=== PATIENT | male | born 1970 | race Caucasian/White ===

== ENCOUNTER 2017-11-11 06:24 | Inpatient (IN) | payer MEDICARE, SELFPAY ==
[2017-11-11] VITALS (12 sets, daily range): BP systolic 114–136; BP diastolic 85–108; PULSE 84–98; RESP 16–26; TEMP 36.3–36.5; O2SAT 94–100; BMI 22.4; BMI 21.9; BMI 22.5
--- NOTE | 2017-11-11 06:30 | EKG12_ITS ---
Test Reason : GEN ILLNESS Blood Pressure : / mmHG Vent. Rate : 094 BPM Atrial Rate : 094 BPM P-R Int : 146 ms QRS Dur : 164 ms QT Int : 428 ms P-R-T Axes : 055 260 050 degrees QTc Int : 535 ms Atrial-sensed ventricular-paced rhythm Abnormal ECG Confirmed by MIREILLE PABLO, TONYA ([id number]), editorial clerk SONIYA ALEGRIA ([id number]) on 11/14/2017 2:56:33 PM Referred By: ANDRESSA Confirmed By:TONYA KENDRICK MD
--- NOTE | 2017-11-11 06:30 | RAD_ITS ---
STUDY: X-RAY CHEST REASON FOR EXAM: Male, 47 years old. Cough TECHNIQUE: Single frontal view of the chest. COMPARISON: 07/13/2015 FINDINGS: Pacemaker defibrillator on the right. Right basilar alveolar disease. There is no demonstrated pleural abnormality. There is mild cardiac enlargement. Normal mediastinum and caleb. Normal visualized pulmonary arteries. Normal visualized aortic arch and descending thoracic aorta. Normal visualized thoracic spine. Normal visualized ribs, clavicles, and shoulders. There is no demonstrated abnormality of the visualized soft tissue structures of the upper abdomen. RAD/Chest 1 View (Portable) IMPRESSION: Right basilar alveolar disease. Electronically Signed: Chadd Marks MD at 7:02 EDT Tel , Service support ,
--- NOTE | 2017-11-11 06:32 | ED.VISSUMM ---
- ER Visit Summary Date of Service: 11/11/17 Chief Complaint: weakness History of Present Illness: The patient is a 47 M with history of pacemaker, atrial fibrillation, myocardial infarction, heart failure, hypertension and cholecystectomy who presents for weakness for 2 weeks. Patient states he has been having extreme weakness gradually worsening over the last 2 weeks, with 1 week of hematemesis, hemoptysis, blood in his stool, and now leg swelling. He has associated abdominal pain, vomiting, severe right lower chest pain, shortness of breath, cough and panic attacks. Patient was evaluated at [facility] 3 days ago and states that he was sent home. He denies any drug or alcohol use. Denies history of liver disease but does state his organs shut down but then came back during a prior hospitalization. He does not know why he is having bleeding. Physical Examination: Vital signs: afebrile, hemodynamically stable, no hypoxia on room air General: Cachectic and unkempt appearing, appears unwell and anxious Skin: Pale, moist, no lesions or rashes HEENT: normocephalic and atraumatic; PERRL, EOMI, dry mucous membranes, mild scleral icterus, no blood noted in oropharynx Cardiovascular: Tachycardic rate and rhythm without murmurs, 2+ pitting symmetric peripheral edema, 2+ pulses all distal extremities Respiratory: Mild increased work of breathing, no rales, rhonchi or wheezing appreciated Abdominal: Abdomen is soft, diffusely tender, with normoactive bowel sounds, no guarding or rebound, no masses, no organomegaly noted, rectal exam showed brown stool, no blood noted MSK: Moves all extremities, no deformities, generalized weakness Neuro: Awake and alert, oriented ?4. No facial droop, sensation and motor function intact and symmetric Test Results: [] Emergency Department Course and Treatment: Patient presents with multiple complaints, including generalized weakness, right sided chest pain, abdominal pain, GI bleed, and states that this is been progressing over the last 2 weeks. After further questioning, patient states that he has had worsening symptoms since his mother in May of last year and he has no one to help him, with gradual worsening feeling of being overwhelmed. He is having difficulty giving a timeline of what symptoms are chronic and what is acute, but he states his chest pain is much worse than normal and the bleeding is also new. Given the multiple complaints with differential including cardiac, infectious, metabolic, tox or gastrointestinal origin, broad workup was performed. Patient was given morphine, Zofran for symptomatic relief and Protonix for the reported hematemesis. He was given IV hydration. CBC showed leukocytosis of 15.7. Hemoglobin was elevated at 16.7. EKG showed a paced rhythm with no ischemic changes per sgarbossa criteria. It is unchanged compared to a prior EKG obtained from [facility]. Chest x-ray, BMP, hepatic panel, troponin pending. Records were obtained from [facility] from 11/05/17 where patient presented with similar symptoms to today. They note he had stopped taking his medications over 1 month ago. Patient was treated with Vasotec, Lopressor and Protonix at that time. He had workup concerning for heart failure. At that time patient's troponin was normal, he had ALT of 137, and a chest x-ray showing no pulmonary findings. Troponin back elevated at 0.25, lactate elevated at 2. Patient has transaminitis, worse than his prior labs at [facility] 1 week ago. Leukocytosis of 15.7. Chest x-ray showed right lower alveolar disease, concerning for possible alveolar hemorrhage vs pneumonia. Patient did not have any hemoptysis in the emergency department, despite frequent coughing, that would be concerning for alveolar hemorrhage. Because of the leukocytosis, cough, complaint of right-sided chest pain, patient was started on treatment for pneumonia. Patient will require admission for further management of concern for pneumonia with sepsis, the elevated troponin and congestive heart failure, and the transaminitis, likely worsening of a chronic liver condition. Patient has no evidence of GI bleed. Patient discussed with Dr. Guardado and admitted. Treatment Plan: [] Disposition: Admission Impression: 1. Pneumonia 2. Sepsis 3. CHF 4. Elevated troponin 5. Transaminitis 6. Dyspnea This note was generated with [employer] dictation software. It may contain incorrect words, spelling, and punctuation that were not noted in review of the chart prior to signing ED Disposition - Plan for ED Patient: Chief Complaint: General Illness Referrals: [facility] Doctor,Out of [Primary Care Provider] -
[2017-11-11] MEDS: 0.9% Normal Saline 1,000 ML 1000 ML IV (06:51)
[2017-11-11] MEDS: Ondansetron 4 MG/2 ML Vial IV (06:52)
[2017-11-11 06:59] LABS: Absolute Lymphocyte Count 1.34 X10^3/ul (0.83-4.51); Absolute Neutrophil Count 12.8 X10^3/uL (2.0-7.7); Basophil# 0.01 X10^3/uL; Basophil% 0.1 % (0-1); Eosinophil# 0.01 X10^3/uL; Eosinophils% 0.1 % (0-5); Hematocrit 47.6 % (40-54); Hemoglobin 16.7 g/dl (13.0-16.5); Lymphocyte # 1.34 X10^3/ul (4.0); Lymphocyte % 8.6 % (19-41); Mean Corp Hgb Conc 35.1 g/gl (32-36); Mean Corpuscular Hgb 33.1 pg (27.0-32.0); Mean Corpuscular Volume 94.4 fL (80-94); Mean Platelet Vol. 9.9 fl (6.2-12.0); Monocyte# 1.43 X10^3/uL; Monocyte% 9.1 % (0-10); Neutrophil # 12.81 X10^3/uL (2.7-7.7); Neutrophil % 81.8 % (47-70); POSITIVE COUNT NO; POSITIVE DIFFERENTIAL NO; POSITIVE MORPHOLOGY NO; Platelet Count 172 K/mm3 (150-450); RBC Distribution Width SD 43.6 fl (35.1-43.9); Red Blood Count 5.04 M/mm3 (4.6-6.2); White Blood Count 15.7 K/mm3 (4.4-11.0)
[2017-11-11] MEDS: Morphine 4 MG/ML Syringe IV (07:03)
[2017-11-11 07:08] LABS: International Normalized Ratio 1.4; Prothrombin Time (Protime)PT. 16.8 SECONDS (11.7-14.9)
[2017-11-11 07:09] LABS: Partial Thromboplast Time 30.3 Seconds (24.1-36.2)
[2017-11-11 07:11] LABS: Bedside Glucose 124 mg/dL (70-110)
[2017-11-11 07:14] LABS: AST(SGOT) 198 U/L (15-37); Alanine Aminotransfer ALT/SGPT 426 U/L (16-61); Albumin, Serum 2.6 g/dL (3.2-5.0); Alkaline Phosphatase 448 U/L (45-117); Anion Gap 10 (5-15); BUN 36 mg/dL (7-18); BUN/Creat Ratio 30.8 RATIO (10-20); Bilirubin, Direct 0.43 mg/dL (0.00-0.30); Calcium,Total 9.2 mg/dL (8.5-10.1); Chloride 97 mmol/L (98-107); Creatinine, Serum 1.17 mg/dL (0.70-1.30); EST Glomerular Filtration Rate 70 mL/min (>60); Est Glom Filt Rate - Afr Amer 85 mL/min (>60); Estimated Creatinine Clearance 81.13 ml/min; Globulin 3.1 g/dL (2.2-4.2); Glucose 111 mg/dL (74-106); Lipase 101 U/L (73-393); Potassium 3.7 mmol/L (3.5-5.1); Protein, Total 5.7 g/dL (6.4-8.2); Sodium Level 133 mmol/L (136-145)
--- NOTE | 2017-11-11 07:15 | ED.RN ---
BEDSIDE REPORT. PT IS HYPERVENTILATING WHEN NURSING ENTERED ROOM. ENCOURAGED SLOW DEEP BREATHING. PT DIFFICULT TO REDIRECT IN WITH BREATHING. ONCE RELAXES AND STARTS TO FALL ASLEEP BREATHING SETTLES.
--- NOTE | 2017-11-11 07:18 | ED.RN ---
LACTIC 2.0. DR WILSON
--- NOTE | 2017-11-11 07:39 | ED.RN ---
PT STATES HE CAN NOT URINATE RIGHT NOW HE NEEDS A LITTLE MORE TIME. HAD ABOUT 500CC OF 1 LITER BOLUS, WILL TRY AFTER LITER IS COMPLETE.
--- NOTE | 2017-11-11 07:42 | NURSING ---
PCU CP, INDETERMINATE TROP, HEMOPTYSIS ASHELFAH
[2017-11-11] MEDS: HYDROmorphone 0.5 MG/0.5 ML SYRINGE IV (08:17)
--- NOTE | 2017-11-11 08:45 | ECHOD_ITS ---
Version 3 Reason For Study: CHF Procedure This was a 2D Doppler, Color Flow transthoracic echocardiogram. The exam was of adequate technical quality. Exam performed portable in patient room. Left Ventricle Severely dilated left ventricle. Severe segmental systolic dysfunction (see wall motion). The estimated ejection fraction is < 10 %. Unable to assess diastolic dysfunction. Anterio-Basal: Severely hypokinetic. Lateral-Basal: Severely Hypokinetic. Posterior-Basal: Severely hypokinetic. Infero-Basal: Akinetic. Basal inferoseptal: Akinetic. Basal anteroseptal: Akinetic. Mid-Anterior : Akinetic. Mid-Lateral : Severely Hypokinetic. Mid-Posterior: Severely Hypokinetic. Mid-Inferior: Akinetic. Mid-inferoseptal : Akinetic. Mid-anteroseptal : Akinetic. Anterior [place] : Akinetic. Inferior [place] : Akinetic. Lateral [place] : Severely Hypokinetic. Septal [place] : Akinetic. Right Ventricle Mildly dilated right ventricle. ICD or pacer leads identified within the right ventricle. Mild global right ventricular systolic dysfunction. Atria The left atrium is moderately enlarged. The right atrium is moderately enlarged. ICD or pacer leads identified within the right atrium. No doppler evidence for ASD. Mitral Valve There is no mitral annular calcification. Moderate papillary muscle dysfunction of the mitral valve. Moderate (2+) mitral valve insufficiency. Tricuspid Valve Normal tricuspid valve. Moderate (2+) tricuspid valve insufficiency. Right ventricular systolic pressure estimated to be 44 mmHg. Aortic Valve Trisinus/trileaflet aortic valve. Normal aortic valve. Pulmonic Valve The pulmonic valve is not well visualized. Trivial pulmonic valve insufficiency. Great Vessels Normal sized aortic root. Pericardium/Pleural No pericardial effusion. MMode/2D Measurements & Calculations LVIDd: 7.3 cm IVSd: 1.1 cm Ao root diam: 2.7 cm LVIDs: 6.9 cm LVPWd: 1.2 cm LA dimension: 4.1 cm RVDd: 5.0 cm FS: 4.4 % LAV(MOD-bp): 121.0 ml LA A4 area: 30.1 cm2 RA A4 area: 23.7 cm2 LAV(MOD-bp) Indexed: 61.6 ml/m2 LAV(MOD-sp2): 131.6 ml LAV(MOD-sp4): 111.4 ml Doppler Measurements & Calculations MV E max ember: 112.9 cm/sec Ao V2 max: 55.2 cm/sec LV V1 max: 46.0 cm/sec Ao max P.2 mmHg LV V1 max P.84 mmHg MR max ember: 453.7 cm/sec PA V2 max: 69.5 cm/sec PI end-d ember: 146.4 cm/sec MR max P.6 mmHg MR mean ember: 339.0 cm/sec MR mean P.4 mmHg MR VTI: 131.8 cm TR max ember: 267.4 cm/sec TR max P.6 mmHg Interpretation Summary Severely dilated left ventricle. Severe segmental systolic dysfunction (see wall motion). The estimated ejection fraction is < 10 %. Mildly dilated right ventricle. Mild global right ventricular systolic dysfunction. The left atrium is moderately enlarged. The right atrium is moderately enlarged. Moderate papillary muscle dysfunction of the mitral valve. Moderate (2+) mitral valve insufficiency. Moderate (2+) tricuspid valve insufficiency. Trivial pulmonic valve insufficiency. Right ventricular systolic pressure estimated to be 44 mmHg. Unable to assess diastolic dysfunction. ICD or pacer leads identified within the right atrium ICD or pacer leads identified within the right ventricle. Ordering Physician: Morris Guardado Referring Physician: OTD Performed By: Autumn James RDCS, RVT
--- NOTE | 2017-11-11 09:58 | PCM.HP.STD ---
Problem List (1) Anxiety Status: Chronic (2) Coronary artery disease Status: Chronic (3) Ischemic cardiomyopathy Status: Chronic (4) Status post placement of cardiac pacemaker Status: Chronic (5) S/P implantation of automatic cardioverter/defibrillator (AICD) Status: Chronic History of Present Illness Date of Admission: 11/11/17 Chief Complaint: Shortness of breath, weakness. The patient is a 47 year old M with past medical history as mentioned above presented to the emergency room because of shortness of breath and weakness. At this time, the patient is sleepy and lethargic but arousable. He is oriented ?3. He mentioned that his main presenting complaint was shortness of breath that has been going on for 2 weeks. He gets short of breath even at rest, aggravated by activity and somewhat relieved by rest. He complains of right chest pain underneath his defibrillator and he mentioned that has been going on for 2 weeks as well. He denies left-sided chest pain. He complains of coughing up and throwing up blood that started today. He reported dark stools but no bright red blood in the urine. Was not able to like consistent detailed history but rather giving multiple complaints. He mentioned that he has been not able to sleep for the last 3-4 days, having panic attacks and anxiety as well. He thinks that he will if he sleeps. Reportedly, he was evaluated at [facility] 3 days ago and he was discharged home. He had a history of CAD and according to him, he had no cardiac interventions including PCI or CABG. He had a history of congestive heart failure status post ICD and reportedly, he is noncompliant and does not take his medication at home. When I asked him about his medication, he was able to tell me the list of medication that he takes very quickly. He had a history of atrial fibrillation status post pacemaker and it is not clear if he is on any anticoagulation. In the emergency department, his vital signs were stable, he was slightly tachypneic and his pulse ox was initially 98% on room air and then 96% on 3 L. His routine blood work is remarkable for leukocytosis, sodium of 133, otherwise normal. His LFT were elevated including liver transaminases, bilirubin and alkaline phosphatase. His troponin is 0.257. His BNP was 3773. Lipase was normal. Lactic acid was normal. His EKG revealed paced rhythm. Chest x-ray showed minimal right basilar alveolar disease likely due to pulmonary vascular congestion. He is being admitted for acute on chronic probably systolic CHF, questionable hemoptysis/hematemesis, elevated LFT and borderline elevated troponin. Past Medical History Past Medical History (Chronic Problems): Chronic Problems Anxiety (Chronic) Coronary artery disease (Chronic) Ischemic cardiomyopathy (Chronic) Status post placement of cardiac pacemaker (Chronic) S/P implantation of automatic cardioverter/defibrillator (AICD) (Chronic) Allergies No Known Allergies Allergy (Verified 11/11/17 06:29) Home Medications: Ambulatory Orders Medication Instructions Recorded Unobtainable [Unobtainable] 11/11/17 Surgical History: cholecystectomy Psychiatric History: Anxiety Smoking Status: Current every day smoker Alcohol: None Drugs: None - *Family History Maternal History Items: No pertinent history Review of Systems Constitutional: Reports: Weakness, Fatigue. Denies: Anorexia, Chills, Fever Eyes: Denies: Blurred vision, Double vision, Drainage, Redness HEENT: Denies: Difficulty Hearing, Ear Pain, Eye Pain, Nasal Congestion, Sore Throat Cardiovascular: Reports: Chest Pain, Edema. Denies: Chest Pressure, Heaviness, Light Headedness, Orthopnea, Palpitations, Paroxysmal Noc. Dyspnea, Syncope Respiratory: Reports: Hemoptysis, Pleuritic Pain, Shortness of Breath, Shortness of breath at rest, Shortness of breath upon exertion. Denies: Cough, Sputum production, Wheezing Gastrointestinal: Reports: Hematemesis. Denies: Abdominal Pain, Constipation, Diarrhea, Nausea, Vomiting Genitourinary: Denies: Dysuria, Frequency, Hematuria Musculoskeletal: Denies: Arm Pain, Back Pain, Foot Pain, Joint swelling, Joint Tenderness Skin: Denies: Dryness, Rash Neurological: Denies: Balance problems, Double vision, Change in Speech, Slurred speech, Confusion, Focal weakness, Headaches, Incoordination Psychiatric: Reports: Anxiety. Denies: Depression Endocrine: Denies: Change in Body Habitus, Polydipsia VTE Information - Inpt Only VTE Present on Admission: No VTE Mechan Device Prophylaxis: None VTE Pharm Prophylaxis ordered?: No - Physical Exam General: Alert, Oriented x3, Cooperative, Lethargic, - - Mildly short of breath. HEENT: Atraumatic, PERRLA, EOMI Oral: Moist Mucosa, No Gingival or Mucosal Lesions/ Ulcerations Neck: Supple, No JVD, Negative Carotid Bruits, Trachea Midline, Thyroid Normal Size and Texture Lungs: No rhonchi, No wheeze, Diminished, Rales, Short of Breath, - - Decreased breath sounds bilateral, bilateral basal crackles. Cardiovascular: Regular rate, Regular Rhythm, Normal S1, Normal S2, PMI Normal Abdomen: Bowel Sounds Present, Soft, Non Tender, Non-Distended, No Hepato-splenomegaly Extremities: No clubbing, No cyanosis, Edema - + Edema. Skin: No rashes, No breakdown Lymphatic: No Cervical, Supraclavicular, or Inguinal Adenopathy Neurological: Cranial nerves II-XII grossly intact, Motor Exam 5/5 strength throughout Psych/Mental Status: Flat Affect, Alert and oriented to time, place, person, mood and affect Vital Signs Temp Pulse Resp BP Pulse Ox 97.5 F L 95 18 126/95 H 96 11/11/17 08:46 11/11/17 09:08 11/11/17 08:46 11/11/17 08:46 11/11/17 08:46 Oxygen Flow Rate (L/min) 3 Oxygen Delivery Method Nasal Cannula Weight: 166 lb 7.184 oz Body Mass Index (BMI) 21.9 Laboratory Tests Past 24 Hrs 11/11/17 09:45 Magnesium Pending Troponin I Pending TSH Pending Clinical Impression(s) from Imaging Studies Chest X-Ray 11/11/17 06:30 IMPRESSION: Right basilar alveolar disease. Electronically Signed: Chadd Marks MD at 7:02 EDT Tel , Service support , Microbiology 11/11/17 07:10 Stool Occult Blood (ISABEL) - Final Stool Laboratory Tests 11/11/17 11/11/17 11/11/17 Range/Units 07:07 06:40 06:40 WBC (4.4-11.0) K/mm3 RBC (4.6-6.2) M/mm3 Hgb (13.0-16.5) g/dl Hct (40-54) % MCV (80-94) fL MCH (27.0-32.0) pg MCHC (32-36) g/gl RDW (11.6-14.6) % RDW Differential (35.1-43.9) fl Plt Count (150-450) K/mm3 MPV (6.2-12.0) fl Immature Gran % (Auto) (0.0-0.9) % Neut % (Auto) (47-70) % Lymph % (Auto) (19-41) % [place] % (Auto) (0-10) % Eos % (Auto) (0-5) % Baso % (Auto) (0-1) % Absolute Neuts (auto) (2.0-7.7) X10^3/uL Absolute Lymphs (auto) (0.83-4.51) X10^3/ul Total Counted PT (11.7-14.9) SECONDS INR APTT (24.1-36.2) Seconds Sodium (136-145) mmol/L Potassium (3.5-5.1) mmol/L Chloride (98-107) mmol/L Carbon Dioxide (21.0-32.0) mmol/L Anion Gap (5-15) BUN (7-18) mg/dL Creatinine (0.70-1.30) mg/dL Estim Creat Clear Calc ml/min Est GFR (MDRD) Af Amer (>60) mL/min Est GFR (MDRD) Non-Af (>60) mL/min BUN/Creatinine Ratio (10-20) RATIO Glucose (74-106) mg/dL Lactic Acid 2.0 (0.4-2.0) mmol/L Calcium (8.5-10.1) mg/dL Total Bilirubin (0.20-1.00) mg/dL Direct Bilirubin (0.00-0.30) mg/dL AST (15-37) U/L ALT (16-61) U/L Alkaline Phosphatase (45-117) U/L Troponin I (<0.045) ng/mL B-Natriuretic Peptide 3773.0 H (0-100) pg/mL Total Protein (6.4-8.2) g/dL Albumin (3.2-5.0) g/dL Globulin (2.2-4.2) g/dL Lipase (73-393) U/L Ethyl Alcohol mg/dL POC Glucose 124 H (70-110) mg/dL Blood Type A1 Antigen Typing Rho(D) Type Antibody Screen 11/11/17 11/11/17 11/11/17 Range/Units 06:35 06:35 06:35 WBC (4.4-11.0) K/mm3 RBC (4.6-6.2) M/mm3 Hgb (13.0-16.5) g/dl Hct (40-54) % MCV (80-94) fL MCH (27.0-32.0) pg MCHC (32-36) g/gl RDW (11.6-14.6) % RDW Differential (35.1-43.9) fl Plt Count (150-450) K/mm3 MPV (6.2-12.0) fl Immature Gran % (Auto) (0.0-0.9) % Neut % (Auto) (47-70) % Lymph % (Auto) (19-41) % [place] % (Auto) (0-10) % Eos % (Auto) (0-5) % Baso % (Auto) (0-1) % Absolute Neuts (auto) (2.0-7.7) X10^3/uL Absolute Lymphs (auto) (0.83-4.51) X10^3/ul Total Counted PT (11.7-14.9) SECONDS INR APTT (24.1-36.2) Seconds Sodium 133 L (136-145) mmol/L Potassium 3.7 (3.5-5.1) mmol/L Chloride 97 L (98-107) mmol/L Carbon Dioxide 26.0 (21.0-32.0) mmol/L Anion Gap 10 (5-15) BUN 36 H (7-18) mg/dL Creatinine 1.17 (0.70-1.30) mg/dL Estim Creat Clear Calc 81.13 ml/min Est GFR (MDRD) Af Amer 85 (>60) mL/min Est GFR (MDRD) Non-Af 70 (>60) mL/min BUN/Creatinine Ratio 30.8 H (10-20) RATIO Glucose 111 H (74-106) mg/dL Lactic Acid (0.4-2.0) mmol/L Calcium 9.2 (8.5-10.1) mg/dL Total Bilirubin 1.30 H (0.20-1.00) mg/dL Direct Bilirubin 0.43 H (0.00-0.30) mg/dL AST 198 H (15-37) U/L ALT 426 H (16-61) U/L Alkaline Phosphatase 448 H (45-117) U/L Troponin I 0.257 H (<0.045) ng/mL B-Natriuretic Peptide (0-100) pg/mL Total Protein 5.7 L (6.4-8.2) g/dL Albumin 2.6 L (3.2-5.0) g/dL Globulin 3.1 (2.2-4.2) g/dL Lipase 101 (73-393) U/L Ethyl Alcohol 4.0 mg/dL POC Glucose (70-110) mg/dL Blood Type Cancelled A1 Antigen Typing Cancelled Rho(D) Type Cancelled Antibody Screen Cancelled 11/11/17 11/11/17 Range/Units 06:35 06:35 WBC 15.7 H (4.4-11.0) K/mm3 RBC 5.04 (4.6-6.2) M/mm3 Hgb 16.7 H (13.0-16.5) g/dl Hct 47.6 (40-54) % MCV 94.4 H (80-94) fL MCH 33.1 H (27.0-32.0) pg MCHC 35.1 (32-36) g/gl RDW 13.0 (11.6-14.6) % RDW Differential 43.6 (35.1-43.9) fl Plt Count 172 (150-450) K/mm3 MPV 9.9 (6.2-12.0) fl Immature Gran % (Auto) 0.300 (0.0-0.9) % Neut % (Auto) 81.8 H (47-70) % Lymph % (Auto) 8.6 L (19-41) % [place] % (Auto) 9.1 (0-10) % Eos % (Auto) 0.1 (0-5) % Baso % (Auto) 0.1 (0-1) % Absolute Neuts (auto) 12.8 H (2.0-7.7) X10^3/uL Absolute Lymphs (auto) 1.34 (0.83-4.51) X10^3/ul Total Counted Not Reportable PT 16.8 H (11.7-14.9) SECONDS INR 1.4 APTT 30.3 (24.1-36.2) Seconds Sodium (136-145) mmol/L Potassium (3.5-5.1) mmol/L Chloride (98-107) mmol/L Carbon Dioxide (21.0-32.0) mmol/L Anion Gap (5-15) BUN (7-18) mg/dL Creatinine (0.70-1.30) mg/dL Estim Creat Clear Calc ml/min Est GFR (MDRD) Af Amer (>60) mL/min Est GFR (MDRD) Non-Af (>60) mL/min BUN/Creatinine Ratio (10-20) RATIO Glucose (74-106) mg/dL Lactic Acid (0.4-2.0) mmol/L Calcium (8.5-10.1) mg/dL Total Bilirubin (0.20-1.00) mg/dL Direct Bilirubin (0.00-0.30) mg/dL AST (15-37) U/L ALT (16-61) U/L Alkaline Phosphatase (45-117) U/L Troponin I (<0.045) ng/mL B-Natriuretic Peptide (0-100) pg/mL Total Protein (6.4-8.2) g/dL Albumin (3.2-5.0) g/dL Globulin (2.2-4.2) g/dL Lipase (73-393) U/L Ethyl Alcohol mg/dL POC Glucose (70-110) mg/dL Blood Type A1 Antigen Typing Rho(D) Type Antibody Screen Assessment/Plan This is a 47 years old male patient presented to the emergency room because of multiple complaints but mainly with shortness of breath and weakness and he was found to have findings consistent with acute on chronic systolic CHF including elevated BNP and chest x-ray findings. Also, he complained of hemoptysis and hematemesis although there was no evidence of active GI bleed. #1 acute on chronic systolic CHF: This is based on symptoms, chest x-ray findings, past history and highly elevated BNP. EKG reviewed, revealed paced rhythm. Troponin is 0.257. Patient complained of right lateral chest pain. Plan: Admit to PCU, cardiac monitoring, serial cardiac enzymes, fluid restriction to less than 1500 cc daily, start IV Lasix, 2D echocardiogram, start Coreg, lisinopril, cardiology consult, repeat CBC and BMP tomorrow morning, PT OT evaluation and treatment. #2 leukocytosis/elevated lactic acid: At this time, I doubt acute infection. Lactic acid is elevated likely because of hypoxia and CHF. He is afebrile. Chest x-ray showed no acute infiltrate, revealed a right lower lobe atelectasis versus pulmonary vascular congestion. Received 1 dose of IV Rocephin in the emergency room. Blood culture sent. Plan: Urinalysis, repeat lactic acid and another 6 hours, follow blood cultures, repeat CBC tomorrow morning. At this time, no indication to continue IV antibiotics. #3 questionable hematemesis/hemoptysis: Patient reported that he has been coughing up blood and throwing up blood. His stool was negative for occult blood. Hemoglobin 16.7 g with serum. He is not tachycardic. Plan: Start IV Protonix, repeat CBC in the morning. #4 chest pain/elevated troponin: He complains of right lateral chest pain underneath his ICD. EKG revealed paced rhythm, no acute changes. 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 #5 elevated LFT: This could be due to liver congestion secondary to CHF. Other etiology such as infectious hepatitis, be ruled out. Plan to treat underlying CHF, repeat LFTs tomorrow morning. #6 CAD: According to the patient, no prior interventions. Plan as above, we will start him on statins, beta blockers and RADHA inhibitors as above. #7 chronic CHF/ischemic cardiomyopathy/status post ICD: With acute exacerbation of CHF. Plan as above, IV Lasix for diuresis, beta blockers, RADHA inhibitors, cardiology consult, the echocardiogram. #8 chronic atrial fibrillation: Status post pacemaker. Heart rate stable, blood pressure stable. At this time, I am not sure if patient is on anticoagulation. I am waiting for his home medication list to be faxed from his pharmacy or his PCPs office. #9 anxiety: Patient mentioned that he has been anxiety and panic attacks. He thinks that he would if he sleeps. He did not sleep for last 3 days. Plan: Ativan as needed, Ambien nightly as needed. #10 DVT prophylaxis: SCDs. This note was generated with [employer] software. It may contain incorrect words, spelling, and punctuation that were not noted in checking the note before signing. Code Visit Inpatient E&M: 41573 Init Hosp L3
--- NOTE | 2017-11-11 10:07 | HP.PCM_ITS ---
Problem List (1) Anxiety Status: Chronic (2) Coronary artery disease Status: Chronic (3) Ischemic cardiomyopathy Status: Chronic (4) Status post placement of cardiac pacemaker Status: Chronic (5) S/P implantation of automatic cardioverter/defibrillator (AICD) Status: Chronic History of Present Illness Date of Admission: 11/11/17 Chief Complaint: Shortness of breath, weakness. The patient is a 47 year old M with past medical history as mentioned above presented to the emergency room because of shortness of breath and weakness. At this time, the patient is sleepy and lethargic but arousable. He is oriented ?3. He mentioned that his main presenting complaint was shortness of breath that has been going on for 2 weeks. He gets short of breath even at rest , aggravated by activity and somewhat relieved by rest. He complains of right chest pain underneath his defibrillator and he mentioned that has been going on for 2 weeks as well. He denies left-sided chest pain. He complains of coughing up and throwing up blood that started today. He reported dark stools but no bright red blood in the urine. Was not able to like consistent detailed history but rather giving multiple complaints. He mentioned that he has been not able to sleep for the last 3-4 days, having panic attacks and anxiety as well. He thinks that he will if he sleeps. Reportedly, he was evaluated at [facility] 3 days ago and he was discharged home. He had a history of CAD and according to him, he had no cardiac interventions including PCI or CABG. He had a history of congestive heart failure status post ICD and reportedly, he is noncompliant and does not take his medication at home. When I asked him about his medication, he was able to tell me the list of medication that he takes very quickly. He had a history of atrial fibrillation status post pacemaker and it is not clear if he is on any anticoagulation. In the emergency department, his vital signs were stable, he was slightly tachypneic and his pulse ox was initially 98% on room air and then 96% on 3 L. His routine blood work is remarkable for leukocytosis, sodium of 133, otherwise normal. His LFT were elevated including liver transaminases, bilirubin and alkaline phosphatase. His troponin is 0.257. His BNP was 3773. Lipase was normal. Lactic acid was normal. His EKG revealed paced rhythm. Chest x-ray showed minimal right basilar alveolar disease likely due to pulmonary vascular congestion. He is being admitted for acute on chronic probably systolic CHF, questionable hemoptysis/hematemesis, elevated LFT and borderline elevated troponin. Past Medical History Past Medical History (Chronic Problems): Chronic Problems Anxiety (Chronic) Coronary artery disease (Chronic) Ischemic cardiomyopathy (Chronic) Status post placement of cardiac pacemaker (Chronic) S/P implantation of automatic cardioverter/defibrillator (AICD) (Chronic) Allergies No Known Allergies Allergy (Verified 11/11/17 06:29) Home Medications: Ambulatory Orders Medication Instructions Recorded Unobtainable [Unobtainable] 11/11/17 Surgical History: cholecystectomy Psychiatric History: Anxiety Smoking Status: Current every day smoker Alcohol: None Drugs: None - *Family History Maternal History Items: No pertinent history Review of Systems Constitutional: Reports: Weakness, Fatigue. Denies: Anorexia, Chills, Fever Eyes: Denies: Blurred vision, Double vision, Drainage, Redness HEENT: Denies: Difficulty Hearing, Ear Pain, Eye Pain, Nasal Congestion, Sore Throat Cardiovascular: Reports: Chest Pain, Edema. Denies: Chest Pressure, Heaviness, Light Headedness, Orthopnea, Palpitations, Paroxysmal Noc. Dyspnea, Syncope Respiratory: Reports: Hemoptysis, Pleuritic Pain, Shortness of Breath, Shortness of breath at rest, Shortness of breath upon exertion. Denies: Cough, Sputum production, Wheezing Gastrointestinal: Reports: Hematemesis. Denies: Abdominal Pain, Constipation, Diarrhea, Nausea, Vomiting Genitourinary: Denies: Dysuria, Frequency, Hematuria Musculoskeletal: Denies: Arm Pain, Back Pain, Foot Pain, Joint swelling, Joint Tenderness Skin: Denies: Dryness, Rash Neurological: Denies: Balance problems, Double vision, Change in Speech, Slurred speech, Confusion, Focal weakness, Headaches, Incoordination Psychiatric: Reports: Anxiety. Denies: Depression Endocrine: Denies: Change in Body Habitus, Polydipsia VTE Information - Inpt Only VTE Present on Admission: No VTE Mechan Device Prophylaxis: None VTE Pharm Prophylaxis ordered?: No - Physical Exam General: Alert, Oriented x3, Cooperative, Lethargic, - - Mildly short of breath. HEENT: Atraumatic, PERRLA, EOMI Oral: Moist Mucosa, No Gingival or Mucosal Lesions/ Ulcerations Neck: Supple, No JVD, Negative Carotid Bruits, Trachea Midline, Thyroid Normal Size and Texture Lungs: No rhonchi, No wheeze, Diminished, Rales, Short of Breath, - - Decreased breath sounds bilateral, bilateral basal crackles. Cardiovascular: Regular rate, Regular Rhythm, Normal S1, Normal S2, PMI Normal Abdomen: Bowel Sounds Present, Soft, Non Tender, Non-Distended, No Hepato- splenomegaly Extremities: No clubbing, No cyanosis, Edema - + Edema. Skin: No rashes, No breakdown Lymphatic: No Cervical, Supraclavicular, or Inguinal Adenopathy Neurological: Cranial nerves II-XII grossly intact, Motor Exam 5/5 strength throughout Psych/Mental Status: Flat Affect, Alert and oriented to time, place, person, mood and affect Vital Signs Temp Pulse Resp BP Pulse Ox 97.5 F L 95 18 126/95 H 96 11/11/17 08:46 11/11/17 09:08 11/11/17 08:46 11/11/17 08:46 11/11/17 08:46 Oxygen Flow Rate (L/min) 3 Oxygen Delivery Method Nasal Cannula Weight: 166 lb 7.184 oz Body Mass Index (BMI) 21.9 Laboratory Tests Past 24 Hrs 11/11/17 09:45 Magnesium Pending Troponin I Pending TSH Pending Clinical Impression(s) from Imaging Studies Chest X-Ray 11/11/17 06:30 IMPRESSION: Right basilar alveolar disease. Electronically Signed: Chadd Marks MD at 7:02 EDT Tel , Service support , Microbiology 11/11/17 07:10 Stool Occult Blood (ISABEL) - Final Stool Laboratory Tests 3 11/11/17 11/11/17 11/11/17 Range/Units 07:07 06:40 06:40 WBC (4.4-11.0) K/mm3 RBC (4.6-6.2) M/mm3 Hgb (13.0-16.5) g/dl Hct (40-54) % MCV (80-94) fL MCH (27.0-32.0) pg MCHC (32-36) g/gl RDW (11.6-14.6) % RDW Differential (35.1-43.9) fl Plt Count (150-450) K/mm3 MPV (6.2-12.0) fl Immature Gran % (Auto) (0.0-0.9) % Neut % (Auto) (47-70) % Lymph % (Auto) (19-41) % [place] % (Auto) (0-10) % Eos % (Auto) (0-5) % Baso % (Auto) (0-1) % Absolute Neuts (auto) (2.0-7.7) X10^3/uL Absolute Lymphs (auto) (0.83-4.51) X10^3/ul Total Counted PT (11.7-14.9) SECONDS INR APTT (24.1-36.2) Seconds Sodium (136-145) mmol/L Potassium (3.5-5.1) mmol/L Chloride (98-107) mmol/L Carbon Dioxide (21.0-32.0) mmol/L Anion Gap (5-15) BUN (7-18) mg/dL Creatinine (0.70-1.30) mg/dL Estim Creat Clear Calc ml/min Est GFR (MDRD) Af Amer (>60) mL/min Est GFR (MDRD) Non-Af (>60) mL/min BUN/Creatinine Ratio (10-20) RATIO Glucose (74-106) mg/dL Lactic Acid 2.0 (0.4-2.0) mmol/L Calcium (8.5-10.1) mg/dL Total Bilirubin (0.20-1.00) mg/dL Direct Bilirubin (0.00-0.30) mg/dL AST (15-37) U/L ALT (16-61) U/L Alkaline Phosphatase (45-117) U/L Troponin I (<0.045) ng/mL B-Natriuretic Peptide 3773.0 H (0-100) pg/mL Total Protein (6.4-8.2) g/dL Albumin (3.2-5.0) g/dL Globulin (2.2-4.2) g/dL Lipase (73-393) U/L Ethyl Alcohol mg/dL POC Glucose 124 H (70-110) mg/dL Blood Type A1 Antigen Typing Rho(D) Type Antibody Screen 3 11/11/17 11/11/17 11/11/17 Range/Units 06:35 06:35 06:35 WBC (4.4-11.0) K/mm3 RBC (4.6-6.2) M/mm3 Hgb (13.0-16.5) g/dl Hct (40-54) % MCV (80-94) fL MCH (27.0-32.0) pg MCHC (32-36) g/gl RDW (11.6-14.6) % RDW Differential (35.1-43.9) fl Plt Count (150-450) K/mm3 MPV (6.2-12.0) fl Immature Gran % (Auto) (0.0-0.9) % Neut % (Auto) (47-70) % Lymph % (Auto) (19-41) % [place] % (Auto) (0-10) % Eos % (Auto) (0-5) % Baso % (Auto) (0-1) % Absolute Neuts (auto) (2.0-7.7) X10^3/uL Absolute Lymphs (auto) (0.83-4.51) X10^3/ul Total Counted PT (11.7-14.9) SECONDS INR APTT (24.1-36.2) Seconds Sodium 133 L (136-145) mmol/L Potassium 3.7 (3.5-5.1) mmol/L Chloride 97 L (98-107) mmol/L Carbon Dioxide 26.0 (21.0-32.0) mmol/L Anion Gap 10 (5-15) BUN 36 H (7-18) mg/dL Creatinine 1.17 (0.70-1.30) mg/dL Estim Creat Clear Calc 81.13 ml/min Est GFR (MDRD) Af Amer 85 (>60) mL/min Est GFR (MDRD) Non-Af 70 (>60) mL/min BUN/Creatinine Ratio 30.8 H (10-20) RATIO Glucose 111 H (74-106) mg/dL Lactic Acid (0.4-2.0) mmol/L Calcium 9.2 (8.5-10.1) mg/dL Total Bilirubin 1.30 H (0.20-1.00) mg/dL Direct Bilirubin 0.43 H (0.00-0.30) mg/dL AST 198 H (15-37) U/L ALT 426 H (16-61) U/L Alkaline Phosphatase 448 H (45-117) U/L Troponin I 0.257 H (<0.045) ng/mL B-Natriuretic Peptide (0-100) pg/mL Total Protein 5.7 L (6.4-8.2) g/dL Albumin 2.6 L (3.2-5.0) g/dL Globulin 3.1 (2.2-4.2) g/dL Lipase 101 (73-393) U/L Ethyl Alcohol 4.0 mg/dL POC Glucose (70-110) mg/dL Blood Type Cancelled A1 Antigen Typing Cancelled Rho(D) Type Cancelled Antibody Screen Cancelled 3 11/11/17 11/11/17 Range/Units 06:35 06:35 WBC 15.7 H (4.4-11.0) K/mm3 RBC 5.04 (4.6-6.2) M/mm3 Hgb 16.7 H (13.0-16.5) g/dl Hct 47.6 (40-54) % MCV 94.4 H (80-94) fL MCH 33.1 H (27.0-32.0) pg MCHC 35.1 (32-36) g/gl RDW 13.0 (11.6-14.6) % RDW Differential 43.6 (35.1-43.9) fl Plt Count 172 (150-450) K/mm3 MPV 9.9 (6.2-12.0) fl Immature Gran % (Auto) 0.300 (0.0-0.9) % Neut % (Auto) 81.8 H (47-70) % Lymph % (Auto) 8.6 L (19-41) % [place] % (Auto) 9.1 (0-10) % Eos % (Auto) 0.1 (0-5) % Baso % (Auto) 0.1 (0-1) % Absolute Neuts (auto) 12.8 H (2.0-7.7) X10^3/uL Absolute Lymphs (auto) 1.34 (0.83-4.51) X10^3/ul Total Counted Not Reportable PT 16.8 H (11.7-14.9) SECONDS INR 1.4 APTT 30.3 (24.1-36.2) Seconds Sodium (136-145) mmol/L Potassium (3.5-5.1) mmol/L Chloride (98-107) mmol/L Carbon Dioxide (21.0-32.0) mmol/L Anion Gap (5-15) BUN (7-18) mg/dL Creatinine (0.70-1.30) mg/dL Estim Creat Clear Calc ml/min Est GFR (MDRD) Af Amer (>60) mL/min Est GFR (MDRD) Non-Af (>60) mL/min BUN/Creatinine Ratio (10-20) RATIO Glucose (74-106) mg/dL Lactic Acid (0.4-2.0) mmol/L Calcium (8.5-10.1) mg/dL Total Bilirubin (0.20-1.00) mg/dL Direct Bilirubin (0.00-0.30) mg/dL AST (15-37) U/L ALT (16-61) U/L Alkaline Phosphatase (45-117) U/L Troponin I (<0.045) ng/mL B-Natriuretic Peptide (0-100) pg/mL Total Protein (6.4-8.2) g/dL Albumin (3.2-5.0) g/dL Globulin (2.2-4.2) g/dL Lipase (73-393) U/L Ethyl Alcohol mg/dL POC Glucose (70-110) mg/dL Blood Type A1 Antigen Typing Rho(D) Type Antibody Screen Assessment/Plan This is a 47 years old male patient presented to the emergency room because of multiple complaints but mainly with shortness of breath and weakness and he was found to have findings consistent with acute on chronic systolic CHF including elevated BNP and chest x-ray findings. Also, he complained of hemoptysis and hematemesis although there was no evidence of active GI bleed. #1 acute on chronic systolic CHF: This is based on symptoms, chest x-ray findings, past history and highly elevated BNP. EKG reviewed, revealed paced rhythm. Troponin is 0.257. Patient complained of right lateral chest pain. Plan: Admit to PCU, cardiac monitoring, serial cardiac enzymes, fluid restriction to less than 1500 cc daily, start IV Lasix, 2D echocardiogram, start Coreg, lisinopril, cardiology consult, repeat CBC and BMP tomorrow morning , PT OT evaluation and treatment. #2 leukocytosis/elevated lactic acid: At this time, I doubt acute infection. Lactic acid is elevated likely because of hypoxia and CHF. He is afebrile. Chest x-ray showed no acute infiltrate, revealed a right lower lobe atelectasis versus pulmonary vascular congestion. Received 1 dose of IV Rocephin in the emergency room. Blood culture sent. Plan: Urinalysis, repeat lactic acid and another 6 hours, follow blood cultures, repeat CBC tomorrow morning. At this time, no indication to continue IV antibiotics. #3 questionable hematemesis/hemoptysis: Patient reported that he has been coughing up blood and throwing up blood. His stool was negative for occult blood. Hemoglobin 16.7 g with serum. He is not tachycardic. Plan: Start IV Protonix, repeat CBC in the morning. #4 chest pain/elevated troponin: He complains of right lateral chest pain underneath his ICD. EKG revealed paced rhythm, no acute changes. Plan: shelter monitor, serial cardiac enzymes, 2D program, cardiology consult. #5 elevated LFT: This could be due to liver congestion secondary to CHF. Other etiology such as infectious hepatitis, be ruled out. Plan to treat underlying CHF, repeat LFTs tomorrow morning. #6 CAD: According to the patient, no prior interventions. Plan as above, we will start him on statins, beta blockers and RADHA inhibitors as above. #7 chronic CHF/ischemic cardiomyopathy/status post ICD: With acute exacerbation of CHF. Plan as above, IV Lasix for diuresis, beta blockers, RADHA inhibitors, cardiology consult, the echocardiogram. #8 chronic atrial fibrillation: Status post pacemaker. Heart rate stable, blood pressure stable. At this time, I am not sure if patient is on anticoagulation. I am waiting for his home medication list to be faxed from his pharmacy or his PCPs office. #9 anxiety: Patient mentioned that he has been anxiety and panic attacks. He thinks that he would if he sleeps. He did not sleep for last 3 days. Plan : Ativan as needed, Ambien nightly as needed. #10 DVT prophylaxis: SCDs. This note was generated with [employer] software. It may contain incorrect words, spelling, and punctuation that were not noted in checking the note before signing. Code Visit Inpatient E&M: 74135 Init Hosp L3
[2017-11-11] MEDS: Furosemide 40 MG/4 ML Vial IV ×3 (10:25→21:57)
[2017-11-11 10:46] LABS: Reflex Lactate? Y
[2017-11-11 10:47] LABS: Magnesium 1.7 mg/dL (1.6-2.6); Thyroid Stim Hormone (TSH) 3.91 uIU/mL (0.358-3.74)
[2017-11-11 11:46] LABS: Lactic Acid 2.8 mmol/L (0.4-2.0)
[2017-11-11 13:49] LABS: Free T3 1.1 pg/mL (2.18-3.98); T4 Free Direct 1.17 ng/dL (0.76-1.46)
[2017-11-11] MEDS: Acetaminophen 325 MG Tablet 650 MG PO ×2 (14:35→23:01)
[2017-11-11 14:36] LABS: Bedside Glucose 145 mg/dL (70-110)
[2017-11-11 14:50] LABS: Mucous, Urine 0 SEEN /hpf (<or=2+); Squamous Epithelial Cells - UA 0 SEEN /hpf (0-5)
[2017-11-11 14:53] LABS: Color, Urine Yellow (Yellow); Glucose, Dipstick Normal (Normal); Ketone-Dipstick Negative (Negative); Leukocyte Esterase-Dipstick 25 /ul (Negative); Nitrite-Dipstick Negative (Negative); Occult Blood-Urine 10 /ul (Negative); Protein-Dipstick 100 mg/dl (Negative); Specific Gravity, Urine 1.015 (1.002-1.030); Urine Bilirubin Dipstick Negative (Negative); Urine Clarity Sl. Cloudy (Clear); Urine Urobilinogen 1 mg/dl (Normal)
[2017-11-11 14:59] LABS: Bacteria 1+ /hpf (None Seen); Hyaline Cast 0-5 SEEN /lpf (0-5); Red Blood Cells-Urine 0-5 SEEN /hpf (0-5); White Blood Cells 0-5 SEEN /hpf (0-5)
[2017-11-11 15:02] LABS: Amphetamine Urine VISTA NEGATIVE (<1000 ng/mL); Barbiturate Urine VISTA NEGATIVE (< 200 ng/mL); Benzodiazepine Urine VISTA POSITIVE (< 200 ng/mL); Cocaine Urine VISTA POSITIVE (< 300 ng/mL); Ecstacy Urine VISTA NEGATIVE (< 500 ng/mL); Methadone Urine VISTA NEGATIVE (< 300 ng/mL); PCP Urine VISTA NEGATIVE (< 25 ng/mL); THC Urine VISTA POSITIVE (< 50 ng/mL); Vista UDS pH Range 6
--- NOTE | 2017-11-11 16:02 | PCM.CONS.C ---
Problem List (1) Abnormal cardiac enzyme level Status: Acute (2) CHF (congestive heart failure) Status: Acute Qualifiers: Heart failure chronicity: acute on chronic (3) Cardiomyopathy Status: Chronic Qualifiers: Cardiomyopathy type: unspecified Qualified Code(s): I42.9 - Cardiomyopathy, unspecified (4) Valvular disease Status: Chronic (5) S/P implantation of automatic cardioverter/defibrillator (AICD) Status: Chronic (6) Abnormal LFTs (liver function tests) Status: Acute (7) Hemoptysis Status: Acute Reason for Consult Date of Consultation: 11/11/17 History of Present Illness: The patient is a 47 year old white male with a past medical history of a non-CAD related cardiomyopathy, CHF, cardiac murmur/valvular heart disease, status post biventricular ICD/HOUSE BUILDER therapy, who presents for evaluation of multiple concerns including shortness of breath/dyspnea, orthopnea, peripheral pitting edema of the lower extremities, fatigue, and hemoptysis. The patient states he has not had outpatient cardiovascular follow-up with his primary plodder operator in [place], [place], for quite some time. He states he has been off of his medications for quite some time. Recently he has noted the aforementioned concerns. He states he presented to the emergency department in [place], [place]. He underwent evaluation care and was recommended to have outpatient cardiovascular follow-up and gastrointestinal follow-up. In the interim he presented to [facility] for ongoing symptoms. He has denied ongoing chest discomfort. He relates the aforementioned symptoms of shortness of breath/dyspnea, orthopnea, peripheral pitting edema involving the ankle and pedal areas, as well as fatigue. He states he has been coughing up blood and demonstrates in his bedside sputum basin samples of what appears to be blood-tinged sputum. He has denied any near-syncope or syncope. He has denied any ICD discharges. He was evaluated. He has had indeterminate troponin I levels. He has had an elevated BNP level. His hepatic transaminases have been elevated. He had an ECG performed which demonstrated an underlying electronic ventricular paced rhythm. He had a transthoracic echocardiogram performed. His ventricle was thought to be severely dilated with severe segmental left ventricular systolic dysfunction with an estimated LVEF being less than 10%, mildly dilated right ventricle with mild global right ventricular systolic dysfunction, moderate biatrial enlargement, moderate papillary muscle dysfunction of the mitral valve, moderate MR/TR, trivial [place], and estimated RV systolic pressure 44 mmHg, able to assess diastolic dysfunction, and ICD wires in the right atrium and right ventricle. [] Past Medical History Allergies/Adverse Reactions: Allergies No Known Allergies Allergy (Verified 11/11/17 06:29) Home Medications: Ambulatory Orders Medication Instructions Recorded Unobtainable [Unobtainable] 11/11/17 Past Medical History (Chronic Problems): Chronic Problems Cardiomyopathy (Chronic) Valvular disease (Chronic) Anxiety (Chronic) Coronary artery disease (Chronic) Ischemic cardiomyopathy (Chronic) Status post placement of cardiac pacemaker (Chronic) S/P implantation of automatic cardioverter/defibrillator (AICD) (Chronic) Surgical History: cholecystectomy Psychiatric History: Anxiety - *Family History Maternal History Items: No pertinent history Smoking Status: Current every day smoker Alcohol: None Drugs: None Review of Systems - Review of Systems General: Reports: Fatigue. Denies: Fever, Night Sweats Cardiovascular: Reports: Shortness of Breath, Shortness of Breath at Rest, Shortness of Breath with Exertion, Orthopnea, Peripheral Edema. Denies: Chest Discomfort, PND, Palpitations, Lightheadedness, Dizziness, Near Syncope, Syncope Respiratory: Reports: Hemoptysis, Shortness of Breath Gastrointestinal: Reports: Abdominal Discomfort, Melena Genitourinary: Denies: Dysuria Skin: Denies: Rash Subjectve: This is a thin 47-year-old white male who appears to be resting reasonably comfortably at the moment in no acute distress. Objective: Vital Signs Temp Pulse Resp BP Pulse Ox 97.6 F L 94 18 125/88 H 96 11/11/17 15:15 11/11/17 15:15 11/11/17 15:15 11/11/17 15:15 11/11/17 15:15 Oxygen Flow Rate (L/min) 3 Oxygen Delivery Method Nasal Cannula Weight: 166 lb 7.184 oz Body Mass Index (BMI) 21.9 Intake and Output for Last 24 Hours 11/09/17 11/10/17 11/11/17 23:59 23:59 23:59 Intake Total 360 / 360 Balance 360 / 360 General: Awake, Alert, Oriented x 3, Cooperative, No Acute Distress HEENT: Atraumatic, Normocephalic, PERRL, EOMI, Sclera Non Icteric Neck: Supple, Good ROM, Positive JVD Lungs: Diminished Right Base Cardiovascular: Regular Rhythm, Normal S1, Normal S2 Murmur Murmur: Grade 3/6, Harsh, Mid Systolic, LLSB, LVOT, Sternal Notch Vascular: No Carotid Bruits Abdomen: Bowel Sounds Present, Soft, Non Tender Extremities: Mild RLE Edema, Mild LLE Edema Neurological: No Focal Motor or Sensory Deficit 11/11/17 09:45: Magnesium 1.7, Troponin I 0.188 H 11/11/17 10:55: Lactic Acid 2.8 H 11/11/17 13:05: Troponin I 0.265 H 11/11/17 14:35: Urine Color Yellow, Urine Clarity Sl. Cloudy, Urine pH 6.0, Ur Specific [place] 1.015, Urine Protein 100 H, Urine Glucose (UA) Normal, Urine Ketones Negative, Urine Occult Blood 10 H, Urine Nitrite Negative, Urine Bilirubin Negative, Urine Urobilinogen 1 H, Ur Leukocyte Esterase 25 H, Urine RBC 0-5 SEEN, Urine WBC 0-5 SEEN Rhythm: As noted above EKG: As noted above ECHO: As noted above CXR: Preliminary evaluation: Questionable and full trade in the right lower lobe area; right sided biventricular ICD device Assessment/Plan 1. Abnormal cardiac enzymes The patient has a combination of abnormal cardiac enzymes. These may be secondary to his underlying chronic cardiomyopathy and chronic systolic CHF. He does not appear to have evidence by history of an underlying acute coronary syndrome. His noninvasive findings with respect to his transthoracic echocardiographic findings have been noted in the past and are not necessarily new other than his estimated LVEF, being approximately 10% in the past, now appears to be less so. At the present time he will continue to be followed. This will include following his laboratory studies and his shelter monitor as deemed appropriate. An attempt will be made to retrieve his cardiovascular records from [place], [place] for continuity of care purposes. 2. Acute on chronic systolic CHF The patient does appear to have some evidence of acute on chronic systolic CHF. He will resume medical management. This will include a combination of beta-blockers, diuretics, and afterload reducing agents. He may need additional assistance with nitrates. 3. Cardiomyopathy The patient claims to have a non-CAD related cardiomyopathy. As noted above in attempt will be made to retrieve his outpatient cardiovascular records from [place], [place], for continuity of care purposes. In the interim the patient is being monitored with respect to his diminished LV systolic function. He is being placed back on medical management as tolerated. It appears he already has a biventricular ICD in place. He states that in the past there have been discussions as to whether or not he would be a candidate for cardiac transplantation. However, he states he was never formally referred to a transplant center for further evaluation care of his cardiovascular status. The present time, he does not appear to be an ideal patient for such based upon his lack of cardiovascular compliance based upon his lack of continued outpatient follow-up and continued medical management superimposed upon his other noncardiac issues in progress involving other organ systems. 4. Valvular heart disease The patient does have an element of both MR and TR. These findings may be secondary to his dilated chambers secondary to his cardiomyopathy. 5. Status post biventricular ICD/HOUSE BUILDER therapy The patient does have the aforementioned device. He is pacing his ventricles. However, despite this device being in place, his overall ventricular systolic function remains markedly diminished. 6. Abnormal hepatic function The patient does have elevation of his hepatic labs. This may be secondary, at least in part, to his underlying cardiovascular status with his cardiomyopathy both left-sided and right-sided with concerns of hepatic congestion. 7. Hemoptysis The patient has been coughing up blood-tinged sputum. He will need to continue evaluation care per internal medicine and potentially pulmonology. Overall, the present time, from a cardiac standpoint, the patient will be placed back on cardiovascular medications as deemed appropriate and tolerated. An attempt will be made to retrieve outside cardiovascular records for continuity of care purposes. He does not appear to be an ideal candidate this time for further invasive cardiovascular evaluation or care especially in light of his ongoing hemorrhagic issues with respect to hemoptysis, etc. Comment: The above was discussed and reviewed with the patient. This note was generated with [employer] dictation software. It may contain incorrect words, spelling, and punctuation that were not noted in checking the note before signing.
--- NOTE | 2017-11-11 16:12 | CON.PCM_ITS ---
Problem List (1) Abnormal cardiac enzyme level Status: Acute (2) CHF (congestive heart failure) Status: Acute Qualifiers: Heart failure chronicity: acute on chronic (3) Cardiomyopathy Status: Chronic Qualifiers: Cardiomyopathy type: unspecified Qualified Code(s): I42.9 - Cardiomyopathy , unspecified (4) Valvular disease Status: Chronic (5) S/P implantation of automatic cardioverter/defibrillator (AICD) Status: Chronic (6) Abnormal LFTs (liver function tests) Status: Acute (7) Hemoptysis Status: Acute Reason for Consult Date of Consultation: 11/11/17 History of Present Illness: The patient is a 47 year old white male with a past medical history of a non- CAD related cardiomyopathy, CHF, cardiac murmur/valvular heart disease, status post biventricular ICD/FOOD SERVICE MANAGER therapy, who presents for evaluation of multiple concerns including shortness of breath/dyspnea, orthopnea, peripheral pitting edema of the lower extremities, fatigue, and hemoptysis. The patient states he has not had outpatient cardiovascular follow-up with his primary it auditor in [place], [place], for quite some time. He states he has been off of his medications for quite some time. Recently he has noted the aforementioned concerns. He states he presented to the emergency department in [place], [place]. He underwent evaluation care and was recommended to have outpatient cardiovascular follow-up and gastrointestinal follow-up. In the interim he presented to [facility] for ongoing symptoms. He has denied ongoing chest discomfort. He relates the aforementioned symptoms of shortness of breath/dyspnea, orthopnea, peripheral pitting edema involving the ankle and pedal areas, as well as fatigue. He states he has been coughing up blood and demonstrates in his bedside sputum basin samples of what appears to be blood-tinged sputum. He has denied any near-syncope or syncope. He has denied any ICD discharges. He was evaluated. He has had indeterminate troponin I levels. He has had an elevated BNP level. His hepatic transaminases have been elevated. He had an ECG performed which demonstrated an underlying electronic ventricular paced rhythm. He had a transthoracic echocardiogram performed. His ventricle was thought to be severely dilated with severe segmental left ventricular systolic dysfunction with an estimated LVEF being less than 10%, mildly dilated right ventricle with mild global right ventricular systolic dysfunction, moderate biatrial enlargement, moderate papillary muscle dysfunction of the mitral valve, moderate MR/TR, trivial MN, and estimated RV systolic pressure 44 mmHg, able to assess diastolic dysfunction, and ICD wires in the right atrium and right ventricle. [] Past Medical History Allergies/Adverse Reactions: Allergies No Known Allergies Allergy (Verified 11/11/17 06:29) Home Medications: Ambulatory Orders Medication Instructions Recorded Unobtainable [Unobtainable] 11/11/17 Past Medical History (Chronic Problems): Chronic Problems Cardiomyopathy (Chronic) Valvular disease (Chronic) Anxiety (Chronic) Coronary artery disease (Chronic) Ischemic cardiomyopathy (Chronic) Status post placement of cardiac pacemaker (Chronic) S/P implantation of automatic cardioverter/defibrillator (AICD) (Chronic) Surgical History: cholecystectomy Psychiatric History: Anxiety - *Family History Maternal History Items: No pertinent history Smoking Status: Current every day smoker Alcohol: None Drugs: None Review of Systems - Review of Systems General: Reports: Fatigue. Denies: Fever, Night Sweats Cardiovascular: Reports: Shortness of Breath, Shortness of Breath at Rest, Shortness of Breath with Exertion, Orthopnea, Peripheral Edema. Denies: Chest Discomfort, PND, Palpitations, Lightheadedness, Dizziness, Near Syncope, Syncope Respiratory: Reports: Hemoptysis, Shortness of Breath Gastrointestinal: Reports: Abdominal Discomfort, Melena Genitourinary: Denies: Dysuria Skin: Denies: Rash Subjectve: This is a thin 47-year-old white male who appears to be resting reasonably comfortably at the moment in no acute distress. Objective: Vital Signs Temp Pulse Resp BP Pulse Ox 97.6 F L 94 18 125/88 H 96 11/11/17 15:15 11/11/17 15:15 11/11/17 15:15 11/11/17 15:15 11/11/17 15:15 Oxygen Flow Rate (L/min) 3 Oxygen Delivery Method Nasal Cannula Weight: 166 lb 7.184 oz Body Mass Index (BMI) 21.9 Intake and Output for Last 24 Hours 11/09/17 11/10/17 11/11/17 23:59 23:59 23:59 Intake Total 360 / 360 Balance 360 / 360 General: Awake, Alert, Oriented x 3, Cooperative, No Acute Distress HEENT: Atraumatic, Normocephalic, PERRL, EOMI, Sclera Non Icteric Neck: Supple, Good ROM, Positive JVD Lungs: Diminished Right Base Cardiovascular: Regular Rhythm, Normal S1, Normal S2 Murmur Murmur: Grade 3/6, Harsh, Mid Systolic, LLSB, LVOT, Sternal Notch Vascular: No Carotid Bruits Abdomen: Bowel Sounds Present, Soft, Non Tender Extremities: Mild RLE Edema, Mild LLE Edema Neurological: No Focal Motor or Sensory Deficit 11/11/17 09:45: Magnesium 1.7, Troponin I 0.188 H 11/11/17 10:55: Lactic Acid 2.8 H 11/11/17 13:05: Troponin I 0.265 H 11/11/17 14:35: Urine Color Yellow, Urine Clarity Sl. Cloudy, Urine pH 6.0, Ur Specific [place] 1.015, Urine Protein 100 H, Urine Glucose (UA) Normal, Urine Ketones Negative, Urine Occult Blood 10 H, Urine Nitrite Negative, Urine Bilirubin Negative, Urine Urobilinogen 1 H, Ur Leukocyte Esterase 25 H, Urine RBC 0-5 SEEN, Urine WBC 0-5 SEEN Rhythm: As noted above EKG: As noted above ECHO: As noted above CXR: Preliminary evaluation: Questionable and full trade in the right lower lobe area; right sided biventricular ICD device Assessment/Plan 1. Abnormal cardiac enzymes The patient has a combination of abnormal cardiac enzymes. These may be secondary to his underlying chronic cardiomyopathy and chronic systolic CHF. He does not appear to have evidence by history of an underlying acute coronary syndrome. His noninvasive findings with respect to his transthoracic echocardiographic findings have been noted in the past and are not necessarily new other than his estimated LVEF, being approximately 10% in the past, now appears to be less so. At the present time he will continue to be followed. This will include following his laboratory studies and his cardiac monitor technician as deemed appropriate. An attempt will be made to retrieve his cardiovascular records from [place], [place] for continuity of care purposes. 2. Acute on chronic systolic CHF The patient does appear to have some evidence of acute on chronic systolic CHF. He will resume medical management. This will include a combination of beta- blockers, diuretics, and afterload reducing agents. He may need additional assistance with nitrates. 3. Cardiomyopathy The patient claims to have a non-CAD related cardiomyopathy. As noted above in attempt will be made to retrieve his outpatient cardiovascular records from [place], [place], for continuity of care purposes. In the interim the patient is being monitored with respect to his diminished LV systolic function. He is being placed back on medical management as tolerated. It appears he already has a biventricular ICD in place. He states that in the past there have been discussions as to whether or not he would be a candidate for cardiac transplantation. However, he states he was never formally referred to a transplant center for further evaluation care of his cardiovascular status. The present time, he does not appear to be an ideal patient for such based upon his lack of cardiovascular compliance based upon his lack of continued outpatient follow-up and continued medical management superimposed upon his other noncardiac issues in progress involving other organ systems. 4. Valvular heart disease The patient does have an element of both MR and TR. These findings may be secondary to his dilated chambers secondary to his cardiomyopathy. 5. Status post biventricular ICD/FOOD SERVICE MANAGER therapy The patient does have the aforementioned device. He is pacing his ventricles. However, despite this device being in place, his overall ventricular systolic function remains markedly diminished. 6. Abnormal hepatic function The patient does have elevation of his hepatic labs. This may be secondary, at least in part, to his underlying cardiovascular status with his cardiomyopathy both left-sided and right-sided with concerns of hepatic congestion. 7. Hemoptysis The patient has been coughing up blood-tinged sputum. He will need to continue evaluation care per internal medicine and potentially pulmonology. Overall, the present time, from a cardiac standpoint, the patient will be placed back on cardiovascular medications as deemed appropriate and tolerated. An attempt will be made to retrieve outside cardiovascular records for continuity of care purposes. He does not appear to be an ideal candidate this time for further invasive cardiovascular evaluation or care especially in light of his ongoing hemorrhagic issues with respect to hemoptysis, etc. Comment: The above was discussed and reviewed with the patient. This note was generated with [employer] dictation software. It may contain incorrect words, spelling, and punctuation that were not noted in checking the note before signing.
[2017-11-11 16:51] LABS: Lactic Acid 2.7 mmol/L (0.4-2.0)
--- NOTE | 2017-11-11 17:08 | CT_ITS ---
STUDY: CT CHEST WITHOUT CONTRAST REASON FOR EXAM: Male, 47 years old. Cough and hemoptysis RADIATION DOSAGE (If Supplied By Facility): CTDIvol = ( 12.59 ) mGy, DLP = ( 525.54 ) mGycm TECHNIQUE: Transaxial imaging was performed without the administration of intravenous contrast material. Individualized dose optimization techniques were used for this CT. COMPARISON: None. FINDINGS: Pacemaker on the right. Right middle lobe and right lower lobe pneumonia. Small right pleural effusion. Cardiomegaly. Mild emphysema. Normal mediastinum. Normal hilar regions. Normal unenhanced pulmonary arteries. Normal aorta arch and descending thoracic aorta. Normal osseous structures. Cholecystectomy. Anasarca. CT/Chest without Contrast IMPRESSION: Right middle lobe and right lower lobe pneumonia. Small right pleural effusion. Electronically Signed: Chadd Marks MD at 22:06 EDT Tel , Service support ,
[2017-11-11 20:10] LABS: Reflex Lactate? Y
--- NOTE | 2017-11-11 20:30 | NURSING ---
pt off the floor to get CT scan, lab here to drawn lactic acid. they will come back to draw it once he is back from CT.
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
[2017-11-11] MEDS: hydrOXYzine PAM 25 MG Capsule PO (21:58)
[2017-11-11] MEDS: Carvedilol 6.25 MG Tablet PO (21:59)
[2017-11-11] MEDS: Atorvastatin Calcium 40 MG Tablet PO (21:59)
[2017-11-11] MEDS: 0.9% NaCl Peripheral Flush Adult/Peds IV (22:01)
[2017-11-11 22:42] LABS: Lactic Acid 3.1 mmol/L (0.4-2.0)
[2017-11-11] MEDS: Piperacil/Tazobactam 3.375 GM/50 ML ML IV (23:00)
[2017-11-12] VITALS (13 sets, daily range): BP systolic 95–113; BP diastolic 61–85; PULSE 70–94; RESP 16–20; TEMP 36.3–36.4; O2SAT 90–100
[2017-11-12 04:40] LABS: Absolute Lymphocyte Count 2.37 X10^3/ul (0.83-4.51); Absolute Neutrophil Count 9.1 X10^3/uL (2.0-7.7); Basophil# 0.01 X10^3/uL; Basophil% 0.1 % (0-1); Eosinophil# 0.08 X10^3/uL; Eosinophils% 0.6 % (0-5); Hematocrit 46.9 % (40-54); Hemoglobin 16.2 g/dl (13.0-16.5); Lymphocyte # 2.37 X10^3/ul (4.0); Lymphocyte % 18.1 % (19-41); Mean Corp Hgb Conc 34.5 g/gl (32-36); Mean Corpuscular Hgb 32.7 pg (27.0-32.0); Mean Corpuscular Volume 94.6 fL (80-94); Monocyte# 1.53 X10^3/uL; Monocyte% 11.7 % (0-10); Neutrophil # 9.08 X10^3/uL (2.7-7.7); Neutrophil % 69.3 % (47-70); Platelet Count 138 K/mm3 (150-450); RBC Distribution Width CV 13.3 % (11.6-14.6); RBC Distribution Width SD 45.4 fl (35.1-43.9); Red Blood Count 4.96 M/mm3 (4.6-6.2); White Blood Count 13.1 K/mm3 (4.4-11.0)
[2017-11-12 04:41] LABS: Differential Indicated SCAN CRITERIA MET; POSITIVE COUNT NO; POSITIVE DIFFERENTIAL YES; POSITIVE MORPHOLOGY NO
[2017-11-12 04:47] LABS: International Normalized Ratio 1.5; Prothrombin Time (Protime)PT. 18.3 SECONDS (11.7-14.9)
[2017-11-12 04:51] LABS: ALB/GLOB Ratio 0.9 RATIO (0.9-2.4); AST(SGOT) 178 U/L (15-37); Alanine Aminotransfer ALT/SGPT 360 U/L (16-61); Albumin, Serum 2.4 g/dL (3.2-5.0); Alkaline Phosphatase 366 U/L (45-117); Anion Gap 7 (5-15); BUN 37 mg/dL (7-18); BUN/Creat Ratio 31.1 RATIO (10-20); Calcium,Total 7.9 mg/dL (8.5-10.1); Chloride 100 mmol/L (98-107); Creatinine, Serum 1.19 mg/dL (0.70-1.30); EST Glomerular Filtration Rate 69 mL/min (>60); Est Glom Filt Rate - Afr Amer 84 mL/min (>60); Estimated Creatinine Clearance 80.19 ml/min; Globulin 2.7 g/dL (2.2-4.2); Glucose 90 mg/dL (74-106); Magnesium 1.7 mg/dL (1.6-2.6); Potassium 4.2 mmol/L (3.5-5.1); Protein, Total 5.1 g/dL (6.4-8.2); Sodium Level 135 mmol/L (136-145)
[2017-11-12 05:16] LABS: Lactic Acid 1.3 mmol/L (0.4-2.0)
--- NOTE | 2017-11-12 05:55 | EKG12_ITS ---
Test Reason : MORNING EKG Blood Pressure : / mmHG Vent. Rate : 084 BPM Atrial Rate : 084 BPM P-R Int : 144 ms QRS Dur : 166 ms QT Int : 470 ms P-R-T Axes : 051 -88 064 degrees QTc Int : 555 ms Atrial-sensed ventricular-paced rhythm Abnormal ECG When compared with ECG of 11-NOV-2017 06:50, MANUAL COMPARISON REQUIRED, DATA IS UNCONFIRMED Confirmed by MIREILLE PABLO, TONYA ([id number]), food expeditor SONIYA ALEGRIA ([id number]) on 11/14/2017 3:08:05 PM Referred By: MANJIT Confirmed By:TONYA KENDRICK MD
--- NOTE | 2017-11-12 05:55 | RAD_ITS ---
STUDY: X-RAY CHEST REASON FOR EXAM: Male, 47 years old. History of CHF. TECHNIQUE: Single AP portable view of the chest. COMPARISON: Comparison is made with prior study dated November 11, 2017. FINDINGS: EKG electrodes are seen. Persistent increased markings at the right lung base. This is unchanged. There is no demonstrated pleural abnormality. There is moderate cardiac enlargement. A right-sided dual-chamber pacemaker is seen. Normal mediastinum and caleb. Normal visualized pulmonary arteries. Normal visualized aortic arch and descending thoracic aorta. Normal visualized thoracic spine. Normal visualized ribs, clavicles, and shoulders. There is no demonstrated abnormality of the visualized soft tissue structures of the upper abdomen. RAD/Chest 1 View (Portable) IMPRESSION: Stable increased markings at the right lung base. Electronically Signed: Artie Gleason MD at 12:38 EDT Tel [phone], Service support ,
[2017-11-12] MEDS: Piperacil/Tazobactam 3.375 GM/50 ML ML IV ×3 (06:31→23:14)
[2017-11-12 06:41] LABS: Differential Comment SCANNED
[2017-11-12] MEDS: Acetaminophen 325 MG Tablet 650 MG PO (07:16)
--- NOTE | 2017-11-12 07:53 | PN_ITS ---
Patient Problems: Active and Suspected Problems Abnormal cardiac enzyme level (Acute) CHF (congestive heart failure) (Acute) Abnormal LFTs (liver function tests) (Acute) Hemoptysis (Acute) Subjective: Chief complaint: Follow-up after admission for acute on chronic systolic CHF, borderline elevated troponin, elevated LFT. Right multilobar community acquired pneumonia with sepsis. Patient seen and examined. No acute events overnight. This morning, he is more awake and alert, oriented ?3. He is still complaining of right lateral chest pain which seemed to be pleuritic chest pain likely because of the pneumonia, pleurisy. Shortness of breath improved. He is still complaining of hemoptysis. He denied hematemesis today. His vital signs are stable, afebrile. Pulse ox is 100% on 3 L. - Physical Exam General: Alert, Oriented x3, Cooperative, No apparent distress HEENT: Atraumatic, PERRLA, EOMI Oral: Moist Mucosa, No Gingival or Mucosal Lesions/ Ulcerations Neck: Supple, No JVD, Negative Carotid Bruits, Trachea Midline, Thyroid Normal Size and Texture Lungs: Clear to auscultation, No rhonchi, No wheeze, No rales, Diminished, - - Decreased breath sounds on the right side, otherwise clear. Cardiovascular: Regular rate, Regular Rhythm, Normal S1, Normal S2, PMI Normal Abdomen: Bowel Sounds Present, Soft, Non Tender, Non-Distended, No Hepato- splenomegaly Extremities: No clubbing, No cyanosis, Edema - + Edema. Skin: No rashes, No breakdown Lymphatic: No Cervical, Supraclavicular, or Inguinal Adenopathy Neurological: Cranial nerves II-XII grossly intact, Motor Exam 5/5 strength throughout Psych/Mental Status: Normal Affect, Appropriate, Alert and oriented to time, place, person, mood and affect Vital Signs Temp Pulse Resp BP Pulse Ox 97.6 F L 86 20 H 102/75 100 11/12/17 03:15 11/12/17 06:54 11/12/17 03:15 11/12/17 03:15 11/12/17 03:15 Oxygen Flow Rate (L/min) 3 Oxygen Delivery Method Nasal Cannula Weight: 165 lb 2.02 oz Body Mass Index (BMI) 21.9 Intake and Output for Last 24 Hours 11/10/17 11/11/17 11/12/17 23:59 23:59 23:59 Intake Total 720 / 720 467.4 / 467.4 Output Total 1025 / 1025 1375 / 1375 Balance -305 / -305 -907.6 / -907.6 Laboratory Tests Past 24 Hrs 11/11/17 11/11/17 11/11/17 09:45 10:55 13:05 WBC RBC Hgb Hct MCV MCH MCHC RDW RDW Differential Plt Count MPV Immature Gran % (Auto) Neut % (Auto) Lymph % (Auto) [place] % (Auto) Eos % (Auto) Baso % (Auto) Absolute Neuts (auto) Absolute Lymphs (auto) Total Counted Differential Comment Diff Path Review PT INR Sodium Potassium Chloride Carbon Dioxide Anion Gap BUN Creatinine Estim Creat Clear Calc Est GFR (MDRD) Af Amer Est GFR (MDRD) Non-Af BUN/Creatinine Ratio Glucose Lactic Acid 2.8 H Calcium Magnesium 1.7 Total Bilirubin AST ALT Alkaline Phosphatase Troponin I 0.188 H 0.265 H Total Protein Albumin Globulin Albumin/Globulin Ratio TSH 3.91 H Free T4 Free T3 pg/dL Urine Color Urine Clarity Urine pH Ur Specific [place] Urine Protein Urine Glucose (UA) Urine Ketones Urine Occult Blood Urine Nitrite Urine Bilirubin Urine Urobilinogen Ur Leukocyte Esterase Urine RBC Urine WBC Ur Squamous Epith Cells Urine Bacteria Hyaline Casts Urine Mucus Urine Opiates Screen Urine Methadone Screen Ur Barbiturates Screen Ur Phencyclidine Scrn Ur Amphetamines Screen U Methamphetamin-MDMA U Benzodiazepines Scrn Urine Cocaine Screen U Cannabinoids Screen Ur Drug Screen Comment 11/11/17 11/11/17 11/11/17 13:05 14:35 14:35 WBC RBC Hgb Hct MCV MCH MCHC RDW RDW Differential Plt Count MPV Immature Gran % (Auto) Neut % (Auto) Lymph % (Auto) [place] % (Auto) Eos % (Auto) Baso % (Auto) Absolute Neuts (auto) Absolute Lymphs (auto) Total Counted Differential Comment Diff Path Review PT INR Sodium Potassium Chloride Carbon Dioxide Anion Gap BUN Creatinine Estim Creat Clear Calc Est GFR (MDRD) Af Amer Est GFR (MDRD) Non-Af BUN/Creatinine Ratio Glucose Lactic Acid Calcium Magnesium Total Bilirubin AST ALT Alkaline Phosphatase Troponin I Total Protein Albumin Globulin Albumin/Globulin Ratio TSH Free T4 1.17 Free T3 pg/dL 1.1 L Urine Color Yellow Urine Clarity Sl. Cloudy Urine pH 6.0 Ur Specific [place] 1.015 Urine Protein 100 H Urine Glucose (UA) Normal Urine Ketones Negative Urine Occult Blood 10 H Urine Nitrite Negative Urine Bilirubin Negative Urine Urobilinogen 1 H Ur Leukocyte Esterase 25 H Urine RBC 0-5 SEEN Urine WBC 0-5 SEEN Ur Squamous Epith Cells 0 SEEN Urine Bacteria 1+ Hyaline Casts 0-5 SEEN Urine Mucus 0 SEEN Urine Opiates Screen POSITIVE H Urine Methadone Screen NEGATIVE Ur Barbiturates Screen NEGATIVE Ur Phencyclidine Scrn NEGATIVE Ur Amphetamines Screen NEGATIVE U Methamphetamin-MDMA NEGATIVE U Benzodiazepines Scrn POSITIVE H Urine Cocaine Screen POSITIVE H U Cannabinoids Screen POSITIVE H Ur Drug Screen Comment 11/11/17 11/11/17 11/12/17 16:04 22:03 04:16 WBC 13.1 H RBC 4.96 Hgb 16.2 Hct 46.9 MCV 94.6 H MCH 32.7 H MCHC 34.5 RDW 13.3 RDW Differential 45.4 H Plt Count 138 L MPV 10.0 Immature Gran % (Auto) 0.200 Neut % (Auto) 69.3 Lymph % (Auto) 18.1 L [place] % (Auto) 11.7 H Eos % (Auto) 0.6 Baso % (Auto) 0.1 Absolute Neuts (auto) 9.1 H Absolute Lymphs (auto) 2.37 Total Counted Not Reportable Differential Comment SCANNED Diff Path Review May foll PT INR Sodium Potassium Chloride Carbon Dioxide Anion Gap BUN Creatinine Estim Creat Clear Calc Est GFR (MDRD) Af Amer Est GFR (MDRD) Non-Af BUN/Creatinine Ratio Glucose Lactic Acid 2.7 H 3.1 H Calcium Magnesium Total Bilirubin AST ALT Alkaline Phosphatase Troponin I Total Protein Albumin Globulin Albumin/Globulin Ratio TSH Free T4 Free T3 pg/dL Urine Color Urine Clarity Urine pH Ur Specific [place] Urine Protein Urine Glucose (UA) Urine Ketones Urine Occult Blood Urine Nitrite Urine Bilirubin Urine Urobilinogen Ur Leukocyte Esterase Urine RBC Urine WBC Ur Squamous Epith Cells Urine Bacteria Hyaline Casts Urine Mucus Urine Opiates Screen Urine Methadone Screen Ur Barbiturates Screen Ur Phencyclidine Scrn Ur Amphetamines Screen U Methamphetamin-MDMA U Benzodiazepines Scrn Urine Cocaine Screen U Cannabinoids Screen Ur Drug Screen Comment 11/12/17 11/12/17 11/12/17 04:16 04:16 04:16 WBC RBC Hgb Hct MCV MCH MCHC RDW RDW Differential Plt Count MPV Immature Gran % (Auto) Neut % (Auto) Lymph % (Auto) [place] % (Auto) Eos % (Auto) Baso % (Auto) Absolute Neuts (auto) Absolute Lymphs (auto) Total Counted Differential Comment Diff Path Review PT 18.3 H INR 1.5 Sodium 135 L Potassium 4.2 Chloride 100 Carbon Dioxide 28.0 Anion Gap 7 BUN 37 H Creatinine 1.19 Estim Creat Clear Calc 80.19 Est GFR (MDRD) Af Amer 84 Est GFR (MDRD) Non-Af 69 BUN/Creatinine Ratio 31.1 H Glucose 90 Lactic Acid 1.3 Calcium 7.9 L Magnesium 1.7 Total Bilirubin 1.10 H AST 178 H ALT 360 H Alkaline Phosphatase 366 H Troponin I Total Protein 5.1 L Albumin 2.4 L Globulin 2.7 Albumin/Globulin Ratio 0.9 TSH Free T4 Free T3 pg/dL Urine Color Urine Clarity Urine pH Ur Specific [place] Urine Protein Urine Glucose (UA) Urine Ketones Urine Occult Blood Urine Nitrite Urine Bilirubin Urine Urobilinogen Ur Leukocyte Esterase Urine RBC Urine WBC Ur Squamous Epith Cells Urine Bacteria Hyaline Casts Urine Mucus Urine Opiates Screen Urine Methadone Screen Ur Barbiturates Screen Ur Phencyclidine Scrn Ur Amphetamines Screen U Methamphetamin-MDMA U Benzodiazepines Scrn Urine Cocaine Screen U Cannabinoids Screen Ur Drug Screen Comment POC Glucose 11/11/17 09:37 POC Glucose 145 H Clinical Impression(s) from Imaging Studies Chest X-Ray 11/11/17 06:30 IMPRESSION: Right basilar alveolar disease. Electronically Signed: Chadd Marks MD at 7:02 EDT Tel , Service support , Chest CT 11/11/17 17:08 IMPRESSION: Right middle lobe and right lower lobe pneumonia. Small right pleural effusion. Electronically Signed: Chadd Marks MD at 22:06 EDT Tel , Service support , Medical Necessity - Tobacco Use Smoking Status: Current every day smoker Tobacco Use: Cigarettes Assessment/Plan Active and Suspected Problems Abnormal cardiac enzyme level (Acute) CHF (congestive heart failure) (Acute) Abnormal LFTs (liver function tests) (Acute) Hemoptysis (Acute) This is a 47 years old male patient presented to the emergency room because of multiple complaints but mainly with shortness of breath and weakness and he was found to have findings consistent with acute on chronic systolic CHF including elevated BNP and chest x-ray findings. CT scan chest without contrast done because of hemoptysis and he was found to have right middle and lower lobe infiltrate consistent with community acquired pneumonia. #1 acute on chronic systolic CHF: He is on IV Lasix, started on Coreg and lisinopril. 2D echocardiogram revealed ejection fraction of 10%. Vital signs are stable, pulse ox is maintained on 3 L of oxygen. Patient reported symptomatic improvement. EKG revealed paced rhythm. This is based on symptoms , chest x-ray findings, past history and highly elevated BNP. EKG reviewed, revealed paced rhythm. Troponin is trending up and down. Cardiology on the case. Plan: Continue same treatment. #2 Multilobar right lung community-acquired pneumonia: This is diagnosed on CT scan chest that was performed for hemoptysis. Other differential diagnosis such as alveolar hemorrhage cannot be ruled out since patient has been still having hemoptysis. He is on IV Zosyn, remained afebrile overnight. White blood cell count is trending down. Blood and urine cultures are pending. His hemoglobin and hematocrit remained stable. Pulmonology consulted for hemoptysis. Plan: Add IV Levaquin, continue other treatments. #3 questionable hematemesis/hemoptysis: The hemoptysis was witnessed by the nursing staff. He is still having hemoptysis. Hemoglobin and hematocrit are stable. Today, he denies any vomiting or hematemesis. Stool for occult blood was negative. Today's INR is 1.5. This is could be due to chronic liver disease. Plan as below. #4 chest pain/elevated troponin: The pain on the right lateral chest is likely due to pleuritic chest pain secondary to pneumonia. Troponin has been fluctuating up and down. 2D echocardiogram reviewed as above. Cardiology consulted. Patient is on the blockers, statins and RADHA inhibitors as above. #5 elevated LFT: This could be due to liver congestion secondary to CHF. Other etiology such as infectious hepatitis, cannot be ruled out. His pro time and INR are slightly elevated which is in favor of chronic liver disease. Liver transaminases are trending down as well as alkaline phosphatase and bilirubin. Plan: Infectious hepatitis serology.. #6 CAD: According to the patient, no prior interventions. Plan as above, we will start him on statins, beta blockers and RADHA inhibitors as above. #7 chronic CHF/ischemic cardiomyopathy/status post ICD: With acute exacerbation of CHF. Plan as above, IV Lasix for diuresis, beta blockers, RADHA inhibitors, continue same treatment #8 chronic atrial fibrillation: Status post pacemaker. Heart rate stable, blood pressure stable. At this time, I am not sure if patient is on anticoagulation. He was started on Coreg. He is not on anticoagulation because of hemoptysis. #9 anxiety/insomnia: On Ativan as needed as well as Ambien as needed. #10 DVT prophylaxis: SCDs. This note was generated with [employer] dictation software. It may contain incorrect words, spelling, and punctuation that were not noted in checking the note before signing. Code Visit Inpatient E&M: 13803 Subs Hosp L3
--- NOTE | 2017-11-12 08:41 | PCM.CONS.GEN ---
Problem List (1) Hemoptysis Status: Acute (2) Abnormal cardiac enzyme level Status: Acute (3) Cardiomyopathy Status: Chronic Qualifiers: Cardiomyopathy type: unspecified Qualified Code(s): I42.9 - Cardiomyopathy, unspecified (4) Valvular disease Status: Chronic (5) CHF (congestive heart failure) Status: Acute Qualifiers: Heart failure chronicity: acute on chronic (6) Abnormal LFTs (liver function tests) Status: Acute (7) Anxiety Status: Chronic (8) Coronary artery disease Status: Chronic (9) S/P implantation of automatic cardioverter/defibrillator (AICD) Status: Chronic Reason for Consult Date of Consultation: 11/12/17 Reason for Consultation: hemoptysis History of Present Illness: The patient is a 47 year old M with past medical history as below, presented to the ED on 11/11 with complaints of a two-week history of progressive weakness and one-week history of hemoptysis, melena, and hematemesis. Patient also complained of epigastric pain, vomiting, severe right lower chest pain, shortness of breath, cough with sputum production, and episodes of panic attacks. According to ED/Alexander documentation, patient stopped taking his meds about a month ago and has been overwhelmed since his mother in May, he found her and is traumatized by this. He presented to [facility] ED a few days ago and was sent home. He does have a history of chest pain but no history of GI bleed. Patient currently complains of melena, continued hemoptysis, and weakness. He reports his cough, abdominal pain, and chest pain have improved. He denies any dizziness or syncope. Denies any personal history of cancer or clotting disorders. His father of stomach cancer. She is a smoker, has a [id number] history with half pack a day for the last 20 years. He denies any drug or alcohol use, however his tox screen in the ER was positive for opiates, benzodiazepines, cocaine, and cannabinoids. EKG showed paced rhythm, no acute changes. Initial chest x-ray on 11/11 showed AICD on the right and right basilar alveolar disease. Initial white count was 15.7 and now 13.1. Hemoglobin was 16.7. Neutrophils were 81.8%. INR 1.4, patient denies any anticoagulation use. Sodium 133, chloride 97, BUN 36 and creatinine 1.17. Lactate initially 3.1 and normalized after IV fluid hydration. Total bili was 1.3 and direct only 0.43. AST and ALT elevated. Troponin elevated at 0.257 and has remained about the same. Total protein was 5.7 and albumin 2.6. TSH 3.91, free T4 was normal at 1.17. BNP [place] 3773. Initial blood pressure 136/108, pulse 98, RR 17, 97.7?F, 98% on room air. The patient was given morphine, Zofran, Protonix, IV fluids, and transferred to the progressive care unit for further evaluation. Echocardiogram was obtained and showed an estimated EF of less than 10%, severely dilated left ventricle with severe segmental systolic dysfunction, mildly dilated right ventricle, mild global RV systolic dysfunction, a moderately enlarged left and right atrium, moderate papillary muscle dysfunction of the mitral valve, moderate MVI and TVI, trivial PVI, and RVSP estimated at 44 mmHg. Diastolic dysfunction was unable to be assessed. Chest CT showed right middle lobe and right lower lobe pneumonia and a small right pleural effusion. Patient reports exposure to asbestos while in alin high at [employer]. 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 He has no known history of exposure to TB. He has never followed with a geomorphologist or had any pulmonary function test. He denies any nocturia, snoring, or apnea. He does feel tired frequently throughout the day, this is worsened since his mother . Denies any personal history of cancer Past Medical History Past Medical History (Chronic Problems): Chronic Problems Cardiomyopathy (Chronic) Valvular disease (Chronic) Anxiety (Chronic) Coronary artery disease (Chronic) Ischemic cardiomyopathy (Chronic) Status post placement of cardiac pacemaker (Chronic) S/P implantation of automatic cardioverter/defibrillator (AICD) (Chronic) Allergies No Known Allergies Allergy (Verified 11/11/17 06:29) Home Medications: Ambulatory Orders Medication Instructions Recorded Unobtainable [Unobtainable] 11/11/17 Surgical History: cholecystectomy Psychiatric History: Anxiety Lives: Alone Smoking Status: Current every day smoker - [id number] history Tobacco Use: Cigarettes Alcohol: None - Denies Drugs: None - Denies denies - *Family History Maternal History Items: No pertinent history Paternal History Items: - - stomach cancer Review of Systems Constitutional: Reports: Malaise, Weakness, Fatigue. Denies: Anorexia, Chills, Fever, Night Sweats Eyes: Denies: Vision Change HEENT: Denies: Difficulty Swallowing, Nasal Congestion, Post Nasal Drip, Sinus Congestion, Sore Throat Cardiovascular: Reports: Chest Pain, Edema. Denies: Light Headedness, Orthopnea, Palpitations, Paroxysmal Noc. Dyspnea, Syncope Respiratory: Reports: Cough, Hemoptysis, Shortness of breath upon exertion, Sputum production. Denies: Wheezing Gastrointestinal: Reports: Abdominal Pain - Resolved, Nausea, Melena, Vomiting. Denies: Constipation, Diarrhea, Dyspepsia, Hematemesis, Hematochezia Genitourinary: Denies: Dysuria, Frequency, Hematuria, Retention Musculoskeletal: Reports: Back Pain - chronic Skin: Denies: Rash, Wounds Neurological: Denies: Balance problems, Change in Speech, Confusion, Difficulty swallowing, Focal weakness, Numbness, Tingling, Tremor, Seizures Psychiatric: Reports: Anxiety. Denies: Depression, Homicidal Ideations, Suicidal Ideations Endocrine: Denies: Change in Body Habitus, Polydipsia, Polyuria Hematologic/ Lymphatic: Reports: Easy Bruising, Petechiae. Denies: Adenopathy, Anemia, Hx of blood clot Patient Problems: Active and Suspected Problems Abnormal cardiac enzyme level (Acute) CHF (congestive heart failure) (Acute) Abnormal LFTs (liver function tests) (Acute) Hemoptysis (Acute) Subjective: The patient was seen and examined. He denies any current chest or abdominal pain. He is not short of breath or in any acute distress. He appears in different and not making eye contact but occasionally. He is cooperative. Objective: Clinical Impression(s) from Imaging Studies Chest X-Ray 11/11/17 06:30 IMPRESSION: Right basilar alveolar disease. Electronically Signed: Chadd Marks MD at 7:02 EDT Tel , Service support , Chest CT 11/11/17 17:08 IMPRESSION: Right middle lobe and right lower lobe pneumonia. Small right pleural effusion. Electronically Signed: Chadd Marks MD at 22:06 EDT Tel , Service support , - Physical Exam General: Alert, Oriented x3, Cooperative, No apparent distress, - - no conversational dyspnea. Unkempt HEENT: Atraumatic, Normocephalic Oral: Moist Mucosa Neck: Supple, No Nodes, Trachea Midline, JVD, Bilateral Lungs: No rhonchi, No wheeze, No rales, Diminished - R>L, - - Symmetric expansion, no accessory muscle use or tachypnea. No dullness to percussion Cardiovascular: Regular rate, Regular Rhythm, Normal S1, Normal S2, Murmur, No rub noted, No Gallop Abdomen: Bowel Sounds Present, Soft, Non Tender, No Hepato-splenomegaly, Distended - mildly Extremities: No clubbing, No cyanosis, Capillary Refill Less than 3 Seconds, No Calf Tenderness, Edema - 1-2+ pitting bilat LEs, Peripheral Pulses Normal Skin: No rashes, No breakdown Musculoskeletal: No Tenderness to Palpation of Joints or Extremities Lymphatic: No Cervical, Supraclavicular, or Inguinal Adenopathy Neurological: Neuro grossly intact, Motor Exam 5/5 strength throughout Psych/Mental Status: Flat Affect, - - alert and oriented, cooperative Vital Signs Temp Pulse Resp BP Pulse Ox 97.6 F L 86 20 H 102/75 90 11/12/17 03:15 11/12/17 06:54 11/12/17 03:15 11/12/17 03:15 11/12/17 07:15 Oxygen Flow Rate (L/min) 3 Oxygen Delivery Method Nasal Cannula Weight: 165 lb 2.02 oz Body Mass Index (BMI) 21.9 Intake and Output for Last 24 Hours 11/10/17 11/11/17 11/12/17 23:59 23:59 23:59 Intake Total 720 / 720 467.4 / 467.4 Output Total 1025 / 1025 1375 / 1375 Balance -305 / -305 -907.6 / -907.6 Laboratory Tests Past 24 Hrs 11/11/17 11/11/17 11/11/17 09:45 10:55 13:05 WBC RBC Hgb Hct MCV MCH MCHC RDW RDW Differential Plt Count MPV Immature Gran % (Auto) Neut % (Auto) Lymph % (Auto) Esmeralda % (Auto) Eos % (Auto) Baso % (Auto) Absolute Neuts (auto) Absolute Lymphs (auto) Total Counted Differential Comment Diff Path Review PT INR Sodium Potassium Chloride Carbon Dioxide Anion Gap BUN Creatinine Estim Creat Clear Calc Est GFR (MDRD) Af Amer Est GFR (MDRD) Non-Af BUN/Creatinine Ratio Glucose Lactic Acid 2.8 H Calcium Magnesium 1.7 Total Bilirubin AST ALT Alkaline Phosphatase Troponin I 0.188 H 0.265 H Total Protein Albumin Globulin Albumin/Globulin Ratio TSH 3.91 H Free T4 Free T3 pg/dL Urine Color Urine Clarity Urine pH Ur Specific [place] Urine Protein Urine Glucose (UA) Urine Ketones Urine Occult Blood Urine Nitrite Urine Bilirubin Urine Urobilinogen Ur Leukocyte Esterase Urine RBC Urine WBC Ur Squamous Epith Cells Urine Bacteria Hyaline Casts Urine Mucus Urine Opiates Screen Urine Methadone Screen Ur Barbiturates Screen Ur Phencyclidine Scrn Ur Amphetamines Screen U Methamphetamin-MDMA U Benzodiazepines Scrn Urine Cocaine Screen U Cannabinoids Screen Ur Drug Screen Comment Hep Bs Antigen Hep B Core Total Ab Hep B Core IgM Ab Hepatitis C Ab (EIA) Hepatitis C Comment 11/11/17 11/11/17 11/11/17 13:05 14:35 14:35 WBC RBC Hgb Hct MCV MCH MCHC RDW RDW Differential Plt Count MPV Immature Gran % (Auto) Neut % (Auto) Lymph % (Auto) Esmeralda % (Auto) Eos % (Auto) Baso % (Auto) Absolute Neuts (auto) Absolute Lymphs (auto) Total Counted Differential Comment Diff Path Review PT INR Sodium Potassium Chloride Carbon Dioxide Anion Gap BUN Creatinine Estim Creat Clear Calc Est GFR (MDRD) Af Amer Est GFR (MDRD) Non-Af BUN/Creatinine Ratio Glucose Lactic Acid Calcium Magnesium Total Bilirubin AST ALT Alkaline Phosphatase Troponin I Total Protein Albumin Globulin Albumin/Globulin Ratio TSH Free T4 1.17 Free T3 pg/dL 1.1 L Urine Color Yellow Urine Clarity Sl. Cloudy Urine pH 6.0 Ur Specific [place] 1.015 Urine Protein 100 H Urine Glucose (UA) Normal Urine Ketones Negative Urine Occult Blood 10 H Urine Nitrite Negative Urine Bilirubin Negative Urine Urobilinogen 1 H Ur Leukocyte Esterase 25 H Urine RBC 0-5 SEEN Urine WBC 0-5 SEEN Ur Squamous Epith Cells 0 SEEN Urine Bacteria 1+ Hyaline Casts 0-5 SEEN Urine Mucus 0 SEEN Urine Opiates Screen POSITIVE H Urine Methadone Screen NEGATIVE Ur Barbiturates Screen NEGATIVE Ur Phencyclidine Scrn NEGATIVE Ur Amphetamines Screen NEGATIVE U Methamphetamin-MDMA NEGATIVE U Benzodiazepines Scrn POSITIVE H Urine Cocaine Screen POSITIVE H U Cannabinoids Screen POSITIVE H Ur Drug Screen Comment Hep Bs Antigen Hep B Core Total Ab Hep B Core IgM Ab Hepatitis C Ab (EIA) Hepatitis C Comment 11/11/17 11/11/17 11/12/17 16:04 22:03 04:16 WBC 13.1 H RBC 4.96 Hgb 16.2 Hct 46.9 MCV 94.6 H MCH 32.7 H MCHC 34.5 RDW 13.3 RDW Differential 45.4 H Plt Count 138 L MPV 10.0 Immature Gran % (Auto) 0.200 Neut % (Auto) 69.3 Lymph % (Auto) 18.1 L Esmeralda % (Auto) 11.7 H Eos % (Auto) 0.6 Baso % (Auto) 0.1 Absolute Neuts (auto) 9.1 H Absolute Lymphs (auto) 2.37 Total Counted Not Reportable Differential Comment SCANNED Diff Path Review May foll PT INR Sodium Potassium Chloride Carbon Dioxide Anion Gap BUN Creatinine Estim Creat Clear Calc Est GFR (MDRD) Af Amer Est GFR (MDRD) Non-Af BUN/Creatinine Ratio Glucose Lactic Acid 2.7 H 3.1 H Calcium Magnesium Total Bilirubin AST ALT Alkaline Phosphatase Troponin I Total Protein Albumin Globulin Albumin/Globulin Ratio TSH Free T4 Free T3 pg/dL Urine Color Urine Clarity Urine pH Ur Specific [place] Urine Protein Urine Glucose (UA) Urine Ketones Urine Occult Blood Urine Nitrite Urine Bilirubin Urine Urobilinogen Ur Leukocyte Esterase Urine RBC Urine WBC Ur Squamous Epith Cells Urine Bacteria Hyaline Casts Urine Mucus Urine Opiates Screen Urine Methadone Screen Ur Barbiturates Screen Ur Phencyclidine Scrn Ur Amphetamines Screen U Methamphetamin-MDMA U Benzodiazepines Scrn Urine Cocaine Screen U Cannabinoids Screen Ur Drug Screen Comment Hep Bs Antigen Hep B Core Total Ab Hep B Core IgM Ab Hepatitis C Ab (EIA) Hepatitis C Comment 11/12/17 11/12/17 11/12/17 04:16 04:16 04:16 WBC RBC Hgb Hct MCV MCH MCHC RDW RDW Differential Plt Count MPV Immature Gran % (Auto) Neut % (Auto) Lymph % (Auto) Esmeralda % (Auto) Eos % (Auto) Baso % (Auto) Absolute Neuts (auto) Absolute Lymphs (auto) Total Counted Differential Comment Diff Path Review PT 18.3 H INR 1.5 Sodium 135 L Potassium 4.2 Chloride 100 Carbon Dioxide 28.0 Anion Gap 7 BUN 37 H Creatinine 1.19 Estim Creat Clear Calc 80.19 Est GFR (MDRD) Af Amer 84 Est GFR (MDRD) Non-Af 69 BUN/Creatinine Ratio 31.1 H Glucose 90 Lactic Acid 1.3 Calcium 7.9 L Magnesium 1.7 Total Bilirubin 1.10 H AST 178 H ALT 360 H Alkaline Phosphatase 366 H Troponin I Total Protein 5.1 L Albumin 2.4 L Globulin 2.7 Albumin/Globulin Ratio 0.9 TSH Free T4 Free T3 pg/dL Urine Color Urine Clarity Urine pH Ur Specific [place] Urine Protein Urine Glucose (UA) Urine Ketones Urine Occult Blood Urine Nitrite Urine Bilirubin Urine Urobilinogen Ur Leukocyte Esterase Urine RBC Urine WBC Ur Squamous Epith Cells Urine Bacteria Hyaline Casts Urine Mucus Urine Opiates Screen Urine Methadone Screen Ur Barbiturates Screen Ur Phencyclidine Scrn Ur Amphetamines Screen U Methamphetamin-MDMA U Benzodiazepines Scrn Urine Cocaine Screen U Cannabinoids Screen Ur Drug Screen Comment Hep Bs Antigen Hep B Core Total Ab Hep B Core IgM Ab Hepatitis C Ab (EIA) Hepatitis C Comment 11/12/17 04:16 WBC RBC Hgb Hct MCV MCH MCHC RDW RDW Differential Plt Count MPV Immature Gran % (Auto) Neut % (Auto) Lymph % (Auto) Esmeralda % (Auto) Eos % (Auto) Baso % (Auto) Absolute Neuts (auto) Absolute Lymphs (auto) Total Counted Differential Comment Diff Path Review PT INR Sodium Potassium Chloride Carbon Dioxide Anion Gap BUN Creatinine Estim Creat Clear Calc Est GFR (MDRD) Af Amer Est GFR (MDRD) Non-Af BUN/Creatinine Ratio Glucose Lactic Acid Calcium Magnesium Total Bilirubin AST ALT Alkaline Phosphatase Troponin I Total Protein Albumin Globulin Albumin/Globulin Ratio TSH Free T4 Free T3 pg/dL Urine Color Urine Clarity Urine pH Ur Specific [place] Urine Protein Urine Glucose (UA) Urine Ketones Urine Occult Blood Urine Nitrite Urine Bilirubin Urine Urobilinogen Ur Leukocyte Esterase Urine RBC Urine WBC Ur Squamous Epith Cells Urine Bacteria Hyaline Casts Urine Mucus Urine Opiates Screen Urine Methadone Screen Ur Barbiturates Screen Ur Phencyclidine Scrn Ur Amphetamines Screen U Methamphetamin-MDMA U Benzodiazepines Scrn Urine Cocaine Screen U Cannabinoids Screen Ur Drug Screen Comment Hep Bs Antigen Pending Hep B Core Total Ab Pending Hep B Core IgM Ab Pending Hepatitis C Ab (EIA) Pending Hepatitis C Comment Pending POC Glucose 11/11/17 09:37 POC Glucose 145 H Assessment/Plan Active and Suspected Problems Abnormal cardiac enzyme level (Acute) CHF (congestive heart failure) (Acute) Abnormal LFTs (liver function tests) (Acute) Hemoptysis (Acute) RECOMMENDATIONS 1. Wean oxygen supplementation to keep saturations 90% or above 2. Continue diuresis, cardiology following and managing/restarting cardiac medications 3. Await repeat chest x-ray 4. Start incentive spirometer and chest physiotherapy, aerosols 5. Mobilize as tolerated 6. Ambulatory pulse ox prior to discharge 7. Consider behavioral health consultation IMPRESSIONS 1. Hemoptysis/melena Unclear etiology, no previous history of GI workup. May be related to infectious process given leukocytosis and CT findings. No fevers or chills. Patient does have elevated liver function tests as another possible etiology. Initially had abdominal pain, which has resolved. No history of ulcers. Denies any history of drug or alcohol abuse, or hepatitis but his tox screen was positive for multiple substances. Hemoccult stool negative. Frequency of blood-tinged sputum has improved per nursing staff. Continue to monitor. 2. Acute on chronic CHF/hypertension EF is now less than 10%, RVSP 44 mmHg. Cardiology is following. Patient was off his medications for several weeks and these have been restarted. Hopefully his overall heart function/pulmonary hypertension will improve if compliant with medications. He states he quit taking them secondary to depression over his mother dying in May. He denies any suicide attempts or ideations. He denies any shortness of breath chronically, except within the last week or 2 with his associated lower extremity edema. Continue diuresis and adjustment of cardiac medications per cardiology. 3. Pneumonia CT with evidence RML pneumonia and bronchiectasis. Still has white count but no fevers. Currently on Zosyn and Levaquin, will continue pending infectious workup. Oxygen supplementation to keep saturations 90% or above. Start Acapella and incentive spirometer. Increase activity as tolerated. Continue aerosols. Steroids are likely not needed at this time. 4. Tobacco abuse Patient is current smoker, not interested in quitting at this time. Encouraged smoking cessation and offered nicotine replacement therapy. Smoking history does place patient at higher risk for lung cancer, however CT of the chest does not show any nodules. Thank you for the opportunity to participate in this patient's care, please do not hesitate to contact us with any further questions or concerns. This note was generated with [employer] dictation software. It may contain incorrect words, spelling, and punctuation that were not noted in checking the note before signing.
--- NOTE | 2017-11-12 08:55 | CON.PCM_ITS ---
Problem List (1) Hemoptysis Status: Acute (2) Abnormal cardiac enzyme level Status: Acute (3) Cardiomyopathy Status: Chronic Qualifiers: Cardiomyopathy type: unspecified Qualified Code(s): I42.9 - Cardiomyopathy , unspecified (4) Valvular disease Status: Chronic (5) CHF (congestive heart failure) Status: Acute Qualifiers: Heart failure chronicity: acute on chronic (6) Abnormal LFTs (liver function tests) Status: Acute (7) Anxiety Status: Chronic (8) Coronary artery disease Status: Chronic (9) S/P implantation of automatic cardioverter/defibrillator (AICD) Status: Chronic Reason for Consult Date of Consultation: 11/12/17 Reason for Consultation: hemoptysis History of Present Illness: The patient is a 47 year old M with past medical history as below, presented to the ED on 11/11 with complaints of a two-week history of progressive weakness and one-week history of hemoptysis, melena, and hematemesis. Patient also complained of epigastric pain, vomiting, severe right lower chest pain, shortness of breath, cough with sputum production, and episodes of panic attacks. According to ED/Alexander documentation, patient stopped taking his meds about a month ago and has been overwhelmed since his mother in May, he found her and is traumatized by this. He presented to [facility] ED a few days ago and was sent home. He does have a history of chest pain but no history of GI bleed. Patient currently complains of melena, continued hemoptysis, and weakness. He reports his cough, abdominal pain, and chest pain have improved. He denies any dizziness or syncope. Denies any personal history of cancer or clotting disorders. His father of stomach cancer. She is a smoker, has a [id number] history with half pack a day for the last 20 years. He denies any drug or alcohol use, however his tox screen in the ER was positive for opiates, benzodiazepines, cocaine, and cannabinoids. EKG showed paced rhythm, no acute changes. Initial chest x-ray on 11/11 showed AICD on the right and right basilar alveolar disease. Initial white count was 15.7 and now 13.1. Hemoglobin was 16.7. Neutrophils were 81.8%. INR 1.4, patient denies any anticoagulation use. Sodium 133, chloride 97, BUN 36 and creatinine 1.17. Lactate initially 3.1 and normalized after IV fluid hydration. Total bili was 1.3 and direct only 0.43. AST and ALT elevated. Troponin elevated at 0.257 and has remained about the same. Total protein was 5.7 and albumin 2.6. TSH 3.91, free T4 was normal at 1.17. BNP [place] 3773. Initial blood pressure 136/108, pulse 98, RR 17, 97.7?F, 98% on room air. The patient was given morphine, Zofran, Protonix, IV fluids, and transferred to the progressive care unit for further evaluation. Echocardiogram was obtained and showed an estimated EF of less than 10%, severely dilated left ventricle with severe segmental systolic dysfunction, mildly dilated right ventricle, mild global RV systolic dysfunction, a moderately enlarged left and right atrium, moderate papillary muscle dysfunction of the mitral valve, moderate MVI and TVI, trivial PVI, and RVSP estimated at 44 mmHg. Diastolic dysfunction was unable to be assessed. Chest CT showed right middle lobe and right lower lobe pneumonia and a small right pleural effusion. Patient reports exposure to asbestos while in alin high at [employer]. 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 He has no known history of exposure to TB. He has never followed with a deputy grand jury or had any pulmonary function test. He denies any nocturia, snoring, or apnea. He does feel tired frequently throughout the day, this is worsened since his mother . Denies any personal history of cancer Past Medical History Past Medical History (Chronic Problems): Chronic Problems Cardiomyopathy (Chronic) Valvular disease (Chronic) Anxiety (Chronic) Coronary artery disease (Chronic) Ischemic cardiomyopathy (Chronic) Status post placement of cardiac pacemaker (Chronic) S/P implantation of automatic cardioverter/defibrillator (AICD) (Chronic) Allergies No Known Allergies Allergy (Verified 11/11/17 06:29) Home Medications: Ambulatory Orders Medication Instructions Recorded Unobtainable [Unobtainable] 11/11/17 Surgical History: cholecystectomy Psychiatric History: Anxiety Lives: Alone Smoking Status: Current every day smoker - [id number] history Tobacco Use: Cigarettes Alcohol: None - Denies Drugs: None - Denies denies - *Family History Maternal History Items: No pertinent history Paternal History Items: - - stomach cancer Review of Systems Constitutional: Reports: Malaise, Weakness, Fatigue. Denies: Anorexia, Chills, Fever, Night Sweats Eyes: Denies: Vision Change HEENT: Denies: Difficulty Swallowing, Nasal Congestion, Post Nasal Drip, Sinus Congestion, Sore Throat Cardiovascular: Reports: Chest Pain, Edema. Denies: Light Headedness, Orthopnea , Palpitations, Paroxysmal Noc. Dyspnea, Syncope Respiratory: Reports: Cough, Hemoptysis, Shortness of breath upon exertion, Sputum production. Denies: Wheezing Gastrointestinal: Reports: Abdominal Pain - Resolved, Nausea, Melena, Vomiting. Denies: Constipation, Diarrhea, Dyspepsia, Hematemesis, Hematochezia Genitourinary: Denies: Dysuria, Frequency, Hematuria, Retention Musculoskeletal: Reports: Back Pain - chronic Skin: Denies: Rash, Wounds Neurological: Denies: Balance problems, Change in Speech, Confusion, Difficulty swallowing, Focal weakness, Numbness, Tingling, Tremor, Seizures Psychiatric: Reports: Anxiety. Denies: Depression, Homicidal Ideations, Suicidal Ideations Endocrine: Denies: Change in Body Habitus, Polydipsia, Polyuria Hematologic/ Lymphatic: Reports: Easy Bruising, Petechiae. Denies: Adenopathy, Anemia, Hx of blood clot Patient Problems: Active and Suspected Problems Abnormal cardiac enzyme level (Acute) CHF (congestive heart failure) (Acute) Abnormal LFTs (liver function tests) (Acute) Hemoptysis (Acute) Subjective: The patient was seen and examined. He denies any current chest or abdominal pain. He is not short of breath or in any acute distress. He appears in different and not making eye contact but occasionally. He is cooperative. Objective: Clinical Impression(s) from Imaging Studies Chest X-Ray 11/11/17 06:30 IMPRESSION: Right basilar alveolar disease. Electronically Signed: Chadd Marks MD at 7:02 EDT Tel , Service support , Chest CT 11/11/17 17:08 IMPRESSION: Right middle lobe and right lower lobe pneumonia. Small right pleural effusion. Electronically Signed: Chadd Marks MD at 22:06 EDT Tel , Service support , - Physical Exam General: Alert, Oriented x3, Cooperative, No apparent distress, - - no conversational dyspnea. Unkempt HEENT: Atraumatic, Normocephalic Oral: Moist Mucosa Neck: Supple, No Nodes, Trachea Midline, JVD, Bilateral Lungs: No rhonchi, No wheeze, No rales, Diminished - R>L, - - Symmetric expansion, no accessory muscle use or tachypnea. No dullness to percussion Cardiovascular: Regular rate, Regular Rhythm, Normal S1, Normal S2, Murmur, No rub noted, No Gallop Abdomen: Bowel Sounds Present, Soft, Non Tender, No Hepato-splenomegaly, Distended - mildly Extremities: No clubbing, No cyanosis, Capillary Refill Less than 3 Seconds, No Calf Tenderness, Edema - 1-2+ pitting bilat LEs, Peripheral Pulses Normal Skin: No rashes, No breakdown Musculoskeletal: No Tenderness to Palpation of Joints or Extremities Lymphatic: No Cervical, Supraclavicular, or Inguinal Adenopathy Neurological: Neuro grossly intact, Motor Exam 5/5 strength throughout Psych/Mental Status: Flat Affect, - - alert and oriented, cooperative Vital Signs Temp Pulse Resp BP Pulse Ox 97.6 F L 86 20 H 102/75 90 11/12/17 03:15 11/12/17 06:54 11/12/17 03:15 11/12/17 03:15 11/12/17 07:15 Oxygen Flow Rate (L/min) 3 Oxygen Delivery Method Nasal Cannula Weight: 165 lb 2.02 oz Body Mass Index (BMI) 21.9 Intake and Output for Last 24 Hours 11/10/17 11/11/17 11/12/17 23:59 23:59 23:59 Intake Total 720 / 720 467.4 / 467.4 Output Total 1025 / 1025 1375 / 1375 Balance -305 / -305 -907.6 / -907.6 Laboratory Tests Past 24 Hrs 11/11/17 11/11/17 11/11/17 09:45 10:55 13:05 WBC RBC Hgb Hct MCV MCH MCHC RDW RDW Differential Plt Count MPV Immature Gran % (Auto) Neut % (Auto) Lymph % (Auto) [place] % (Auto) Eos % (Auto) Baso % (Auto) Absolute Neuts (auto) Absolute Lymphs (auto) Total Counted Differential Comment Diff Path Review PT INR Sodium Potassium Chloride Carbon Dioxide Anion Gap BUN Creatinine Estim Creat Clear Calc Est GFR (MDRD) Af Amer Est GFR (MDRD) Non-Af BUN/Creatinine Ratio Glucose Lactic Acid 2.8 H Calcium Magnesium 1.7 Total Bilirubin AST ALT Alkaline Phosphatase Troponin I 0.188 H 0.265 H Total Protein Albumin Globulin Albumin/Globulin Ratio TSH 3.91 H Free T4 Free T3 pg/dL Urine Color Urine Clarity Urine pH Ur Specific [place] Urine Protein Urine Glucose (UA) Urine Ketones Urine Occult Blood Urine Nitrite Urine Bilirubin Urine Urobilinogen Ur Leukocyte Esterase Urine RBC Urine WBC Ur Squamous Epith Cells Urine Bacteria Hyaline Casts Urine Mucus Urine Opiates Screen Urine Methadone Screen Ur Barbiturates Screen Ur Phencyclidine Scrn Ur Amphetamines Screen U Methamphetamin-MDMA U Benzodiazepines Scrn Urine Cocaine Screen U Cannabinoids Screen Ur Drug Screen Comment Hep Bs Antigen Hep B Core Total Ab Hep B Core IgM Ab Hepatitis C Ab (EIA) Hepatitis C Comment 11/11/17 11/11/17 11/11/17 13:05 14:35 14:35 WBC RBC Hgb Hct MCV MCH MCHC RDW RDW Differential Plt Count MPV Immature Gran % (Auto) Neut % (Auto) Lymph % (Auto) [place] % (Auto) Eos % (Auto) Baso % (Auto) Absolute Neuts (auto) Absolute Lymphs (auto) Total Counted Differential Comment Diff Path Review PT INR Sodium Potassium Chloride Carbon Dioxide Anion Gap BUN Creatinine Estim Creat Clear Calc Est GFR (MDRD) Af Amer Est GFR (MDRD) Non-Af BUN/Creatinine Ratio Glucose Lactic Acid Calcium Magnesium Total Bilirubin AST ALT Alkaline Phosphatase Troponin I Total Protein Albumin Globulin Albumin/Globulin Ratio TSH Free T4 1.17 Free T3 pg/dL 1.1 L Urine Color Yellow Urine Clarity Sl. Cloudy Urine pH 6.0 Ur Specific [place] 1.015 Urine Protein 100 H Urine Glucose (UA) Normal Urine Ketones Negative Urine Occult Blood 10 H Urine Nitrite Negative Urine Bilirubin Negative Urine Urobilinogen 1 H Ur Leukocyte Esterase 25 H Urine RBC 0-5 SEEN Urine WBC 0-5 SEEN Ur Squamous Epith Cells 0 SEEN Urine Bacteria 1+ Hyaline Casts 0-5 SEEN Urine Mucus 0 SEEN Urine Opiates Screen POSITIVE H Urine Methadone Screen NEGATIVE Ur Barbiturates Screen NEGATIVE Ur Phencyclidine Scrn NEGATIVE Ur Amphetamines Screen NEGATIVE U Methamphetamin-MDMA NEGATIVE U Benzodiazepines Scrn POSITIVE H Urine Cocaine Screen POSITIVE H U Cannabinoids Screen POSITIVE H Ur Drug Screen Comment Hep Bs Antigen Hep B Core Total Ab Hep B Core IgM Ab Hepatitis C Ab (EIA) Hepatitis C Comment 11/11/17 11/11/17 11/12/17 16:04 22:03 04:16 WBC 13.1 H RBC 4.96 Hgb 16.2 Hct 46.9 MCV 94.6 H MCH 32.7 H MCHC 34.5 RDW 13.3 RDW Differential 45.4 H Plt Count 138 L MPV 10.0 Immature Gran % (Auto) 0.200 Neut % (Auto) 69.3 Lymph % (Auto) 18.1 L [place] % (Auto) 11.7 H Eos % (Auto) 0.6 Baso % (Auto) 0.1 Absolute Neuts (auto) 9.1 H Absolute Lymphs (auto) 2.37 Total Counted Not Reportable Differential Comment SCANNED Diff Path Review May foll PT INR Sodium Potassium Chloride Carbon Dioxide Anion Gap BUN Creatinine Estim Creat Clear Calc Est GFR (MDRD) Af Amer Est GFR (MDRD) Non-Af BUN/Creatinine Ratio Glucose Lactic Acid 2.7 H 3.1 H Calcium Magnesium Total Bilirubin AST ALT Alkaline Phosphatase Troponin I Total Protein Albumin Globulin Albumin/Globulin Ratio TSH Free T4 Free T3 pg/dL Urine Color Urine Clarity Urine pH Ur Specific [place] Urine Protein Urine Glucose (UA) Urine Ketones Urine Occult Blood Urine Nitrite Urine Bilirubin Urine Urobilinogen Ur Leukocyte Esterase Urine RBC Urine WBC Ur Squamous Epith Cells Urine Bacteria Hyaline Casts Urine Mucus Urine Opiates Screen Urine Methadone Screen Ur Barbiturates Screen Ur Phencyclidine Scrn Ur Amphetamines Screen U Methamphetamin-MDMA U Benzodiazepines Scrn Urine Cocaine Screen U Cannabinoids Screen Ur Drug Screen Comment Hep Bs Antigen Hep B Core Total Ab Hep B Core IgM Ab Hepatitis C Ab (EIA) Hepatitis C Comment 11/12/17 11/12/17 11/12/17 04:16 04:16 04:16 WBC RBC Hgb Hct MCV MCH MCHC RDW RDW Differential Plt Count MPV Immature Gran % (Auto) Neut % (Auto) Lymph % (Auto) [place] % (Auto) Eos % (Auto) Baso % (Auto) Absolute Neuts (auto) Absolute Lymphs (auto) Total Counted Differential Comment Diff Path Review PT 18.3 H INR 1.5 Sodium 135 L Potassium 4.2 Chloride 100 Carbon Dioxide 28.0 Anion Gap 7 BUN 37 H Creatinine 1.19 Estim Creat Clear Calc 80.19 Est GFR (MDRD) Af Amer 84 Est GFR (MDRD) Non-Af 69 BUN/Creatinine Ratio 31.1 H Glucose 90 Lactic Acid 1.3 Calcium 7.9 L Magnesium 1.7 Total Bilirubin 1.10 H AST 178 H ALT 360 H Alkaline Phosphatase 366 H Troponin I Total Protein 5.1 L Albumin 2.4 L Globulin 2.7 Albumin/Globulin Ratio 0.9 TSH Free T4 Free T3 pg/dL Urine Color Urine Clarity Urine pH Ur Specific [place] Urine Protein Urine Glucose (UA) Urine Ketones Urine Occult Blood Urine Nitrite Urine Bilirubin Urine Urobilinogen Ur Leukocyte Esterase Urine RBC Urine WBC Ur Squamous Epith Cells Urine Bacteria Hyaline Casts Urine Mucus Urine Opiates Screen Urine Methadone Screen Ur Barbiturates Screen Ur Phencyclidine Scrn Ur Amphetamines Screen U Methamphetamin-MDMA U Benzodiazepines Scrn Urine Cocaine Screen U Cannabinoids Screen Ur Drug Screen Comment Hep Bs Antigen Hep B Core Total Ab Hep B Core IgM Ab Hepatitis C Ab (EIA) Hepatitis C Comment 11/12/17 04:16 WBC RBC Hgb Hct MCV MCH MCHC RDW RDW Differential Plt Count MPV Immature Gran % (Auto) Neut % (Auto) Lymph % (Auto) [place] % (Auto) Eos % (Auto) Baso % (Auto) Absolute Neuts (auto) Absolute Lymphs (auto) Total Counted Differential Comment Diff Path Review PT INR Sodium Potassium Chloride Carbon Dioxide Anion Gap BUN Creatinine Estim Creat Clear Calc Est GFR (MDRD) Af Amer Est GFR (MDRD) Non-Af BUN/Creatinine Ratio Glucose Lactic Acid Calcium Magnesium Total Bilirubin AST ALT Alkaline Phosphatase Troponin I Total Protein Albumin Globulin Albumin/Globulin Ratio TSH Free T4 Free T3 pg/dL Urine Color Urine Clarity Urine pH Ur Specific [place] Urine Protein Urine Glucose (UA) Urine Ketones Urine Occult Blood Urine Nitrite Urine Bilirubin Urine Urobilinogen Ur Leukocyte Esterase Urine RBC Urine WBC Ur Squamous Epith Cells Urine Bacteria Hyaline Casts Urine Mucus Urine Opiates Screen Urine Methadone Screen Ur Barbiturates Screen Ur Phencyclidine Scrn Ur Amphetamines Screen U Methamphetamin-MDMA U Benzodiazepines Scrn Urine Cocaine Screen U Cannabinoids Screen Ur Drug Screen Comment Hep Bs Antigen Pending Hep B Core Total Ab Pending Hep B Core IgM Ab Pending Hepatitis C Ab (EIA) Pending Hepatitis C Comment Pending POC Glucose 11/11/17 09:37 POC Glucose 145 H Assessment/Plan Active and Suspected Problems Abnormal cardiac enzyme level (Acute) CHF (congestive heart failure) (Acute) Abnormal LFTs (liver function tests) (Acute) Hemoptysis (Acute) RECOMMENDATIONS 1. Wean oxygen supplementation to keep saturations 90% or above 2. Continue diuresis, cardiology following and managing/restarting cardiac medications 3. Await repeat chest x-ray 4. Start incentive spirometer and chest physiotherapy, aerosols 5. Mobilize as tolerated 6. Ambulatory pulse ox prior to discharge 7. Consider behavioral health consultation IMPRESSIONS 1. Hemoptysis/melena Unclear etiology, no previous history of GI workup. May be related to infectious process given leukocytosis and CT findings. No fevers or chills. Patient does have elevated liver function tests as another possible etiology. Initially had abdominal pain, which has resolved. No history of ulcers. Denies any history of drug or alcohol abuse, or hepatitis but his tox screen was positive for multiple substances. Hemoccult stool negative. Frequency of blood-tinged sputum has improved per nursing staff. Continue to monitor. 2. Acute on chronic CHF/hypertension EF is now less than 10%, RVSP 44 mmHg. Cardiology is following. Patient was off his medications for several weeks and these have been restarted. Hopefully his overall heart function/pulmonary hypertension will improve if compliant with medications. He states he quit taking them secondary to depression over his mother dying in May. He denies any suicide attempts or ideations. He denies any shortness of breath chronically, except within the last week or 2 with his associated lower extremity edema. Continue diuresis and adjustment of cardiac medications per cardiology. 3. Pneumonia CT with evidence RML pneumonia and bronchiectasis. Still has white count but no fevers. Currently on Zosyn and Levaquin, will continue pending infectious workup. Oxygen supplementation to keep saturations 90% or above. Start Acapella and incentive spirometer. Increase activity as tolerated. Continue aerosols. Steroids are likely not needed at this time. 4. Tobacco abuse Patient is current smoker, not interested in quitting at this time. Encouraged smoking cessation and offered nicotine replacement therapy. Smoking history does place patient at higher risk for lung cancer, however CT of the chest does not show any nodules. Thank you for the opportunity to participate in this patient's care, please do not hesitate to contact us with any further questions or concerns. This note was generated with [employer] dictation software. It may contain incorrect words, spelling, and punctuation that were not noted in checking the note before signing.
[2017-11-12] MEDS: Spironolactone 25 MG Tablet PO (09:10)
[2017-11-12] MEDS: Carvedilol 6.25 MG Tablet PO ×2 (09:11→23:15)
[2017-11-12] MEDS: Lisinopril 20 MG Tablet PO (09:11)
[2017-11-12] MEDS: Furosemide 40 MG/4 ML Vial IV ×2 (09:11→17:31)
--- NOTE | 2017-11-12 10:03 | PCM.PN.CARD ---
Subjectve: The patient is awake and alert. He denies any acute chest discomfort or acute shortness of breath/dyspnea. He states his lower extremity edema has improved. He continues with concerns of hemoptysis. Objective: Vital Signs Temp Pulse Resp BP Pulse Ox 97.5 F L 94 18 113/85 H 95 11/12/17 09:05 11/12/17 09:05 11/12/17 09:05 11/12/17 09:05 11/12/17 09:05 Oxygen Flow Rate (L/min) 3 Oxygen Delivery Method Room Air Weight: 165 lb 2.02 oz Body Mass Index (BMI) 21.9 Intake and Output for Last 24 Hours 11/10/17 11/11/17 11/12/17 23:59 23:59 23:59 Intake Total 720 / 720 467.4 / 467.4 Output Total 1025 / 1025 1375 / 1375 Balance -305 / -305 -907.6 / -907.6 General: Awake, Alert, Oriented x 3, Cooperative, No Acute Distress Neck: Positive JVD Lungs: Diminished Right Base Cardiovascular: Regular Rhythm, Normal S1, Normal S2 Murmur Murmur: Grade 3/6, Harsh, Mid Systolic, LLSB, LVOT, Sternal Notch Vascular: No Carotid Bruits Abdomen: Bowel Sounds Present, Soft, Non Tender Extremities: Trace RLE Edema, Trace LLE Edema 11/11/17 09:45: Magnesium 1.7, Troponin I 0.188 H 11/11/17 10:55: Lactic Acid 2.8 H 11/11/17 13:05: Troponin I 0.265 H 11/11/17 14:35: Urine Color Yellow, Urine Clarity Sl. Cloudy, Urine pH 6.0, Ur Specific [place] 1.015, Urine Protein 100 H, Urine Glucose (UA) Normal, Urine Ketones Negative, Urine Occult Blood 10 H, Urine Nitrite Negative, Urine Bilirubin Negative, Urine Urobilinogen 1 H, Ur Leukocyte Esterase 25 H, Urine RBC 0-5 SEEN, Urine WBC 0-5 SEEN 11/11/17 16:04: Lactic Acid 2.7 H 11/11/17 22:03: Lactic Acid 3.1 H 11/12/17 04:16: WBC 13.1 H, RBC 4.96, Hgb 16.2, Hct 46.9, MCV 94.6 H, MCH 32.7 H, MCHC 34.5, RDW 13.3, RDW Differential 45.4 H, Plt Count 138 L, MPV 10.0, Immature Gran % (Auto) 0.200, Neut % (Auto) 69.3, Lymph % (Auto) 18.1 L, [place] % (Auto) 11.7 H, Eos % (Auto) 0.6, Baso % (Auto) 0.1, Absolute Neuts (auto) 9.1 H, Total Counted Not Reportable 11/12/17 04:16: PT 18.3 H, INR 1.5 11/12/17 04:16: Sodium 135 L, Potassium 4.2, Chloride 100, Carbon Dioxide 28.0, Anion Gap 7, BUN 37 H, Creatinine 1.19, Est GFR (MDRD) Af Amer 84, Est GFR (MDRD) Non-Af 69, BUN/Creatinine Ratio 31.1 H, Glucose 90, Calcium 7.9 L, Magnesium 1.7, Total Bilirubin 1.10 H 11/12/17 04:16: Lactic Acid 1.3 Rhythm: Electronic ventricular paced rhythm with intermittent episodes of nonsustained wide complex tachycardia compatible with nonsustained ventricular tachycardia EKG: Electronic ventricular paced rhythm ECHO: 05/05/2015: [facility]: Left ventricle reported as normal in size and LVEF reported at 30% BiV ICD MATERIALS SUPERVISOR: Generator change: 07/19/2015: [facility]: [employer]: Model number: [id number]: Serial number: [id number] Medical Necessity - Tobacco Use Smoking Status: Current every day smoker - [id number] history Tobacco Use: Cigarettes Assessment/Plan 1. Abnormal cardiac enzymes The patient has a combination of abnormal cardiac enzymes. These may be secondary to his underlying chronic cardiomyopathy and chronic systolic CHF. He does not appear to have evidence by history of an underlying acute coronary syndrome. His noninvasive findings with respect to his transthoracic echocardiographic findings have been noted in the past and are not necessarily new other than his estimated LVEF, being approximately 10% in the past, now appears to be less so. At the present time he will continue to be followed. This will include following his laboratory studies and his ekg monitor tech as deemed appropriate. An attempt will be made to retrieve his cardiovascular records from [place], [place] for continuity of care purposes. 2. Acute on chronic systolic CHF The patient does appear to have some evidence of acute on chronic systolic CHF. He will resume medical management. This will include a combination of beta-blockers, diuretics, and afterload reducing agents. He may need additional assistance with nitrates. 3. Cardiomyopathy Based upon cardiovascular records obtained from [facility] from an outpatient cardiovascular visit on 11/15/2015 the patient is listed as having a non-CAD related cardiomyopathy possibly secondary to ethanol intake with a report of a cardiac catheterization in June 2008 reporting normal coronary arteries. He is being placed back on medical management as tolerated. He states that in the past there have been discussions as to whether or not he would be a candidate for cardiac transplantation. However, he states he was never formally referred to a transplant center for further evaluation care of his cardiovascular status. At the present time, he does not appear to be an ideal patient for such based upon his lack of cardiovascular compliance based upon his lack of continued outpatient follow-up and continued medical management superimposed upon his other noncardiac issues in progress involving other organ systems. 4. Valvular heart disease The patient does have an element of both MR and TR. These findings may be secondary to his dilated chambers secondary to his cardiomyopathy. 5. Status post biventricular ICD/MATERIALS SUPERVISOR therapy His biventricular ICD generator was changed as noted above on 07/17/2015 at [facility]. It was interrogated today. It appears to be functioning appropriately. The was noted to have multiple episodes of nonsustained ventricular tachycardia as well as episodes of findings compatible with VT versus SVT. The present time he will continue his medical therapy. He will continue to be monitored. It would not be unreasonable to consider an attempt at antiarrhythmic therapy in an attempt to suppress his cardiac dysrhythmias to avoid ICD discharge. Based upon his diminished LV systolic function he does not appear to be an ideal candidate for various antiarrhythmics such as ICs for class III agent such as sotalol/Betapace. He may be a candidate for amiodarone therapy although there are concerns based upon his underlying concerns of pulmonary disease and his abnormal liver function studies. Iteration would have to be given as to whether or not he would be a candidate for antiarrhythmic therapy such as Tikosyn/dofetilide. He may also may be considered for a follow-up with EP as to whether or not any of his findings are potentially amenable to EPS/RFA. 6. Abnormal hepatic function The patient does have elevation of his hepatic labs. This may be secondary, at least in part, to his underlying cardiovascular status with his cardiomyopathy both left-sided and right-sided with concerns of hepatic congestion. He is being evaluated for noncardiovascular issues as well. 7. Hemoptysis The patient has been coughing up blood-tinged sputum. He will need to continue evaluation care per internal medicine and pulmonology. Overall, the present time, from a cardiac standpoint, the patient will be placed back on cardiovascular medications as deemed appropriate and tolerated. He does not appear to be an ideal candidate this time for further invasive cardiovascular evaluation or care especially in light of his ongoing hemorrhagic issues with respect to hemoptysis, etc. Comment: The above was discussed and reviewed with the patient. This note was generated with [employer] dictation software. It may contain incorrect words, spelling, and punctuation that were not noted in checking the note before signing.
--- NOTE | 2017-11-12 10:15 | PN.CARD_ITS ---
Subjectve: The patient is awake and alert. He denies any acute chest discomfort or acute shortness of breath/dyspnea. He states his lower extremity edema has improved. He continues with concerns of hemoptysis. Objective: Vital Signs Temp Pulse Resp BP Pulse Ox 97.5 F L 94 18 113/85 H 95 11/12/17 09:05 11/12/17 09:05 11/12/17 09:05 11/12/17 09:05 11/12/17 09:05 Oxygen Flow Rate (L/min) 3 Oxygen Delivery Method Room Air Weight: 165 lb 2.02 oz Body Mass Index (BMI) 21.9 Intake and Output for Last 24 Hours 11/10/17 11/11/17 11/12/17 23:59 23:59 23:59 Intake Total 720 / 720 467.4 / 467.4 Output Total 1025 / 1025 1375 / 1375 Balance -305 / -305 -907.6 / -907.6 General: Awake, Alert, Oriented x 3, Cooperative, No Acute Distress Neck: Positive JVD Lungs: Diminished Right Base Cardiovascular: Regular Rhythm, Normal S1, Normal S2 Murmur Murmur: Grade 3/6, Harsh, Mid Systolic, LLSB, LVOT, Sternal Notch Vascular: No Carotid Bruits Abdomen: Bowel Sounds Present, Soft, Non Tender Extremities: Trace RLE Edema, Trace LLE Edema 11/11/17 09:45: Magnesium 1.7, Troponin I 0.188 H 11/11/17 10:55: Lactic Acid 2.8 H 11/11/17 13:05: Troponin I 0.265 H 11/11/17 14:35: Urine Color Yellow, Urine Clarity Sl. Cloudy, Urine pH 6.0, Ur Specific [place] 1.015, Urine Protein 100 H, Urine Glucose (UA) Normal, Urine Ketones Negative, Urine Occult Blood 10 H, Urine Nitrite Negative, Urine Bilirubin Negative, Urine Urobilinogen 1 H, Ur Leukocyte Esterase 25 H, Urine RBC 0-5 SEEN, Urine WBC 0-5 SEEN 11/11/17 16:04: Lactic Acid 2.7 H 11/11/17 22:03: Lactic Acid 3.1 H 11/12/17 04:16: WBC 13.1 H, RBC 4.96, Hgb 16.2, Hct 46.9, MCV 94.6 H, MCH 32.7 H , MCHC 34.5, RDW 13.3, RDW Differential 45.4 H, Plt Count 138 L, MPV 10.0, Immature Gran % (Auto) 0.200, Neut % (Auto) 69.3, Lymph % (Auto) 18.1 L, [place] % (Auto) 11.7 H, Eos % (Auto) 0.6, Baso % (Auto) 0.1, Absolute Neuts (auto) 9.1 H , Total Counted Not Reportable 11/12/17 04:16: PT 18.3 H, INR 1.5 11/12/17 04:16: Sodium 135 L, Potassium 4.2, Chloride 100, Carbon Dioxide 28.0, Anion Gap 7, BUN 37 H, Creatinine 1.19, Est GFR (MDRD) Af Amer 84, Est GFR (MDRD ) Non-Af 69, BUN/Creatinine Ratio 31.1 H, Glucose 90, Calcium 7.9 L, Magnesium 1.7, Total Bilirubin 1.10 H 11/12/17 04:16: Lactic Acid 1.3 Rhythm: Electronic ventricular paced rhythm with intermittent episodes of nonsustained wide complex tachycardia compatible with nonsustained ventricular tachycardia EKG: Electronic ventricular paced rhythm ECHO: 05/05/2015: [facility]: Left ventricle reported as normal in size and LVEF reported at 30% BiV ICD AIRCRAFT 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 Abnormal cardiac enzymes The patient has a combination of abnormal cardiac enzymes. These may be secondary to his underlying chronic cardiomyopathy and chronic systolic CHF. He does not appear to have evidence by history of an underlying acute coronary syndrome. His noninvasive findings with respect to his transthoracic echocardiographic findings have been noted in the past and are not necessarily new other than his estimated LVEF, being approximately 10% in the past, now appears to be less so. At the present time he will continue to be followed. This will include following his laboratory studies and his cardiac nurse specialist as deemed appropriate. An attempt will be made to retrieve his cardiovascular records from [place], [place] for continuity of care purposes. 2. Acute on chronic systolic CHF The patient does appear to have some evidence of acute on chronic systolic CHF. He will resume medical management. This will include a combination of beta- blockers, diuretics, and afterload reducing agents. He may need additional assistance with nitrates. 3. Cardiomyopathy Based upon cardiovascular records obtained from [facility] from an outpatient cardiovascular visit on 11/15/2015 the patient is listed as having a non-CAD related cardiomyopathy possibly secondary to ethanol intake with a report of a cardiac catheterization in June 2008 reporting normal coronary arteries. He is being placed back on medical management as tolerated. He states that in the past there have been discussions as to whether or not he would be a candidate for cardiac transplantation. However, he states he was never formally referred to a transplant center for further evaluation care of his cardiovascular status. At the present time, he does not appear to be an ideal patient for such based upon his lack of cardiovascular compliance based upon his lack of continued outpatient follow-up and continued medical management superimposed upon his other noncardiac issues in progress involving other organ systems. 4. Valvular heart disease The patient does have an element of both MR and TR. These findings may be secondary to his dilated chambers secondary to his cardiomyopathy. 5. Status post biventricular ICD/AIRCRAFT ENGINE SPECIALIST therapy His biventricular ICD generator was changed as noted above on 07/17/2015 at [facility]. It was interrogated today. It appears to be functioning appropriately. The was noted to have multiple episodes of nonsustained ventricular tachycardia as well as episodes of findings compatible with VT versus SVT. The present time he will continue his medical therapy. He will continue to be monitored. It would not be unreasonable to consider an attempt at antiarrhythmic therapy in an attempt to suppress his cardiac dysrhythmias to avoid ICD discharge. Based upon his diminished LV systolic function he does not appear to be an ideal candidate for various antiarrhythmics such as ICs for class III agent such as sotalol/Betapace. He may be a candidate for amiodarone therapy although there are concerns based upon his underlying concerns of pulmonary disease and his abnormal liver function studies. Iteration would have to be given as to whether or not he would be a candidate for antiarrhythmic therapy such as Tikosyn/dofetilide. He may also may be considered for a follow-up with EP as to whether or not any of his findings are potentially amenable to EPS/RFA. 6. Abnormal hepatic function The patient does have elevation of his hepatic labs. This may be secondary, at least in part, to his underlying cardiovascular status with his cardiomyopathy both left-sided and right-sided with concerns of hepatic congestion. He is being evaluated for noncardiovascular issues as well. 7. Hemoptysis The patient has been coughing up blood-tinged sputum. He will need to continue evaluation care per internal medicine and pulmonology. Overall, the present time, from a cardiac standpoint, the patient will be placed back on cardiovascular medications as deemed appropriate and tolerated. He does not appear to be an ideal candidate this time for further invasive cardiovascular evaluation or care especially in light of his ongoing hemorrhagic issues with respect to hemoptysis, etc. Comment: The above was discussed and reviewed with the patient. This note was generated with [employer] dictation software. It may contain incorrect words, spelling, and punctuation that were not noted in checking the note before signing.
[2017-11-12] MEDS: levoFLOXacin IV 750 MG/150 ML BAG 100 MG IV (10:50)
[2017-11-12] MEDS: Ipratropium/Albuterol Sulfate 3 ML AMPUL.NEB INHALATION (11:29)
--- NOTE | 2017-11-12 12:42 | PCM.PACRNU ---
Pacer Nurse Hospital Visit Notes: Bi-VICD Evaluation: Interrogation completed at bedside PCU #106 per MD order. Interrogation shows 54 NSVT episodes and AT/AF episodes since 08/07/15. Pt states he has device followed at [facility] in [place]. Stored e-grams available for MD review. E-grams show what appears to be VT with retrograde conduction vs SVT @ 200 to 280 bpm for 5 to 16 beats. Right pectoral pocket/incision w/o s/s of infection or erosion. Presenting rhythm shows P synchronous paced @ 94 ppm. Adaptive CASINO BEVERAGE SERVER is on. Vent. paced=98.8%. Battery longevity approx 5.2 yrs. Lead impedances, sensing and pace/snes ethrehsolds remain stable. Optivol shows possible fluid accumulation 09/27/17 to Ongoing. Increased LV amplitude for 1x safety margin. Counters cleared. Dr. Rosado notified of above. Selina Talley RN - Pacer Check Procedure Procedures: 83792 ICD Eval Multi
--- NOTE | 2017-11-12 13:04 | CASEMGMT ---
This RN CM to room to complete CM assessment and pt is sleeping at this time. Pt does not awaken to verbal stimluli or knock on the door. Will attempt again later. SStaten RN CM
--- NOTE | 2017-11-12 14:17 | CASEMGMT ---
Face to Face with patient for initial transition planning/care coordination assessment. RN ELSI introduced self and role at [facility], pt voices understanding and consents to assessment at this time. Pt is lying in bed in no distress at this time. Pt is A/O x4 at this time and answers all questions appropriately at this time. Care providers, pharmacy, and demographics verified. See attached link. Pt voices no further concerns/needs at this time. Advised pt to ask for CM if any further questions/concerns/needs arise, voices understanding. CM to follow for any further discharge planning/needs. PLAN: Home S[place]en [facility]
[2017-11-12 14:59] LABS: Pathologist Review Reviewed
[2017-11-12] MEDS: Atorvastatin Calcium 40 MG Tablet PO (21:19)
[2017-11-12] MEDS: hydrOXYzine PAM 25 MG Capsule PO (23:18)
[2017-11-13 03:00] VITALS: BP 123/61; PULSE 67; RESP 20; TEMP 37.1; O2SAT 95
[2017-11-13 03:11] VITALS: PULSE 87
[2017-11-13] MEDS: Piperacil/Tazobactam 3.375 GM/50 ML ML IV (06:12)
[2017-11-13 06:27] LABS: International Normalized Ratio 1.2; Prothrombin Time (Protime)PT. 15.3 SECONDS (11.7-14.9)
[2017-11-13 06:33] LABS: Absolute Lymphocyte Count 1.56 X10^3/ul (0.83-4.51); Absolute Neutrophil Count 8.5 X10^3/uL (2.0-7.7); Eosinophils% 0.9 % (0-5); Hematocrit 46.1 % (40-54); Hemoglobin 15.2 g/dl (13.0-16.5); Lymphocyte # 1.56 X10^3/ul (4.0); Lymphocyte % 13.8 % (19-41); Mean Corpuscular Hgb 31.9 pg (27.0-32.0); Mean Corpuscular Volume 96.8 fL (80-94); Mean Platelet Vol. 9.6 fl (6.2-12.0); Monocyte# 1.16 X10^3/uL; Monocyte% 10.3 % (0-10); Neutrophil # 8.47 X10^3/uL (2.7-7.7); Neutrophil % 74.9 % (47-70); Platelet Count 132 K/mm3 (150-450); RBC Distribution Width CV 13.2 % (11.6-14.6); RBC Distribution Width SD 46.8 fl (35.1-43.9); Red Blood Count 4.76 M/mm3 (4.6-6.2); White Blood Count 11.3 K/mm3 (4.4-11.0)
[2017-11-13 06:38] LABS: POSITIVE COUNT NO; POSITIVE DIFFERENTIAL NO; POSITIVE MORPHOLOGY NO
[2017-11-13 06:40] LABS: ALB/GLOB Ratio 0.7 RATIO (0.9-2.4); AST(SGOT) 82 U/L (15-37); Alanine Aminotransfer ALT/SGPT 232 U/L (16-61); Albumin, Serum 1.9 g/dL (3.2-5.0); Alkaline Phosphatase 271 U/L (45-117); Anion Gap 10 (5-15); BUN 28 mg/dL (7-18); BUN/Creat Ratio 26.7 RATIO (10-20); Calcium,Total 7.2 mg/dL (8.5-10.1); Chloride 101 mmol/L (98-107); Creatinine, Serum 1.05 mg/dL (0.70-1.30); EST Glomerular Filtration Rate 80 mL/min (>60); Est Glom Filt Rate - Afr Amer 97 mL/min (>60); Estimated Creatinine Clearance 88.35 ml/min; Globulin 2.6 g/dL (2.2-4.2); Glucose 113 mg/dL (74-106); Potassium 3.1 mmol/L (3.5-5.1); Protein, Total 4.5 g/dL (6.4-8.2); Sodium Level 141 mmol/L (136-145)
[2017-11-13 06:54] VITALS: PULSE 78
--- NOTE | 2017-11-13 07:43 | PN_ITS ---
Patient Problems: Active and Suspected Problems Abnormal cardiac enzyme level (Acute) CHF (congestive heart failure) (Acute) Abnormal LFTs (liver function tests) (Acute) Hemoptysis (Acute) Subjective: Chief complaint: Follow-up after admission for acute on chronic systolic CHF, right multilobar make acquired pneumonia, borderline elevated troponin and elevated LFT. Patient seen and examined. No acute events overnight. Today, he denies any symptoms. Shortness of breath almost back to normal. He has been off oxygen. He has no more hemoptysis. Denied chest pain. Vital signs are stable. - Physical Exam General: Alert, Oriented x3, Cooperative, No apparent distress HEENT: Atraumatic, PERRLA, EOMI Oral: Moist Mucosa, No Gingival or Mucosal Lesions/ Ulcerations Neck: Supple, No JVD, Negative Carotid Bruits, Trachea Midline, Thyroid Normal Size and Texture Lungs: Clear to auscultation, No wheeze, No rales, Diminished, Rhonchi Cardiovascular: Regular rate, Regular Rhythm, Normal S1, Normal S2, PMI Normal Abdomen: Bowel Sounds Present, Soft, Non Tender, Non-Distended, No Hepato- splenomegaly Extremities: No clubbing, No cyanosis, Edema - + Edema. Skin: No rashes, No breakdown Lymphatic: No Cervical, Supraclavicular, or Inguinal Adenopathy Neurological: Cranial nerves II-XII grossly intact, Neuro grossly intact Psych/Mental Status: Normal Affect, Appropriate, Alert and oriented to time, place, person, mood and affect Vital Signs Temp Pulse Resp BP Pulse Ox 98.7 F 78 20 H 123/61 H 95 11/13/17 03:00 11/13/17 06:54 11/13/17 03:00 11/13/17 03:00 11/13/17 03:00 Oxygen Flow Rate (L/min) 3 Oxygen Delivery Method Room Air Weight: 161 lb 13.109 oz Body Mass Index (BMI) 21.9 Intake and Output for Last 24 Hours 11/11/17 11/12/17 11/13/17 23:59 23:59 23:59 Intake Total 720 / 720 2381.4 / 2381.4 877.6 / 877.6 Output Total 1025 / 1025 6075 / 6075 1750 / 1750 Balance -305 / -305 -3693.6 / -3693.6 -872.4 / -872.4 Laboratory Tests Past 24 Hrs 11/12/17 11/12/17 11/13/17 04:16 04:16 05:45 WBC 11.3 H RBC 4.76 Hgb 15.2 Hct 46.1 MCV 96.8 H MCH 31.9 MCHC 33.0 RDW 13.2 RDW Differential 46.8 H Plt Count 132 L MPV 9.6 Immature Gran % (Auto) 0.100 Neut % (Auto) 74.9 H Lymph % (Auto) 13.8 L [place] % (Auto) 10.3 H Eos % (Auto) 0.9 Baso % (Auto) 0.0 Absolute Neuts (auto) 8.5 H Absolute Lymphs (auto) 1.56 Total Counted Not Reportable Diff Path Review Reviewed PT INR Sodium Potassium Chloride Carbon Dioxide Anion Gap BUN Creatinine Estim Creat Clear Calc Est GFR (MDRD) Af Amer Est GFR (MDRD) Non-Af BUN/Creatinine Ratio Glucose Calcium Total Bilirubin AST ALT Alkaline Phosphatase Total Protein Albumin Globulin Albumin/Globulin Ratio Hep Bs Antigen Pending Hep B Core Total Ab Pending Hep B Core IgM Ab Pending Hepatitis C Ab (EIA) Pending Hepatitis C Comment Pending 11/13/17 11/13/17 05:45 05:45 WBC RBC Hgb Hct MCV MCH MCHC RDW RDW Differential Plt Count MPV Immature Gran % (Auto) Neut % (Auto) Lymph % (Auto) [place] % (Auto) Eos % (Auto) Baso % (Auto) Absolute Neuts (auto) Absolute Lymphs (auto) Total Counted Diff Path Review PT 15.3 H INR 1.2 Sodium 141 Potassium 3.1 L Chloride 101 Carbon Dioxide 30.0 Anion Gap 10 BUN 28 H Creatinine 1.05 Estim Creat Clear Calc 88.35 Est GFR (MDRD) Af Amer 97 Est GFR (MDRD) Non-Af 80 BUN/Creatinine Ratio 26.7 H Glucose 113 H Calcium 7.2 L Total Bilirubin 0.90 AST 82 H ALT 232 H Alkaline Phosphatase 271 H Total Protein 4.5 L Albumin 1.9 L Globulin 2.6 Albumin/Globulin Ratio 0.7 L Hep Bs Antigen Hep B Core Total Ab Hep B Core IgM Ab Hepatitis C Ab (EIA) Hepatitis C Comment Medical Necessity - Tobacco Use Smoking Status: Current every day smoker - [id number] history Tobacco Use: Cigarettes Assessment/Plan Active and Suspected Problems Abnormal cardiac enzyme level (Acute) CHF (congestive heart failure) (Acute) Abnormal LFTs (liver function tests) (Acute) Hemoptysis (Acute) This is a 47 years old male patient presented to the emergency room because of multiple complaints but mainly with shortness of breath and weakness and he was found to have findings consistent with acute on chronic systolic CHF including elevated BNP and chest x-ray findings. CT scan chest without contrast done because of hemoptysis and he was found to have right middle and lower lobe infiltrate consistent with community acquired pneumonia. #1 acute on chronic systolic CHF: Remained on IV Lasix, started on Coreg and lisinopril. Symptoms continued to improve, almost resolved. 2D echocardiogram revealed ejection fraction of 10%. Vital signs are stable, pulse ox is maintained on room air. Plan: Continue same treatment, possible DC home today if okay with cardiology and pulmonology. #2 Multilobar right lung community-acquired pneumonia: He is on IV Zosyn. He has been afebrile, white blood cell count is trending down. Blood and urine cultures are pending. Plan to continue same treatment, awaiting final results of the cultures. #3 questionable hematemesis/hemoptysis: He has no more hemoptysis or hematemesis although hematemesis was questionable. Stool was negative for occult blood. Hemoglobin and hematocrit remained stable and above 15 g/dL. #4 chest pain/elevated troponin: The pain on the right lateral chest is likely due to pleuritic chest pain secondary to pneumonia. Troponin has been fluctuating up and down. 2D echocardiogram reviewed as above. Cardiology on the case, patient is on the blockers, statins and RADHA inhibitors as above. #5 elevated LFT: This could be due to liver congestion secondary to CHF. Liver transaminases are trending down. Infectious hepatitis screen is pending. #6 CAD: According to the patient, no prior interventions. Plan as above, continue statins, beta blockers and RADHA inhibitors as above. #7 chronic CHF/ischemic cardiomyopathy/status post ICD: With acute exacerbation of CHF. Plan as above, IV Lasix for diuresis, beta blockers, RADHA inhibitors, continue same treatment #8 chronic atrial fibrillation: Status post pacemaker, he has been in sinus rhythm. Heart rate stable, blood pressure stable. At this time, I am not sure if patient is on anticoagulation. He was started on Coreg. #9 anxiety/insomnia: On Ativan as needed as well as Ambien as needed. #10 DVT prophylaxis: SCDs. This note was generated with [employer] software. It may contain incorrect words, spelling, and punctuation that were not noted in checking the note before signing.
[2017-11-13 08:02] VITALS: O2SAT 90
[2017-11-13 09:00] VITALS: BP 117/71; PULSE 78; RESP 16; TEMP 36.7; O2SAT 100
[2017-11-13] MEDS: Pantoprazole Sodium 40 MG Tablet PO (09:16)
[2017-11-13] MEDS: Lisinopril 20 MG Tablet PO (09:16)
[2017-11-13] MEDS: Carvedilol 6.25 MG Tablet PO (09:16)
[2017-11-13] MEDS: Spironolactone 25 MG Tablet PO (09:16)
[2017-11-13] MEDS: Furosemide 40 MG/4 ML Vial IV (09:16)
--- NOTE | 2017-11-13 10:30 | PCM.PN.CARD ---
Subjectve: The patient states he feels better. He denies ongoing chest discomfort. He states his breathing has improved. He notes his lower extremity edema has improved. Objective: Vital Signs Temp Pulse Resp BP Pulse Ox 98.1 F 78 16 117/71 100 11/13/17 09:00 11/13/17 09:00 11/13/17 09:00 11/13/17 09:00 11/13/17 09:00 Oxygen Flow Rate (L/min) 3 Oxygen Delivery Method Room Air Weight: 161 lb 13.109 oz Body Mass Index (BMI) 21.9 Intake and Output for Last 24 Hours 11/11/17 11/12/17 11/13/17 23:59 23:59 23:59 Intake Total 720 / 720 2381.4 / 2381.4 877.6 / 877.6 Output Total 1025 / 1025 6075 / 6075 1750 / 1750 Balance -305 / -305 -3693.6 / -3693.6 -872.4 / -872.4 General: Awake, Alert, Oriented x 3, Cooperative, - - Thin HEENT: Atraumatic, Normocephalic, PERRL, EOMI, Sclera Non Icteric Neck: Supple, Good ROM, No JVD Lungs: Clear to auscultation Cardiovascular: Regular Rhythm, Normal S1, Normal S2 Murmur Murmur: Grade 3/6, Harsh, Mid Systolic, LLSB, LVOT, Sternal Notch Vascular: No Carotid Bruits Abdomen: Bowel Sounds Present, Soft, Non Tender Extremities: No edema Neurological: No Focal Motor or Sensory Deficit 11/13/17 05:45: WBC 11.3 H, RBC 4.76, Hgb 15.2, Hct 46.1, MCV 96.8 H, MCH 31.9, MCHC 33.0, RDW 13.2, RDW Differential 46.8 H, Plt Count 132 L, MPV 9.6, Immature Gran % (Auto) 0.100, Neut % (Auto) 74.9 H, Lymph % (Auto) 13.8 L, Estill % (Auto) 10.3 H, Eos % (Auto) 0.9, Baso % (Auto) 0.0, Absolute Neuts (auto) 8.5 H, Total Counted Not Reportable 11/13/17 05:45: PT 15.3 H, INR 1.2 11/13/17 05:45: Sodium 141, Potassium 3.1 L, Chloride 101, Carbon Dioxide 30.0, Anion Gap 10, BUN 28 H, Creatinine 1.05, Est GFR (MDRD) Af Amer 97, Est GFR (MDRD) Non-Af 80, BUN/Creatinine Ratio 26.7 H, Glucose 113 H, Calcium 7.2 L, Total Bilirubin 0.90 Rhythm: Electronic ventricular paced rhythm; episodes of nonsustained wide complex tachycardia ECHO: Additional [facility] echocardiographic reports received from 2010: Reporting the patient's estimated LVEF at that time was 10-15%. Medical Necessity - Tobacco Use Smoking Status: Current every day smoker - 29-[id number]-[id number] history Tobacco Use: Cigarettes Assessment/Plan 1. Abnormal cardiac enzymes The patient has a combination of abnormal cardiac enzymes. These may be secondary to his underlying chronic cardiomyopathy and chronic systolic CHF. He does not appear to have evidence by history of an underlying acute coronary syndrome. His noninvasive findings with respect to his transthoracic echocardiographic findings have been noted in the past and are not necessarily new other than his estimated LVEF, being approximately 10% in the past, now appears to be less so. At the present time he will continue to be followed. This will include following his laboratory studies and his property assessment monitor as deemed appropriate. 2. Acute on chronic systolic CHF The patient does appear to have some evidence of acute on chronic systolic CHF. He has resumed medical management. This has included a combination of beta-blockers, diuretics, and afterload reducing agents. He may need additional assistance with nitrates. 3. Cardiomyopathy Based upon cardiovascular records obtained from [facility] from an outpatient cardiovascular visit on 11/15/2015 the patient is listed as having a non-CAD related cardiomyopathy possibly secondary to ethanol intake with a report of a cardiac catheterization in June 2008 reporting normal coronary arteries. He is being placed back on medical management as tolerated. He states that in the past there have been discussions as to whether or not he would be a candidate for cardiac transplantation. However, he states he was never formally referred to a transplant center for further evaluation care of his cardiovascular status. At the present time, he does not appear to be an ideal patient for such based upon his lack of cardiovascular compliance based upon his lack of continued outpatient follow-up and continued medical management superimposed upon his other noncardiac issues in progress involving other organ systems. 4. Valvular heart disease The patient does have an element of both MR and TR. These findings may be secondary to his dilated chambers secondary to his cardiomyopathy. 5. Status post biventricular ICD/BIBLE TEACHER therapy His biventricular ICD generator was changed as noted above on 07/17/2015 at [facility]. It was interrogated today. It appears to be functioning appropriately. The was noted to have multiple episodes of nonsustained ventricular tachycardia as well as episodes of findings compatible with VT versus SVT. At the present time there is still concern about his underlying ventricular dysrhythmia. It would not be unreasonable to consider antiarrhythmic therapy. As his hepatic function is improving with ongoing medical therapy it may be reasonable to consider antiarrhythmic therapy with low-dose amiodarone at 200 mg a day. He would need follow-up of his clinical status and laboratory status. He may also may be considered for a follow-up with EP as to whether or not any of his findings are potentially amenable to EPS/RFA. 6. Abnormal hepatic function The patient does have elevation of his hepatic labs. This may be secondary, at least in part, to his underlying cardiovascular status with his cardiomyopathy both left-sided and right-sided with concerns of hepatic congestion. His hepatic function studies are improving as he is regained medication and diuresis. 7. Hemoptysis The patient has been coughing up blood-tinged sputum. He has been evaluated by internal medicine/pulmonology. At the present time he is going to continue medical management. 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 Chadd Simon at [facility]. He states he will be compliant with his follow-up and his medications. Comment: The above was discussed and reviewed with the patient and Dr. Guardado. This note was generated with [employer] dictation software. It may contain incorrect words, spelling, and punctuation that were not noted in checking the note before signing.
--- NOTE | 2017-11-13 10:35 | PN.CARD_ITS ---
Subjectve: The patient states he feels better. He denies ongoing chest discomfort. He states his breathing has improved. He notes his lower extremity edema has improved. Objective: Vital Signs Temp Pulse Resp BP Pulse Ox 98.1 F 78 16 117/71 100 11/13/17 09:00 11/13/17 09:00 11/13/17 09:00 11/13/17 09:00 11/13/17 09:00 Oxygen Flow Rate (L/min) 3 Oxygen Delivery Method Room Air Weight: 161 lb 13.109 oz Body Mass Index (BMI) 21.9 Intake and Output for Last 24 Hours 11/11/17 11/12/17 11/13/17 23:59 23:59 23:59 Intake Total 720 / 720 2381.4 / 2381.4 877.6 / 877.6 Output Total 1025 / 1025 6075 / 6075 1750 / 1750 Balance -305 / -305 -3693.6 / -3693.6 -872.4 / -872.4 General: Awake, Alert, Oriented x 3, Cooperative, - - Thin HEENT: Atraumatic, Normocephalic, PERRL, EOMI, Sclera Non Icteric Neck: Supple, Good ROM, No JVD Lungs: Clear to auscultation Cardiovascular: Regular Rhythm, Normal S1, Normal S2 Murmur Murmur: Grade 3/6, Harsh, Mid Systolic, LLSB, LVOT, Sternal Notch Vascular: No Carotid Bruits Abdomen: Bowel Sounds Present, Soft, Non Tender Extremities: No edema Neurological: No Focal Motor or Sensory Deficit 11/13/17 05:45: WBC 11.3 H, RBC 4.76, Hgb 15.2, Hct 46.1, MCV 96.8 H, MCH 31.9, MCHC 33.0, RDW 13.2, RDW Differential 46.8 H, Plt Count 132 L, MPV 9.6, Immature Gran % (Auto) 0.100, Neut % (Auto) 74.9 H, Lymph % (Auto) 13.8 L, Metcalfe % (Auto) 10.3 H, Eos % (Auto) 0.9, Baso % (Auto) 0.0, Absolute Neuts (auto) 8.5 H, Total Counted Not Reportable 11/13/17 05:45: PT 15.3 H, INR 1.2 11/13/17 05:45: Sodium 141, Potassium 3.1 L, Chloride 101, Carbon Dioxide 30.0, Anion Gap 10, BUN 28 H, Creatinine 1.05, Est GFR (MDRD) Af Amer 97, Est GFR ( MDRD) Non-Af 80, BUN/Creatinine Ratio 26.7 H, Glucose 113 H, Calcium 7.2 L, Total Bilirubin 0.90 Rhythm: Electronic ventricular paced rhythm; episodes of nonsustained wide complex tachycardia ECHO: Additional [facility] echocardiographic reports received from 2010: Reporting the patient's estimated LVEF at that time was 10-15%. Medical Necessity - Tobacco Use Smoking Status: Current every day smoker - 70-vees-jbbu history Tobacco Use: Cigarettes Assessment/Plan 1. Abnormal cardiac enzymes The patient has a combination of abnormal cardiac enzymes. These may be secondary to his underlying chronic cardiomyopathy and chronic systolic CHF. He does not appear to have evidence by history of an underlying acute coronary syndrome. His noninvasive findings with respect to his transthoracic echocardiographic findings have been noted in the past and are not necessarily new other than his estimated LVEF, being approximately 10% in the past, now appears to be less so. At the present time he will continue to be followed. This will include following his laboratory studies and his quality assurance monitor body as deemed appropriate. 2. Acute on chronic systolic CHF The patient does appear to have some evidence of acute on chronic systolic CHF. He has resumed medical management. This has included a combination of beta- blockers, diuretics, and afterload reducing agents. He may need additional assistance with nitrates. 3. Cardiomyopathy Based upon cardiovascular records obtained from [facility] from an outpatient cardiovascular visit on 11/15/2015 the patient is listed as having a non-CAD related cardiomyopathy possibly secondary to ethanol intake with a report of a cardiac catheterization in June 2008 reporting normal coronary arteries. He is being placed back on medical management as tolerated. He states that in the past there have been discussions as to whether or not he would be a candidate for cardiac transplantation. However, he states he was never formally referred to a transplant center for further evaluation care of his cardiovascular status. At the present time, he does not appear to be an ideal patient for such based upon his lack of cardiovascular compliance based upon his lack of continued outpatient follow-up and continued medical management superimposed upon his other noncardiac issues in progress involving other organ systems. 4. Valvular heart disease The patient does have an element of both MR and TR. These findings may be secondary to his dilated chambers secondary to his cardiomyopathy. 5. Status post biventricular ICD/SCOOTER MECHANIC therapy His biventricular ICD generator was changed as noted above on 07/17/2015 at [facility]. It was interrogated today. It appears to be functioning appropriately. The was noted to have multiple episodes of nonsustained ventricular tachycardia as well as episodes of findings compatible with VT versus SVT. At the present time there is still concern about his underlying ventricular dysrhythmia. It would not be unreasonable to consider antiarrhythmic therapy. As his hepatic function is improving with ongoing medical therapy it may be reasonable to consider antiarrhythmic therapy with low-dose amiodarone at 200 mg a day. He would need follow-up of his clinical status and laboratory status. He may also may be considered for a follow-up with EP as to whether or not any of his findings are potentially amenable to EPS/RFA. 6. Abnormal hepatic function The patient does have elevation of his hepatic labs. This may be secondary, at least in part, to his underlying cardiovascular status with his cardiomyopathy both left-sided and right-sided with concerns of hepatic congestion. His hepatic function studies are improving as he is regained medication and diuresis. 7. Hemoptysis The patient has been coughing up blood-tinged sputum. He has been evaluated by internal medicine/pulmonology. At the present time he is going to continue medical management. 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 Chadd Simon at [facility]. He states he will be compliant with his follow-up and his medications. Comment: The above was discussed and reviewed with the patient and Dr. Guardado. This note was generated with [employer] dictation software. It may contain incorrect words, spelling, and punctuation that were not noted in checking the note before signing.
--- NOTE | 2017-11-13 10:48 | PCM.PROGNOTE ---
Patient Problems: Active and Suspected Problems Abnormal cardiac enzyme level (Acute) CHF (congestive heart failure) (Acute) Abnormal LFTs (liver function tests) (Acute) Hemoptysis (Acute) Subjective: Patient was seen and examined. Just got back from ambulation to the bathroom and is mildly short of breath. Recovered quickly. Denies any hemoptysis today. He has an occasional cough. Complains of frequent urination with diuresis. Objective: Recent lab and culture data reviewed. Liver function tests improved. Cumulative fluid balance of -4800. Blood culture showing no growth in 48 hours, Hemoccult stool negative. Urine culture negative. - Physical Exam General: Alert, Oriented x3, Cooperative, No apparent distress, - - no conversational dyspnea HEENT: Atraumatic, Normocephalic Oral: No Gingival or Mucosal Lesions/ Ulcerations, Dry Mucosa Neck: Supple, No Nodes, Trachea Midline Lungs: No rhonchi, No wheeze, No rales, Diminished Cardiovascular: Regular rate, Regular Rhythm, Normal S1, Normal S2, Murmur Abdomen: Bowel Sounds Present, Soft, Non Tender Extremities: No clubbing, No cyanosis, Edema - improved Skin: - - No change from previous Musculoskeletal: No Tenderness to Palpation of Joints or Extremities Lymphatic: No Cervical, Supraclavicular, or Inguinal Adenopathy Neurological: Neuro grossly intact Psych/Mental Status: Alert and oriented to time, place, person, mood and affect Vital Signs Temp Pulse Resp BP Pulse Ox 98.1 F 78 16 117/71 100 11/13/17 09:00 11/13/17 09:00 11/13/17 09:00 11/13/17 09:00 11/13/17 09:00 Oxygen Flow Rate (L/min) 3 Oxygen Delivery Method Room Air Weight: 161 lb 13.109 oz Body Mass Index (BMI) 21.9 Intake and Output for Last 24 Hours 11/11/17 11/12/17 11/13/17 23:59 23:59 23:59 Intake Total 720 / 720 2381.4 / 2381.4 877.6 / 877.6 Output Total 1025 / 1025 6075 / 6075 1750 / 1750 Balance -305 / -305 -3693.6 / -3693.6 -872.4 / -872.4 Microbiology Past 72 Hours 11/11/17 14:35 Urine Culture - Final Urine, Midstream Culture exhibits no growth. Laboratory Tests Past 24 Hrs 11/12/17 11/13/17 11/13/17 04:16 05:45 05:45 WBC 11.3 H RBC 4.76 Hgb 15.2 Hct 46.1 MCV 96.8 H MCH 31.9 MCHC 33.0 RDW 13.2 RDW Differential 46.8 H Plt Count 132 L MPV 9.6 Immature Gran % (Auto) 0.100 Neut % (Auto) 74.9 H Lymph % (Auto) 13.8 L Wilkinson % (Auto) 10.3 H Eos % (Auto) 0.9 Baso % (Auto) 0.0 Absolute Neuts (auto) 8.5 H Absolute Lymphs (auto) 1.56 Total Counted Not Reportable Diff Path Review Reviewed PT 15.3 H INR 1.2 Sodium Potassium Chloride Carbon Dioxide Anion Gap BUN Creatinine Estim Creat Clear Calc Est GFR (MDRD) Af Amer Est GFR (MDRD) Non-Af BUN/Creatinine Ratio Glucose Calcium Total Bilirubin AST ALT Alkaline Phosphatase Total Protein Albumin Globulin Albumin/Globulin Ratio 11/13/17 05:45 WBC RBC Hgb Hct MCV MCH MCHC RDW RDW Differential Plt Count MPV Immature Gran % (Auto) Neut % (Auto) Lymph % (Auto) Wilkinson % (Auto) Eos % (Auto) Baso % (Auto) Absolute Neuts (auto) Absolute Lymphs (auto) Total Counted Diff Path Review PT INR Sodium 141 Potassium 3.1 L Chloride 101 Carbon Dioxide 30.0 Anion Gap 10 BUN 28 H Creatinine 1.05 Estim Creat Clear Calc 88.35 Est GFR (MDRD) Af Amer 97 Est GFR (MDRD) Non-Af 80 BUN/Creatinine Ratio 26.7 H Glucose 113 H Calcium 7.2 L Total Bilirubin 0.90 AST 82 H ALT 232 H Alkaline Phosphatase 271 H Total Protein 4.5 L Albumin 1.9 L Globulin 2.6 Albumin/Globulin Ratio 0.7 L Medical Necessity - Tobacco Use Smoking Status: Current every day smoker - 70-jgie-nomh history Tobacco Use: Cigarettes Assessment/Plan Active and Suspected Problems Abnormal cardiac enzyme level (Acute) CHF (congestive heart failure) (Acute) Abnormal LFTs (liver function tests) (Acute) Hemoptysis (Acute) RECOMMENDATIONS 1. Wean oxygen supplementation to keep saturations 90% or above 2. Continue diuresis and fluid restriction, cardiology following 3. Start incentive spirometer and chest physiotherapy, aerosols 4. Change antibiotic to Ciprofloxacin and continue for 10 day course as outpatient 5. Mobilize as tolerated 6. Ambulatory pulse ox prior to discharge 7. Consider behavioral health consultation 8. Close f/u with shirt ironer 9. Okay to discharge from pulmonary standpoint 10. Patient will require extensive education with CHF, medication adherence IMPRESSIONS 1. Hemoptysis/melena Unclear etiology, no previous history of GI workup. May be related to infectious process given leukocytosis and CT findings. No fevers or chills. Patient does have elevated liver function tests as another possible etiology, this has improved. Initially had abdominal pain, which has resolved. No history of ulcers. Denies any history of drug or alcohol abuse, or hepatitis but his tox screen was positive for multiple substances. Hemoccult stool negative. Frequency of blood-tinged sputum has improved per nursing staff, none today. Continue to monitor. 2. Acute on chronic CHF/hypertension EF is now less than 10%, RVSP 44 mmHg. Cardiology is following. Patient was off his medications for several weeks and these have been restarted. Hopefully his overall heart function/pulmonary hypertension will improve if compliant with medications. He states he quit taking them secondary to depression over his mother dying in May. He denies any suicide attempts or ideations. He denies any shortness of breath chronically, except within the last week or 2 with his associated lower extremity edema. Continue diuresis and adjustment of cardiac medications per cardiology. 3. Pneumonia CT with evidence RML pneumonia and bronchiectasis. Still has white count but no fevers. Continue antibiotics for 10-day course. Oxygen supplementation to keep saturations 90% or above. Start Acapella and incentive spirometer. Increase activity as tolerated. Continue aerosols. Steroids are likely not needed at this time. 4. Tobacco abuse Patient is current smoker, not interested in quitting at this time. Encouraged smoking cessation and offered nicotine replacement therapy. Smoking history does place patient at higher risk for malignancy, however CT of the chest does not show any nodules. Thank you for the opportunity to participate in this patient's care, please do not hesitate to contact us with any further questions or concerns. This note was generated with [employer] software. It may contain incorrect words, spelling, and punctuation that were not noted in checking the note before signing.
[2017-11-13 11:06] VITALS: PULSE 84
--- NOTE | 2017-11-13 13:29 | DCINST_ITS ---
- Discharge Diagnoses Current Active Problems: Current Active and Chronic Problems Cardiomyopathy (Chronic) Valvular disease (Chronic) Abnormal cardiac enzyme level (Acute) CHF (congestive heart failure) (Acute) Abnormal LFTs (liver function tests) (Acute) Hemoptysis (Acute) Anxiety (Chronic) Coronary artery disease (Chronic) Ischemic cardiomyopathy (Chronic) Status post placement of cardiac pacemaker (Chronic) You will use the following diet at home:: Cardiac, Fluid restricted (specify 2000 mls, 1500 mls) - Less than 1500 cc daily Your food should be the consistency of: Regular Discharge Activity: Return to Normal Activity Weight Bearing Status: Weight bearing as tolerated Call your doctor if you observe: Fever of 101 or Higher, Shortness of breath, Dizziness, Fainting spells, Chest pain, Increased palpitations (irregular heartbeat), Uncontrolled pain Instructions: Discharge Instructions for Heart Failure, Discharge Instructions for Pneumonia Additional Instructions: Please follow-up with your statement processor, Dr. Summers, in 1 -2 weeks. Allergies/Adverse Reactions: Allergies No Known Allergies Allergy (Verified 11/11/17 06:29) Medications to take at Discharge Amiodarone HCl [Cordarone] 200 mg PO DAILY #30 tab 11/13/17 Atorvastatin Calcium [Lipitor] 40 mg PO QHS #90 tab 11/13/17 Carvedilol [Coreg (Beta Maik)] 6.25 mg PO BID #90 tab 11/13/17 Ciprofloxacin [Cipro] 500 mg PO BID #14 tab 11/13/17 Furosemide [Lasix] 40 mg PO BIDLX #90 tab 11/13/17 Lisinopril [Zestril] 20 mg PO DAILY #90 tab 11/13/17 Pantoprazole Sodium [Protonix] 40 mg PO DAILY #30 tab 11/13/17 Spironolactone [Aldactone] 25 mg PO DAILY #30 tab 11/13/17 The following prescriptions were given: Amiodarone HCl [Cordarone] 200 mg PO DAILY #30 tab Atorvastatin Calcium [Lipitor] 40 mg PO QHS #90 tab Furosemide [Lasix] 40 mg PO BIDLX #90 tab Lisinopril [Zestril] 20 mg PO DAILY #90 tab Pantoprazole Sodium [Protonix] 40 mg PO DAILY #30 tab Spironolactone [Aldactone] 25 mg PO DAILY #30 tab Carvedilol [Coreg (Beta Maik)] 6.25 mg PO BID #90 tab Ciprofloxacin [Cipro] 500 mg PO BID #14 tab Primary Care Physician: Gisele Doctor,Out of [Primary Care Provider] - Please follow up with your Primary Care Physician in: 1 week.
[2017-11-13] MEDS: Ciprofloxacin 500 MG Tablet PO (14:02)
[2017-11-13 14:07] LABS: HEPATITIS B SURFACE AG Negative (Negative); Hepatitis B Core Ab Total Negative (Negative)
--- NOTE | 2017-11-13 15:17 | PCM.DC.SUM ---
Discharge Date and Diagnosis Date of Admission: 11/11/17 Date of Discharge: 11/13/17 - Primary Discharge Diagnosis #1 acute on chronic systolic CHF. #2 the lower right lung community-acquired pneumonia. #3 sepsis. #4 right-sided chest pain/elevated troponin. #5 elevated LFT. - Secondary Discharge Diagnosis Chronic Problems Cardiomyopathy (Chronic) Valvular disease (Chronic) Anxiety (Chronic) Coronary artery disease (Chronic) Ischemic cardiomyopathy (Chronic) Status post placement of cardiac pacemaker (Chronic) S/P implantation of automatic cardioverter/defibrillator (AICD) (Chronic) Hospital Course and Treatment Imaging Results: Clinical Impression(s) from Imaging Studies Chest X-Ray 11/11/17 06:30 IMPRESSION: Right basilar alveolar disease. Electronically Signed: Chadd Marks MD at 7:02 EDT Tel , Service support , Chest CT 11/11/17 17:08 IMPRESSION: Right middle lobe and right lower lobe pneumonia. Small right pleural effusion. Electronically Signed: Chadd Marks MD at 22:06 EDT Tel , Service support , Chest X-Ray 11/12/17 05:55 IMPRESSION: Stable increased markings at the right lung base. Electronically Signed: Artie Gleason MD at 12:38 EDT Tel [phone], Service support , Dr. Rosado, cardiology. Dr. Dunaway, pulmonology. Operations: None Procedures: 2-D Echocardiogram, EKG Summary of Care Provided: This is a 47 years old male patient presented to the emergency room because of multiple complaints but mainly with shortness of breath and weakness and he was found to have findings consistent with acute on chronic systolic CHF including elevated BNP and chest x-ray findings. CT scan chest without contrast done because of hemoptysis and he was found to have right middle and lower lobe infiltrate consistent with community acquired pneumonia. #1 acute on chronic systolic CHF: In context of history of nonischemic cardiomyopathy. He was treated with IV Lasix for diuresis. Patient was not compliant and apparently, he is not taking his medications. He was started on Coreg, lisinopril and statins during this admission. 2D echocardiogram revealed ejection fraction of 10%. With IV diuresis, patient symptoms improved and he remained on room air and his vital signs remained stable. Patient discharged home in a stable medical condition, discharged on Lasix, lisinopril and Coreg as well as Aldactone and statins, started on amiodarone according to cardiology recommendations, recommended to follow-up with PCP in 1 week and follow-up with his computer support analyst within 1-2 weeks. #2 Multilobar right lung community-acquired pneumonia/sepsis: This is diagnosed based on CT scan chest that was done for hemoptysis. He was found to have a right middle and lower lobe pneumonia as well as bronchiectasis. He was treated with IV Zosyn and his white blood cell count returned back almost normal. Upon admission, lactic acid was elevated and would therapy, lactic acid is getting back to normal as well. His blood culture showed no growth in 48 hours. Urine culture showed no growth as well. Patient has no hemoptysis. He was discharged home on ciprofloxacin 500 mg p.o. twice daily for 7 days. #3 questionable hematemesis/hemoptysis: Hemostasis was verified and once in by nursing staff which is attributed to pneumonia and bronchiectasis. After admission, patient denies any hematemesis although he complained of hematemesis to the ER physician. Stool was negative for occult blood. Hemoglobin and hematocrit remained stable and above 15 g/dL. #4 Right lateral chest pain/elevated troponin: The pain on the right lateral chest is likely due to pleuritic chest pain secondary to pneumonia. Troponin has been fluctuating up and down. 2D echocardiogram reviewed as above. Troponin was borderline elevated and is attributed to acute CHF. His EKG revealed paced rhythm without evidence of acute ischemic changes. #5 elevated LFT: This could be due to liver congestion secondary to CHF. Liver transaminases are trending down with IV diuresis. Infectious hepatitis screen is pending at the time of discharge. Patient discharged home in a stable medical condition, discharged on statins, Coreg, Lasix, lisinopril, Aldactone, Protonix, amiodarone and prescriptions for all of these medications given, discharged on ciprofloxacin twice daily for pneumonia, counseled and recommended about the importance of adhering to the medication regimen for his congestive heart failure, highly recommended to follow-up with PCP in 1 week and follow-up with his computer support analyst in 1-2 weeks. This note was generated with [employer] dictation software. It may contain incorrect words, spelling, and punctuation that were not noted in checking the note before signing. Discharge Activity: Return to Normal Activity Weight Bearing Status: Weight bearing as tolerated Call your doctor if you observe: Fever of 101 or Higher, Shortness of breath, Dizziness, Fainting spells, Chest pain, Increased palpitations (irregular heartbeat), Uncontrolled pain Home Medications: Medications to take at Discharge Amiodarone HCl [Cordarone] 200 mg PO DAILY #30 tab 11/13/17 Atorvastatin Calcium [Lipitor] 40 mg PO QHS #90 tab 11/13/17 Carvedilol [Coreg (Beta Maik)] 6.25 mg PO BID #90 tab 11/13/17 Ciprofloxacin [Cipro] 500 mg PO BID #14 tab 11/13/17 Furosemide [Lasix] 40 mg PO BIDLX #90 tab 11/13/17 Lisinopril [Zestril] 20 mg PO DAILY #90 tab 11/13/17 Pantoprazole Sodium [Protonix] 40 mg PO DAILY #30 tab 11/13/17 Spironolactone [Aldactone] 25 mg PO DAILY #30 tab 11/13/17 Following Prescrptions Were Given to Patient: Amiodarone HCl [Cordarone] 200 mg PO DAILY #30 tab Atorvastatin Calcium [Lipitor] 40 mg PO QHS #90 tab Furosemide [Lasix] 40 mg PO BIDLX #90 tab Lisinopril [Zestril] 20 mg PO DAILY #90 tab Pantoprazole Sodium [Protonix] 40 mg PO DAILY #30 tab Spironolactone [Aldactone] 25 mg PO DAILY #30 tab Carvedilol [Coreg (Beta Maik)] 6.25 mg PO BID #90 tab Ciprofloxacin [Cipro] 500 mg PO BID #14 tab Primary Care Physician: Gisele John,Out of [Primary Care Provider] - Please follow up with your Primary Care Physician in: 1 week. Patient Instructions: Discharge Instructions for Heart Failure, Discharge Instructions for Pneumonia Disposition: Home Minutes spent on discharge:: 36 Patient Condition:: Stable Medical Necessity - Tobacco Use Smoking Status: Current every day smoker - [id number] history Tobacco Use: Cigarettes Meaningful Use Info Meaningful Use Diagnoses (Choose all that apply): CHF - CHF RADHA/ARB ordered at discharge?: Yes Documented LVEF (%): 10 Code Visit Inpatient E&M: 18540 Disch Hosp
--- NOTE | 2017-11-13 15:26 | DS.PCM_ITS ---
Discharge Date and Diagnosis Date of Admission: 11/11/17 Date of Discharge: 11/13/17 - Primary Discharge Diagnosis #1 acute on chronic systolic CHF. #2 the lower right lung community-acquired pneumonia. #3 sepsis. #4 right-sided chest pain/elevated troponin. #5 elevated LFT. - Secondary Discharge Diagnosis Chronic Problems Cardiomyopathy (Chronic) Valvular disease (Chronic) Anxiety (Chronic) Coronary artery disease (Chronic) Ischemic cardiomyopathy (Chronic) Status post placement of cardiac pacemaker (Chronic) S/P implantation of automatic cardioverter/defibrillator (AICD) (Chronic) Hospital Course and Treatment Imaging Results: Clinical Impression(s) from Imaging Studies Chest X-Ray 11/11/17 06:30 IMPRESSION: Right basilar alveolar disease. Electronically Signed: Chadd Marks MD at 7:02 EDT Tel , Service support , Chest CT 11/11/17 17:08 IMPRESSION: Right middle lobe and right lower lobe pneumonia. Small right pleural effusion. Electronically Signed: Chadd Marks MD at 22:06 EDT Tel , Service support , Chest X-Ray 11/12/17 05:55 IMPRESSION: Stable increased markings at the right lung base. Electronically Signed: Artie Gleason MD at 12:38 EDT Tel [phone], Service support , Dr. Rosado, cardiology. Dr. Dunaway, pulmonology. Operations: None Procedures: 2-D Echocardiogram, EKG Summary of Care Provided: This is a 47 years old male patient presented to the emergency room because of multiple complaints but mainly with shortness of breath and weakness and he was found to have findings consistent with acute on chronic systolic CHF including elevated BNP and chest x-ray findings. CT scan chest without contrast done because of hemoptysis and he was found to have right middle and lower lobe infiltrate consistent with community acquired pneumonia. #1 acute on chronic systolic CHF: In context of history of nonischemic cardiomyopathy. He was treated with IV Lasix for diuresis. Patient was not compliant and apparently, he is not taking his medications. He was started on Coreg, lisinopril and statins during this admission. 2D echocardiogram revealed ejection fraction of 10%. With IV diuresis, patient symptoms improved and he remained on room air and his vital signs remained stable. Patient discharged home in a stable medical condition, discharged on Lasix, lisinopril and Coreg as well as Aldactone and statins, started on amiodarone according to cardiology recommendations, recommended to follow-up with PCP in 1 week and follow-up with his roller stainer within 1-2 weeks. #2 Multilobar right lung community-acquired pneumonia/sepsis: This is diagnosed based on CT scan chest that was done for hemoptysis. He was found to have a right middle and lower lobe pneumonia as well as bronchiectasis. He was treated with IV Zosyn and his white blood cell count returned back almost normal. Upon admission, lactic acid was elevated and would therapy, lactic acid is getting back to normal as well. His blood culture showed no growth in 48 hours. Urine culture showed no growth as well. Patient has no hemoptysis. He was discharged home on ciprofloxacin 500 mg p.o. twice daily for 7 days. #3 questionable hematemesis/hemoptysis: Hemostasis was verified and once in by nursing staff which is attributed to pneumonia and bronchiectasis. After admission, patient denies any hematemesis although he complained of hematemesis to the ER physician. Stool was negative for occult blood. Hemoglobin and hematocrit remained stable and above 15 g/dL. #4 Right lateral chest pain/elevated troponin: The pain on the right lateral chest is likely due to pleuritic chest pain secondary to pneumonia. Troponin has been fluctuating up and down. 2D echocardiogram reviewed as above. Troponin was borderline elevated and is attributed to acute CHF. His EKG revealed paced rhythm without evidence of acute ischemic changes. #5 elevated LFT: This could be due to liver congestion secondary to CHF. Liver transaminases are trending down with IV diuresis. Infectious hepatitis screen is pending at the time of discharge. Patient discharged home in a stable medical condition, discharged on statins, Coreg, Lasix, lisinopril, Aldactone, Protonix, amiodarone and prescriptions for all of these medications given, discharged on ciprofloxacin twice daily for pneumonia, counseled and recommended about the importance of adhering to the medication regimen for his congestive heart failure, highly recommended to follow-up with PCP in 1 week and follow-up with his roller stainer in 1-2 weeks. This note was generated with [employer] dictation software. It may contain incorrect words, spelling, and punctuation that were not noted in checking the note before signing. Discharge Activity: Return to Normal Activity Weight Bearing Status: Weight bearing as tolerated Call your doctor if you observe: Fever of 101 or Higher, Shortness of breath, Dizziness, Fainting spells, Chest pain, Increased palpitations (irregular heartbeat), Uncontrolled pain Home Medications: Medications to take at Discharge Amiodarone HCl [Cordarone] 200 mg PO DAILY #30 tab 11/13/17 Atorvastatin Calcium [Lipitor] 40 mg PO QHS #90 tab 11/13/17 Carvedilol [Coreg (Beta Maik)] 6.25 mg PO BID #90 tab 11/13/17 Ciprofloxacin [Cipro] 500 mg PO BID #14 tab 11/13/17 Furosemide [Lasix] 40 mg PO BIDLX #90 tab 11/13/17 Lisinopril [Zestril] 20 mg PO DAILY #90 tab 11/13/17 Pantoprazole Sodium [Protonix] 40 mg PO DAILY #30 tab 11/13/17 Spironolactone [Aldactone] 25 mg PO DAILY #30 tab 11/13/17 Following Prescrptions Were Given to Patient: Amiodarone HCl [Cordarone] 200 mg PO DAILY #30 tab Atorvastatin Calcium [Lipitor] 40 mg PO QHS #90 tab Furosemide [Lasix] 40 mg PO BIDLX #90 tab Lisinopril [Zestril] 20 mg PO DAILY #90 tab Pantoprazole Sodium [Protonix] 40 mg PO DAILY #30 tab Spironolactone [Aldactone] 25 mg PO DAILY #30 tab Carvedilol [Coreg (Beta Maik)] 6.25 mg PO BID #90 tab Ciprofloxacin [Cipro] 500 mg PO BID #14 tab Primary Care Physician: Gisele John,Out of [Primary Care Provider] - Please follow up with your Primary Care Physician in: 1 week. Patient Instructions: Discharge Instructions for Heart Failure, Discharge Instructions for Pneumonia Disposition: Home Minutes spent on discharge:: 36 Patient Condition:: Stable Medical Necessity - Tobacco Use Smoking Status: Current every day smoker - [id number] history Tobacco Use: Cigarettes Meaningful Use Info Meaningful Use Diagnoses (Choose all that apply): CHF - CHF RADHA/ARB ordered at discharge?: Yes Documented LVEF (%): 10 Code Visit Inpatient E&M: 90344 Disch Hosp
[2017-11-14 12:19] LABS: Hep C Antibodies <0.1 s/co ratio (0.0-0.9); Hepatitis B Core AB IgM Negative (Negative)
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
== END 2017-11-13 14:53 | disposition home or self-care (01) | DRG 871 ==
LOC: ED 07:42 → PCU 08:00
PROVIDERS: Admitting Provider Hospitalist; Emergency Provider Emergency Medicine; Visit Provider Hospitalist
DX: A41.9 Sepsis, unspecified organism (principal); J18.9 Pneumonia, unspecified organism; I50.23 Acute on chronic systolic (congestive) heart failure; I11.0 Hypertensive heart disease with heart failure; I25.10 Atherosclerotic heart disease of native coronary artery without angina pectoris; I25.5 Ischemic cardiomyopathy; F17.210 Nicotine dependence, cigarettes, uncomplicated; I48.91 Unspecified atrial fibrillation; I25.2 Old myocardial infarction; F41.0 Panic disorder [episodic paroxysmal anxiety]; Z91.14 Patient's other noncompliance with medication regimen; Z95.810 Presence of automatic (implantable) cardiac defibrillator; I48.2 Chronic atrial fibrillation
CPT/HCPCS: 36415; 71045; 71250; 80048; 80053; 80076; 80307; 80320; 81001; 82274; 82962; 83605; 83690; 83735; 83880; 84439; 84443; 84481; 84484; 85025; 85610; 85730; 86704; 86705; 86803; 86850; 86900; 87040; 87086; 87340; 93005; 93306; 94640; 94667; 97161; 97165; 99284; 99406; J7030; J7040; A4216; G0480; J0696; J1940; J2405; J3490

== ENCOUNTER 2018-12-06 07:36 | Emergency (ER) | payer MEDICARE, SELFPAY ==
[2018-12-06 07:37] VITALS: BP 117/90; PULSE 107; RESP 16; TEMP 36.6; O2SAT 99; BMI 23.7
--- NOTE | 2018-12-06 07:45 | EKG12_ITS ---
Test Reason : ABD PAIN Blood Pressure : / mmHG Vent. Rate : 108 BPM Atrial Rate : 108 BPM P-R Int : 112 ms QRS Dur : 164 ms QT Int : 432 ms P-R-T Axes : 062 270 059 degrees QTc Int : 578 ms Poor data quality, interpretation may be adversely affected Atrial-sensed ventricular-paced rhythm Biventricular pacemaker detected Abnormal ECG Confirmed by MIREILLE PABLO, TONYA ([id number]), editor managing newspaper JERRY CORTEZ ([id number]) on 12/08/2018 8:03:51 AM Referred By: ABHILASH Confirmed By:TONYA KENDRICK MD
--- NOTE | 2018-12-06 07:45 | RAD_ITS ---
STUDY: X-RAY CHEST REASON FOR EXAM: Male, 48 years old. Chest and abdominal pain, shortness of breath. TECHNIQUE: PA and lateral views of the chest. COMPARISON: 11/12/2017. FINDINGS: There again is a dual-chamber right-sided pacemaker in stable position. The lungs are clear and expanded. There is no demonstrated pleural abnormality. The cardiac silhouette remains moderately enlarged. Normal mediastinum and caleb. Normal visualized pulmonary arteries. Normal visualized aortic arch and descending thoracic aorta. Normal visualized thoracic spine. Normal visualized ribs, clavicles, and shoulders. There is no demonstrated abnormality of the visualized soft tissue structures of the upper abdomen. RAD/Chest PA and Lateral IMPRESSION: 1. Cardiomegaly. 2. No active pulmonary disease. Electronically Signed: Agusto Joiner MD at 8:26 EDT Tel , Service support ,
--- NOTE | 2018-12-06 07:48 | ED.VISSUMM ---
- ER Visit Summary Date of Service: 12/06/18 Chief Complaint: Abdominal pain, shortness of breath History of Present Illness: The patient is a 48 M with history of coronary disease, CHF, cardiomyopathy. He has AICD. Patient reports a 1 to 1/2-week history of cough with clear sputum and shortness of breath. He complains of pain from mid chest through mid abdomen. He reports nausea. He states he has not taken any of his medications in the last 4 to 6 months. Physical Examination: Vital signs grossly unremarkable. Patient lying in bed no acute distress. He is anxious. Heart is regular rate and rhythm. Lung sounds are grossly clear. He is slightly tachypneic. Abdomen is soft with mild upper abdominal tenderness. No guarding or rebound. Hypoactive bowel sounds are noted. Test Results: Two-view chest x-ray shows cardiomegaly. EKG is paced at 108. CBC was a white count 11.9. Chemistry studies reveal BUN of 30 and creatinine 1.33. LFTs are elevated. T bili is 3.0, D bili 0.86, alk phos 290, ALT 166, AST 290. These values are somewhat consistent with his hospitalization from a year ago. Troponin is 0.038. BNP is 1988. Emergency Department Course and Treatment: I reviewed the patient's work-up from a year ago when he presented with very similar symptoms. At that time he had pneumonia. Patient does admit to medication noncompliance. His echocardiogram from a year ago showed a ejection fraction of 10%. He had elevation in his liver function test at that time secondary to engorgement from CHF. I discussed the importance of his medications with him. Patient is not willing or able to stay in the hospital at this time. He will be given refills on his atorvastatin, Coreg, Lasix, lisinopril, Protonix, Aldactone. He is given a dose of Coreg and Lasix at this time. He will follow-up with his primary care physician, Dr. Au in [place]. He will follow-up with his tire and lube technician, Dr. Villavicencio, in [place]. Treatment Plan: [] Disposition: Discharge Impression: CHF with elevated LFTs secondary to medication noncompliance This note was generated with [employer] dictation software. It may contain incorrect words, spelling, and punctuation that were not noted in review of the chart prior to signing ED Disposition - Plan for ED Patient: Disposition: Home or Assisted Living Instructions: ED CHF General Prescriptions: Atorvastatin Calcium 40 mg PO QHS #30 tablet Lisinopril 20 mg PO DAILY #30 tablet Pantoprazole Sodium [Protonix] 40 mg PO DAILY #30 tablet Spironolactone 25 mg PO DAILY #30 tablet Carvedilol [Coreg] 6.25 mg PO BID #60 tablet Furosemide [Lasix] 40 mg PO BID #60 tablet Referrals: [facility] Doctor,Out of [Primary Care Provider] - Additional Instructions: As discussed, you must follow-up with your doctor for further evaluation and repeat bloodwork. Please follow-up as soon as possible.
[2018-12-06 08:22] LABS: AST(SGOT) 290 U/L (15-37); Alanine Aminotransfer ALT/SGPT 166 U/L (16-61); Albumin, Serum 3.1 g/dL (3.2-5.0); Alkaline Phosphatase 290 U/L (45-117); Anion Gap 10 (5-15); BUN 30 mg/dL (7-18); BUN/Creat Ratio 22.6 RATIO (10-20); Bilirubin, Direct 0.86 mg/dL (0.00-0.30); Calcium,Total 8.5 mg/dL (8.5-10.1); Chloride 104 mmol/L (98-107); Creatinine, Serum 1.33 mg/dL (0.70-1.30); EST Glomerular Filtration Rate 60 mL/min (>60); Est Glom Filt Rate - Afr Amer 73 mL/min (>60); Estimated Creatinine Clearance 72.93 ml/min; Globulin 3.1 g/dL (2.2-4.2); Glucose 85 mg/dL (74-106); Lipase 55 U/L (73-393); Potassium 3.6 mmol/L (3.5-5.1); Protein, Total 6.2 g/dL (6.4-8.2); Sodium Level 139 mmol/L (136-145)
[2018-12-06 08:42] LABS: Absolute Lymphocyte Count 3.08 X10^3/ul (0.83-4.51); Absolute Neutrophil Count 7.7 X10^3/uL (2.0-7.7); Basophil# 0.04 X10^3/uL; Basophil% 0.3 % (0-1); Eosinophil# 0.07 X10^3/uL; Eosinophils% 0.6 % (0-5); Hematocrit 46.6 % (40-54); Hemoglobin 16.2 g/dl (13.0-16.5); Lymphocyte # 3.08 X10^3/ul (4.0); Lymphocyte % 25.8 % (19-41); Mean Corp Hgb Conc 34.8 g/gl (32-36); Mean Corpuscular Hgb 32.7 pg (27.0-32.0); Mean Platelet Vol. 9.5 fl (6.2-12.0); Monocyte# 1.03 X10^3/uL; Monocyte% 8.6 % (0-10); Neutrophil % 64.5 % (47-70); POSITIVE COUNT NO; POSITIVE DIFFERENTIAL NO; POSITIVE MORPHOLOGY NO; Platelet Count 281 K/mm3 (150-450); RBC Distribution Width CV 12.6 % (11.6-14.6); RBC Distribution Width SD 42.6 fl (35.1-43.9); Red Blood Count 4.96 M/mm3 (4.6-6.2); White Blood Count 11.9 K/mm3 (4.4-11.0)
[2018-12-06] MEDS: Furosemide 40 MG/4 ML Vial IV (09:37)
[2018-12-06] MEDS: Carvedilol 6.25 MG Tablet PO (09:38)
[2018-12-06] MEDS: Ketorolac 15 MG/ML Vial IV (09:54)
[2018-12-06 10:10] VITALS: BP 141/114; PULSE 109; RESP 22
[2018-12-06] MEDS: ALPRAZolam 0.25 MG Tablet PO (10:17)
[2018-12-06 10:18] VITALS: BP 133/110; PULSE 106; O2SAT 95
== END 2018-12-06 10:29 | disposition home or self-care (01) ==
PROVIDERS: Emergency Provider Emergency Medicine
DX: I50.9 Heart failure, unspecified (principal); R79.89 Other specified abnormal findings of blood chemistry; Z91.14 Patient's other noncompliance with medication regimen; I25.10 Atherosclerotic heart disease of native coronary artery without angina pectoris; I42.9 Cardiomyopathy, unspecified; Z87.01 Personal history of pneumonia (recurrent); Z95.810 Presence of automatic (implantable) cardiac defibrillator; Z79.899 Other long term (current) drug therapy; Z72.0 Tobacco use
CPT/HCPCS: 71046; 80048; 80076; 83690; 83880; 84484; 85025; 93005; 96374; 96375; 99285; A4216; J1940

== ENCOUNTER 2019-02-27 08:51 | Inpatient (IN) | payer MEDICARE, SELFPAY ==
[2019-02-27] VITALS (13 sets, daily range): BP systolic 118–137; BP diastolic 88–112; PULSE 102–121; RESP 14–30; TEMP 36.2–36.6; O2SAT 95–100; BMI 22.4; BMI 21.4
--- NOTE | 2019-02-27 09:06 | EKG12_ITS ---
Test Reason : SOB Blood Pressure : / mmHG Vent. Rate : 102 BPM Atrial Rate : 102 BPM P-R Int : 124 ms QRS Dur : 158 ms QT Int : 428 ms P-R-T Axes : 052 264 063 degrees QTc Int : 557 ms Atrial-sensed ventricular-paced rhythm Biventricular pacemaker detected Abnormal ECG Confirmed by YURIY PABLO, HOANG ([id number]), associate editor MARY JO PERALTA ([id number]) on 03/02/2019 10:57:27 AM Referred By: Confirmed By:HOANG YAN MD
--- NOTE | 2019-02-27 09:06 | RAD_ITS ---
STUDY: X-RAY CHEST REASON FOR EXAM: Male, 48 years old. Shortness of breath TECHNIQUE: Single AP portable view of the chest. COMPARISON: December 06, 2018 chest x-ray FINDINGS: There is a defibrillator present with leads overlying the heart. The lungs are clear and expanded. There is no demonstrated pleural abnormality. Mild to moderate cardiac enlargement. Normal mediastinum and caleb. Normal visualized pulmonary arteries. There is atherosclerotic calcification of the aortic arch with tortuosity. There are diffuse degenerative changes of the visualized thoracic spine. Normal visualized ribs, clavicles, and shoulders. There is no demonstrated abnormality of the visualized soft tissue structures of the upper abdomen. RAD/Chest 1 View (Portable) IMPRESSION: Stable chest. Moderate cardiomegaly. Defibrillator. Electronically Signed: Kandi Borja MD at 9:57 EDT Tel , Service support ,
--- NOTE | 2019-02-27 09:07 | ED.DCSUM_ITS ---
History of Present Illness Informant: Patient, Friend Onset: Month(s) - 2 months Activity at onset: Exertion, Light Activity Timing: Intermittent Quality: Dyspnea on exertion Current Severity: Moderate Maximum Severity: Severe Worsened by: Exertion Relieved by: Nothing Associated Symptoms: Cough Chest Pain: Intermittent, Sharp Narrative: 48-year-old male presents with chest pain on the right side and shortness of breath. Patient has a history of cardiomyopathy with a severely decreased ejection fraction and has a ICD. He has a history of congestive heart failure. He has been noncompliant with his medications. He tells me he has not taken them in about a year. He was here 2 months ago and given refills for these but never took any of his medicines. He has not followed up with his doctor. Prior similar symptoms: Yes Recent Illness/Hospitalization: No <Femi Cummins - Last Filed: 02/27/19 10:50> <Luis Antonio Medina - Last Filed: 02/27/19 17:07> Chief Complaint: Shortness of Breath Past Medical History Prior records reviewed: Yes Past Medical History: - - CHF, CAD, Cardiomyopathy Surgical History: cholecystectomy, - - ICD placement Smoking Status: Current every day smoker - Family History Maternal Family History: Reports: No pertinent history Paternal Family History: Reports: - - stomach cancer <Femi Cummins - Last Filed: 02/27/19 10:50> <Luis Antonio Medina - Last Filed: 02/27/19 17:07> - Allergies and Home Meds Allergies/Adverse Reactions: Allergies No Known Allergies Allergy (Verified 02/27/19 08:53) Review of Systems All systems negative except as indicated General: Reports: Malaise Cardiovascular: Reports: Chest pain Respiratory: Reports: Dyspnea, Dyspnea on exertion <Femi Cummins - Last Filed: 02/27/19 10:50> Physical Exam Vital Signs/Narrative: Vital Signs Temp Pulse Resp BP Pulse Ox 02/27/19 08:52 97.1 F L 103 H 19 H 118/88 H 95 Inital Vital Signs reviewed: Yes General: Well nourished, Well developed, No Acute Distress Head: Normocephalic, Atraumatic Eyes: Perrl, EOMI ENT: Moist mucous membranes Neck: Supple, Nontender Cardiovascular: Regular rate, Regular rhythm Respiratory: No distress, Chest nontender, Diminished Abdomen: Soft, Nontender, Nondistended, Normal bowel sounds, No masses Back: Nontender, Normal Inspection Extremities: Nontender, No edema Skin: Normal color, No rash Neurological: Alert, Oriented x3 <Femi Cummins - Last Filed: 02/27/19 10:50> Diagnostic/Tx/Re-eval Chest X-Ray - ED: 1 View, No Acute Disease, Chronic Changes, Cardiomegaly - Rhythm Strip Rhythm Strip: Sinus Rhythm Rate: 107 Ectopy: None - EKG Initial EKG Interpretation: No Acute Injury Pattern Prior: Unchanged - Medical Decision Making On arrival vital signs are stable. EKG shows no signs of acute ischemia. Unchanged from his previous EKG. Patient is not acutely dyspneic. Heart rate is approximately 105 bpm likely from noncompliance of all of his medications. Laboratory work-up shows a indeterminate troponin which is actually less than his previous values. The rest of his labs are unremarkable. His chest x-ray shows chronic findings. Spoke with cardiology Dr Rosado, recommended admission. Patient stable for floor. Admitted under Dr Bell. <Femi Cummins - Last Filed: 02/27/19 10:50> - Medical Decision Making I supervised the PA and have performed my own pertinent history and physical. Results and treatment plan were discussed. HPI: Patient reports that he has shortness of breath that is chronic, but worsened over the past few days. He also reports he has a nonproductive cough for the past few days. He denies any fever or chills. Patient does report that he has a history of CHF. 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 He is not taking his medications. PE: Respiratory: No respiratory distress. Lungs are clear to auscultation bilaterally. No wheezing or crackles. Cardiovascular: Tachycardic regular rhythm without murmur. Extremities: Trace pedal edema bilaterally. Emergency Department course: Patient was placed on oxygen as he is having periods where he is de-satting transiently into the high 80s. 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 EKG is paced and unchanged from previous. Treatment Plan: The patient was discussed with Dr. Rosado and Dr. Berkowitz. He is noncompliant and having episodes of hypoxia. He will be admitted to the hospital for further evaluation and treatment. This note was generated with [employer] dictation software. It may contain incorrect words, spelling, and punctuation that were not noted in review of the chart prior to signing. <Luis Antonio Medina - Last Filed: 02/27/19 17:07> ED Disposition <Femi Cummins - Last Filed: 02/27/19 10:50> <Luis Antonio Medina - Last Filed: 02/27/19 17:07> - Plan for ED Patient: Disposition: Acute Care Hospital [facility] Diagnosis: CHF (congestive heart failure), Cardiomyopathy, Coronary artery disease, S/P implantation of automatic cardioverter/defibrillator (AICD), Abnormal cardiac enzyme level, CKD (chronic kidney disease), Dyspnea, Medical non-compliance
[2019-02-27] MEDS: proMETHazine 25 MG/ML Syringe 6.25 MG IV (09:16)
[2019-02-27 09:17] LABS: Absolute Lymphocyte Count 1.73 X10^3/uL (0.83-4.51); Absolute Neutrophil Count 6.4 X10^3/uL (2.0-7.7); Basophil# 0.06 X10^3/uL; Basophil% 0.7 % (0-1); Eosinophil# 0.07 X10^3/uL; Eosinophils% 0.8 % (0-5); Hemoglobin 16.7 g/dL (13.0-16.5); Lymphocyte # 1.73 X10^3/ul (4.0); Lymphocyte % 19.7 % (19-41); Mean Corp Hgb Conc 32.7 g/dL (32-36); Mean Corpuscular Volume 94.8 fL (80-94); Mean Platelet Vol. 9.5 fl (6.2-12.0); Monocyte# 0.55 X10^3/uL; Monocyte% 6.3 % (0-10); NRBC Flagged by Analyzer 0 % (0-5); Neutrophil # 6.35 X10^3/uL (2.7-7.7); Neutrophil % 72.3 % (47-70); Platelet Count 206 K/mm3 (150-450); RBC Distribution Width SD 58.5 fl (35.1-43.9); Red Blood Count 5.38 M/mm3 (4.6-6.2); White Blood Count 8.8 K/mm3 (4.4-11.0)
--- NOTE | 2019-02-27 09:19 | ED.RN ---
NITALLY RAPID BREATHIING ENCOURAGED BREATHING. FIRST CONVERSATION FROM PT INEED XANAX AND TORADOL BEFORE I FLY LIKE A MONKEY AROUND THIS ROOM. THEN IM FILLING UP I NEED LASIX AND IM NAUSEA PHENERGAN. AFTER DR SAW PT NURSE RETURNED TO ROOM. PT CALM AND BREATHING IMPROVED. EXPLANED DR ORDERS AND MEDICATIONS GIVEN/NOT GIVEIN TO PT PER DR ORDER PT RESTING IN BED. NO DISTRESS NTOED. BREATHING EVEN AND UNLABORED.
--- NOTE | 2019-02-27 09:23 | ED.RN ---
Ying NEWTON IN TO SEE PT. PT BREATHING SUDDENLEY INCREASED, BREATHING DOES IMPROVE WITH TALKING AND DISTRACTION
--- NOTE | 2019-02-27 09:24 | ED.RN ---
pa PRESENT TO SEE PT NOT DR AT THIS TIME.
[2019-02-27 09:36] LABS: Anion Gap 7 (5-15); BUN 34 mg/dL (7-18); BUN/Creat Ratio 27.2 RATIO (10-20); Calcium,Total 8.8 mg/dL (8.5-10.1); Chloride 105 mmol/L (98-107); Creatinine, Serum 1.25 mg/dL (0.70-1.30); EST Glomerular Filtration Rate 65 mL/min (>60); Est Glom Filt Rate - Afr Amer 79 mL/min (>60); Estimated Creatinine Clearance 74.84 ml/min; Glucose 131 mg/dL (74-106); Sodium Level 141 mmol/L (136-145)
[2019-02-27 09:52] LABS: BNP,B-Type NATRIURETIC PEPTIDE 2283.4 pg/mL (0-100)
--- NOTE | 2019-02-27 09:58 | ED.RN ---
BENEFITS CONSULTING ANALYST ALARMING LOW SATS FOR 5-10 SECONDS THEM REBOUNDS TO 99%. RR ALL OVER. IN ROOM TO OBERVE PT. PT SATS 99% WHEN PT RELAXED AND RESTING BREATHING CALMLY. PT SUDDENLY FEELS NEEDS DEEPER BREATHINS AND BEGINS RAPID BREATHING , SATS DROP BREIFLT WITH THAT. DISCUSSED VS WITH PA AND NO CHANGES IN CARE AT THIS TIME
--- NOTE | 2019-02-27 10:51 | PCM.HP.STD ---
Problem List (1) Dyspnea Status: Acute (2) CKD (chronic kidney disease) Status: Chronic (3) Medical non-compliance Status: Acute (4) Cardiomyopathy Status: Chronic Qualifiers: Cardiomyopathy type: dilated Qualified Code(s): I42.0 - Dilated cardiomyopathy (5) Valvular disease Status: Chronic (6) CHF (congestive heart failure) Status: Acute Qualifiers: Heart failure type: systolic Heart failure chronicity: acute on chronic Qualified Code(s): I50.23 - Acute on chronic systolic (congestive) heart failure (7) Anxiety Status: Chronic (8) Coronary artery disease Status: Chronic (9) Status post placement of cardiac pacemaker Status: Chronic (10) S/P implantation of automatic cardioverter/defibrillator (AICD) Status: Chronic History of Present Illness Date of Admission: 02/27/19 Chief Complaint: Shortness of breath The patient is a 48 year old M past medical history significant for nonischemic cardiomyopathy with known ejection fraction of 10%, status post ICD/HOSPITALITY DIRECTOR therapy who presented with shortness of breath. Patient states his symptoms have been going on for months but been progressively worse. Reports shortness of breath with minimal exertion. He also did notice increasing swelling involving both lower extremities. Patient has apparently not been compliant with his follow-up as well as his medications. In the emergency department checks x-ray did not show any vascular congestion however was found to have markedly elevated BNP with distended neck veins. An assessment of acute decompensated congestive heart failure made admitted to a monitored bed for subsequent management Past Medical History Past Medical History (Chronic Problems): Chronic Problems CKD (chronic kidney disease) (Chronic) Cardiomyopathy (Chronic) Valvular disease (Chronic) Anxiety (Chronic) Coronary artery disease (Chronic) Status post placement of cardiac pacemaker (Chronic) S/P implantation of automatic cardioverter/defibrillator (AICD) (Chronic) Allergies No Known Allergies Allergy (Verified 02/27/19 08:53) Home Medications: Ambulatory Orders Medication Instructions Recorded Atorvastatin Calcium 40 mg PO QHS #30 tablet 12/06/18 Carvedilol [Coreg] 6.25 mg PO BID #60 tablet 12/06/18 Furosemide [Lasix] 40 mg PO BID #60 tablet 12/06/18 Lisinopril 20 mg PO DAILY #30 tablet 12/06/18 Pantoprazole Sodium [Protonix] 40 mg PO DAILY #30 tablet 12/06/18 Spironolactone 25 mg PO DAILY #30 tablet 12/06/18 Surgical History: cholecystectomy, - - ICD placement Psychiatric History: Anxiety Smoking Status: Current every day smoker - *Family History Maternal History Items: No pertinent history Paternal History Items: - - stomach cancer Review of Systems Constitutional: Denies: Anorexia, Chills, Fever, Night Sweats, Weight Change HEENT: Denies: Head Aches, Sinus Congestion, Sinus Drainage Cardiovascular: Reports: Orthopnea. Denies: Chest Pain, Palpitations Respiratory: Reports: Cough, Shortness of Breath, Shortness of breath upon exertion Gastrointestinal: Denies: Abdominal Pain, Hematemesis, Hematochezia, Nausea, Melena, Vomiting Genitourinary: Denies: Dysuria, Frequency, Hematuria, Urgency Musculoskeletal: Denies: Joint Pain, Joint Tenderness Skin: Denies: Rash Neurological: Denies: Focal weakness, Numbness, Tingling Psychiatric: Denies: Homicidal Ideations, Suicidal Ideations Hematologic/ Lymphatic: Denies: Easy Bruising, Easy Bleeding VTE Information - Inpt Only VTE Present on Admission: No VTE Mechan Device Prophylaxis: None VTE Pharm Prophylaxis ordered?: Yes Objective: GENERAL: cooperative HEENT: Atraumatic; moist oral mucosa EYES; Anicteric, Normal Conjunctiva NECK; supple, normal thyroid, distended JVD. RESPIRATORY: Diminished to auscultation bilaterally, CARDIOVASCULAR: Regular S1 S2, GI: soft, non-tender, normoactive bowel sounds, : No Renal angle tenderness; EXTREMITIES: edema, no clubbing, no cyanosis. MUSCULOSKELETAL: No Joint Tenderness; NEURO: Awake; no lateralizing signs. SKIN: No Rash PSYCH; Flat affect - Physical Exam Vital Signs Temp Pulse Resp BP Pulse Ox 97.8 F 111 H 30 H 124/101 H 99 02/27/19 10:02 02/27/19 10:02 02/27/19 10:02 02/27/19 10:02 02/27/19 10:02 Oxygen Delivery Method Room Air Weight: 74.843 kg Body Mass Index (BMI) 22.4 Finger Stick Blood Glucose 124 Laboratory Tests Past 24 Hrs 02/27/19 02/27/19 02/27/19 09:10 09:10 09:10 WBC 8.8 RBC 5.38 Hgb 16.7 H Hct 51.0 MCV 94.8 H MCH 31.0 MCHC 32.7 RDW Std Deviation 58.5 H RDW Coeff of Paulina 17.0 H Plt Count 206 MPV 9.5 Immature Gran % (Auto) 0.200 Neut % (Auto) 72.3 H Lymph % (Auto) 19.7 Chilton % (Auto) 6.3 Eos % (Auto) 0.8 Baso % (Auto) 0.7 Absolute Neuts (auto) 6.4 Absolute Lymphs (auto) 1.73 Nucleated RBC % 0 Sodium 141 Potassium 4.0 Chloride 105 Carbon Dioxide 29.0 Anion Gap 7 BUN 34 H Creatinine 1.25 Estim Creat Clear Calc 74.84 Est GFR (MDRD) Af Amer 79 Est GFR (MDRD) Non-Af 65 BUN/Creatinine Ratio 27.2 H Glucose 131 H Calcium 8.8 Troponin I 0.172 H B-Natriuretic Peptide 2283.4 H Assessment/Plan All Active Problems Dyspnea (Acute) Medical non-compliance (Acute) Abnormal cardiac enzyme level (Resolved) CHF (congestive heart failure) (Acute) Abnormal LFTs (liver function tests) (Resolved) Hemoptysis (Resolved) Patient is a 48-year-old gentleman with history of nonischemic cardiomyopathy with known ejection fraction of 10% presented with progressive shortness of breath 1. Acute on chronic systolic heart failure in the patient with known nonischemic cardiomyopathy and ejection fraction of 10%. Patient decompensated congestive heart failure preceded by patient being noncompliant with medications. He supposed to be on both Aldactone and Lasix Rx however not taking them in weeks. Patient medications started admitted to monitored bed 2. Acute respiratory insufficiency secondary to above in addition to treating underlying condition patient was placed on supplemental oxygen 3. Nonischemic cardiomyopathy with ejection fraction of 10% with previous biventricular ICD/HOSPITALITY DIRECTOR therapy 4. Abnormal cardiac enzymes patient has chronically elevated troponin denies chest pain 5. Valvular heart disease patient has known mitral as well as tricuspid regurgitation 6. Tobacco dependence counseled on cessation, offered nicotine patch for tobacco cravings 7. DVT prophylaxis placed on Lovenox Code Visit OBSV E&M: [id number] Initial observation care L3
[2019-02-27 11:30] LABS: Magnesium 1.8 mg/dL (1.6-2.6)
[2019-02-27] MEDS: oxyCODONE 5 MG Tablet 10 MG PO ×2 (11:44→21:41)
--- NOTE | 2019-02-27 11:47 | CPS ---
pt became tachypnic when R.T. auscultated lung sounds, no crackles where heard, breathing was normal as R.T. was conferring with RN who is in the room. R.T. instructed on pursed-lip breathing.
[2019-02-27] MEDS: Furosemide 40 MG/4 ML Vial IV ×2 (13:14→21:41)
[2019-02-27] MEDS: 0.9% NaCl Peripheral Flush Adult/Peds IV ×2 (13:14→21:51)
--- NOTE | 2019-02-27 14:33 | CON.PCM_ITS ---
Problem List (1) Abnormal cardiac enzyme level Status: Resolved (2) CHF (congestive heart failure) Status: Acute Qualifiers: Heart failure type: systolic Heart failure chronicity: acute on chronic Qualified Code(s): I50.23 - Acute on chronic systolic (congestive) heart failure (3) Cardiomyopathy Status: Chronic Qualifiers: Cardiomyopathy type: dilated Qualified Code(s): I42.0 - Dilated cardiomyopathy (4) Valvular disease Status: Chronic (5) S/P implantation of automatic cardioverter/defibrillator (AICD) Status: Chronic (6) Medical non-compliance Status: Acute Reason for Consult Date of Consultation: 02/27/19 History of Present Illness: The patient is a 48 year old white male with a past medical history of CHF secondary to a non-CAD related cardiomyopathy, valvular heart disease with MR/TR, status post biventricular ICD therapy, who presents for concerns of recurrent CHF with admittance of medication noncompliance. The patient had been previously evaluated in cardiovascular consultation on 11-11-17. 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 He states he has become more short of breath and dyspneic. He has been more tired and fatigued. He does not recall any syncope or ICD discharge. He presented to the emergency department for further evaluation. As the past he was found to have indeterminate troponin I levels and concerns of acute on chronic CHF/pulmonary edema. He was placed in the PCU for further evaluation and care. He has been restarted on cardiovascular medical therapy. He is ECG was evaluated. It demonstrated an underlying electronic ventricular paced (biventricular) rhythm. A chest x-ray was performed which demonstrated his ICD. There did not appear to be any acute cardiopulmonary changes. He has denied any classic history of underlying angina pectoris. He states he has had episodes of lower extremity peripheral pitting edema more so on the left than the right. He did have a transthoracic echocardiogram performed at [facility] on 11-11-17. At that time his left ventricle was severely dilated with severe segmental left ventricular systolic dysfunction and an estimated LVEF less than 10% with mildly dilated right ventricle with mild global right ventricular systolic dysfunction with moderate biatrial enlargement, moderate mitral/tricuspid valve regurgitation, trivial TR, and estimated RV systolic pressure 44 mmHg, and ICD wires in the right atrium and right ventricle. [] Past Medical History Allergies/Adverse Reactions: Allergies No Known Allergies Allergy (Verified 02/27/19 08:53) Home Medications: Ambulatory Orders Medication Instructions Recorded Atorvastatin Calcium 40 mg PO QHS #30 tablet 12/06/18 Carvedilol [Coreg] 6.25 mg PO BID #60 tablet 12/06/18 Furosemide [Lasix] 40 mg PO BID #60 tablet 12/06/18 Lisinopril 20 mg PO DAILY #30 tablet 12/06/18 Pantoprazole Sodium [Protonix] 40 mg PO DAILY #30 tablet 12/06/18 Spironolactone 25 mg PO DAILY #30 tablet 12/06/18 ALPRAZolam [Xanax] 0.25 mg PO TID 02/27/19 Clonazepam [Klonopin] 1 mg PO BID PRN PRN 02/27/19 Past Medical History (Chronic Problems): Chronic Problems CKD (chronic kidney disease) (Chronic) Cardiomyopathy (Chronic) Valvular disease (Chronic) Anxiety (Chronic) Coronary artery disease (Chronic) Status post placement of cardiac pacemaker (Chronic) S/P implantation of automatic cardioverter/defibrillator (AICD) (Chronic) Surgical History: cholecystectomy, - - ICD placement Psychiatric History: Anxiety - *Family History Maternal History Items: No pertinent history Paternal History Items: - - stomach cancer Smoking Status: Current every day smoker Tobacco Use: Cigarettes Review of Systems - Review of Systems General: Reports: Fatigue. Denies: Fever, Night Sweats Cardiovascular: Reports: Shortness of Breath, Shortness of Breath at Rest, Peripheral Edema. Denies: Chest Discomfort, Orthopnea, PND, Palpitations, Lightheadedness, Dizziness, Near Syncope, Syncope Respiratory: Reports: Shortness of Breath. Denies: Cough, Sputum Production, Hemoptysis Gastrointestinal: Denies: Hematemesis, Hematochezia, Melena Genitourinary: Denies: Dysuria, Hematuria Skin: Denies: Rash Subjectve: This is a thin 48-year-old white male who appears to be resting reasonably comfortably at the moment in no acute distress. Objective: Vital Signs Temp Pulse Resp BP Pulse Ox 97.8 F 102 H 24 H 134/104 H 96 02/27/19 11:37 02/27/19 11:51 02/27/19 11:37 02/27/19 11:37 02/27/19 11:37 Oxygen Delivery Method Room Air Weight: 157 lb 10.088 oz Body Mass Index (BMI) 21.4 Finger Stick Blood Glucose 124 General: Awake, Alert, Oriented x 3, Cooperative, No Acute Distress HEENT: Atraumatic, Normocephalic, PERRL, EOMI, Sclera Non Icteric Oral: Moist Mucosa Neck: Supple, Good ROM, No JVD Lungs: Rales - Jitendra Bases Cardiovascular: Regular Rhythm, Normal S1, Normal S2 Abdomen: Bowel Sounds Present, Soft, Non Tender Extremities: Trace RLE Edema, Trace LLE Edema Neurological: No Focal Motor or Sensory Deficit Psych/Mental Status: Appropriate 02/27/19 09:10: WBC 8.8, RBC 5.38, Hgb 16.7 H, Hct 51.0, MCV 94.8 H, MCH 31.0, MCHC 32.7, Plt Count 206, MPV 9.5, Immature Gran % (Auto) 0.200, Neut % (Auto) 72.3 H, Lymph % (Auto) 19.7, Mcdonough % (Auto) 6.3, Eos % (Auto) 0.8, Baso % (Auto) 0.7, Absolute Neuts (auto) 6.4, Nucleated RBC % 0 02/27/19 09:10: Sodium 141, Potassium 4.0, Chloride 105, Carbon Dioxide 29.0, Anion Gap 7, BUN 34 H, Creatinine 1.25, Est GFR (MDRD) Af Amer 79, Est GFR (MDRD) Non-Af 65, BUN/Creatinine Ratio 27.2 H, Glucose 131 H, Calcium 8.8, Troponin I 0.172 H 02/27/19 09:10: B-Natriuretic Peptide 2283.4 H 02/27/19 09:10: Magnesium 1.8 02/27/19 12:13: Troponin I 0.165 H Rhythm: Electronic ventricular paced rhythm EKG: As noted above ECHO: As noted above CXR: As noted above Assessment/Plan 1. Abnormal cardiac enzymes The patient has a combination of abnormal cardiac enzymes. This may be secondary to his history of underlying chronic cardiomyopathy and chronic systolic CHF. He does not have a history of underlying CAD. He has been told in the past based on his previous evaluation in [place], [place] that he has a non-CAD related cardiomyopathy. Thus his enzymes may be a type II event secondary to supply demand mismatch based upon his acute on chronic symptoms on his chronic non-CAD related cardiomyopathy as noted above. At the present time he will continue to be followed for any obvious changes warranting further evaluation and care. In the meantime he will need to reinitiate medical management. 2. Acute on chronic systolic mediated CHF The patient appears to have worsening symptoms suspicious of acute on chronic systolic mediated CHF. This may be secondary to his noncompliance. At the present time he will continue medical management. 3. Cardiomyopathy The patient has a significant non-CAD related cardiomyopathy. At the present time he will resume medical management. He can be reassessed with an echocardiogram to monitor for any obvious significant changes. In the past he states there have been discussions as to whether or not he would be considered a candidate for cardiac transplantation at a [facility] cardiovascular care center. However based upon his lack of cardiovascular compliance, lack of continued outpatient follow-up, etc. he is not an ideal candidate for such an evaluation and/or therapy. 4. Valvular heart disease He does have MR/TR. These findings may be a contributing factor to his acute on chronic symptoms especially without medical management, etc. They can be reassessed with echocardiographic studies. 5. Status post biventricular ICD/ASSISTANT CORPORATE SECRETARY therapy He states that he has not had his ICD interrogated. This can be arranged to reassess his generator status and ICD status. 6. Noncompliance Again he readily admits he has been noncompliant with medications and follow-up. This can be a contributing factor to his recurrent symptoms and recurrent hospitalizations. Comment: The above was discussed and reviewed with the patient and the [facility] emergency department staff. This note was generated with [employer] dictation software. It may contain incorrect words, spelling, and punctuation that were not noted in checking the note before signing.
--- NOTE | 2019-02-27 14:56 | ECHOD_ITS ---
Reason For Study: CHF Procedure This was a 2D Doppler, Color Flow transthoracic echocardiogram. The exam was of adequate technical quality. Exam performed portable in ICU/CCU. Left Ventricle Severely dilated left ventricle. Severe segmental systolic dysfunction (see wall motion). The estimated ejection fraction is < 10 %. Diastolic function is indeterminate. Anterio-Basal: Severely hypokinetic. Lateral-Basal: Hypokinetic. Posterior-Basal: Hypokinetic. Infero-Basal: Severely Hypokinetic. Basal inferoseptal: Akinetic. Basal anteroseptal: Akinetic. Mid-Anterior : Akinetic. Mid-Lateral : Akinetic. Mid-Posterior: Akinetic. Mid-Inferior: Akinetic. Mid-inferoseptal : Akinetic. Mid-anteroseptal : Akinetic. [place] : Akinetic. Right Ventricle Mildly dilated right ventricle. ICD or pacer leads identified within the right ventricle. Mild global right ventricular systolic dysfunction. Atria The left atrium is moderately enlarged. The right atrium is moderately enlarged. ICD or pacer leads identified within the right atrium. No doppler evidence for ASD. Mitral Valve There is no mitral annular calcification. Mild diffuse mitral valve thickening. Moderate papillary muscle dysfunction of the mitral valve. Moderate (2+) mitral valve insufficiency. Tricuspid Valve Normal tricuspid valve. Moderately severe (3+) tricuspid valve insufficiency. Aortic Valve Trisinus/trileaflet aortic valve. Normal aortic valve. Pulmonic Valve The pulmonic valve is not well visualized. Trivial pulmonic valve insufficiency. Great Vessels The aortic root is not well visualized. Pericardium/Pleural No pericardial effusion. MMode/2D Measurements & Calculations LVIDd: 7.0 cm IVSd: 1.1 cm LA dimension: 4.8 cm LVIDs: 6.7 cm LVPWd: 1.4 cm FS: 3.7 % LAV(MOD-bp): 80.2 ml LA A4 area: 27.8 cm2 RA A4 area: 24.3 cm2 LAV(MOD-bp) Indexed: 42.4 ml/m2 LAV(MOD-sp2): 72.2 ml LAV(MOD-sp4): 90.2 ml Time Measurements MV dec time: 0.17 sec Doppler Measurements & Calculations MV E max yariel: 87.2 cm/sec Lat Peak E' Yariel: 9.7 cm/sec MV V2 max: 120.4 cm/sec MV A max yariel: 44.6 cm/sec E/E' lat: 8.9 MV max P.8 mmHg MV E/A: 2.0 MV V2 mean: 56.5 cm/sec MV mean P.6 mmHg MV V2 VTI: 24.3 cm MV P1/2t max yariel: 120.4 cm/sec Ao V2 max: 59.3 cm/sec LV V1 max: 56.9 cm/sec MV P1/2t: 58.4 msec Ao max P.4 mmHg LV V1 max P.3 mmHg MV dec slope: 603.4 cm/sec2 MVA(P1/2t): 3.8 cm2 MR max yariel: 402.3 cm/sec MR max P.7 mmHg MR mean yariel: 283.5 cm/sec MR mean P.1 mmHg MR VTI: 140.8 cm Interpretation Summary Severely dilated left ventricle. Severe segmental systolic dysfunction (see wall motion). The estimated ejection fraction is < 10 %. Mildly dilated right ventricle. Mild global right ventricular systolic dysfunction. The left atrium is moderately enlarged. The right atrium is moderately enlarged. Mild diffuse mitral valve thickening. Moderate papillary muscle dysfunction of the mitral valve. Moderate (2+) mitral valve insufficiency. Moderately severe (3+) tricuspid valve insufficiency. Trivial pulmonic valve insufficiency. Diastolic function is indeterminate. ICD or pacer leads identified within the right atrium ICD or pacer leads identified within the right ventricle. Ordering Physician: Calin Rosado Performed By: Iban Luong RCS
--- NOTE | 2019-02-27 20:44 | NURSING ---
Pt c/o 01/06 pain, groaning, breathing quickly. This RN returned with pain medication, pt lying in bed with eyes closed.
[2019-02-27] MEDS: Carvedilol 6.25 MG Tablet PO (21:40)
[2019-02-27] MEDS: Atorvastatin Calcium 40 MG Tablet PO (21:41)
[2019-02-28] VITALS (31 sets, daily range): BP systolic 81–127; BP diastolic 63–102; PULSE 67–121; RESP 12–31; TEMP 36.3–36.6; O2SAT 92–100
[2019-02-28] MEDS: Furosemide 40 MG/4 ML Vial IV (05:45)
[2019-02-28] MEDS: 0.9% NaCl Peripheral Flush Adult/Peds IV ×3 (05:55→20:36)
[2019-02-28] MEDS: oxyCODONE 5 MG Tablet PO (06:00)
[2019-02-28 07:14] LABS: Anion Gap 10 (5-15); BUN 31 mg/dL (7-18); Calcium,Total 8.9 mg/dL (8.5-10.1); Chloride 105 mmol/L (98-107); Creatinine, Serum 1.24 mg/dL (0.70-1.30); EST Glomerular Filtration Rate 66 mL/min (>60); Est Glom Filt Rate - Afr Amer 79 mL/min (>60); Estimated Creatinine Clearance 69.05 ml/min; Glucose 96 mg/dL (74-106); Magnesium 1.7 mg/dL (1.6-2.6); Potassium 3.7 mmol/L (3.5-5.1); Sodium Level 140 mmol/L (136-145)
[2019-02-28 07:25] LABS: Absolute Lymphocyte Count 2.52 X10^3/uL (0.83-4.51); Absolute Neutrophil Count 7.3 X10^3/uL (2.0-7.7); Basophil# 0.08 X10^3/uL; Basophil% 0.7 % (0-1); Eosinophil# 0.05 X10^3/uL; Eosinophils% 0.5 % (0-5); Hematocrit 54.1 % (40-54); Hemoglobin 17.7 g/dL (13.0-16.5); Lymphocyte # 2.52 X10^3/ul (4.0); Lymphocyte % 23.5 % (19-41); Mean Corp Hgb Conc 32.7 g/dL (32-36); Mean Corpuscular Hgb 30.5 pg (27.0-32.0); Mean Corpuscular Volume 93.3 fL (80-94); Mean Platelet Vol. 9.9 fl (6.2-12.0); Monocyte# 0.71 X10^3/uL; Monocyte% 6.6 % (0-10); NRBC Flagged by Analyzer 0 % (0-5); Neutrophil # 7.34 X10^3/uL (2.7-7.7); Neutrophil % 68.4 % (47-70); Platelet Count 209 K/mm3 (150-450); RBC Distribution Width CV 18.3 % (11.6-14.6); RBC Distribution Width SD 58.3 fl (35.1-43.9); White Blood Count 10.7 K/mm3 (4.4-11.0)
--- NOTE | 2019-02-28 07:38 | EKG12_ITS ---
Test Reason : RHYTHM CHANGE Blood Pressure : / mmHG Vent. Rate : 100 BPM Atrial Rate : 100 BPM P-R Int : 144 ms QRS Dur : 162 ms QT Int : 440 ms P-R-T Axes : 061 -80 061 degrees QTc Int : 567 ms Atrial-sensed ventricular-paced rhythm Abnormal ECG When compared with ECG of 27-FEB-2019 08:58, MANUAL COMPARISON REQUIRED, DATA IS UNCONFIRMED Confirmed by STANISLAW ARIAS ([id number]), international editorial producer MARY JO PERALTA ([id number]) on 03/04/2019 1:59:25 PM Referred By: CHRISTINE Confirmed By:STANISLAW ARIAS
[2019-02-28] MEDS: Carvedilol 6.25 MG Tablet PO (09:43)
[2019-02-28] MEDS: Lisinopril 20 MG Tablet PO (09:43)
[2019-02-28] MEDS: Pantoprazole Sodium 40 MG Tablet PO (09:43)
[2019-02-28] MEDS: Spironolactone 25 MG Tablet PO (09:43)
--- NOTE | 2019-02-28 11:26 | PN_ITS ---
<Rosa Corbett - Last Filed: 02/28/19 11:37> Patient Problems: Active and Suspected Problems Dyspnea (Acute) Medical non-compliance (Acute) CHF (congestive heart failure) (Acute) Subjective: Patient seen and examined. Complains of intermittent nausea. Reports episode of palpitations earlier. Denies chest pain. Shortness of breath improved. Patient states he has not been taking his medications due to not having a physician to prescribe them. Reports he will follow-up with PCP/cardiology at discharge. - Physical Exam General: Alert, Oriented x3, Cooperative HEENT: Atraumatic, PERRLA, EOMI, Normocephalic Neck: Supple, No JVD, Negative Carotid Bruits Lungs: Diminished, Rales Cardiovascular: Regular rate, Regular Rhythm, Normal S1, Normal S2, No murmurs Abdomen: Bowel Sounds Present, Soft, Non Tender, Non-Distended Extremities: No clubbing, No cyanosis, No edema, Capillary Refill Less than 3 Seconds Skin: No rashes, No breakdown Musculoskeletal: No Tenderness to Palpation of Joints or Extremities Neurological: Cranial nerves II-XII grossly intact, Neuro grossly intact Psych/Mental Status: Normal Affect, Appropriate Vital Signs Temp Pulse Resp BP Pulse Ox 97.9 F 100 20 H 115/100 H 96 02/28/19 11:00 02/28/19 11:00 02/28/19 11:00 02/28/19 11:00 02/28/19 11:22 Oxygen Flow Rate (L/min) 2 Oxygen Delivery Method Nasal Cannula Weight: 151 lb 0.266 oz Body Mass Index (BMI) 21.4 Finger Stick Blood Glucose 124 Intake and Output for Last 24 Hours 02/26/19 02/27/19 02/28/19 23:59 23:59 23:59 Intake Total 920 / 920 614.44 / 614.44 Output Total 3765 / 3765 325 / 325 Balance -2845 / -2845 289.44 / 289.44 Laboratory Tests Past 24 Hrs 02/27/19 02/27/19 02/27/19 09:10 12:13 15:20 WBC RBC Hgb Hct MCV MCH MCHC RDW Std Deviation RDW Coeff of Paulina Plt Count MPV Immature Gran % (Auto) Neut % (Auto) Lymph % (Auto) [place] % (Auto) Eos % (Auto) Baso % (Auto) Absolute Neuts (auto) Absolute Lymphs (auto) Nucleated RBC % Sodium Potassium Chloride Carbon Dioxide Anion Gap BUN Creatinine Estim Creat Clear Calc Est GFR (MDRD) Af Amer Est GFR (MDRD) Non-Af BUN/Creatinine Ratio Glucose Calcium Magnesium 1.8 Troponin I 0.165 H 0.134 H 02/28/19 02/28/19 05:25 05:25 WBC 10.7 RBC 5.80 Hgb 17.7 H Hct 54.1 H MCV 93.3 MCH 30.5 MCHC 32.7 RDW Std Deviation 58.3 H RDW Coeff of Paulina 18.3 H Plt Count 209 MPV 9.9 Immature Gran % (Auto) 0.300 Neut % (Auto) 68.4 Lymph % (Auto) 23.5 [place] % (Auto) 6.6 Eos % (Auto) 0.5 Baso % (Auto) 0.7 Absolute Neuts (auto) 7.3 Absolute Lymphs (auto) 2.52 Nucleated RBC % 0 Sodium 140 Potassium 3.7 Chloride 105 Carbon Dioxide 25.0 Anion Gap 10 BUN 31 H Creatinine 1.24 Estim Creat Clear Calc 69.05 Est GFR (MDRD) Af Amer 79 Est GFR (MDRD) Non-Af 66 BUN/Creatinine Ratio 25.0 H Glucose 96 Calcium 8.9 Magnesium 1.7 Troponin I Medical Necessity - Tobacco Use Smoking Status: Current every day smoker Tobacco Use: Cigarettes Assessment/Plan All Active Problems Dyspnea (Acute) Medical non-compliance (Acute) Abnormal cardiac enzyme level (Resolved) CHF (congestive heart failure) (Acute) Abnormal LFTs (liver function tests) (Resolved) Hemoptysis (Resolved) 1. Acute on chronic systolic CHF, nonischemic cardiomyopathy status post biventricular ICD/WATER JET OPERATOR therapy-echocardiogram October 2017 with EF less than 10%. BNP on admission 2283. IV Lasix 40 mg every 8 hours. Strict I&O. Daily weight. Repeat echocardiogram pending. Continue carvedilol, lisinopril, spironolactone regimen. ICD device check ordered. 2. Acute hypoxic respiratory insufficiency, secondary to #1-wean oxygen as tolerated to maintain O2 at or above 90%. Walking pulse ox prior to discharge. 3. Abnormal troponin-cardiology following. Suspect demand ischemia as result of #1. 4. Paroxysmal wide-complex tachycardia-initiated on amiodarone drip per cardiology. Electrolytes within normal limits. 5. Valvular heart disease-echocardiogram October 2017 with moderate mitral valve insufficiency, moderate tricuspid valve insufficiency. Repeat echo pending as noted above. 6. Hypertension-stable, continue home carvedilol, lisinopril, spironolactone regimen. 7. GERD-continue PPI regimen. 8. Tobacco dependence-encouraged cessation. Nicotine replacement patch if desired. 9. Noncompliance with medication regimen and [id number] management consult, patient willing to establish with PCP and reports he will follow-up at discharge. DVT prophylaxis-Lovenox subcu This patient was seen by JAYJAY Sanchez under the supervision of Dr. Berkowitz. <Flako Berkowitz - Last Filed: 02/28/19 11:43> - Physical Exam Vital Signs Temp Pulse Resp BP Pulse Ox 97.8 F 84 28 H 110/98 H 94 02/28/19 11:30 02/28/19 11:30 02/28/19 11:30 02/28/19 11:30 02/28/19 11:30 Oxygen Flow Rate (L/min) 2 Oxygen Delivery Method Nasal Cannula Weight: 68.5 kg Body Mass Index (BMI) 21.4 Finger Stick Blood Glucose 124 Intake and Output for Last 24 Hours 02/26/19 02/27/19 02/28/19 23:59 23:59 23:59 Intake Total 920 / 920 631.10 / 631.10 Output Total 3765 / 3765 325 / 325 Balance -2845 / -2845 306.10 / 306.10 Laboratory Tests Past 24 Hrs 02/27/19 02/27/19 02/28/19 12:13 15:20 05:25 WBC 10.7 RBC 5.80 Hgb 17.7 H Hct 54.1 H MCV 93.3 MCH 30.5 MCHC 32.7 RDW Std Deviation 58.3 H RDW Coeff of Paulina 18.3 H Plt Count 209 MPV 9.9 Immature Gran % (Auto) 0.300 Neut % (Auto) 68.4 Lymph % (Auto) 23.5 [place] % (Auto) 6.6 Eos % (Auto) 0.5 Baso % (Auto) 0.7 Absolute Neuts (auto) 7.3 Absolute Lymphs (auto) 2.52 Nucleated RBC % 0 Sodium Potassium Chloride Carbon Dioxide Anion Gap BUN Creatinine Estim Creat Clear Calc Est GFR (MDRD) Af Amer Est GFR (MDRD) Non-Af BUN/Creatinine Ratio Glucose Calcium Magnesium Troponin I 0.165 H 0.134 H 02/28/19 05:25 WBC RBC Hgb Hct MCV MCH MCHC RDW Std Deviation RDW Coeff of Paulina Plt Count MPV Immature Gran % (Auto) Neut % (Auto) Lymph % (Auto) [place] % (Auto) Eos % (Auto) Baso % (Auto) Absolute Neuts (auto) Absolute Lymphs (auto) Nucleated RBC % Sodium 140 Potassium 3.7 Chloride 105 Carbon Dioxide 25.0 Anion Gap 10 BUN 31 H Creatinine 1.24 Estim Creat Clear Calc 69.05 Est GFR (MDRD) Af Amer 79 Est GFR (MDRD) Non-Af 66 BUN/Creatinine Ratio 25.0 H Glucose 96 Calcium 8.9 Magnesium 1.7 Troponin I Assessment/Plan This patient was seen in conjunction with JAYJAY Sanchez . I have independently interviewed and examined the patient and reviewed pertinent historical, laboratory, and other data. Please refer to JAYJAY Sanchez note for details of this patient's presentation, findings, and recommendations. I have reviewed JAYJAY Sanchez note and concur with documented findings. In brief, Patient is a 48-year-old gentleman with history of nonischemic cardiomyopathy with known ejection fraction of 10% presented with progressive shortness of breath. On assessment of acute on chronic systolic heart failure made admitted to a monitored bed where patient is currently being managed. Patient was found to have runs of nonsustained VT on the monitor. Case discu ssed with cardiology plan is for patient to undergo AICD check on 03/02/2019. Physical Examination: GENERAL: cooperative HEENT: Atraumatic; moist oral mucosa EYES; Anicteric, Normal Conjunctiva NECK; supple, normal thyroid, distended JVD. RESPIRATORY: Diminished to auscultation bilaterally, CARDIOVASCULAR: Regular S1 S2, systolic murmur GI: soft, non-tender, normoactive bowel sounds, : No Renal angle tenderness; EXTREMITIES: edema, no clubbing, no cyanosis. MUSCULOSKELETAL: No Joint Tenderness; NEURO: Awake; no lateralizing signs. SKIN: No Rash PSYCH; Flat affect Assessment: 1. Acute on chronic systolic heart failure in the patient with known nonischemic cardiomyopathy and ejection fraction of 10%. 2. Acute respiratory insufficiency secondary to above 3. Nonischemic cardiomyopathy with ejection fraction of 10% with previous biventricular ICD/WATER JET OPERATOR therapy 4. Abnormal cardiac enzymes patient has chronically elevated troponin 5. Valvular heart disease patient has known mitral as well as tricuspid regurgitation 6. Runs of wide-complex tachycardia 7. Tobacco dependence counseled on cessation, 8. DVT prophylaxis placed on Lovenox Recommendations: 1. I have discussed the results of my overview and impressions with the patient 2. Options for management were reviewed Code Visit Inpatient E&M: 66521 Subs Hosp L3
[2019-02-28] MEDS: proMETHazine 25 MG/ML Syringe 12.5 MG IV ×2 (11:44→20:36)
[2019-02-28] MEDS: oxyCODONE 5 MG Tablet 10 MG PO ×2 (11:44→20:30)
--- NOTE | 2019-02-28 11:51 | PCM.PN.CARD ---
Subjectve: The patient states he has had episodes where he is felt sweaty . 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 Objective: Vital Signs Temp Pulse Resp BP Pulse Ox 97.8 F 89 16 114/82 H 99 02/28/19 11:45 02/28/19 11:45 02/28/19 11:45 02/28/19 11:45 02/28/19 11:45 Oxygen Flow Rate (L/min) 2 Oxygen Delivery Method Room Air Weight: 151 lb 0.266 oz Body Mass Index (BMI) 21.4 Finger Stick Blood Glucose 124 Intake and Output for Last 24 Hours 02/26/19 02/27/19 02/28/19 23:59 23:59 23:59 Intake Total 920 / 920 639.43 / 639.43 Output Total 3765 / 3765 325 / 325 Balance -2845 / -2845 314.43 / 314.43 General: Awake, Alert, Oriented x 3, Cooperative, No Acute Distress HEENT: Atraumatic, Normocephalic, PERRL, EOMI, Sclera Non Icteric Oral: Moist Mucosa Neck: Supple, Good ROM, No JVD Lungs: Diminished Jitendra Bases Cardiovascular: Regular Rhythm, Normal S1, Normal S2 Abdomen: Bowel Sounds Present, Soft, Non Tender Extremities: No edema Neurological: No Focal Motor or Sensory Deficit Psych/Mental Status: Appropriate 02/27/19 12:13: Troponin I 0.165 H 02/27/19 15:20: Troponin I 0.134 H 02/28/19 05:25: WBC 10.7, RBC 5.80, Hgb 17.7 H, Hct 54.1 H, MCV 93.3, MCH 30.5, MCHC 32.7, Plt Count 209, MPV 9.9, Immature Gran % (Auto) 0.300, Neut % (Auto) 68.4, Lymph % (Auto) 23.5, [place] % (Auto) 6.6, Eos % (Auto) 0.5, Baso % (Auto) 0.7, Absolute Neuts (auto) 7.3, Nucleated RBC % 0 02/28/19 05:25: Sodium 140, Potassium 3.7, Chloride 105, Carbon Dioxide 25.0, Anion Gap 10, BUN 31 H, Creatinine 1.24, Est GFR (MDRD) Af Amer 79, Est GFR (MDRD) Non-Af 66, BUN/Creatinine Ratio 25.0 H, Glucose 96, Calcium 8.9, Magnesium 1.7 Rhythm: Electronic ventricular paced rhythm; episodes of nonsustained wide-complex tachycardia concerning for nonsustained VT Medical Necessity - Tobacco Use Smoking Status: Current every day smoker Tobacco Use: Cigarettes Assessment/Plan 1. Abnormal cardiac enzymes The patient has a combination of abnormal cardiac enzymes. This may be secondary to his history of underlying chronic cardiomyopathy and chronic systolic CHF. He does not have a history of underlying CAD. He has been told in the past based on his previous evaluation in [place], [place] that he has a non-CAD related cardiomyopathy. Thus his enzymes may be a type II event secondary to supply demand mismatch based upon his acute on chronic symptoms on his chronic non-CAD related cardiomyopathy as noted above. At the present time he will continue to be followed for any obvious changes warranting further evaluation and care. In the meantime he will need to reinitiate medical management. 2. Acute on chronic systolic mediated CHF The patient appears to have worsening symptoms suspicious of acute on chronic systolic mediated CHF. This may be secondary to his noncompliance. At the present time he will continue medical management. His medications will be adjusted over time. 3. Cardiomyopathy The patient has a significant non-CAD related cardiomyopathy. At the present time he will resume medical management. He can be reassessed with an echocardiogram to monitor for any obvious significant changes. In the past he states there have been discussions as to whether or not he would be considered a candidate for cardiac transplantation at a [facility]. However based upon his lack of cardiovascular compliance, lack of continued outpatient follow-up, etc. he is not an ideal candidate for such an evaluation and/or therapy. 4. Valvular heart disease He does have MR/TR. These findings may be a contributing factor to his acute on chronic symptoms especially without medical management, etc. They can be reassessed with echocardiographic studies. 5. Status post biventricular ICD/TOE LASTER therapy He states that he has not had his ICD interrogated. This can be arranged to reassess his generator status and ICD status. 6. Nonsustained wide-complex tachycardia Patient has had episodes of nonsustained wide-complex tachycardia concerning for nonsustained VT. These appear to be correlating, as best as can be noted, with his concerns of becoming sweaty or diaphoretic. At the present time he will continue to be monitored. His beta-minor dose will be advanced. He will be placed on additional antiarrhythmic therapy with IV amiodarone. 6. Noncompliance Again he readily admits he has been noncompliant with medications and follow-up. This can be a contributing factor to his recurrent symptoms and recurrent hospitalizations. Comment: The above was discussed and reviewed with the patient and Dr. Berkowitz. This note was generated with [employer] dictation software. It may contain incorrect words, spelling, and punctuation that were not noted in checking the note before signing.
--- NOTE | 2019-02-28 14:56 | NURSING ---
Contacted [employer] to send customer sales representative to interrogate ICD. They will send out a page to local rep.
[2019-02-28] MEDS: Atorvastatin Calcium 40 MG Tablet PO (20:31)
--- NOTE | 2019-02-28 20:43 | NURSING ---
Pt REQUESTING TO LEAVE AMA, TOLD HIM ABOUT HIS CONDITION AND THE SERIOUSNESS, SINCE HE IS ON AN AMIODARONE GTT AT THIS TIME. Pt ALSO HAD SEVERAL BEAT RUN OF V-TACH ON DAYSHI, WHICH IS WHY THE AMIODARONE WAS INITIATED. Pt STILL REQUESTING TO SPEAK WITH THE DR AT THIS TIME. DR ROBERTS HAS BEEN PAGED AND WE ARE AWAITING HER RETURN CALL.
[2019-02-28] MEDS: Carvedilol 12.5 MG Tablet PO (20:53)
--- NOTE | 2019-02-28 21:05 | NURSING ---
Dr Patel at bedside to speak with pt at this time. Pt is agreeable to stay at this time and speak with Dr Rosado in the AM about expected length of stay and further treatment.
--- NOTE | 2019-02-28 21:16 | CCHN_ITS ---
Hospitalist Note Called per staff internist office based only as patient noting desire to leave AMA. Discussed patient current health care status, suspected continued plan of care and severity of risks associated with leaving AMA, including possible cardiac associated and patient agreed to remain for continued care and treatment. He noted reasons for needing to leave that he left his house unlocked therefore offered to have police called but he noted then he has a smart house and declined, noted he has a dog that needs cared for but then noted possibility of someone helping to care for his dog also.
[2019-02-28] MEDS: guaiFENesin 10 ML UDC (200MG/10ML) 20 ML PO (22:47)
--- NOTE | 2019-02-28 22:48 | NURSING ---
Pt very anxious and states he is short of breath at this time, sitting with the pt at this time, to ensure his comfort and have him explain to me what he is feeling and what he was doing at the time this episode as he calls it started. Pt states he was not doing anything at the time it started, he was just sitting in bed and relaxing. Pt is diaphoretic and does seem like he is having trouble catching his breath however is also coughing a lot at this time. He seems to be less anxious i am going to give him some Robitussin for his cough and some melatonin for his sleep at this time.
[2019-02-28] MEDS: MELATONIN 3 MG TABLET PO (22:51)
[2019-03-01] VITALS (45 sets, daily range): BP systolic 68–115; BP diastolic 41–98; PULSE 67–93; RESP 10–23; TEMP 36.1–36.4; O2SAT 91–99
--- NOTE | 2019-03-01 01:05 | PCM.HOSP.N ---
Hospitalist Note Patient with increased respiratory rate, accessory muscle usage, notes ongoing dyspnea with atypical chest discomfort and now notably hypotensive with systolic in the 70s, ashen appearance. Examination with clear to auscultation, no obvious rales, no wheezing or rhonchi, mild tachycardia, increased respiratory rate with some accessory muscle usage, very anxious appearing. Requested 500 cc bolus to be initiated, cardiac enzymes, ABG, heparin drip with bolus, EKG, transition to the ICU and once clinically improving we will plan to obtain CT PA, cardiology updated as to current presentation and intention to discontinue amiodarone as well as hold hypertensive regimen, ICU physician Dr. Linares also notified.
--- NOTE | 2019-03-01 01:17 | CT_ITS ---
STUDY: CTA CHEST REASON FOR EXAM: Male, 48 years old. Hypertension, hematocrit drop. RADIATION DOSAGE (If Supplied By Facility): CTDIvol = ( 13.13 ) mGy, DLP = ( 914.23 ) mGycm TECHNIQUE: The examination was performed with the intravenous administration of 100 IV Isovue 370. Post-processing of the angiographic images was performed, with multiplanar reformation and 3D reconstruction. Individualized dose optimization techniques were used for this CT. COMPARISON: The chest 11/11/2017 FINDINGS: Right anterior chest wall pacer with streak artifact. Normal enhancement of the main pulmonary artery and right and left pulmonary arteries. Normal enhancement of the bilateral peripheral pulmonary arteries. There is no demonstrated pulmonary embolism. Normal thoracic aorta and visualized great vessels. There is no demonstrated aortic dissection. There is cardiac enlargement. Streak artifact caused by right atrial, right ventricular and epicardial pacer leads. There is no pericardial fluid. Contrast reflux into the inferior vena cava and hepatic vein consistent with elevated right cardiac pressures. There are multiple small lymph nodes, which are normal in size and morphology most compatible with reactive lymph hyperplasia. This has overall decreased in appearance. Normal hilar regions. Normal visualized trachea and bronchi. The lungs are well expanded. Symmetric centrilobular emphysema with mild paraseptal apical emphysema without dominant bulla formation. There is linear low attenuation in the bilateral bases and right middle lobe suggestive of scar. Probable nodular extension of scar versus nodule along the posterior lateral right lower lobe measuring 0.7 cm image 105 series 264. This is new since previous examination. Interval resolution of right pleural effusion and airspace disease in the right lower lobe and right middle lobe. Normal pleura. Normal chest wall structures. Age-appropriate osseous structures. Status post cholecystectomy. Intact splenic and hepatic tissue without laceration. Mild perihepatic fluid. CT/CTA Chest W/WO Contrast IMPRESSION: No demonstrated pulmonary embolism, aneurysm, leak or arterial dissection on submitted images. Resolution of previous airspace disease with probable scarring and/atelectasis in the bases. There is a pleural-based nodular density at the level of the atelectasis or scar in the left base, not present on previous examination, follow-up to resolution recommended. Significant cardiac enlargement with elevated right cardiac pressure, reflux into the inferior vena cava and hepatic vein. No mediastinal hemorrhage or active contrast extravasation. Mediastinal reactive lymphoid hyperplasia suspected, improved since previous exam. Electronically Signed: Agueda Negro MD at 4:17 EDT , Service support ,
--- NOTE | 2019-03-01 01:17 | EKG12_ITS ---
Test Reason : EKG CHANGE Blood Pressure : / mmHG Vent. Rate : 068 BPM Atrial Rate : 068 BPM P-R Int : 154 ms QRS Dur : 158 ms QT Int : 552 ms P-R-T Axes : 028 249 064 degrees QTc Int : 586 ms Electronic ventricular pacemaker When compared with ECG of 28-FEB-2019 07:50, MANUAL COMPARISON REQUIRED, DATA IS UNCONFIRMED Confirmed by AJ PABLO, KEVIN ([id number]), sports editor MARY JO PERALTA ([id number]) on 03/08/2019 3:17:46 PM Referred By: YURIY Confirmed By:GEOVANNI ROCHA MD
[2019-03-01 01:21] LABS: Allen Test POS; Base Excess -5 mmol/L (-2 to +2); Bicarbonate 21.2 mmol/L (22-26); Blood Gas Specimen Type ART; O2 Delivery Device Nasal Can; PO2 68 mmHG (75-100); SITE L Radial; SO2 92 % (95-99); Time Given 113; Total Carbon Dioxide 22 mmol/L; pCO2 40.1 mmHg (35-45); pH 7.33 (7.35-7.45)
--- NOTE | 2019-03-01 01:33 | PCM.HOSP.N ---
Hospitalist Note Patient with ongoing hypotension despite judicious IVF administration attempts given notable CHF. Given MAP not maintaining >65, discussed with ICU staff as well as Community Health Planning Director and updated Pot Press Operator. Patient amenable to central line placement to initiate pressor therapy. Consent obtained for placement of central line. Region prepped and draped in standard fashion. US guidance used to obtain access, guidewire threaded without issue, central line catheter placed over guidewire and wire removed w/ cap placed. Lines again drawn and flushed without difficulty. R IJ Central line sutured in place. CXR ordered. Code Visit Procedures: 01395 Insert Non-tunnel CV Cath
[2019-03-01 01:35] LABS: International Normalized Ratio 1.8; Prothrombin Time (Protime)PT. 20.7 SECONDS (11.7-14.9)
[2019-03-01 01:36] LABS: Partial Thromboplast Time 35.9 Seconds (24.1-36.2)
--- NOTE | 2019-03-01 01:54 | RAD_ITS ---
STUDY: X-RAY CHEST REASON FOR EXAM: Male, 48 years old. Line placement TECHNIQUE: Single AP portable view of the chest. COMPARISON: 02/27/2019 FINDINGS: Interval placement of a right internal jugular venous access catheter with catheter tip over the superior vena cava in good position. There is a stable right subclavian approached multilead permanent pacemaker. There are superimposed monitor leads. Table mild elevation right hemidiaphragm. The lungs are clear and expanded. There is no demonstrated pleural abnormality. There is stable cardiac enlargement. . Normal mediastinum and caleb. Normal visualized pulmonary arteries. There is atherosclerotic calcification of the aortic arch with tortuosity. Normal visualized thoracic spine. Normal visualized ribs, clavicles, and shoulders. There is no demonstrated abnormality of the visualized soft tissue structures of the upper abdomen. RAD/CXR for Line Placement IMPRESSION: Line in good position. There is no demonstrated pneumothorax. Stable cardiac enlargement. Electronically Signed: Agueda Negro MD at 3:05 EDT , Service support ,
--- NOTE | 2019-03-01 02:00 | NURSING ---
successful central line placement by Dr. Patel to right IJ. Pt tolerated well.
--- NOTE | 2019-03-01 02:07 | NURSING ---
Levophed started via central line per Dr. Patel.
[2019-03-01 02:26] LABS: Absolute Lymphocyte Count 1.66 X10^3/uL (0.83-4.51); Absolute Neutrophil Count 6.5 X10^3/uL (2.0-7.7); Basophil# 0.05 X10^3/uL; Basophil% 0.6 % (0-1); Eosinophil# 0.04 X10^3/uL; Eosinophils% 0.5 % (0-5); Hematocrit 39.3 % (40-54); Hemoglobin 12.6 g/dL (13.0-16.5); Lymphocyte # 1.66 X10^3/ul (4.0); Lymphocyte % 18.7 % (19-41); Mean Corp Hgb Conc 32.1 g/dL (32-36); Mean Corpuscular Hgb 31.3 pg (27.0-32.0); Mean Corpuscular Volume 97.8 fL (80-94); Mean Platelet Vol. 10.2 fl (6.2-12.0); Monocyte% 6.8 % (0-10); NRBC Flagged by Analyzer 0 % (0-5); Neutrophil # 6.49 X10^3/uL (2.7-7.7); Neutrophil % 73.1 % (47-70); Platelet Count 144 K/mm3 (150-450); RBC Distribution Width CV 16.9 % (11.6-14.6); RBC Distribution Width SD 60.3 fl (35.1-43.9); Red Blood Count 4.02 M/mm3 (4.6-6.2); White Blood Count 8.9 K/mm3 (4.4-11.0)
--- NOTE | 2019-03-01 02:34 | PCM.HOSP.N ---
Hospitalist Note Labs reviewed, BMP unremarkable, trop improved from prior, EKG paced as noted, coags reviewed, CBC with Hgb decrease, requested STAT repeat and prior to initiation of heparin drip will also obtain CT A/P with contrast given appearance, sudden hypotension presentation. Discussed with nursing staff and [address] to [address] with patient. Mission Coordinator and Cardiology remain updated.
[2019-03-01 02:43] LABS: Absolute Lymphocyte Count 1.83 X10^3/uL (0.83-4.51); Absolute Neutrophil Count 8.7 X10^3/uL (2.0-7.7); Basophil# 0.05 X10^3/uL; Basophil% 0.4 % (0-1); Eosinophil# 0.05 X10^3/uL; Eosinophils% 0.4 % (0-5); Hematocrit 52.3 % (40-54); Hemoglobin 17.1 g/dL (13.0-16.5); Lymphocyte # 1.83 X10^3/ul (4.0); Lymphocyte % 16.2 % (19-41); Mean Corp Hgb Conc 32.7 g/dL (32-36); Mean Corpuscular Hgb 31.2 pg (27.0-32.0); Mean Corpuscular Volume 95.4 fL (80-94); Mean Platelet Vol. 9.6 fl (6.2-12.0); Monocyte# 0.68 X10^3/uL; NRBC Flagged by Analyzer 0 % (0-5); Neutrophil # 8.65 X10^3/uL (2.7-7.7); Neutrophil % 76.6 % (47-70); Platelet Count 181 K/mm3 (150-450); RBC Distribution Width CV 16.8 % (11.6-14.6); RBC Distribution Width SD 58.2 fl (35.1-43.9); Red Blood Count 5.48 M/mm3 (4.6-6.2); White Blood Count 11.3 K/mm3 (4.4-11.0)
--- NOTE | 2019-03-01 02:43 | CT_ITS ---
STUDY: CTA ABDOMEN AND PELVIS WITH CONTRAST REASON FOR EXAM: Male, 48 years old. Hypertension, hematocrit drop. RADIATION DOSAGE (If Supplied By Facility): CTDIvol = ( 13.13 ) mGy, DLP = ( 914.23 ) mGycm TECHNIQUE: Transaxial 2.5 mm images were obtained from the dome of the diaphragm to the symphysis pubis without oral contrast. 100 IV Isovue 370 was administered. Sagittal and coronal images were reconstructed. Individualized dose optimization techniques were used for this CT. COMPARISON: None. FINDINGS: Lung bases performed under CTA chest 03/01/2019. Contrast reflux into the inferior vena cava and hepatic vein frequently seen with elevated right cardiac pressures. Normal liver. Trace perihepatic fluid. There are surgical clips in the gallbladder fossa consistent with a prior cholecystectomy. Normal spleen. Normal pancreas. Normal bilateral adrenal glands. There is no obstructive uropathy, obstructive renal or ureteral calculi. Slightly heterogeneous nephrograms. Mild stranding in the right inferior colonic gutter with trace fluid. Mild stranding along the right greater than left pararenal space. Normal visualized stomach. Normal small intestine. There are rare sigmoid colonic diverticula consistent with diverticulosis. The appendix is visualized and appears normal. Image [id number] series 2. There is diffuse atherosclerotic calcification of the abdominal aorta, without a demonstrated aneurysm. Normal inferior vena cava. Normal retroperitoneum. Normal urinary bladder. There are prostatic calcifications. Normal abdominal wall. Age-appropriate osseous structures. CT/CT ANGIO ABD&PEL W/O&W/DYE IMPRESSION: No acute vascular injury, contrast extravasation, retroperitoneal hamartoma, intraperitoneal hemorrhage or hematoma formation. Trace ascites with indistinct pararenal and right colonic gutter stranding. Slightly heterogeneous enhancement of the nephrograms bilaterally, etiology such as pyelonephritis is not excluded. Arteriosclerosis. Status post cholecystectomy. Rare sigmoid diverticula. Electronically Signed: Agueda Negro MD at 4:24 EDT , Service support ,
--- NOTE | 2019-03-01 03:08 | NURSING ---
Pt in Ct at this time for chest and abdomen scan.
[2019-03-01] MEDS: Heparin Injection (Vial) 5,000 UNIT/ML VIAL 4500 UNIT IV (03:29)
[2019-03-01] MEDS: HEPARIN/D5w 25,000 UNITS 25,000 UNITS/250 ML IV.SOLN. 10 UNITS IV (03:35)
--- NOTE | 2019-03-01 03:51 | NURSING ---
Heparin Hung at 03:35AM running at 1,000u/hr or 10ml/hr. Verified by [facility]. medication is unable to be scanned and verified in the MAR. Pharmacy aware.
--- NOTE | 2019-03-01 04:02 | PCM.HOSP.N ---
Hospitalist Note Patient BP with map greater than 65 on levophed, repeat CBC with hemoglobin 17.1, similar to prior, CTA chest, abdomen and pelvis obtained secondary to patient's initial drop in hemoglobin to 12.6 although as noted repeat normalized prior level and also had narrowing between systolic and diastolic pressure with acute hypertension as noted with preliminarily no obvious PE or concerning aortic findings therefore patient initiated on heparin drip, wedding transportation driver updated with telemetry and repeat EKG requested as some concern for ST elevation on telemetry but per review of wedding transportation driver given paced status does not feel concerning for STEMI and agreed with current continued management. Renewable Energy Broker also has continued to be updated. Critical Care Time: 180 minutes, time from 01:05-4:05, were spent addressing patients acute presentation including sudden hypotension, initial concern for drop in hemoglobin, concerns for telemetry changes, patient generalized complaints of dyspnea as well as atypical chest discomfort, review of all data in collaboration with care team consultants in addition to discussion with length. Code Visit Procedures: Other Procedure - See Report - Billing: Critical Care Time: 180 minutes, 02974 x 1, [id number] x 4
[2019-03-01 04:38] LABS: Anion Gap 11 (5-15); BUN 46 mg/dL (7-18); Calcium,Total 7.9 mg/dL (8.5-10.1); Chloride 100 mmol/L (98-107); Creatinine, Serum 1.77 mg/dL (0.70-1.30); EST Glomerular Filtration Rate 43 mL/min (>60); Est Glom Filt Rate - Afr Amer 53 mL/min (>60); Estimated Creatinine Clearance 48.38 ml/min; Glucose 96 mg/dL (74-106); Potassium 5.1 mmol/L (3.5-5.1); Sodium Level 136 mmol/L (136-145)
[2019-03-01] MEDS: 0.9% NaCl Peripheral Flush Adult/Peds IV (05:04)
[2019-03-01] MEDS: CHLORHEXIDINE GLUC 2% CLOTH 1 EACH TOWELETTE TOPICAL (05:04)
--- NOTE | 2019-03-01 08:12 | CON.PCM_ITS ---
Problem List (1) CKD (chronic kidney disease) Status: Chronic (2) Medical non-compliance Status: Acute (3) Cardiomyopathy Status: Chronic Qualifiers: Cardiomyopathy type: dilated Qualified Code(s): I42.0 - Dilated cardiomyopathy (4) Valvular disease Status: Chronic (5) CHF (congestive heart failure) Status: Acute Qualifiers: Heart failure type: systolic Heart failure chronicity: acute on chronic Qualified Code(s): I50.23 - Acute on chronic systolic (congestive) heart failure (6) Abnormal LFTs (liver function tests) Status: Resolved (7) Anxiety Status: Chronic (8) Status post placement of cardiac pacemaker Status: Chronic (9) S/P implantation of automatic cardioverter/defibrillator (AICD) Status: Chronic Reason for Consult Date of Consultation: 03/01/19 Reason for Consultation: Shock History of Present Illness: The patient is a 48 year old M, with past medical history listed below, who presented to [facility] with progressive shortness of breath. Patient had reportedly been reporting shortness of breath for months, but states this got progressively worse to the point where he had symptoms at rest. Patient had noted worsening lower extremity edema. Patient does have an EF of 10%, but reportedly had not been compliant with his medications or follow-up. Patient reportedly had presented to the ER 2 months ago and was refilled on his medications, but did not fill these. In the ER, patient was noted to be tachycardic at 105 bpm. Laboratory work-up was relatively unremarkable except for an indeterminate troponin. Patient was noted to be desaturating into the high 80s and required nasal cannula oxygen to maintain saturations. Patient was admitted to the PCU for further monitoring. On the floor, patient repeatedly reported a desire to leave AMA. Patient reportedly had stated that someone needed to take care of his dog in the lock his home. At approximately 1 AM, patient was noted to have significant respiratory distress with atypical chest discomfort and hypotension. Patient was also noted to be ashen. Patient was given a fluid bolus, initiated on heparin and transition to the intensive care unit following a CTA of the chest. Overnight, patient eventually required a central line placement and initiation of Levophed. Patient is currently on 10 Levophed, but reports that he would like to go home and got frustrated when he was informed of the pressors. Patient reportedly is seen in endocrine for his cardiac issues. Patient is not very forthcoming about his compliance with medications and has poor insight into his current medical condition. Patient was not very forthcoming with a review of systems secondary to frustrations of not being able to go home. Past Medical History Past Medical History (Chronic Problems): Chronic Problems CKD (chronic kidney disease) (Chronic) Cardiomyopathy (Chronic) Valvular disease (Chronic) Anxiety (Chronic) Coronary artery disease (Chronic) Status post placement of cardiac pacemaker (Chronic) S/P implantation of automatic cardioverter/defibrillator (AICD) (Chronic) Allergies No Known Allergies Allergy (Verified 02/27/19 08:53) Home Medications: Ambulatory Orders Medication Instructions Recorded Atorvastatin Calcium 40 mg PO QHS #30 tablet 12/06/18 Carvedilol [Coreg] 6.25 mg PO BID #60 tablet 12/06/18 Furosemide [Lasix] 40 mg PO BID #60 tablet 12/06/18 Lisinopril 20 mg PO DAILY #30 tablet 12/06/18 Pantoprazole Sodium [Protonix] 40 mg PO DAILY #30 tablet 12/06/18 Spironolactone 25 mg PO DAILY #30 tablet 12/06/18 ALPRAZolam [Xanax] 0.25 mg PO TID 02/27/19 Clonazepam [Klonopin] 1 mg PO BID PRN PRN 02/27/19 Surgical History: cholecystectomy, - - ICD placement Psychiatric History: Anxiety Smoking Status: Current every day smoker Tobacco Use: Cigarettes - *Family History Maternal History Items: No pertinent history Paternal History Items: - - stomach cancer Review of Systems Unable to obtain accurate/complete ROS d/t: Patient frustration Patient Problems: Active and Suspected Problems Dyspnea (Acute) Medical non-compliance (Acute) CHF (congestive heart failure) (Acute) Objective: All imaging was personally reviewed. CTA of the chest does not show any acute infiltrate. Patient did have an echocardiogram in October 2017 showing an EF of less than 10% with multiple areas of akinetic motion. Patient was noted to have 2+ mitral valve insufficiency and 2+ tricuspid valve insufficiency at that time. RVSP was estimated 44 mmHg. - Physical Exam General: Alert, Oriented x3, Non-Cooperative, - - Ashen in appearance. Appears older than stated age. HEENT: Atraumatic, PERRLA, EOMI, Normocephalic, - - No scleral icterus. Slight injection noted. Oral: No Gingival or Mucosal Lesions/ Ulcerations, Dry Mucosa Neck: Supple, No Nodes, Trachea Midline, JVD, Right Lungs: No rhonchi, No wheeze, Diminished, Rales, - - Fair effort. Cardiovascular: Regular rate, Regular Rhythm, Normal S1, Normal S2, Murmur - Grade 2 diastolic murmur at the apex, No rub noted, - - Paced rhythm noted on telemetry Abdomen: Bowel Sounds Present, Soft, Non Tender, Non-Distended Extremities: No cyanosis, Clubbing, Edema Skin: No rashes, No breakdown Musculoskeletal: No Tenderness to Palpation of Joints or Extremities Lymphatic: No Cervical, Supraclavicular, or Inguinal Adenopathy Neurological: Cranial nerves II-XII grossly intact, Neuro grossly intact, Motor Exam 5/5 strength throughout Psych/Mental Status: Flat Affect, Impulsive Vital Signs Temp Pulse Resp BP Pulse Ox 36.2 C L 69 16 93/76 94 03/01/19 05:00 03/01/19 07:37 03/01/19 07:00 03/01/19 07:00 03/01/19 07:00 Oxygen Flow Rate (L/min) 2 Oxygen Delivery Method Nasal Cannula Weight: 68.5 kg Body Mass Index (BMI) 21.4 Finger Stick Blood Glucose 124 Intake and Output for Last 24 Hours 02/27/19 02/28/19 03/01/19 23:59 23:59 23:59 Intake Total 920 / 920 1865.26 / 1865.26 527.21 / 527.21 Output Total 3765 / 3765 1775 / 1775 375 / 375 Balance -2845 / -2845 90.26 / 90.26 152.21 / 152.21 Laboratory Tests Past 24 Hrs 03/01/19 03/01/19 03/01/19 01:18 01:20 01:20 WBC 8.9 RBC 4.02 L Hgb 12.6 L Hct 39.3 L MCV 97.8 H MCH 31.3 MCHC 32.1 RDW Std Deviation 60.3 H RDW Coeff of Paulina 16.9 H Plt Count 144 L MPV 10.2 Immature Gran % (Auto) 0.300 Neut % (Auto) 73.1 H Lymph % (Auto) 18.7 L Dewitt % (Auto) 6.8 Eos % (Auto) 0.5 Baso % (Auto) 0.6 Absolute Neuts (auto) 6.5 Absolute Lymphs (auto) 1.66 Nucleated RBC % 0 PT 20.7 H INR 1.8 APTT 35.9 Specimen Type ART Sample Site L Radial pH 7.33 L Bicarbonate Actual 21.2 L POC Total CO2 22 Base Excess -5 L O2 Saturation 92 L ABG pCO2 40.1 ABG pO2 68 L Abraham Test POS O2 Delivery Device Nasal Can Liter Flow 2.0 Blood Gas Notified Whom ICU MD Blood Gas Notified Time 113 Sodium Potassium Chloride Carbon Dioxide Anion Gap BUN Creatinine Estim Creat Clear Calc Est GFR (MDRD) Af Amer Est GFR (MDRD) Non-Af BUN/Creatinine Ratio Glucose Calcium Troponin I 03/01/19 03/01/19 03/01/19 01:24 02:35 04:10 WBC 11.3 H RBC 5.48 Hgb 17.1 H Hct 52.3 MCV 95.4 H MCH 31.2 MCHC 32.7 RDW Std Deviation 58.2 H RDW Coeff of Paulina 16.8 H Plt Count 181 MPV 9.6 Immature Gran % (Auto) 0.400 Neut % (Auto) 76.6 H Lymph % (Auto) 16.2 L Dewitt % (Auto) 6.0 Eos % (Auto) 0.4 Baso % (Auto) 0.4 Absolute Neuts (auto) 8.7 H Absolute Lymphs (auto) 1.83 Nucleated RBC % 0 PT INR APTT Specimen Type Sample Site pH Bicarbonate Actual POC Total CO2 Base Excess O2 Saturation ABG pCO2 ABG pO2 Abraham Test O2 Delivery Device Liter Flow Blood Gas Notified Whom Blood Gas Notified Time Sodium 136 Potassium 5.1 Chloride 100 Carbon Dioxide 25.0 Anion Gap 11 BUN 46 H Creatinine 1.77 H Estim Creat Clear Calc 48.38 Est GFR (MDRD) Af Amer 53 L Est GFR (MDRD) Non-Af 43 L BUN/Creatinine Ratio 26.0 H Glucose 96 Calcium 7.9 L Troponin I 0.108 H 03/01/19 03/01/19 04:10 06:45 WBC RBC Hgb Hct MCV MCH MCHC RDW Std Deviation RDW Coeff of Paulina Plt Count MPV Immature Gran % (Auto) Neut % (Auto) Lymph % (Auto) Dewitt % (Auto) Eos % (Auto) Baso % (Auto) Absolute Neuts (auto) Absolute Lymphs (auto) Nucleated RBC % PT INR APTT Specimen Type Sample Site pH Bicarbonate Actual POC Total CO2 Base Excess O2 Saturation ABG pCO2 ABG pO2 Abraham Test O2 Delivery Device Liter Flow Blood Gas Notified Whom Blood Gas Notified Time Sodium Potassium Chloride Carbon Dioxide Anion Gap BUN Creatinine Estim Creat Clear Calc Est GFR (MDRD) Af Amer Est GFR (MDRD) Non-Af BUN/Creatinine Ratio Glucose Calcium Troponin I 0.138 H 0.147 H Clinical Impression(s) from Imaging Studies Chest CTA 03/01/19 01:17 IMPRESSION: No demonstrated pulmonary embolism, aneurysm, leak or arterial dissection on submitted images. Resolution of previous airspace disease with probable scarring and/atelectasis in the bases. There is a pleural-based nodular density at the level of the atelectasis or scar in the left base, not present on previous examination, follow-up to resolution recommended. Significant cardiac enlargement with elevated right cardiac pressure, reflux into the inferior vena cava and hepatic vein. No mediastinal hemorrhage or active contrast extravasation. Mediastinal reactive lymphoid hyperplasia suspected, improved since previous exam. Electronically Signed: Agueda Negro MD at 4:17 EDT , Service support , Chest X-Ray 03/01/19 01:54 IMPRESSION: Line in good position. There is no demonstrated pneumothorax. Stable cardiac enlargement. Electronically Signed: Agueda Negro MD at 3:05 EDT , Service support , Abdomen/Pelvis CTA 03/01/19 02:43 IMPRESSION: No acute vascular injury, contrast extravasation, retroperitoneal hamartoma, intraperitoneal hemorrhage or hematoma formation. Trace ascites with indistinct pararenal and right colonic gutter stranding. Slightly heterogeneous enhancement of the nephrograms bilaterally, etiology such as pyelonephritis is not excluded. Arteriosclerosis. Status post cholecystectomy. Rare sigmoid diverticula. Electronically Signed: Agueda Negro MD at 4:24 EDT , Service support , Assessment/Plan Active and Suspected Problems Dyspnea (Acute) Medical non-compliance (Acute) CHF (congestive heart failure) (Acute) RECOMMENDATIONS: 1. Await cardiology recommendations 2. Wean Levophed to keep map greater than 65 3. Panculture and sepsis protocol if develops fever 4. BiPAP rescue if necessary IMPRESSIONS: 1. Probable cardiogenic shock Patient does have an EF less than 10% and a significantly elevated BNP. Patient was on significant medications for CHF initially, but these of all been held. Repeat echocardiogram is currently pending. Patient has responded to Levophed therapy. Unclear if patient would require a Jansen-Fadi catheter to evaluate if diuretic therapy would be required. Unclear if patient has developed worsening of valvular disease. Patient's troponins are not consistent with acute infarction and telemetry shows only a paced rhythm. Carvedilol, lisinopril and spironolactone have been held secondary to acute condition. Patient does not have significant leukocytosis, fever or other constitutional symptoms to suggest sepsis at this time. 2. Acute kidney injury Secondary to prerenal versus contrast induced nephropathy as patient did receive IV contrast earlier in the hospitalization. Patient is requiring some supplemental oxygen to maintain saturations and Levophed to maintain blood pressure. We will continue with supportive measures for now. Patient would likely be a very poor candidate for hemodialysis given cardiac function. 3. Wide-complex tachycardia Patient was initially on amiodarone drip, but this is been discontinued. Patient does have a pacemaker in place and appears to be pacer dependent at this time. Repeat echocardiogram is currently pending. Electrolytes will be rep leted as indicated. 4. Tobacco dependence/history of noncompliance/poor insight Complicates care, management, recovery and prognosis. Hold on nicotine patch if patient is acceptable. TIME: 38 minutes critical care time spent addressing patient's cardiogenic shock, acute kidney injury, wide-complex tachycardia, review of all data and collaboration with care team. (7:30 AM to 8:30 AM) Code Visit 9xxxx: [id number] Critical care first hour
[2019-03-01 10:18] LABS: Partial Thromboplast Time 219.5 Seconds (24.1-36.2)
--- NOTE | 2019-03-01 10:49 | PN.CARD_ITS ---
Subjectve: The patient is awake and alert at this time. He appears to be resting supine relatively comfortably with respect to no acute respiratory related issues. He denies any other acute symptoms at this time. Objective: Vital Signs Temp Pulse Resp BP Pulse Ox 97 F L 70 14 109/82 H 98 03/01/19 10:00 03/01/19 10:00 03/01/19 10:00 03/01/19 10:00 03/01/19 10:00 Oxygen Flow Rate (L/min) 2 Oxygen Delivery Method Nasal Cannula Weight: 151 lb 0.266 oz Body Mass Index (BMI) 21.4 Finger Stick Blood Glucose 124 Intake and Output for Last 24 Hours 02/27/19 02/28/19 03/01/19 23:59 23:59 23:59 Intake Total 920 / 920 1865.26 / 1865.26 650.94 / 650.94 Output Total 3765 / 3765 1775 / 1775 375 / 375 Balance -2845 / -2845 90.26 / 90.26 275.94 / 275.94 General: Awake, Alert, Oriented x 3 HEENT: Atraumatic, PERRL, EOMI, Sclera Non Icteric Oral: Moist Mucosa Neck: Supple, Good ROM, No JVD Lungs: Diminished Jitendra Bases Cardiovascular: Regular Rhythm, Normal S1, Normal S2 Murmur Murmur: Grade 2/6, Soft, Mid Systolic, LLSB, Stollings Abdomen: Bowel Sounds Present, Soft, Non Tender Extremities: No edema Psych/Mental Status: Appropriate 03/01/19 01:18: pH 7.33 L, Bicarbonate Actual 21.2 L, POC Total CO2 22, Base Excess -5 L, O2 Saturation 92 L, ABG pCO2 40.1, ABG pO2 68 L, Abraham Test POS 03/01/19 01:20: PT 20.7 H, INR 1.8, APTT 35.9 03/01/19 01:20: WBC 8.9, RBC 4.02 L, Hgb 12.6 L, Hct 39.3 L, MCV 97.8 H, MCH 31.3, MCHC 32.1, Plt Count 144 L, MPV 10.2, Immature Gran % (Auto) 0.300, Neut % (Auto) 73.1 H, Lymph % (Auto) 18.7 L, [place] % (Auto) 6.8, Eos % (Auto) 0.5, Baso % (Auto) 0.6, Absolute Neuts (auto) 6.5, Nucleated RBC % 0 03/01/19 01:24: Troponin I 0.108 H 03/01/19 02:35: WBC 11.3 H, RBC 5.48, Hgb 17.1 H, Hct 52.3, MCV 95.4 H, MCH 31.2, MCHC 32.7, Plt Count 181, MPV 9.6, Immature Gran % (Auto) 0.400, Neut % (Auto) 76.6 H, Lymph % (Auto) 16.2 L, [place] % (Auto) 6.0, Eos % (Auto) 0.4, Baso % (Auto) 0.4, Absolute Neuts (auto) 8.7 H, Nucleated RBC % 0 03/01/19 04:10: Sodium 136, Potassium 5.1, Chloride 100, Carbon Dioxide 25.0, Anion Gap 11, BUN 46 H, Creatinine 1.77 H, Est GFR (MDRD) Af Amer 53 L, Est GFR (MDRD) Non-Af 43 L, BUN/Creatinine Ratio 26.0 H, Glucose 96, Calcium 7.9 L 03/01/19 04:10: Troponin I 0.138 H 03/01/19 06:45: Troponin I 0.147 H 03/01/19 09:50: APTT 219.5 H* Rhythm: Electronic ventricular paced rhythm EKG: Electronic ventricular paced rhythm ECHO: Pending Radiologic studies: Chest x-ray, chest CT scan, abdominal/pelvic CT scan,: Per radiology reports: No acute cardiovascular/peripheral vascular abnormality/compromise appreciated: Please see official report Medical Necessity - Tobacco Use Smoking Status: Current every day smoker Tobacco Use: Cigarettes Assessment/Plan 1. Abnormal cardiac enzymes The patient has a combination of abnormal cardiac enzymes. This may be secondary to his history of underlying chronic cardiomyopathy and chronic systolic CHF. He does not have a history of underlying CAD. He has been told in the past based on his previous evaluation in [place], [place] that he has a non-CAD related cardiomyopathy. Thus his enzymes may be a type II event secondary to supply demand mismatch based upon his acute on chronic symptoms on his chronic non-CAD related cardiomyopathy as noted above. 2. Acute on chronic systolic mediated CHF The patient appears to have chronic systolic mediated CHF. This may be secondary to his noncompliance. At the present time he will continue medical management. His medications will be adjusted over time. 3. Cardiomyopathy The patient has a significant non-CAD related cardiomyopathy. He can be reassessed with an echocardiogram to monitor for any obvious significant changes. 4. Valvular heart disease He does have MR/TR. These findings may be a contributing factor to his acute on chronic symptoms especially without medical management, etc. They can be reassessed with echocardiographic studies. 5. Status post biventricular ICD/PATIENT COORDINATOR therapy He states that he has not had his ICD interrogated. This can be arranged to reassess his generator status and ICD status. 6. Nonsustained wide-complex tachycardia Patient has had episodes of nonsustained wide-complex tachycardia concerning for nonsustained VT. These appear to be correlating, as best as can be noted, with his concerns of becoming sweaty or diaphoretic. At the present time he will continue to be monitored. He will be placed on additional antiarrhythmic therapy with oral amiodarone. 7. Hypotension The patient was reported as being hypotensive. There were concerns of decreased intravascular volume, at one point time concerns of anemia based upon a decreased H&H which upon repeat did not appear to be consistent, concerns of alteration in his cardiac status, which led to the patient being placed in the ICU, with IV fluids, IV vasopressors, and multiple radiologic studies for further evaluation. At the present time the patient remains in the ICU. Medications which would lower his blood pressures are on hold. He has received IV fluids. He is on IV vasopressor agents at this time. His radiologic studies are as noted above. An echocardiogram is pending to reassess his cardiac anatomy and function, etc. This patient may be a patient who is very tenuous with his volume status who can easily become either volume overloaded or volume depleted and easily develop acute on chronic systolic CHF or as he has demonstrated hypotension, especially if there is no other obvious etiology to explain it, requiring balancing of his volume status and appropriate support in the interim. 8. Noncompliance Again he readily admits he has been noncompliant with medications and follow-up. This can be a contributing factor to his recurrent symptoms and recurrent hospitalizations. Ideally the patient would be evaluated at a tertiary care center for consideration for advanced heart failure evaluation and/or therapy. He has been told his noncompliance is an issue with this. At the present time he will continue ICU evaluation and care. Hopefully his condition will stabilize. He will then need to give consideration to his future once and wishes. If he does want to pursue a tertiary care center evaluation for advanced heart failure therapy then perhaps this can be considered with the patient knowing that if he remains noncompliant that even a tertiary care center will have limits as to what they are able to offer him. The patient has been informed that based upon his cardiovascular condition, especially with being noncompliant with follow-up, medications, etc., that his overall prognosis is poor. Comment: The above was discussed and reviewed with the patient and Dr. Guardado. This note was generated with [employer] dictation software. It may contain incorrect words, spelling, and punctuation that were not noted in checking the note before signing.
[2019-03-01] MEDS: Pantoprazole Sodium 40 MG Tablet PO (10:52)
--- NOTE | 2019-03-01 11:00 | PCM.PROGNOTE ---
Patient Problems: Active and Suspected Problems Medical non-compliance (Acute) CHF (congestive heart failure) (Acute) Subjective: Chief complaint: Follow-up after admission for acute on chronic systolic CHF, acute hypoxic respiratory insufficiency hospital course, gated by profound patient, was transferred to ICU and he was found to have cardiogenic shock, borderline elevated troponin and acute kidney injury. Patient seen and examined. Overnight, patient became profoundly hypotensive, was transferred to ICU, central line was inserted and he was started on IV Levophed. His troponin was borderline elevated for which she was started on IV heparin drip. This morning when I went to the patient's mom to see him, he was adamant to have been extra water and I tried to explain to him that because of his acute condition, fluids should be restricted. He was upset and he was threatening to leave AGAINST MEDICAL ADVICE. Later, nursing staff gave him some water. He came back to the patient and he was sleeping. Although he was obviously short of breath at rest, he denied any shortness of breath. He denied chest pain. He denies dizziness or lightheadedness. He is on IV Levophed drip as well as IV heparin drip. He has been afebrile, heart rate stable, blood pressure is maintained on Levophed, pulse ox is 98% on 2 L. - Physical Exam General: Alert, Oriented x3, Cooperative, - - Moderately short of breath. HEENT: Atraumatic, PERRLA, EOMI, Normocephalic Oral: Moist Mucosa, No Gingival or Mucosal Lesions/ Ulcerations Neck: Supple, No JVD, Negative Carotid Bruits, Trachea Midline, Thyroid Normal Size and Texture Lungs: Clear to auscultation, No rhonchi, No wheeze, No rales, Diminished Cardiovascular: Regular rate, Regular Rhythm, Normal S1, Normal S2, PMI Normal Abdomen: Bowel Sounds Present, Soft, Non Tender, Non-Distended, No Hepato-splenomegaly Extremities: No clubbing, No cyanosis, No edema Skin: No rashes, No breakdown Lymphatic: No Cervical, Supraclavicular, or Inguinal Adenopathy Neurological: Cranial nerves II-XII grossly intact, Motor Exam 5/5 strength throughout Psych/Mental Status: Normal Affect, Agitated, Alert and oriented to time, place, person, mood and affect Vital Signs Temp Pulse Resp BP Pulse Ox 97 F L 70 14 109/82 H 98 03/01/19 10:00 03/01/19 10:00 03/01/19 10:00 03/01/19 10:00 03/01/19 10:00 Oxygen Flow Rate (L/min) 2 Oxygen Delivery Method Nasal Cannula Weight: 151 lb 0.266 oz Body Mass Index (BMI) 21.4 Finger Stick Blood Glucose 124 Intake and Output for Last 24 Hours 02/27/19 02/28/19 03/01/19 23:59 23:59 23:59 Intake Total 920 / 920 1865.26 / 1865.26 650.94 / 650.94 Output Total 3765 / 3765 1775 / 1775 375 / 375 Balance -2845 / -2845 90.26 / 90.26 275.94 / 275.94 Laboratory Tests Past 24 Hrs 03/01/19 03/01/19 03/01/19 01:18 01:20 01:20 WBC 8.9 RBC 4.02 L Hgb 12.6 L Hct 39.3 L MCV 97.8 H MCH 31.3 MCHC 32.1 RDW Std Deviation 60.3 H RDW Coeff of Paulina 16.9 H Plt Count 144 L MPV 10.2 Immature Gran % (Auto) 0.300 Neut % (Auto) 73.1 H Lymph % (Auto) 18.7 L [place] % (Auto) 6.8 Eos % (Auto) 0.5 Baso % (Auto) 0.6 Absolute Neuts (auto) 6.5 Absolute Lymphs (auto) 1.66 Nucleated RBC % 0 PT 20.7 H INR 1.8 APTT 35.9 Specimen Type ART Sample Site L Radial pH 7.33 L Bicarbonate Actual 21.2 L POC Total CO2 22 Base Excess -5 L O2 Saturation 92 L ABG pCO2 40.1 ABG pO2 68 L Abraham Test POS O2 Delivery Device Nasal Can Liter Flow 2.0 Blood Gas Notified Whom ICU Blood Gas Notified Time 113 Sodium Potassium Chloride Carbon Dioxide Anion Gap BUN Creatinine Estim Creat Clear Calc Est GFR (MDRD) Af Amer Est GFR (MDRD) Non-Af BUN/Creatinine Ratio Glucose Calcium Troponin I 03/01/19 03/01/19 03/01/19 01:24 02:35 04:10 WBC 11.3 H RBC 5.48 Hgb 17.1 H Hct 52.3 MCV 95.4 H MCH 31.2 MCHC 32.7 RDW Std Deviation 58.2 H RDW Coeff of Paulina 16.8 H Plt Count 181 MPV 9.6 Immature Gran % (Auto) 0.400 Neut % (Auto) 76.6 H Lymph % (Auto) 16.2 L [place] % (Auto) 6.0 Eos % (Auto) 0.4 Baso % (Auto) 0.4 Absolute Neuts (auto) 8.7 H Absolute Lymphs (auto) 1.83 Nucleated RBC % 0 PT INR APTT Specimen Type Sample Site pH Bicarbonate Actual POC Total CO2 Base Excess O2 Saturation ABG pCO2 ABG pO2 Abraham Test O2 Delivery Device Liter Flow Blood Gas Notified Whom Blood Gas Notified Time Sodium 136 Potassium 5.1 Chloride 100 Carbon Dioxide 25.0 Anion Gap 11 BUN 46 H Creatinine 1.77 H Estim Creat Clear Calc 48.38 Est GFR (MDRD) Af Amer 53 L Est GFR (MDRD) Non-Af 43 L BUN/Creatinine Ratio 26.0 H Glucose 96 Calcium 7.9 L Troponin I 0.108 H 03/01/19 03/01/19 03/01/19 04:10 06:45 09:50 WBC RBC Hgb Hct MCV MCH MCHC RDW Std Deviation RDW Coeff of Paulina Plt Count MPV Immature Gran % (Auto) Neut % (Auto) Lymph % (Auto) [place] % (Auto) Eos % (Auto) Baso % (Auto) Absolute Neuts (auto) Absolute Lymphs (auto) Nucleated RBC % PT INR APTT 219.5 H* Specimen Type Sample Site pH Bicarbonate Actual POC Total CO2 Base Excess O2 Saturation ABG pCO2 ABG pO2 Abraham Test O2 Delivery Device Liter Flow Blood Gas Notified Whom Blood Gas Notified Time Sodium Potassium Chloride Carbon Dioxide Anion Gap BUN Creatinine Estim Creat Clear Calc Est GFR (MDRD) Af Amer Est GFR (MDRD) Non-Af BUN/Creatinine Ratio Glucose Calcium Troponin I 0.138 H 0.147 H Clinical Impression(s) from Imaging Studies Chest X-Ray 02/27/19 09:06 IMPRESSION: Stable chest. Moderate cardiomegaly. Defibrillator. Electronically Signed: Kandi Borja MD at 9:57 EDT Tel , Service support , Chest CTA 03/01/19 01:17 IMPRESSION: No demonstrated pulmonary embolism, aneurysm, leak or arterial dissection on submitted images. Resolution of previous airspace disease with probable scarring and/atelectasis in the bases. There is a pleural-based nodular density at the level of the atelectasis or scar in the left base, not present on previous examination, follow-up to resolution recommended. Significant cardiac enlargement with elevated right cardiac pressure, reflux into the inferior vena cava and hepatic vein. No mediastinal hemorrhage or active contrast extravasation. Mediastinal reactive lymphoid hyperplasia suspected, improved since previous exam. Electronically Signed: Agueda Negro MD at 4:17 EDT , Service support , Chest X-Ray 03/01/19 01:54 IMPRESSION: Line in good position. There is no demonstrated pneumothorax. Stable cardiac enlargement. Electronically Signed: Agueda Negro MD at 3:05 EDT , Service support , Abdomen/Pelvis CTA 03/01/19 02:43 IMPRESSION: No acute vascular injury, contrast extravasation, retroperitoneal hamartoma, intraperitoneal hemorrhage or hematoma formation. Trace ascites with indistinct pararenal and right colonic gutter stranding. Slightly heterogeneous enhancement of the nephrograms bilaterally, etiology such as pyelonephritis is not excluded. Arteriosclerosis. Status post cholecystectomy. Rare sigmoid diverticula. Electronically Signed: Agueda Negro MD at 4:24 EDT , Service support , Medical Necessity - Tobacco Use Smoking Status: Current every day smoker Tobacco Use: Cigarettes Assessment/Plan All Active Problems Medical non-compliance (Acute) CHF (congestive heart failure) (Acute) This is a 48 years old male patient presented to the emergency room because of shortness of breath, admitted because of acute on chronic systolic CHF with acute hypoxic insufficiency and his hospital course complicated by profound hypotension, was found to have cardiogenic shock on the was transferred to ICU and started on IV vasopressors. #1 cardiogenic shock: He is on IV Levophed drip. Blood pressure is borderline, improved. He has been afebrile, heart rate has been in 70s. EKG revealed paced rhythm, no acute ischemic changes. Troponin is borderline elevated. Patient is on IV heparin drip. 2D echocardiogram revealed ejection fraction of less than 10%, other findings reviewed. Cardiology consulted. Plan to continue vasopressors, fluid restriction. #2 acute on chronic systolic CHF: Patient was on IV Lasix, discontinued. Now he is hypotensive and on vasopressors. 2D echocardiogram reviewed as above, ejection fraction less than 10%. Plan as above. After discussion with cardiology, patient may need to be transferred or to be seen as outpatient at tertiary care center for further cardiac treatment. #3 acute hypoxic respiratory insufficiency: Secondary to above #1 and 2. He is on oxygen at 2 L. Plan to treat underlying cardiogenic shock. #4 acute kidney injury: Secondary to hypotension and cardiogenic shock. Baseline kidney function is normal. This morning, creatinine is 1.7, it was normal yesterday. He is on IV vasopressors as above. Plan to repeat BMP tomorrow morning. #5 nonsustained wide-complex tachycardia: Concerning for nonsustained V. tach. Plan to start him on oral amiodarone according to cardiology. 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 Plan as above. #7 valvular heart disease: Had a history of mitral and tricuspid regurgitation. 2D echocardiogram from today revealed moderate mitral and tricuspid valve insufficiency. #8 DVT prophylaxis: He is on IV heparin drip. This note was generated with [email or web address] dictation software. It may contain incorrect words, spelling, and punctuation that were not noted in checking the note before signing. Code Visit Inpatient E&M: [address] [facility]
[2019-03-01] MEDS: Amiodarone 200 MG Tablet PO ×2 (13:22→21:22)
[2019-03-01] MEDS: Atorvastatin Calcium 40 MG Tablet PO (21:22)
[2019-03-01] MEDS: oxyCODONE 5 MG Tablet PO (21:47)
[2019-03-02] VITALS (26 sets, daily range): BP systolic 90–123; BP diastolic 75–97; PULSE 72–96; RESP 10–22; TEMP 36.1–36.4; O2SAT 5–99
[2019-03-02 03:35] LABS: Absolute Lymphocyte Count 2.29 X10^3/uL (0.83-4.51); Absolute Neutrophil Count 9.4 X10^3/uL (2.0-7.7); Basophil# 0.08 X10^3/uL; Basophil% 0.6 % (0-1); Eosinophil# 0.08 X10^3/uL; Eosinophils% 0.6 % (0-5); Hematocrit 51.2 % (40-54); Hemoglobin 17.1 g/dL (13.0-16.5); Lymphocyte # 2.29 X10^3/ul (4.0); Lymphocyte % 17.9 % (19-41); Mean Corp Hgb Conc 33.4 g/dL (32-36); Mean Corpuscular Hgb 31.4 pg (27.0-32.0); Mean Corpuscular Volume 93.9 fL (80-94); Mean Platelet Vol. 9.9 fl (6.2-12.0); Monocyte# 0.87 X10^3/uL; Monocyte% 6.8 % (0-10); NRBC Flagged by Analyzer 0 % (0-5); Neutrophil # 9.43 X10^3/uL (2.7-7.7); Neutrophil % 73.7 % (47-70); Platelet Count 206 K/mm3 (150-450); RBC Distribution Width SD 57.3 fl (35.1-43.9); Red Blood Count 5.45 M/mm3 (4.6-6.2); White Blood Count 12.8 K/mm3 (4.4-11.0)
[2019-03-02 03:44] LABS: Anion Gap 9 (5-15); BUN 53 mg/dL (7-18); BUN/Creat Ratio 33.8 RATIO (10-20); Calcium,Total 8.1 mg/dL (8.5-10.1); Chloride 104 mmol/L (98-107); Creatinine, Serum 1.57 mg/dL (0.70-1.30); EST Glomerular Filtration Rate 50 mL/min (>60); Est Glom Filt Rate - Afr Amer 60 mL/min (>60); Estimated Creatinine Clearance 54.54 ml/min; Glucose 97 mg/dL (74-106); Potassium 4.2 mmol/L (3.5-5.1); Sodium Level 140 mmol/L (136-145)
[2019-03-02] MEDS: Amiodarone 200 MG Tablet PO ×2 (05:45→14:08)
[2019-03-02] MEDS: 0.9% NaCl Peripheral Flush Adult/Peds IV ×2 (05:46→10:33)
--- NOTE | 2019-03-02 07:03 | PN_ITS ---
Subjective: Patient did okay overnight. Patient did have a couple episodes of desaturation associated with probable central apnea. Patient was placed on 2 L nasal cannula with sleep. Patient continues to have a paced rhythm with no episodes of V. tach overnight. Patient did have one episode where he said he was going to leave AMA and then reconsidered. Patient continues to be frustrated by fluid restriction. Patient was able to come off of pressor therapy at 11 AM yesterday. Patient did tolerate p.o. overnight. General: Alert, Oriented x3, Cooperative, No apparent distress, - - Appears older than stated age. Speaking in full sentences. HEENT: Atraumatic, PERRLA, EOMI, Normocephalic, - - No scleral icterus or injection noted. Oral: Moist Mucosa, No Gingival or Mucosal Lesions/ Ulcerations Neck: Supple, No JVD, No Nodes, Trachea Midline Lungs: No rhonchi, No wheeze, No rales, Diminished Cardiovascular: Normal S1, Normal S2, Irregular Rate, Murmur, No rub noted, No Gallop Abdomen: Bowel Sounds Present, Soft, Non Tender, Non-Distended Extremities: No cyanosis, Capillary Refill Less than 3 Seconds, Clubbing, Edema - Trace Skin: No rashes, No breakdown Musculoskeletal: No Tenderness to Palpation of Joints or Extremities Lymphatic: No Cervical, Supraclavicular, or Inguinal Adenopathy Neurological: Cranial nerves II-XII grossly intact, Neuro grossly intact, Motor Exam 5/5 strength throughout Psych/Mental Status: Alert and oriented to time, place, person, mood and affect Vital Signs Temp Pulse Resp BP Pulse Ox 36.3 C L 88 21 H 108/81 H 87 03/02/19 00:07 03/02/19 06:00 03/02/19 06:00 03/02/19 06:00 03/02/19 06:00 Oxygen Flow Rate (L/min) 2 Oxygen Delivery Method Nasal Cannula Weight: 70.7 kg Body Mass Index (BMI) 21.4 Finger Stick Blood Glucose 124 Intake and Output for Last 24 Hours 02/28/19 03/01/19 03/02/19 23:59 23:59 23:59 Intake Total 1865.26 / 1865.26 1855.34 / 1855.34 375 / 375 Output Total 1775 / 1775 1450 / 1450 150 / 150 Balance 90.26 / 90.26 405.34 / 405.34 225 / 225 Labs (Last 48 Hours) 02/28/19 02/28/19 03/01/19 05:25 05:25 01:18 WBC 10.7 RBC 5.80 Hgb 17.7 H Hct 54.1 H MCV 93.3 MCH 30.5 MCHC 32.7 RDW Std Deviation 58.3 H RDW Coeff of Paulina 18.3 H Plt Count 209 MPV 9.9 Immature Gran % (Auto) 0.300 Neut % (Auto) 68.4 Lymph % (Auto) 23.5 [place] % (Auto) 6.6 Eos % (Auto) 0.5 Baso % (Auto) 0.7 Absolute Neuts (auto) 7.3 Absolute Lymphs (auto) 2.52 Nucleated RBC % 0 PT INR APTT Specimen Type ART Sample Site L Radial pH 7.33 L Bicarbonate Actual 21.2 L POC Total CO2 22 Base Excess -5 L O2 Saturation 92 L ABG pCO2 40.1 ABG pO2 68 L Abraham Test POS O2 Delivery Device Nasal Can Liter Flow 2.0 Blood Gas Notified Whom ICU MD Blood Gas Notified Time 113 Sodium 140 Potassium 3.7 Chloride 105 Carbon Dioxide 25.0 Anion Gap 10 BUN 31 H Creatinine 1.24 Estim Creat Clear Calc 69.05 Est GFR (MDRD) Af Amer 79 Est GFR (MDRD) Non-Af 66 BUN/Creatinine Ratio 25.0 H Glucose 96 Calcium 8.9 Magnesium 1.7 Troponin I 03/01/19 03/01/19 03/01/19 01:20 01:20 01:24 WBC 8.9 RBC 4.02 L Hgb 12.6 L Hct 39.3 L MCV 97.8 H MCH 31.3 MCHC 32.1 RDW Std Deviation 60.3 H RDW Coeff of Paulina 16.9 H Plt Count 144 L MPV 10.2 Immature Gran % (Auto) 0.300 Neut % (Auto) 73.1 H Lymph % (Auto) 18.7 L [place] % (Auto) 6.8 Eos % (Auto) 0.5 Baso % (Auto) 0.6 Absolute Neuts (auto) 6.5 Absolute Lymphs (auto) 1.66 Nucleated RBC % 0 PT 20.7 H INR 1.8 APTT 35.9 Specimen Type Sample Site pH Bicarbonate Actual POC Total CO2 Base Excess O2 Saturation ABG pCO2 ABG pO2 Abraham Test O2 Delivery Device Liter Flow Blood Gas Notified Whom Blood Gas Notified Time Sodium Potassium Chloride Carbon Dioxide Anion Gap BUN Creatinine Estim Creat Clear Calc Est GFR (MDRD) Af Amer Est GFR (MDRD) Non-Af BUN/Creatinine Ratio Glucose Calcium Magnesium Troponin I 0.108 H 03/01/19 03/01/19 03/01/19 02:35 04:10 04:10 WBC 11.3 H RBC 5.48 Hgb 17.1 H Hct 52.3 MCV 95.4 H MCH 31.2 MCHC 32.7 RDW Std Deviation 58.2 H RDW Coeff of Paulina 16.8 H Plt Count 181 MPV 9.6 Immature Gran % (Auto) 0.400 Neut % (Auto) 76.6 H Lymph % (Auto) 16.2 L [place] % (Auto) 6.0 Eos % (Auto) 0.4 Baso % (Auto) 0.4 Absolute Neuts (auto) 8.7 H Absolute Lymphs (auto) 1.83 Nucleated RBC % 0 PT INR APTT Specimen Type Sample Site pH Bicarbonate Actual POC Total CO2 Base Excess O2 Saturation ABG pCO2 ABG pO2 Abraham Test O2 Delivery Device Liter Flow Blood Gas Notified Whom Blood Gas Notified Time Sodium 136 Potassium 5.1 Chloride 100 Carbon Dioxide 25.0 Anion Gap 11 BUN 46 H Creatinine 1.77 H Estim Creat Clear Calc 48.38 Est GFR (MDRD) Af Amer 53 L Est GFR (MDRD) Non-Af 43 L BUN/Creatinine Ratio 26.0 H Glucose 96 Calcium 7.9 L Magnesium Troponin I 0.138 H 03/01/19 03/01/19 03/02/19 06:45 09:50 03:20 WBC 12.8 H RBC 5.45 Hgb 17.1 H Hct 51.2 MCV 93.9 MCH 31.4 MCHC 33.4 RDW Std Deviation 57.3 H RDW Coeff of Paulina 17.0 H Plt Count 206 MPV 9.9 Immature Gran % (Auto) 0.400 Neut % (Auto) 73.7 H Lymph % (Auto) 17.9 L [place] % (Auto) 6.8 Eos % (Auto) 0.6 Baso % (Auto) 0.6 Absolute Neuts (auto) 9.4 H Absolute Lymphs (auto) 2.29 Nucleated RBC % 0 PT INR APTT 219.5 H* Specimen Type Sample Site pH Bicarbonate Actual POC Total CO2 Base Excess O2 Saturation ABG pCO2 ABG pO2 Abraham Test O2 Delivery Device Liter Flow Blood Gas Notified Whom Blood Gas Notified Time Sodium Potassium Chloride Carbon Dioxide Anion Gap BUN Creatinine Estim Creat Clear Calc Est GFR (MDRD) Af Amer Est GFR (MDRD) Non-Af BUN/Creatinine Ratio Glucose Calcium Magnesium Troponin I 0.147 H 03/02/19 03:20 WBC RBC Hgb Hct MCV MCH MCHC RDW Std Deviation RDW Coeff of Paulina Plt Count MPV Immature Gran % (Auto) Neut % (Auto) Lymph % (Auto) [place] % (Auto) Eos % (Auto) Baso % (Auto) Absolute Neuts (auto) Absolute Lymphs (auto) Nucleated RBC % PT INR APTT Specimen Type Sample Site pH Bicarbonate Actual POC Total CO2 Base Excess O2 Saturation ABG pCO2 ABG pO2 Abraham Test O2 Delivery Device Liter Flow Blood Gas Notified Whom Blood Gas Notified Time Sodium 140 Potassium 4.2 Chloride 104 Carbon Dioxide 27.0 Anion Gap 9 BUN 53 H Creatinine 1.57 H Estim Creat Clear Calc 54.54 Est GFR (MDRD) Af Amer 60 Est GFR (MDRD) Non-Af 50 L BUN/Creatinine Ratio 33.8 H Glucose 97 Calcium 8.1 L Magnesium Troponin I Medical Necessity - Tobacco Use Smoking Status: Current every day smoker Tobacco Use: Cigarettes Assessment/Plan All Active Problems Medical non-compliance (Acute) CHF (congestive heart failure) (Acute) RECOMMENDATIONS: 1. Await cardiology recommendations 2. Increase activity as tolerated 3. Panculture and sepsis protocol if develops fever 4. Consider outpatient sleep study for evaluation of central sleep apnea IMPRESSIONS: 1. Probable cardiogenic shock Patient does have an EF less than 10% and a significantly elevated BNP. Patient was on significant medications for CHF initially, but these of all been held. Defer to cardiology on reinitiation of medication for CHF. Patient's troponins are not consistent with acute infarction and telemetry shows only a paced rhythm. Patient does not have significant leukocytosis, fever or other constitutional symptoms to suggest sepsis at this time. 2. Acute kidney injury Improving. Secondary to prerenal versus contrast induced nephropathy as patient did receive IV contrast earlier in the hospitalization. Patient is on a fluid restriction, but is not being actively diuresed. We will continue with supportive measures for now. Patient would likely be a very poor candidate for hemodialysis given cardiac function. 3. Wide-complex tachycardia Patient was initially on amiodarone drip, but this is been discontinued. Patient does have a pacemaker in place and appears to be pacer dependent at this time. Repeat echocardiogram is currently pending. Electrolytes will be repleted as indicated. 4. Tobacco dependence/history of noncompliance/poor insight Complicates care, management, recovery and prognosis. Hold on nicotine patch if patient is acceptable. Code Visit Inpatient E&M: 51252 Subs Hosp L3
--- NOTE | 2019-03-02 08:18 | PN.CARD_ITS ---
Subjectve: The patient is awake and alert. He states he is feeling better overall. His main concern is the sensation of thirst . Objective: Vital Signs Temp Pulse Resp BP Pulse Ox 97.5 F L 88 12 108/81 H 98 03/02/19 08:00 03/02/19 08:00 03/02/19 08:00 03/02/19 08:00 03/02/19 08:00 Oxygen Flow Rate (L/min) 2 Oxygen Delivery Method Nasal Cannula Weight: 155 lb 13.869 oz Body Mass Index (BMI) 21.4 Finger Stick Blood Glucose 124 Intake and Output for Last 24 Hours 02/28/19 03/01/19 03/02/19 23:59 23:59 23:59 Intake Total 1865.26 / 1865.26 1855.34 / 1855.34 375 / 375 Output Total 1775 / 1775 1450 / 1450 150 / 150 Balance 90.26 / 90.26 405.34 / 405.34 225 / 225 General: Awake, Alert, Oriented x 3 HEENT: Atraumatic, Normocephalic, PERRL, EOMI, Sclera Non Icteric Oral: Moist Mucosa Neck: Supple, Good ROM, No JVD Lungs: Clear to auscultation Cardiovascular: Regular Rhythm, Normal S1, Normal S2 Murmur Murmur: Grade 2/6, Soft, Mid Systolic, LLSB, [place] Abdomen: Bowel Sounds Present, Soft, Non Tender Extremities: No edema 03/01/19 09:50: APTT 219.5 H* 03/02/19 03:20: WBC 12.8 H, RBC 5.45, Hgb 17.1 H, Hct 51.2, MCV 93.9, MCH 31.4, MCHC 33.4, Plt Count 206, MPV 9.9, Immature Gran % (Auto) 0.400, Neut % (Auto) 73.7 H, Lymph % (Auto) 17.9 L, [place] % (Auto) 6.8, Eos % (Auto) 0.6, Baso % (Auto) 0.6, Absolute Neuts (auto) 9.4 H, Nucleated RBC % 0 03/02/19 03:20: Sodium 140, Potassium 4.2, Chloride 104, Carbon Dioxide 27.0, Anion Gap 9, BUN 53 H, Creatinine 1.57 H, Est GFR (MDRD) Af Amer 60, Est GFR (MDRD) Non-Af 50 L, BUN/Creatinine Ratio 33.8 H, Glucose 97, Calcium 8.1 L Rhythm: Electronic ventricular paced rhythm Medical Necessity - Tobacco Use Smoking Status: Current every day smoker Tobacco Use: Cigarettes Assessment/Plan 1. Abnormal cardiac enzymes The patient has a combination of abnormal cardiac enzymes. This may be secondary to his history of underlying chronic cardiomyopathy and chronic systolic CHF. He does not have a history of underlying CAD. He has been told in the past based on his previous evaluation in [place], [place] that he has a non-CAD related cardiomyopathy. Thus his enzymes may be a type II event secondary to supply demand mismatch based upon his acute on chronic symptoms on his chronic non-CAD related cardiomyopathy as noted above. 2. Acute on chronic systolic mediated CHF The patient appears to have chronic systolic mediated CHF. This may be secondary to his noncompliance. At the present time he will continue medical management. This will include reinitiation of low-dose beta-minor therapy and low-dose RADHA inhibitor therapy with follow-up of the patient's clinical status and hemodynamics-blood pressure. 3. Cardiomyopathy The patient has a significant non-CAD related cardiomyopathy. His transthoracic echocardiogram was reviewed. His left ventricle remains dilated and dysfunctional with an estimated LVEF of less than 10%. He will reinitiate beta-minor therapy now that his clinical status has improved as well as his vital signs. His medications can be advanced as tolerated. 4. Valvular heart disease He does have MR/TR. These findings may be a contributing factor to his acute on chronic symptoms especially without medical management, etc. 5. Status post biventricular ICD/OBSTETRICS GYNECOLOGY MD therapy He states that he has not had his ICD interrogated. This can be arranged to reassess his generator status and ICD status. 6. Nonsustained wide-complex tachycardia Patient has had episodes of nonsustained wide-complex tachycardia concerning for nonsustained VT. These appear to be correlating, as best as can be noted, with his concerns of becoming sweaty or diaphoretic. At the present time he will continue to be monitored. Has been placed on additional medical management with oral amiodarone therapy. 7. Hypotension The patient was reported as being hypotensive. There were concerns of decreased intravascular volume, at one point time concerns of anemia based upon a decreased H&H which upon repeat did not appear to be consistent, concerns of alteration in his cardiac status, which led to the patient being placed in the ICU, with IV fluids, IV vasopressors, and multiple radiologic studies for f urther evaluation. At the present time the patient remains in the ICU. He appears to have improved status post stabilization of his volume status. His IV vasopressors have been discontinued. He will reinitiate medical therapy starting at a low dose. He will be followed for any change in his clinical status or vital signs. 8. Noncompliance Again he readily admits he has been noncompliant with medications and follow-up. This can be a contributing factor to his recurrent symptoms and recurrent hospitalizations. Ideally the patient would be evaluated at a tertiary care center for conside ration for advanced heart failure evaluation and/or therapy. He has been told his noncompliance is an issue with this. This note was generated with [facility] dictation software. It may contain incorrect words, spelling, and punctuation that were not noted in checking the note before signing.
--- NOTE | 2019-03-02 08:32 | PN_ITS ---
Patient Problems: Active and Suspected Problems Medical non-compliance (Acute) CHF (congestive heart failure) (Acute) Subjective: Chief complaint: Follow-up after admission for acute on chronic systolic CHF, acute hypoxic respiratory insufficiency hospital course, gated by profound patient, was transferred to ICU and he was found to have cardiogenic shock, borderline elevated troponin and acute kidney injury. Patient seen and examined. No acute events overnight. Has no cardiac arrhythmias on telemetry overnight. This morning, he looks more calm and cooperative. Denies any chest pain or shortness of breath. He has been ambulating to the bathroom, denies dizziness or lightheadedness upon ambulation. Denies abdominal pain, nausea or vomiting. He has been off IV Levophed since yesterday morning. He is afebrile, heart rate stable, blood pressure is stable, pulse ox is maintained on room air when I saw the patient. - Physical Exam General: Alert, Oriented x3, Cooperative, No apparent distress HEENT: Atraumatic, PERRLA, EOMI, Normocephalic Oral: Moist Mucosa, No Gingival or Mucosal Lesions/ Ulcerations Neck: Supple, No JVD, Negative Carotid Bruits, Trachea Midline, Thyroid Normal Size and Texture Lungs: Clear to auscultation, Normal air movement, No rhonchi, No wheeze, No rales Cardiovascular: Regular rate, Regular Rhythm, Normal S1, Normal S2, PMI Normal Abdomen: Bowel Sounds Present, Soft, Non Tender, Non-Distended, No Hepato- splenomegaly Extremities: No clubbing, No cyanosis, Edema - Trace edema. Skin: No rashes, No breakdown Lymphatic: No Cervical, Supraclavicular, or Inguinal Adenopathy Neurological: Cranial nerves II-XII grossly intact, Neuro grossly intact Psych/Mental Status: Normal Affect, Appropriate, Alert and oriented to time, place, person, mood and affect Vital Signs Temp Pulse Resp BP Pulse Ox 97.5 F L 88 12 108/81 H 98 03/02/19 08:00 03/02/19 08:00 03/02/19 08:00 03/02/19 08:00 03/02/19 08:00 Oxygen Flow Rate (L/min) 2 Oxygen Delivery Method Nasal Cannula Weight: 155 lb 13.869 oz Body Mass Index (BMI) 21.4 Finger Stick Blood Glucose 124 Intake and Output for Last 24 Hours 02/28/19 03/01/19 03/02/19 23:59 23:59 23:59 Intake Total 1865.26 / 1865.26 1855.34 / 1855.34 375 / 375 Output Total 1775 / 1775 1450 / 1450 150 / 150 Balance 90.26 / 90.26 405.34 / 405.34 225 / 225 Laboratory Tests Past 24 Hrs 03/01/19 03/02/19 03/02/19 09:50 03:20 03:20 WBC 12.8 H RBC 5.45 Hgb 17.1 H Hct 51.2 MCV 93.9 MCH 31.4 MCHC 33.4 RDW Std Deviation 57.3 H RDW Coeff of Paulina 17.0 H Plt Count 206 MPV 9.9 Immature Gran % (Auto) 0.400 Neut % (Auto) 73.7 H Lymph % (Auto) 17.9 L [place] % (Auto) 6.8 Eos % (Auto) 0.6 Baso % (Auto) 0.6 Absolute Neuts (auto) 9.4 H Absolute Lymphs (auto) 2.29 Nucleated RBC % 0 APTT 219.5 H* Sodium 140 Potassium 4.2 Chloride 104 Carbon Dioxide 27.0 Anion Gap 9 BUN 53 H Creatinine 1.57 H Estim Creat Clear Calc 54.54 Est GFR (MDRD) Af Amer 60 Est GFR (MDRD) Non-Af 50 L BUN/Creatinine Ratio 33.8 H Glucose 97 Calcium 8.1 L Medical Necessity - Tobacco Use Smoking Status: Current every day smoker Tobacco Use: Cigarettes Assessment/Plan All Active Problems Medical non-compliance (Acute) CHF (congestive heart failure) (Acute) This is a 48 years old male patient presented to the emergency room because of shortness of breath, admitted because of acute on chronic systolic CHF with acute hypoxic insufficiency and his hospital course complicated by profound hypotension, was found to have cardiogenic shock on the was transferred to ICU and started on IV vasopressors. #1 cardiogenic shock: He has been off IV Levophed drip since yesterday morning. Blood pressure stabilized, heart rate stable. Troponin is borderline elevated. IV heparin discontinued. 2D echocardiogram revealed ejection fraction of less than 10%, other findings reviewed. Cardiology on the case. He was started on Coreg and small dose of lisinopril today. Plan to monitor blood pressure today after receiving Coreg and lisinopril, repeat CBC and BMP tomorrow morning, transfer to PCU if blood pressure remained stable. #2 acute on chronic systolic CHF: He is off diuretics. Started on Coreg and lisinopril today. Volume status stabilized. Denies any shortness of breath, pulse ox is maintained on room air. He is off vasopressors. 2D echocardiogram reviewed as above, ejection fraction less than 10%. Plan as above. Plan as above. #3 acute hypoxic respiratory insufficiency: Secondary to above #1 and 2. Patient was on oxygen overnight but this morning, he is on room air. Plan as above. #4 acute kidney injury: Secondary to hypotension and cardiogenic shock. Baseline kidney function is normal. Today's creatinine is 1.57, improved. #5 nonsustained wide-complex tachycardia: Concerning for nonsustained V. tach. He is on p.o. amiodarone, no cardiac arrhythmias on telemetry overnight. 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 #7 valvular heart disease: Had a history of mitral and tricuspid regurgitation. 2D echocardiogram revealed moderate mitral and tricuspid valve insufficiency. #8 DVT prophylaxis: SCDs, IV heparin discontinued.. This note was generated with [employer] dictation software. It may contain incorrect words, spelling, and punctuation that were not noted in checking the note before signing. Code Visit Inpatient E&M: 27821 Subs Hosp L2
[2019-03-02] MEDS: Lisinopril 2.5 MG Tablet PO (08:54)
[2019-03-02] MEDS: Pantoprazole Sodium 40 MG Tablet PO (08:54)
[2019-03-02] MEDS: Carvedilol 3.125 MG TABLET PO (08:54)
[2019-03-02] MEDS: proMETHazine 25 MG/ML Syringe 12.5 MG IV (10:32)
--- NOTE | 2019-03-02 10:57 | CASEMGMT ---
RN CM Assessment Presentation: CHF, EF 10%. Shortness of breath Intro role of CM and purpose of RN CM assessment. Demographics, PCP and Pharmacy verified. Pt nonchalant with assessment questions, not forthcoming with details. Plans to return home. PCP: No PCP. No coverage for visits. Pt states he has been to [facility] a long time ago. Specialists: Dr. Dunaway, Dr. Rosado Preferred Pharmacy: [place], [place] Insurance: [facility] A. Pt states he has MCR B, but RN CM called to Insurance Precert and MCR A only can be verified. Prescription Benefit: no. Call to listed pharmacy- pt has not had prescriptions filled recently, and prior did not have prescription coverage. SW updated pt may need [facility] prescription assistance. LNOK: No emergency contact. Pt states I have no one around. RN CM let pt know it is recommended to have a contact listed but pt refused. Living Arrangements: Lives independently. Denies care needs, would not elaborate. DME: none per pt HHC: none SW Consult: [facility] information, prescription assist, may benefit from [facility] eligibility review. Patient DC goals: return home DC PLAN: Home on dc. Crispin RICK RN ACM
[2019-03-02] MEDS: oxyCODONE 5 MG Tablet 10 MG PO (12:30)
--- NOTE | 2019-03-02 15:00 | CASEMGMT ---
SW attempted to see patient for financial referral from CM. However, RN was doing patient care. SW will check back when able. Leta BO MSW
[2019-03-02] MEDS: Ondansetron 4 MG/2 ML Vial IV (15:02)
--- NOTE | 2019-03-02 19:51 | NURSING ---
1934: patient requesting ice chips. Patient informed that he has 105cc of fluid left until midnight per his 1500cc fluid restriction. Patient started yelling and stated that he wants to sign himself out AMA. Attempted to educate patient and he refused education. Patient given AMA paperwork and he signed it. 1941: Left IJ central line removed per protocol with sterile technique, gauze and clear tegaderm dressing applied. Patient instructed to return to the ER for any signs of swelling, inflammation, infection, or bleeding. Patient verbalized understanding of instructions. 2 Peripheral IV's as well. 1950: hospitalist paged via plunger shovel operator. 1957: Dr. Dunaway notified that patient has signed himself out AMA 2001: Dr. Hong notified that patient has signed himself out AMA 2002: Dr. Young paged 2004: Dr. Young notified that patient has signed himself out AMA
--- NOTE | 2019-03-02 20:08 | PCM.PN.BLA ---
Progress Note Was notified by nursing staff that patient has signed AMA papers to leave the Hospital.
--- NOTE | 2019-03-02 20:12 | NURSING ---
patient escorted off of the unit by security
--- NOTE | 2019-03-03 12:58 | PCM.DC.SUM ---
Discharge Date and Diagnosis Date of Admission: 02/27/19 Date of Discharge: 03/02/19 - Primary Discharge Diagnosis #1 cardiogenic shock. #2 acute on chronic systolic CHF. #3 acute hypoxic respiratory insufficiency. #4 acute kidney injury. #5 nonsustained wide complex tachycardia. - Secondary Discharge Diagnosis Chronic Problems Cardiomyopathy (Chronic) Valvular disease (Chronic) Anxiety (Chronic) Coronary artery disease (Chronic) Status post placement of cardiac pacemaker (Chronic) S/P implantation of automatic cardioverter/defibrillator (AICD) (Chronic) Hospital Course and Treatment Imaging Results: Clinical Impression(s) from Imaging Studies Chest X-Ray 02/27/19 09:06 IMPRESSION: Stable chest. Moderate cardiomegaly. Defibrillator. Electronically Signed: Kandi Borja MD at 9:57 EDT Tel , Service support , Chest CTA 03/01/19 01:17 IMPRESSION: No demonstrated pulmonary embolism, aneurysm, leak or arterial dissection on submitted images. Resolution of previous airspace disease with probable scarring and/atelectasis in the bases. There is a pleural-based nodular density at the level of the atelectasis or scar in the left base, not present on previous examination, follow-up to resolution recommended. Significant cardiac enlargement with elevated right cardiac pressure, reflux into the inferior vena cava and hepatic vein. No mediastinal hemorrhage or active contrast extravasation. Mediastinal reactive lymphoid hyperplasia suspected, improved since previous exam. Electronically Signed: Agueda Negro MD at 4:17 EDT , Service support , Chest X-Ray 03/01/19 01:54 IMPRESSION: Line in good position. There is no demonstrated pneumothorax. Stable cardiac enlargement. Electronically Signed: Agueda Negro MD at 3:05 EDT , Service support , Abdomen/Pelvis CTA 03/01/19 02:43 IMPRESSION: No acute vascular injury, contrast extravasation, retroperitoneal hamartoma, intraperitoneal hemorrhage or hematoma formation. Trace ascites with indistinct pararenal and right colonic gutter stranding. Slightly heterogeneous enhancement of the nephrograms bilaterally, etiology such as pyelonephritis is not excluded. Arteriosclerosis. Status post cholecystectomy. Rare sigmoid diverticula. Electronically Signed: Agueda Negro MD at 4:24 EDT , Service support , Dr. Dunaway, critical care. Dr. Rosado, cardiology. Operations: None Procedures: 2-D Echocardiogram, EKG Summary of Care Provided: The patient is a 48 year old M presented to the emergency room because of shortness of breath and he was admitted because of acute on chronic systolic CHF complicated by acute hypoxic respiratory insufficiency. While in the hospital, patient developed profound hypotension and he went into cardiogenic shock and he was transferred to ICU and started on IV vasopressors. Patient was treated with vasopressors and his blood pressure slowly improved. He was started back on beta-blockers and RADHA inhibitors with small dose. Patient has been noncompliant and he has been very argumentative about his fluid restrictions. He was threatening the staff multiple times to leave AGAINST MEDICAL ADVICE if he was not given water or liquid to drink. This happened both in PCU and in the ICU. His ejection fraction was 10% on 2D echocardiogram. With IV vasopressors, blood pressure improved and he was able to come off IV Levophed drip. Cardiology started him back on small dose of Coreg and lisinopril. His blood pressure stabilized. Patient was transferred to PCU. After transfer to PCU, patient again started to argue about restrictions and finally decided to sign AGAINST MEDICAL ADVICE. Patient left the hospital AGAINST MEDICAL ADVICE. Patient was examined on the morning on the day he left AGAINST MEDICAL ADVICE but not before he left the hospital. - Physical Exam Vital Signs Temp Pulse Resp BP Pulse Ox 97.6 F L 76 16 99/81 H 94 03/02/19 18:00 03/02/19 19:54 03/02/19 19:00 03/02/19 19:00 03/02/19 19:00 Oxygen Flow Rate (L/min) 2 Oxygen Delivery Method Nasal Cannula Weight: 155 lb 13.869 oz Body Mass Index (BMI) 21.4 Finger Stick Blood Glucose 124 Intake and Output for Last 24 Hours 03/01/19 03/02/19 03/03/19 23:59 23:59 23:59 Intake Total 1855.34 / 1855.34 1395 / 1395 Output Total 1450 / 1450 750 / 750 Balance 405.34 / 405.34 645 / 645 Home Medications: Medications to take at Discharge Atorvastatin Calcium 40 mg PO QHS #30 tablet 12/06/18 Carvedilol [Coreg] 6.25 mg PO BID #60 tablet 12/06/18 Furosemide [Lasix] 40 mg PO BID #60 tablet 12/06/18 Lisinopril 20 mg PO DAILY #30 tablet 12/06/18 Pantoprazole Sodium [Protonix] 40 mg PO DAILY #30 tablet 12/06/18 Spironolactone 25 mg PO DAILY #30 tablet 12/06/18 ALPRAZolam [Xanax] 0.25 mg PO TID 02/27/19 Clonazepam [Klonopin] 1 mg PO BID PRN PRN 02/27/19 Primary Care Physician: [facility] Doctor,Out of [NON-STAFF] - Disposition: Against Medical Advice Minutes spent on discharge:: 26 Patient Condition:: Guarded Medical Necessity - Tobacco Use Smoking Status: Current every day smoker Tobacco Use: Cigarettes Meaningful Use Info Meaningful Use Diagnoses (Choose all that apply): CHF - CHF RADHA/ARB ordered at discharge?: No Reason RADHA/ARB not ordered?: Drug Interaction - Patient left the hospital AGAINST MEDICAL ADVICE Documented LVEF (%): 10 Code Visit Inpatient E&M: 24916 Disch Hosp
--- NOTE | 2019-03-03 15:13 | CASEMGMT ---
[facility] CM Discharge Follow-Up Phone Call. Lace: 11 Strata: 3 Discharge Date: 03/02/19 Adm Dx: Dyspnea Attempted discharge follow-up phone call. No answer. Recording came on stating that VM has not been set up yet. Unable to leave message. Clemente JONESN RN CM
== END 2019-03-02 20:12 | disposition left against medical advice (07) | DRG 291 ==
LOC: ED 10:53 → PCU 11:11 → ICU 03-01 07:11 → PCU 03-02 13:00 → ICU 03-02 13:00
PROVIDERS: Family Medicine; Internal Medicine Critical Care Medicine; Admitting Provider Internal Medicine; Emergency Provider Physician Assistant Medical; Visit Provider Hospitalist
DX: I50.23 Acute on chronic systolic (congestive) heart failure (principal); R57.0 Cardiogenic shock; N17.9 Acute kidney failure, unspecified; I42.9 Cardiomyopathy, unspecified; R06.89 Other abnormalities of breathing; R09.02 Hypoxemia; R00.0 Tachycardia, unspecified; F41.9 Anxiety disorder, unspecified; F17.210 Nicotine dependence, cigarettes, uncomplicated; R74.8 Abnormal levels of other serum enzymes; Z91.14 Patient's other noncompliance with medication regimen; Z95.810 Presence of automatic (implantable) cardiac defibrillator; Z91.19 Patient's noncompliance with other medical treatment and regimen; I34.0 Nonrheumatic mitral (valve) insufficiency; I07.1 Rheumatic tricuspid insufficiency
CPT/HCPCS: 36415; 36600; 71045; 71275; 74174; 80048; 82803; 83735; 83880; 84484; 85025; 85610; 85730; 93005; 93306; 97802; 99251; 99285; 99406; J7050; Q9957; Q9967; A4216; C1751; G0463; J1940; J2405

== ENCOUNTER 2019-03-21 21:54 | Inpatient (IN) | payer MEDICARE, SELFPAY ==
[2019-02-27 11:21] VITALS: BMI 21.4
[2019-03-21 21:55] VITALS: BP 93/78; PULSE 121; RESP 24; TEMP 36.6; O2SAT 98; BMI 22.7
[2019-03-21 22:10] VITALS: BP 93/78; PULSE 117; RESP 32; O2SAT 98
--- NOTE | 2019-03-21 22:22 | RAD_ITS ---
STUDY: X-RAY CHEST REASON FOR EXAM: Male, 48 years old. Worsening shortness of breath TECHNIQUE: Single AP portable view of the chest. COMPARISON: 03/01/2019 FINDINGS: Stable appearance of a right subclavian pacemaker Lungs are expanded with development of interstitial edema since the previous study. Follow-up recommended to ensure resolution. There is no demonstrated pleural abnormality. Normal size heart. Normal mediastinum and caleb. Normal visualized pulmonary arteries. Normal visualized aortic arch and descending thoracic aorta. Normal visualized thoracic spine. Normal visualized ribs, clavicles, and shoulders. There is no demonstrated abnormality of the visualized soft tissue structures of the upper abdomen. RAD/Chest 1 View (Portable) IMPRESSION: Development of diffuse interstitial edema since the previous study, follow-up recommended to assure resolution Electronically Signed: Khari Oates MD at 22:44 EDT , Service support ,
--- NOTE | 2019-03-21 22:22 | EKG12_ITS ---
Test Reason : SOB Blood Pressure : / mmHG Vent. Rate : 121 BPM Atrial Rate : 121 BPM P-R Int : 120 ms QRS Dur : 144 ms QT Int : 378 ms P-R-T Axes : 070 263 050 degrees QTc Int : 536 ms Atrial-sensed ventricular-paced rhythm Biventricular pacemaker detected Abnormal ECG Confirmed by MIREILLE PABLO, TONYA ([id number]), metropolitan editor JERRY CORTEZ ([id number]) on 03/22/2019 9:09:11 AM Referred By: Montez Hong Confirmed By:TONYA KENDRICK MD
[2019-03-21 22:31] LABS: Bedside Glucose 78 mg/dL (70-110)
[2019-03-21] MEDS: 0.9% Normal Saline 1,000 ML 150 ML IV (22:31)
[2019-03-21] MEDS: proMETHazine 25 MG/ML Syringe 12.5 MG IV (22:31)
[2019-03-21 22:37] LABS: Absolute Lymphocyte Count 1.28 X10^3/uL (0.83-4.51); Absolute Neutrophil Count 8.2 X10^3/uL (2.0-7.7); Basophil# 0.05 X10^3/uL; Basophil% 0.5 % (0-1); Eosinophil# 0.02 X10^3/uL; Eosinophils% 0.2 % (0-5); Hematocrit 49.6 % (40-54); Hemoglobin 16.1 g/dL (13.0-16.5); Lymphocyte # 1.28 X10^3/ul (4.0); Lymphocyte % 12.5 % (19-41); Mean Corp Hgb Conc 32.5 g/dL (32-36); Mean Corpuscular Hgb 30.3 pg (27.0-32.0); Mean Corpuscular Volume 93.2 fL (80-94); Mean Platelet Vol. 9.8 fl (6.2-12.0); Monocyte# 0.65 X10^3/uL; Monocyte% 6.4 % (0-10); NRBC Flagged by Analyzer 0.2 % (0-5); Neutrophil # 8.17 X10^3/uL (2.7-7.7); Platelet Count 195 K/mm3 (150-450); RBC Distribution Width CV 17.2 % (11.6-14.6); RBC Distribution Width SD 57.6 fl (35.1-43.9); Red Blood Count 5.32 M/mm3 (4.6-6.2); White Blood Count 10.2 K/mm3 (4.4-11.0)
[2019-03-21 22:54] LABS: AST(SGOT) 63 U/L (15-37); Alanine Aminotransfer ALT/SGPT 44 U/L (16-61); Albumin, Serum 2.7 g/dL (3.2-5.0); Alkaline Phosphatase 377 U/L (45-117); Anion Gap 14 (5-15); BUN 30 mg/dL (7-18); BUN/Creat Ratio 30.5 RATIO (10-20); Calcium,Total 8.8 mg/dL (8.5-10.1); Chloride 107 mmol/L (98-107); Creatinine, Serum 0.98 mg/dL (0.70-1.30); EST Glomerular Filtration Rate 86 mL/min (>60); Est Glom Filt Rate - Afr Amer 104 mL/min (>60); Estimated Creatinine Clearance 96.94 ml/min; Globulin 3.4 g/dL (2.2-4.2); Glucose 69 mg/dL (74-106); Potassium 4.4 mmol/L (3.5-5.1); Protein, Total 6.1 g/dL (6.4-8.2); Sodium Level 140 mmol/L (136-145)
[2019-03-21 23:09] LABS: BNP,B-Type NATRIURETIC PEPTIDE 3678.8 pg/mL (0-100)
--- NOTE | 2019-03-21 23:19 | ED.RN ---
sepsis screen cancel per dr order. not an infectious process. elizabeth james rn [id number]
[2019-03-21 23:20] VITALS: BP 125/109; PULSE 113; RESP 17; O2SAT 99
[2019-03-21] MEDS: Dextrose 50%-Water 25 GM/50 ML DISP.SYRIN IV (23:22)
--- NOTE | 2019-03-21 23:46 | ED.VIS.GEN ---
History of Present Illness Chief Complaint: Shortness of Breath Informant: Patient Onset: Weeks Context: Gradual Onset Timing: Waxes and wanes Current Severity: Moderate Maximum Severity: Moderate Narrative: Patient presents with complaint of shortness of breath, abdominal pain, nausea, vomiting, and diarrhea for the past several weeks. He apparently drove himself to the emergency room. He pulled up to the ambulance bay and honked the horn. He was unable to get out of the car himself. He apparently lost control of his bowels while driving. On initial evaluation patient is diaphoretic and pale. His systolic blood pressures in the mid 90s. His O2 sat is normal on room air. On review of records patient has significant cardiomyopathy with an EF of approximately 10%. He has an ICD in place. Patient admits to not taking any of his medications in quite some time. He has not followed up with cardiology. I reviewed his hospital admission from earlier this month. At that time patient was admitted with CHF. All of his medications were restarted rather quickly and patient dropped his blood pressure too low and developed signs of cardiogenic shock. He required a central line and pressors for a short time. Patient is very noncompliant with his fluid restriction. He kept demanding water when on the floor and ultimately signed out AMA from the PCU. - Past Medical History (1) CHF (congestive heart failure) Status: Chronic (2) Medical non-compliance Status: Chronic (3) Anxiety Status: Chronic (4) Cardiomyopathy Status: Chronic (5) S/P implantation of automatic cardioverter/defibrillator (AICD) Status: Chronic Past Medical History - Allergies and Home Meds Allergies/Adverse Reactions: Allergies No Known Allergies Allergy (Verified 03/21/19 22:10) Primary Care Physician: Care Physician,No Primary [Primary Care Provider] - Prior records reviewed: Yes Past Medical History: - - Reviewed Surgical History: cholecystectomy, - - ICD placement Smoking Status: Current every day smoker - Family History Maternal Family History: Reports: No pertinent history Paternal Family History: Reports: - - stomach cancer Review of Systems General: Denies: Chills, Fever Eyes: Denies: Visual changes - bilaterally ENT: Denies: Bilateral ear pain Cardiovascular: Reports: Palpitations Respiratory: Reports: Dyspnea, Cough Gastrointestinal: Reports: Abdominal pain, Nausea, Vomiting, Diarrhea Skin: Denies: Rash Neurological: Reports: Weakness Psych: Reports: Anxiety Endocrine: Reports: Polydipsia Hematologic: Denies: Easy bruising, Easy bleeding Allergy: Denies: Uticaria Physical Exam Vital Signs/Narrative: Vital Signs Temp Pulse Resp BP Pulse Ox 03/21/19 23:20 113 H 17 125/109 H 99 03/21/19 22:10 117 H 32 H 93/78 98 03/21/19 21:55 97.8 F 121 H 24 H 93/78 98 General: - - Appears older than stated age, pale, diaphoretic Head: Normocephalic ENT: Moist mucous membranes Cardiovascular: Tachycardia Respiratory: - - Patient is tachypneic. Minimal crackles noted in the bases. Overall good air movement. Abdomen: Soft, Normal bowel sounds, Tender - Mild diffuse tenderness palpation.. Negative for: Guarding, Rebound tenderness Extremities: Edema - 2+ edema bilateral lower extremities Skin: Diaphoresis, Pallor Neurological: Alert Psychological: - - Anxious Diagnostic/Tx/Re-eval Impressions Chest X-Ray 03/21/19 22:22 IMPRESSION: Development of diffuse interstitial edema since the previous study, follow-up recommended to assure resolution Electronically Signed: Khari Oates MD at 22:44 EDT , Service support , 03/21/19 22:22 Chest 1 View (Portable) [RAD] Stat Laboratory Results 03/21/19 03/21/19 03/21/19 22:20 22:20 22:20 WBC 10.2 RBC 5.32 Hgb 16.1 Hct 49.6 MCV 93.2 MCH 30.3 MCHC 32.5 RDW Std Deviation 57.6 H RDW Coeff of Paulina 17.2 H Plt Count 195 MPV 9.8 Immature Gran % (Auto) 0.400 Neut % (Auto) 80.0 H Lymph % (Auto) 12.5 L [place] % (Auto) 6.4 Eos % (Auto) 0.2 Baso % (Auto) 0.5 Absolute Neuts (auto) 8.2 H Absolute Lymphs (auto) 1.28 Nucleated RBC % 0.2 Sodium 140 Potassium 4.4 Chloride 107 Carbon Dioxide 19.0 L Anion Gap 14 BUN 30 H Creatinine 0.98 Estim Creat Clear Calc 96.94 Est GFR (MDRD) Af Amer 104 Est GFR (MDRD) Non-Af 86 BUN/Creatinine Ratio 30.5 H Glucose 69 L Lactic Acid Calcium 8.8 Total Bilirubin 3.70 H Direct Bilirubin 1.00 H AST 63 H ALT 44 Alkaline Phosphatase 377 H Troponin I 0.578 H B-Natriuretic Peptide 3678.8 H Total Protein 6.1 L Albumin 2.7 L Globulin 3.4 POC Glucose 03/21/19 03/21/19 22:24 22:40 WBC RBC Hgb Hct MCV MCH MCHC RDW Std Deviation RDW Coeff of Paulina Plt Count MPV Immature Gran % (Auto) Neut % (Auto) Lymph % (Auto) [place] % (Auto) Eos % (Auto) Baso % (Auto) Absolute Neuts (auto) Absolute Lymphs (auto) Nucleated RBC % Sodium Potassium Chloride Carbon Dioxide Anion Gap BUN Creatinine Estim Creat Clear Calc Est GFR (MDRD) Af Amer Est GFR (MDRD) Non-Af BUN/Creatinine Ratio Glucose Lactic Acid Cancelled Calcium Total Bilirubin Direct Bilirubin AST ALT Alkaline Phosphatase Troponin I B-Natriuretic Peptide Total Protein Albumin Globulin POC Glucose 78 - EKG Initial EKG Interpretation: - - Biventricular pacer with heart rate equal 121. - Medical Decision Making Patient initially had IV fluids started as he was tachycardic and had systolic blood pressure in the mid 90s. He reported several weeks of vomiting and diarrhea and is concerned for dehydration. Upon completion of his blood work fluids were turned off. He only received 300 cc. Patient was given Phenergan for nausea. On multiple repeat checks he looks significantly improved. We offered BiPAP to see if that would help his dyspnea, but he declined stating that he is nauseated and keeps asking for something to drink. I reviewed the notes from his hospitalization earlier this month. Patient presented with CHF. It appears as though he had multiple cardiac medications initiated at the same time. Patient's blood pressure dropped into the 70s and did not respond to IV fluids. He ultimately required a central line and pressors at that time. Patient ultimately signed out AGAINST MEDICAL ADVICE 2 or 3 days after his initial admission. He states he was not given any prescriptions when he left the hospital. He has not taken any medications since he left. At this time I recommended hospitalization at least for diuresis. I advised him that I would not be restarting all of his cardiac medications at once, but would need to at least attempt to get some fluid off of him. His systolic blood pressures have been in the 120s and 130s. Patient appears much more comfortable and speaking in full sentences. He is given 40 mg of IV Lasix at this time. I will speak with hospitalist regarding further evaluation and admission. ED Disposition - Plan for ED Patient: Disposition: Acute Care Hospital [facility] Diagnosis: CHF (congestive heart failure), Elevated troponin Referrals: Care Physician,No Primary [Primary Care Provider] -
--- NOTE | 2019-03-21 23:58 | HP.PCM_ITS ---
Problem List (1) CHF (congestive heart failure) Status: Acute Qualifiers: Heart failure type: systolic Heart failure chronicity: acute on chronic Qualified Code(s): I50.23 - Acute on chronic systolic (congestive) heart failure History of Present Illness Date of Admission: 03/21/19 Chief Complaint: shortness of breath The patient is a 48 year old M with a significant history of systolic heart failure (ejection fraction of less than 10% on echo on 03/01/2019) and with ICD; who presented to emergency department with 3 weeks of progressively worsening shortness of breath. His shortness of breath is at rest and it increases markedly with exertion. He reports 5-7 pillow orthopnea. He does denies paroxysmal nocturnal dyspnea. He reports swelling of his right leg and hemoptysis. Patient reports not taking his home medication for a while. He not been sleeping for a while because that he thinks he may in his sleep. The patient drove himself to the hospital. He was honking his home at the emergency department. Triage nurse helped him into the emergency department and noticed that he had lost his bowels. The patient reported that in the last 2 to 3 weeks he has been having nausea; vomiting and diarrhea. Patient was found to have severely elevated BNP. Chest x-ray showed pulmonary congestion and his troponin was elevated. Importantly patient was admitted at a hospital on 02/27/2019 and left AMA on 03/02/2019. He was admitted at that time with cardiogenic shock; acute on chronic systolic heart failure; acute hypoxemic respiratory insufficiency; acute kidney injury and nonsustained wide-complex tachycardia. Past Medical History Past Medical History (Chronic Problems): Chronic Problems Medical non-compliance (Chronic) Cardiomyopathy (Chronic) Valvular disease (Chronic) Anxiety (Chronic) Coronary artery disease (Chronic) Status post placement of cardiac pacemaker (Chronic) S/P implantation of automatic cardioverter/defibrillator (AICD) (Chronic) Allergies No Known Allergies Allergy (Verified 03/21/19 22:10) Home Medications: Ambulatory Orders Medication Instructions Recorded Atorvastatin 40 mg PO QHS 03/22/19 Carvedilol [Coreg (Beta Maik)] 6.25 mg PO DAILY 03/22/19 Furosemide [Lasix] 40 mg PO BID 03/22/19 Lisinopril 20 mg PO DAILY 03/22/19 Spironolactone 25 mg PO DAILY 03/22/19 Surgical History: cholecystectomy, - - ICD placement Psychiatric History: Anxiety Lives: Alone Smoking Status: Current every day smoker Tobacco Use: Cigarettes Alcohol: None - *Family History Maternal History Items: - - Patient denies knowledge of maternal medical history Paternal History Items: Cancer, - - stomach cancer Review of Systems Constitutional: Reports: Weakness, Fatigue. Denies: Chills, Fever HEENT: Denies: Head Aches, Sinus Congestion, Sinus Drainage Cardiovascular: Reports: Orthopnea. Denies: Chest Pain, Palpitations Respiratory: Reports: Cough, Hemoptysis, Shortness of breath at rest, Sputum production Gastrointestinal: Reports: Abdominal Pain, Diarrhea, Nausea, Vomiting Genitourinary: Denies: Dysuria Musculoskeletal: Denies: Joint Pain, Joint Tenderness Skin: Denies: Rash, Wounds Neurological: Denies: Numbness, Tingling, Focal weakness Psychiatric: Reports: Anxiety. Denies: Depression, Homicidal Ideations, Suicidal Ideations Hematologic/ Lymphatic: Denies: Easy Bruising, Easy Bleeding VTE Information - Inpt Only VTE Present on Admission: Yes - PE and intramural ventricular thrombus VTE Mechan Device Prophylaxis: None VTE Pharm Prophylaxis ordered?: No Reason prophylaxis not ordered:: Treatment Not Indicated - Started on heparin drip for PE and intramural ventricular thrombus Patient Problems: Active and Suspected Problems Elevated troponin (Acute) CHF (congestive heart failure) (Acute) - Physical Exam General: Oriented x3, Cooperative, Lethargic HEENT: Atraumatic, PERRLA, EOMI, Normocephalic Neck: Supple, No JVD, Negative Carotid Bruits Lungs: Clear to auscultation, Normal air movement Cardiovascular: Normal S1, Normal S2, Gallops, Tachycardic Abdomen: Bowel Sounds Present, Soft, Non Tender Extremities: Capillary Refill Less than 3 Seconds, Edema - Right leg 4+ Skin: No rashes, No breakdown, - - Erythema of right leg Musculoskeletal: No Tenderness to Palpation of Joints or Extremities Neurological: Cranial nerves II-XII grossly intact Psych/Mental Status: Normal Affect, Appropriate Vital Signs Temp Pulse Resp BP Pulse Ox 97.8 F 113 H 17 125/109 H 99 03/21/19 21:55 03/21/19 23:20 03/21/19 23:20 03/21/19 23:20 03/21/19 23:20 Oxygen Flow Rate (L/min) 2 Oxygen Delivery Method Nasal Cannula Weight: 76 kg Body Mass Index (BMI) 22.7 Finger Stick Blood Glucose 124 Intake and Output for Last 24 Hours 03/19/19 03/20/19 03/21/19 23:59 23:59 23:59 Intake Total 137.5 / 137.5 Balance 137.5 / 137.5 Laboratory Tests Past 24 Hrs 03/21/19 03/21/19 03/21/19 22:20 22:20 22:20 WBC 10.2 RBC 5.32 Hgb 16.1 Hct 49.6 MCV 93.2 MCH 30.3 MCHC 32.5 RDW Std Deviation 57.6 H RDW Coeff of Paulina 17.2 H Plt Count 195 MPV 9.8 Immature Gran % (Auto) 0.400 Neut % (Auto) 80.0 H Lymph % (Auto) 12.5 L [place] % (Auto) 6.4 Eos % (Auto) 0.2 Baso % (Auto) 0.5 Absolute Neuts (auto) 8.2 H Absolute Lymphs (auto) 1.28 Nucleated RBC % 0.2 Sodium 140 Potassium 4.4 Chloride 107 Carbon Dioxide 19.0 L Anion Gap 14 BUN 30 H Creatinine 0.98 Estim Creat Clear Calc 96.94 Est GFR (MDRD) Af Amer 104 Est GFR (MDRD) Non-Af 86 BUN/Creatinine Ratio 30.5 H Glucose 69 L Lactic Acid Calcium 8.8 Total Bilirubin 3.70 H Direct Bilirubin 1.00 H AST 63 H ALT 44 Alkaline Phosphatase 377 H Troponin I 0.578 H B-Natriuretic Peptide 3678.8 H Total Protein 6.1 L Albumin 2.7 L Globulin 3.4 03/21/19 22:40 WBC RBC Hgb Hct MCV MCH MCHC RDW Std Deviation RDW Coeff of Paulina Plt Count MPV Immature Gran % (Auto) Neut % (Auto) Lymph % (Auto) [place] % (Auto) Eos % (Auto) Baso % (Auto) Absolute Neuts (auto) Absolute Lymphs (auto) Nucleated RBC % Sodium Potassium Chloride Carbon Dioxide Anion Gap BUN Creatinine Estim Creat Clear Calc Est GFR (MDRD) Af Amer Est GFR (MDRD) Non-Af BUN/Creatinine Ratio Glucose Lactic Acid Cancelled Calcium Total Bilirubin Direct Bilirubin AST ALT Alkaline Phosphatase Troponin I B-Natriuretic Peptide Total Protein Albumin Globulin POC Glucose 03/21/19 22:24 POC Glucose 78 Assessment/Plan All Active Problems Elevated troponin (Acute) CHF (congestive heart failure) (Acute) The patient is a 48 year old M with a significant history of systolic heart failure (ejection fraction of less than 10% on echo on 03/01/2019) and with ICD; who presented to emergency department with 3 weeks of progressively worsening shortness of breath; hemoptysis; right leg swelling; 5-7 pillows orthopnea; elevated BNP; elevated troponin; elevated liver enzymes and bilirubin; and diffuse interstitial edema consistent with acute exacerbation of systolic heart failure and acute gastroenteritis. Acute on chronic systolic heart failure Echocardiogram on 03/01/2019 showed ejection fraction of less than 10%. Diastolic function was indeterminate. ICD or pacer leads was found in the right ventricle. Right atrium was moderately enlarged. Moderate 2+ mitral valve insufficiency. Moderate severe 3+ tricuspid valve insufficiency. Trivial pulmonary valve insufficiency. Received Lasix 40 mg IV push in the emergency department. We will continue patient on Lasix 40 mg IV twice daily. Per Discharge summary on previous admission patient went into profound shock when he was being treated for acute on chronic systolic heart failure and was transferred to ICU and started on vasopressors. He was restarted on beta- blockers and RADHA inhibitors at small doses. Since patient has not been taking his medications will restart only RADHA inhibitors at this time and defer further heart failure medications to cardiology. In that regard would hold his home in this acute stage of heart failure especially as he has not been taking it. Aldactone continued. Weight on admission and daily Fluid restriction 1500 ml per day. Strict intake and output 2 g cardiac diet We will consult cardiology. Trend troponin Intramural Thrombus of right ventricular apex and Pulmonary Embolism Because of Hemoptysis and right leg swelling CTPA was ordered. CTPA was concerning for thrombosis of subsegmental branches of the left and upper lobe with associated probable pulmonary infarcts. Also CTPA was consented for thrombosis of the right ventricular apex. Patient will be started on therapeutic heparin anticoagulation with bolus and drip. Right leg swelling Probably due to DVT. Although patient has been started on therapeutic anticoagulation it would be worthwhile to know why his right leg is swollen. Duplex ultrasound of right leg ordered. Acute Gastroenteritis We will check stool studies: C. difficile, O&P, enteric pathogen panel, stool lactoferrin. Received Phenergan IV in the emergency department. Compazine prn ordered. Of note diarrhea; fluid restriction and diuretics makes patient at risk for hypotension Hypoglycemia On presentation his glucose on BMP was 69. Accu-Chek was 78. Patient received dextrose at the emergency department. Will check Accu-Chek every 2 hours x 3. DVT prophylaxis Will start on heparin drip for PE and intramural thrombus Code Visit Inpatient E&M: 69121 Init Hosp L3
[2019-03-22] VITALS (15 sets, daily range): BP systolic 113–151; BP diastolic 89–115; PULSE 75–112; RESP 16–24; TEMP 36.5–36.9; O2SAT 81–98; BMI 23.5
[2019-03-22] MEDS: Furosemide 40 MG/4 ML Vial IV ×3 (00:48→17:55)
--- NOTE | 2019-03-22 01:16 | CT_ITS ---
STUDY: CT CHEST WITH CONTRAST REASON FOR EXAM: Male, 48 years old. Chest pain and shortness of breath RADIATION DOSAGE (If Supplied By Facility): CTDIvol = ( 17.98 ) mGy, DLP = ( 526.38 ) mGycm TECHNIQUE: Transaxial imaging was performed post contrast administration of 100ml IV Isovue 370. Individualized dose optimization techniques were used for this CT. COMPARISON: CTA chest from 03/01/2019 FINDINGS: There is intraluminal filling defects within subsegmental branches of the left lower lobe. There is a peripheral wedge-shaped opacity within the medial left lung base. Additional small likely filling defect within subsegmental branches of the left upper lobe with a small peripheral subpleural infarct. There is no demonstrated pleural abnormality. There is moderate to marked cardiac enlargement. Cardiac pacemaker is present from a right subclavian approach. There is a rounded filling defect within the right ventricular apex measuring approximately 2.4 cm, series 1002 image 42. Normal mediastinum. Normal hilar regions. Normal aorta arch and descending thoracic aorta. Negative osseous structures. There is no demonstrated abnormality of the visualized upper abdomen. Status post cholecystectomy. Trace upper abdominal ascites. CT/CTA Chest W/WO Contrast IMPRESSION: Intraluminal filling defects within subsegmental branches of the left lower and upper lobe with small peripheral wedge-shaped left lower and upper lobe opacities likely due to pulmonary infarcts. 2.4 cm rounded filling defect within the right ventricular apex concerning for underlying thrombus formation. Electronically Signed: Boris Carlton, at 3:12 EDT Tel , Service support ,
[2019-03-22] MEDS: proCHLORPERazine 10 MG/2 ML Vial 5 MG IV (01:40)
[2019-03-22 01:50] LABS: International Normalized Ratio 1.9; Prothrombin Time (Protime)PT. 21.7 SECONDS (11.7-14.9)
--- NOTE | 2019-03-22 05:16 | VDLE_ITS ---
Reason For Study: Swelling RIGHT LEFT GSV is normal. CFV is compressible, spontaneous, phasic, CFV is compressible, spontaneous, competent competent, and demonstrates normal and demonstrates pulsatile venous flow. augmentation. FV is compressible, spontaneous, competent and demonstrates pulsatile venous flow. POP V is compressible, spontaneous, competent and demonstrates pulsatile venous flow. T/P Trunk is compressible. PTV is compressible. RT PerV is compressible. Procedure Exam performed portable in patient room. A preliminary report was called and/or faxed to PCU. Definity was administered with echo prior to venous duplex. Interpretation Summary There is no evidence of right lower extremity deep vein thrombosis. Right great saphenous vein appears patent and compressible segmentally. Patent and compressible left common femoral vein Pulsitile flow noted bilaterally consistent with proximal venous hypertension--clinical correlation would be appropriate. Ordering Physician: Montez Hong Referring Physician: Montez Hong Performed By: Sylvie Rhodes, DONALD, RVT
[2019-03-22 05:53] LABS: Partial Thromboplast Time 34.6 Seconds (24.1-36.2)
[2019-03-22] MEDS: Heparin Injection (Vial) 5,000 UNIT/ML VIAL 5000 UNIT IV (06:19)
[2019-03-22] MEDS: 0.9% NaCl Peripheral Flush Adult/Peds IV ×2 (06:21→17:55)
[2019-03-22] MEDS: HEPARIN/D5w 25,000 UNITS 25,000 UNITS/250 ML IV.SOLN. 11 UNITS IV (06:40)
--- NOTE | 2019-03-22 07:29 | CON.PCM_ITS ---
Reason for Consult Date of Consultation: 03/22/19 Reason for Consultation: Shortness of breath History of Present Illness: The patient is a 48 year old M with a past medical history of nonischemic cardiomyopathy, status post biventricular ICD implantation, chronic systolic heart failure who is on at least his third admission to the hospital this year. He presented because he says he was short of breath he was anorexic and he also had some pedal edema. He was recently discharged from the hospital and is not clear whether he has been very compliant with his medications. In the emergency room he was noted to be tachycardic mildly short of breath and underwent a CT scan which demonstrated a possible pulmonary embolus as well as possible right ventricular thrombus. Cardiology was called for further evaluation and management. [] Past Medical History Allergies/Adverse Reactions: Allergies No Known Allergies Allergy (Verified 03/21/19 22:10) Home Medications: Ambulatory Orders Medication Instructions Recorded Atorvastatin 40 mg PO QHS 03/22/19 Carvedilol [Coreg (Beta Maik)] 6.25 mg PO DAILY 03/22/19 Furosemide [Lasix] 40 mg PO BID 03/22/19 Lisinopril 20 mg PO DAILY 03/22/19 Spironolactone 25 mg PO DAILY 03/22/19 Past Medical History (Chronic Problems): Chronic Problems Medical non-compliance (Chronic) Cardiomyopathy (Chronic) Valvular disease (Chronic) Anxiety (Chronic) Coronary artery disease (Chronic) Status post placement of cardiac pacemaker (Chronic) S/P implantation of automatic cardioverter/defibrillator (AICD) (Chronic) Surgical History: cholecystectomy, - - ICD placement Psychiatric History: Anxiety - *Family History Maternal History Items: - - Patient denies knowledge of maternal medical history Paternal History Items: Cancer, - - stomach cancer Lives: Alone Smoking Status: Current every day smoker Tobacco Use: Cigarettes Alcohol: None Drugs: None Review of Systems - Review of Systems General: Denies: Fever, Night Sweats, Fatigue HEENT: Denies: Vision Change Cardiovascular: Reports: Shortness of Breath, Shortness of Breath at Rest, Shortness of Breath with Exertion. Denies: Chest Discomfort, Orthopnea, PND, Peripheral Edema, Palpitations, Lightheadedness, Dizziness, Near Syncope, Syncope Respiratory: Denies: Cough, Sputum Production, Hemoptysis Gastrointestinal: Reports: Indigestion. Denies: Hematemesis, Hematochezia, Melena Genitourinary: Denies: Dysuria, Hematuria Muscoloskeletal: Reports: Muscle Weakness Skin: Denies: Rash Neurological: Reports: Weakness Psychiatric: Reports: Anxiety Subjectve: Young to middle-aged man in no distress Objective: Vital Signs Temp Pulse Resp BP Pulse Ox 98.0 F 108 H 24 H 136/103 H 94 03/22/19 06:14 03/22/19 06:14 03/22/19 06:14 03/22/19 06:14 03/22/19 06:14 Oxygen Flow Rate (L/min) 2 Oxygen Delivery Method Room Air Weight: 174 lb 2.643 oz Body Mass Index (BMI) 23.5 Finger Stick Blood Glucose 124 Intake and Output for Last 24 Hours 03/20/19 03/21/19 03/22/19 23:59 23:59 23:59 Intake Total 137.5 / 137.5 150 / 150 Output Total 1100 / 1100 Balance 137.5 / 137.5 -950 / -950 General: Awake, Alert, Oriented x 3 HEENT: PERRL, EOMI, Sclera Non Icteric Neck: Supple, Good ROM, No Lymph Node Enlargement Lungs: Clear to auscultation Cardiovascular: Regular Rhythm, Normal S1, Normal S2, No Murmurs, No Rubs, No Gallops Vascular: No Carotid Bruits, Normal Femoral Pulses, Normal Radial Pulses, Normal Dorsalis Pedal Pulse, Normal Posterior Tibial Pulses Abdomen: Bowel Sounds Present, Soft, Non Tender, No HSM, No Organomegaly Extremities: No Cyanosis, No Clubbing, Bilateral Edema +2 Musculoskeletal: No Erythema Skin: No Rashes Lymphatic: No Lymph Node Enlargement Neurological: No Focal Motor or Sensory Deficit Psych/Mental Status: Appropriate 03/21/19 22:20: WBC 10.2, RBC 5.32, Hgb 16.1, Hct 49.6, MCV 93.2, MCH 30.3, MCHC 32.5, Plt Count 195, MPV 9.8, Immature Gran % (Auto) 0.400, Neut % (Auto) 80.0 H, Lymph % (Auto) 12.5 L, [place] % (Auto) 6.4, Eos % (Auto) 0.2, Baso % (Auto) 0.5, Absolute Neuts (auto) 8.2 H, Nucleated RBC % 0.2 03/21/19 22:20: Sodium 140, Potassium 4.4, Chloride 107, Carbon Dioxide 19.0 L, Anion Gap 14, BUN 30 H, Creatinine 0.98, Est GFR (MDRD) Af Amer 104, Est GFR (MDRD) Non-Af 86, BUN/Creatinine Ratio 30.5 H, Glucose 69 L, Calcium 8.8, Total Bilirubin 3.70 H, Direct Bilirubin 1.00 H, Troponin I 0.578 H 03/21/19 22:20: B-Natriuretic Peptide 3678.8 H 03/21/19 22:20: PT 21.7 H, INR 1.9 03/21/19 22:40: Lactic Acid Cancelled 03/22/19 02:00: Troponin I 0.516 H 03/22/19 02:00: APTT 34.6 03/22/19 05:00: Troponin I 0.462 H Rhythm: EKG: Sinus tachycardia with ventricular pacing ECHO: Recent echocardiogram demonstrated global reduction of ejection fraction estimated to be 10% with mitral and tricuspid regurgitation Stress Test: Cardiac Cath: PCI: CT Surgery: Holter monitor: EPS: PPM: CXR: Chest CT Scan: Assessment/Plan 1. Congestive heart failure-chronic systolic * Patient presents with chronic systolic ongoing congestive heart failure. The etiology of the above is likely secondary to medication compliance and non- optimization of medication. My recommendation at this time is for him to be hospitalized and for his medications to be titrated up to an appropriate level. * It may be helpful for him to have home health care on the or the counts include 234 beds at the [facility] to supervise his home health to prevent recurrent admissions to the hospital. * Restart beta-maik and diuretics * Continue RADHA inhibitor and consider switching to Entresto. * 2. Valvular heart disease * Does have a history of mitral and tricuspid regurgitation. I however suspect that these are secondary to annular dilatation rather than primary valvular disease. * 3. Possible right ventricular thrombus * Would repeat a limited echocardiogram to assess the above though it may not necessarily change analyst. It appears that he has a pulmonary embolism as well and likely DVT from his right leg swelling. He may need to be on chronic anticoagulation. * To his compliance issues a once a day NOAC may be better * 4. Status post ICD implantation * He will continue to have his routine ICD checks done through our office. At this time I do not detect any indication of fluid or discharge or atrial tachyarrhythmias. * * Thank you for allowing me to participate in the care of your patient. Please don't hesitate to call if any issues arise
[2019-03-22] MEDS: Spironolactone 25 MG Tablet PO (10:23)
[2019-03-22] MEDS: Carvedilol 6.25 MG Tablet PO ×2 (10:24→22:59)
[2019-03-22] MEDS: SACUBITRIL/VALSARTAN 24/26 MG TABLET 1 EACH PO ×2 (10:25→22:59)
--- NOTE | 2019-03-22 10:41 | PN_ITS ---
Patient Problems: Active and Suspected Problems Elevated troponin (Acute) CHF (congestive heart failure) (Acute) Subjective: Patient seen and examined. He was admitted with a complaint of shortness of breath. Shortness of breath was present at rest it was not working with exertion he had associated orthopnea and swelling in his lower extremities. Patient has a history of heart failure with reduced ejection fraction with known EF of less than 10% by echo done on 03/01/2019. Patient has not been compliant with his medication. The ED, BNP was markedly elevated and chest x-ray showed pulmonary congestion with elevated troponin. CT angiogram of the chest done was concerning for thrombosis of the second segmental branches of the left and upper lobe with associated pulmonary infarcts and thrombosis of the right ventricular apex as well. He is currently on heparin drip. Patient is lethargic this morning but was arousable with sternal pressure. He complained of feeling tired. He denied any shortness of breath or palpitations, dizziness, diarrhea or vomiting. Review of systems otherwise negative. Labs and vitals reviewed. Vitals/I&O's: Vital Signs Temp Pulse Resp BP Pulse Ox 97.7 F L 97 22 H 151/115 H 96 03/22/19 08:29 03/22/19 08:29 03/22/19 08:29 03/22/19 08:29 03/22/19 09:12 Oxygen Flow Rate (L/min) 2 Oxygen Delivery Method Room Air Weight: 174 lb 2.643 oz Body Mass Index (BMI) 23.5 Finger Stick Blood Glucose 124 Intake and Output for Last 24 Hours 03/20/19 03/21/19 03/22/19 23:59 23:59 23:59 Intake Total 137.5 / 137.5 150 / 150 Output Total 1100 / 1100 Balance 137.5 / 137.5 -950 / -950 General: Alert, Cooperative, No apparent distress, Lethargic HEENT: Atraumatic, PERRLA, EOMI, Normocephalic Oral: Dry Mucosa Neck: Supple, No JVD, Negative Carotid Bruits Lungs: - - poor inspiratory effort, decreased breath sounds bibasally, no wheezes or crackles. Cardiovascular: Regular rate, Regular Rhythm, Normal S1, No murmurs Abdomen: Bowel Sounds Present, Soft, Non Tender, Non-Distended, No Hepato-splenomegaly Extremities: No clubbing, No cyanosis, - - RLE moderate edema, with no tenderness Skin: No rashes, - - erythematous puncture bo over RUE; denies they are track bo and claims they are due to IV access attempts Musculoskeletal: No Tenderness to Palpation of Joints or Extremities Lymphatic: No Cervical, Supraclavicular, or Inguinal Adenopathy Neurological: Cranial nerves II-XII grossly intact, Neuro grossly intact, Motor Exam 5/5 strength throughout Psych/Mental Status: - - lethargic Laboratory Results 03/21/19 22:20: WBC 10.2, RBC 5.32, Hgb 16.1, Hct 49.6, MCV 93.2, MCH 30.3, MCHC 32.5, RDW Std Deviation 57.6 H, RDW Coeff of Paulina 17.2 H, Plt Count 195, MPV 9.8, Immature Gran % (Auto) 0.400, Neut % (Auto) 80.0 H, Lymph % (Auto) 12.5 L, [place] % (Auto) 6.4, Eos % (Auto) 0.2, Baso % (Auto) 0.5, Absolute Neuts (auto) 8.2 H, Absolute Lymphs (auto) 1.28, Nucleated RBC % 0.2 03/21/19 22:20: Sodium 140, Potassium 4.4, Chloride 107, Carbon Dioxide 19.0 L, Anion Gap 14, BUN 30 H, Creatinine 0.98, Estim Creat Clear Calc 96.94, Est GFR (MDRD) Af Amer 104, Est GFR (MDRD) Non-Af 86, BUN/Creatinine Ratio 30.5 H, Glucose 69 L, Calcium 8.8, Total Bilirubin 3.70 H, Direct Bilirubin 1.00 H, AST 63 H, ALT 44, Alkaline Phosphatase 377 H, Troponin I 0.578 H, Total Protein 6.1 L, Albumin 2.7 L, Globulin 3.4 03/21/19 22:20: B-Natriuretic Peptide 3678.8 H 03/21/19 22:20: PT 21.7 H, INR 1.9 03/21/19 22:24: POC Glucose 78 03/21/19 22:40: Lactic Acid Cancelled 03/22/19 02:00: Troponin I 0.516 H 03/22/19 02:00: APTT 34.6 03/22/19 05:00: Troponin I 0.462 H Diagnostic Data Chest X-Ray 03/21/19 22:22 IMPRESSION: Development of diffuse interstitial edema since the previous study, follow-up recommended to assure resolution Electronically Signed: Khari Oates MD at 22:44 EDT , Service support , Chest CTA 03/22/19 01:16 IMPRESSION: Intraluminal filling defects within subsegmental branches of the left lower and upper lobe with small peripheral wedge-shaped left lower and upper lobe opacities likely due to pulmonary infarcts. 2.4 cm rounded filling defect within the right ventricular apex concerning for underlying thrombus formation. Electronically Signed: Boris Carlton, at 3:12 EDT Tel , Service support , Current Medications Apixaban (Eliquis) 10 mg PO BID [facility] Atorvastatin Calcium (Lipitor) 40 mg PO QHS [facility] Carvedilol (Coreg) 6.25 mg PO BID [facility] Last Admin: 03/22/19 10:24 Dose: 6.25 mg Documented by: Furosemide (Lasix) 40 mg IV BIDLX [facility] Last Admin: 03/22/19 10:27 Dose: 40 mg Documented by: Sodium Chloride () 250 mls @ 15 mls/hr IV .[id number] PRN PRN Reason: SALINE FLUSH Prochlorperazine Edisylate (Compazine Iv) 5 mg IV Q6H PRN PRN PRN Reason: NAUSEA/VOMITING Last Admin: 03/22/19 01:40 Dose: 5 mg Documented by: Sacubitril/Valsartan (Entresto 24 Mg-26 Mg Tablet) 1 each PO BID [facility] Last Admin: 03/22/19 10:25 Dose: 1 each Documented by: Sodium Chloride () 10 - 40 ml IV UD PRN PRN Reason: SALINE FLUSH Last Admin: 03/22/19 06:21 Dose: 10 ml Documented by: Spironolactone (Aldactone) 25 mg PO DAILY [facility] Last Admin: 03/22/19 10:23 Dose: 25 mg Documented by: Medical Necessity - Tobacco Use Smoking Status: Current every day smoker Tobacco Use: Cigarettes Assessment/Plan All Active Problems Elevated troponin (Acute) CHF (congestive heart failure) (Acute) 1. Acute on chronic heart failure with reduced EF * BNP was 3678 on admission; hasnt been compliant with hsi meds * CXR showed diffuse interstitial edema * 2D echo (03/01/19): EF of <10%, with ICD/pacer leads in RV and indeterminate diastolic dysfunction, moderately enlarged right atrium and 2+ mitral valve insufficiency as well as 3+ tricuspid valve insufficiency. * on IV lasix 40mg bid * fluid restriction to 1500cc daily. * monitor intake and output chart * cardiology on board * On RADHA inhibitor. Also on beta-minor. Per cardiology. Will consider switching to Entresto. 2. Right ventricular apical thrombus and PE * CT angiogram showed thrombosis of the subsegmental brances of the left lobe nad probable pulmonary infarcts, and right ventricular apex. * on heparin drip; received heparin bolus * will transition to PO anticoagulants 3. RLE swelling: due to possible DVT. To have duplex of RLE today to rule out PE 4. Elevated liver enzymes * total bilirubin was 3.77; was 3 in 12/16 * direct bilirubin is 1; AST/A:LT is 63/44, and ALP is 377 * enzymes are chronically elevated * Hepatitis screen done in October 2017 was negative. * Does have a history of substance abuse. * Abdominal pelvis CT on March 01, 2019 showed normal liver with trace hepatic fluid and prior cholecystectomy. * Will get right upper quadrant ultrasound. * 5. Acute gastroenteritis: Had one episode of diarrhea this morning. C. difficile pending. Will monitor. 6. Hypoglycemia: Resolved. 7. Valvular heart disease: * Echo showed mitral and tricuspid regurgitation. Per cardiology, this may be due to annular dilatation with a plan primary valvular disease. Will monitor. DVT prophylaxis: Heparin drip. Code Visit Inpatient E&M: 26439 Subs Hosp L3
[2019-03-22 11:23] LABS: ALB/GLOB Ratio 0.8 RATIO (0.9-2.4); AST(SGOT) 74 U/L (15-37); Alanine Aminotransfer ALT/SGPT 45 U/L (16-61); Albumin, Serum 2.8 g/dL (3.2-5.0); Alkaline Phosphatase 383 U/L (45-117); Anion Gap 14 (5-15); BUN 33 mg/dL (7-18); Calcium,Total 8.9 mg/dL (8.5-10.1); Chloride 107 mmol/L (98-107); EST Glomerular Filtration Rate 75 mL/min (>60); Est Glom Filt Rate - Afr Amer 91 mL/min (>60); Estimated Creatinine Clearance 88.18 ml/min; Globulin 3.3 g/dL (2.2-4.2); Glucose 90 mg/dL (74-106); Potassium 4.5 mmol/L (3.5-5.1); Protein, Total 6.1 g/dL (6.4-8.2); Sodium Level 141 mmol/L (136-145)
--- NOTE | 2019-03-22 11:36 | US_ITS ---
STUDY: ABDOMINAL ULTRASOUND - RIGHT UPPER QUADRANT REASON FOR VISIT: Male, 48 years old abnormal labs. TECHNIQUE: Ultrasound evaluation of the right upper quadrant was performed with real-time and static fowler-scale imaging. TECHNICAL QUALITY: Adequate. COMPARISON: 03/01/2019 CT abdomen pelvis. FINDINGS: Liver: The liver measures 14.7 cm. There is normal echogenicity of the liver. The bile ducts are within normal limits. There is hepatic color flow. There is no demonstrated mass lesion. Gallbladder: The patient is status post cholecystectomy. Common Bile Duct (C.B.D.): The common bile duct measures 4 mm. Pancreas: Pancreatic head and body unremarkable. Tail obscured by bowel gas. There is no demonstrated pancreatic mass or cyst. Right Kidney: Normal size of the right kidney. The right kidney measures 10.2 x 5.2 x 5.3 cm. Normal renal cortex. The right cortex measures 1.4 cm. There is no demonstrated renal mass or cyst. There is no right hydronephrosis. Trace perihepatic ascites. US/Liver IMPRESSION: Trace perihepatic ascites. Status post cholecystectomy. Otherwise unremarkable right upper quadrant abdominal ultrasound. Electronically Signed: Josue Jewell, at 19:15 EDT Tel , Service support ,
[2019-03-22] MEDS: APIXABAN 5 MG TABLET 10 MG PO ×2 (11:48→22:59)
--- NOTE | 2019-03-22 11:55 | CASEMGMT ---
RN CM Readmission Note Previous Admission: 02/28-03/02 Diagnosis: cardiogenic shock, CHF DC Disposition: Home Pt was advised to f/u [facility] as he has MCR A only and no PCP. Per Dc call, there was no answer. Current Admission Presentation: Intro role of CM and purpose of RN CM assessment. Pt laying with eyes closed. RN CM asked if he would participate in assessment. Pt agreed. Pt did not follow up with [facility] on last admission and did not establish with any PCP. Pt states cannot afford private physician. Let pt know SW would be speaking with him and to evaluate for any assistance. PCP: No Primary Care Physician Preferred Pharmacy: [facility] [email or web address]. Pt does not have prescription coverage. Pt may benefit from assistance program. Insurance: MCR A only Prescription Benefit: none LNOK: No LNOK. Pt has refused to list LNOK. S Living Arrangements: deferred. Pt denied any concerns re: home. Stated he still lives on [address] in [place]. Transportation: drives DME: none HHC: none SW consult: prescription assistance, financial concerns. Patient DC goals: return home. DC PLAN: anticipate home Crispin RICK RN ACM
[2019-03-22 12:57] LABS: Partial Thromboplast Time 36.3 Seconds (24.1-36.2)
[2019-03-22 19:47] LABS: Magnesium 1.6 mg/dL (1.6-2.6)
[2019-03-22] MEDS: Amiodarone 200 MG Tablet PO (22:59)
[2019-03-22] MEDS: Atorvastatin Calcium 40 MG Tablet PO (22:59)
[2019-03-23] VITALS (11 sets, daily range): BP systolic 113–121; BP diastolic 78–88; PULSE 62–86; RESP 12–18; TEMP 36.4–36.7; O2SAT 93–99
[2019-03-23] MEDS: Amiodarone 200 MG Tablet PO ×2 (05:31→21:46)
[2019-03-23 07:11] LABS: Absolute Lymphocyte Count 1.42 X10^3/uL (0.83-4.51); Absolute Neutrophil Count 8.2 X10^3/uL (2.0-7.7); Basophil# 0.02 X10^3/uL; Basophil% 0.2 % (0-1); Hematocrit 50.5 % (40-54); Hemoglobin 16.3 g/dL (13.0-16.5); Lymphocyte # 1.42 X10^3/ul (4.0); Lymphocyte % 13.5 % (19-41); Mean Corp Hgb Conc 32.3 g/dL (32-36); Mean Corpuscular Hgb 29.7 pg (27.0-32.0); Mean Corpuscular Volume 92.2 fL (80-94); Mean Platelet Vol. 9.4 fl (6.2-12.0); Monocyte# 0.75 X10^3/uL; Monocyte% 7.1 % (0-10); NRBC Flagged by Analyzer 0 % (0-5); Neutrophil % 77.9 % (47-70); Platelet Count 185 K/mm3 (150-450); RBC Distribution Width CV 18.1 % (11.6-14.6); RBC Distribution Width SD 58.2 fl (35.1-43.9); Red Blood Count 5.48 M/mm3 (4.6-6.2); White Blood Count 10.5 K/mm3 (4.4-11.0)
[2019-03-23 07:38] LABS: ALB/GLOB Ratio 0.7 RATIO (0.9-2.4); AST(SGOT) 43 U/L (15-37); Alanine Aminotransfer ALT/SGPT 32 U/L (16-61); Albumin, Serum 2.1 g/dL (3.2-5.0); Alkaline Phosphatase 316 U/L (45-117); Anion Gap 5 (5-15); BUN 34 mg/dL (7-18); BUN/Creat Ratio 31.5 RATIO (10-20); Calcium,Total 8.2 mg/dL (8.5-10.1); Chloride 105 mmol/L (98-107); Creatinine, Serum 1.08 mg/dL (0.70-1.30); EST Glomerular Filtration Rate 77 mL/min (>60); Est Glom Filt Rate - Afr Amer 93 mL/min (>60); Estimated Creatinine Clearance 89.81 ml/min; Globulin 3.1 g/dL (2.2-4.2); Glucose 103 mg/dL (74-106); Magnesium 1.6 mg/dL (1.6-2.6); Potassium 3.7 mmol/L (3.5-5.1); Protein, Total 5.2 g/dL (6.4-8.2); Sodium Level 138 mmol/L (136-145)
--- NOTE | 2019-03-23 07:51 | CON.PCM_ITS ---
Reason for Consult Date of Consultation: 03/23/19 Reason for Consultation: Concern for sleep apnea History of Present Illness: The patient is a 48-year-old male, with a history as outlined below, who presented to the emergency department on March 21 with complaints of shortness of breath. The patient has a known history of nonischemic cardiomyopathy and is status post biventricular ICD placement. The patient was just admitted to the hospital February 27 through March 02 with decompensated heart failure and acute hypoxemic respiratory insufficiency. The patient was treated medically and was noted to have signed out AGAINST MEDICAL ADVICE. During that hospitalization, the patient was evaluated by pulmonary medicine, who noted that the patient had episodes of desaturations overnight with concerns for potential central sleep apnea. It was recommended that he follow-up for a sleep study upon discharge. However, the patient failed to do so. In addition to the above, the patient is an active smoker of 0.5 packs of cigarettes daily. He was previously a heavier smoker. He has been smoking now for approximately 30 years. He reports that he sleeps on average 7 to 8 hours per night. She does report the presence of nonrestorative sleep and excessive daytime sleepiness/fatigue. He does occasionally take naps. He has never completed a diagnostic polysomnogram previously. On presentation to the emergency department, the patient was noted to be afebrile and tachycardic. He was initially documented to be saturating 98% on room air. Initial laboratory evaluation revealed no evidence of a leukocytosis. Chemistry profile revealed a bicarbonate of 19. The patient had an elevated total bilirubin level along with an elevated AST. Alkaline phosphatase was increased to 377. Troponin was increased to 0.578. BNP was elevated to 3679. A CTA chest was completed which did reveal intraluminal filling defects within the subsegmental branches of the left lower and upper lobe along with a 2.4 cm rounded filling defect within the right ventricular apex concerning for u nderlying thrombus formation. The patient was subsequently admitted to the progressive care unit, where he has been medically managed with the assistance of cardiology. The patient is currently afebrile, hemodynamically stable and maintaining appropriate oxygen saturations on 3 L/min. Past Medical History Past Medical History (Chronic Problems): Chronic Problems Medical non-compliance (Chronic) Cardiomyopathy (Chronic) Valvular disease (Chronic) Anxiety (Chronic) Coronary artery disease (Chronic) Status post placement of cardiac pacemaker (Chronic) S/P implantation of automatic cardioverter/defibrillator (AICD) (Chronic) Allergies No Known Allergies Allergy (Verified 03/21/19 22:10) Home Medications: Ambulatory Orders Medication Instructions Recorded Atorvastatin 40 mg PO QHS 03/22/19 Carvedilol [Coreg (Beta Maik)] 6.25 mg PO DAILY 03/22/19 Furosemide [Lasix] 40 mg PO BID 03/22/19 Lisinopril 20 mg PO DAILY 03/22/19 Spironolactone 25 mg PO DAILY 03/22/19 Surgical History: cholecystectomy, - - ICD placement Psychiatric History: Anxiety Lives: Alone Smoking Status: Current every day smoker Tobacco Use: Cigarettes Alcohol: None Drugs: None - *Family History Maternal History Items: - - Patient denies knowledge of maternal medical history Paternal History Items: Cancer, - - stomach cancer Review of Systems Constitutional: Reports: Fatigue. Denies: Chills, Fever Eyes: Denies: Blurred vision, Double vision HEENT: Denies: Head Aches, Sinus Congestion, Sinus Drainage Cardiovascular: Reports: Edema. Denies: Chest Pain, Palpitations Respiratory: Reports: Cough, Shortness of Breath Gastrointestinal: Denies: Abdominal Pain, Nausea, Vomiting Genitourinary: Denies: Dysuria Musculoskeletal: Denies: Joint Pain, Joint Tenderness Skin: Denies: Rash, Wounds Neurological: Denies: Numbness, Tingling, Focal weakness Psychiatric: Denies: Anxiety, Depression, Homicidal Ideations, Suicidal Id eations Hematologic/ Lymphatic: Reports: Hx of blood clot Patient Problems: Active and Suspected Problems Elevated troponin (Acute) CHF (congestive heart failure) (Acute) Objective: The patient's most recent lab work, culture data and imaging studies have all been personally reviewed. Right lower extremity Doppler study was negative for DVT. - Physical Exam General: Alert, Cooperative, No apparent distress HEENT: Atraumatic, PERRLA, Normocephalic Oral: No Gingival or Mucosal Lesions/ Ulcerations Neck: Supple, No Nodes, Trachea Midline Lungs: No rhonchi, No wheeze, No rales, Diminished Cardiovascular: Regular rate, Regular Rhythm, Normal S1, Normal S2, No murmurs Abdomen: Bowel Sounds Present, Soft, Non Tender Extremities: No clubbing, No cyanosis, - - Right lower extremity swelling out of proportion to left Skin: No breakdown Musculoskeletal: No Tenderness to Palpation of Joints or Extremities Lymphatic: No Cervical, Supraclavicular, or Inguinal Adenopathy Neurological: Cranial nerves II-XII grossly intact, Neuro grossly intact Psych/Mental Status: Normal Affect, Appropriate Vital Signs Temp Pulse Resp BP Pulse Ox 98.1 F 78 18 121/87 H 96 03/23/19 03:58 03/23/19 07:35 03/23/19 03:58 03/23/19 03:58 03/23/19 03:58 Oxygen Flow Rate (L/min) 3 Oxygen Delivery Method Nasal Cannula Weight: 174 lb 9.698 oz Body Mass Index (BMI) 23.5 Finger Stick Blood Glucose 124 Intake and Output for Last 24 Hours 03/21/19 03/22/19 03/23/19 23:59 23:59 23:59 Intake Total 137.5 / 137.5 676.57 / 676.57 720 / 720 Output Total 4850 / 4850 2400 / 2400 Balance 137.5 / 137.5 -4173.43 / -4173.43 -1680 / -1680 Laboratory Tests Past 24 Hrs 03/22/19 03/22/19 03/22/19 05:00 12:35 19:16 WBC RBC Hgb Hct MCV MCH MCHC RDW Std Deviation RDW Coeff of Paulina Plt Count MPV Immature Gran % (Auto) Neut % (Auto) Lymph % (Auto) Finney % (Auto) Eos % (Auto) Baso % (Auto) Absolute Neuts (auto) Absolute Lymphs (auto) Nucleated RBC % APTT 36.3 H Sodium 141 Potassium 4.5 Chloride 107 Carbon Dioxide 20.0 L Anion Gap 14 BUN 33 H Creatinine 1.10 Estim Creat Clear Calc 88.18 Est GFR (MDRD) Af Amer 91 Est GFR (MDRD) Non-Af 75 BUN/Creatinine Ratio 30.0 H Glucose 90 Calcium 8.9 Magnesium 1.6 Total Bilirubin 5.00 H AST 74 H ALT 45 Alkaline Phosphatase 383 H Total Protein 6.1 L Albumin 2.8 L Globulin 3.3 Albumin/Globulin Ratio 0.8 L 03/23/19 03/23/19 06:37 06:37 WBC 10.5 RBC 5.48 Hgb 16.3 Hct 50.5 MCV 92.2 MCH 29.7 MCHC 32.3 RDW Std Deviation 58.2 H RDW Coeff of Paulina 18.1 H Plt Count 185 MPV 9.4 Immature Gran % (Auto) 0.300 Neut % (Auto) 77.9 H Lymph % (Auto) 13.5 L Finney % (Auto) 7.1 Eos % (Auto) 1.0 Baso % (Auto) 0.2 Absolute Neuts (auto) 8.2 H Absolute Lymphs (auto) 1.42 Nucleated RBC % 0 APTT Sodium 138 Potassium 3.7 Chloride 105 Carbon Dioxide 28.0 Anion Gap 5 BUN 34 H Creatinine 1.08 Estim Creat Clear Calc 89.81 Est GFR (MDRD) Af Amer 93 Est GFR (MDRD) Non-Af 77 BUN/Creatinine Ratio 31.5 H Glucose 103 Calcium 8.2 L Magnesium 1.6 Total Bilirubin 3.10 H AST 43 H ALT 32 Alkaline Phosphatase 316 H Total Protein 5.2 L Albumin 2.1 L Globulin 3.1 Albumin/Globulin Ratio 0.7 L Clinical Impression(s) from Imaging Studies Chest X-Ray 03/21/19 22:22 IMPRESSION: Development of diffuse interstitial edema since the previous study, follow-up recommended to assure resolution Electronically Signed: Khari Oates MD at 22:44 EDT , Service support , Chest CTA 03/22/19 01:16 IMPRESSION: Intraluminal filling defects within subsegmental branches of the left lower and upper lobe with small peripheral wedge-shaped left lower and upper lobe opacities likely due to pulmonary infarcts. 2.4 cm rounded filling defect within the right ventricular apex concerning for underlying thrombus formation. Electronically Signed: Boris Carlton, at 3:12 EDT Tel , Service support , Liver Ultrasound 03/22/19 11:36 IMPRESSION: Trace perihepatic ascites. Status post cholecystectomy. Otherwise unremarkable right upper quadrant abdominal ultrasound. Electronically Signed: Josue Jewell, at 19:15 EDT Tel , Service support , Assessment/Plan All Active Problems Elevated troponin (Acute) CHF (congestive heart failure) (Acute) RECOMMENDATIONS: 1. Wean supplemental oxygen to maintain saturations at or above 90%. 2. Continue diuresis and medical management per cardiology recommendations. 3. If the patient is able to be weaned back to room air, perform overnight oximetry study to qualify him for supplemental O2. 4. Recommend outpatient pulmonary follow-up and diagnostic polysomnogram within 2 weeks of discharge. IMPRESSIONS: 1. Nocturnal hypoxemia Clinical concern, based upon symptoms, that the patient has underlying sleep disordered breathing or possible cardiopulmonary disease that is contributing to his periodic oxygen desaturations. The patient has been offered a follow-up office visit in the pulmonary medicine clinic upon discharge to have a diagnostic polysomnogram completed. If he is able to be weaned from supplemental oxygen to room air, I would recommend that an overnight oximetry study be completed to qualify him for supplemental O2, while we are awaiting completion of his sleep study. Orders for empiric BiPAP therapy with naps and nightly will be placed. It is recommended that the patient follow-up in the pulmonary medicine clinic within 2 weeks of discharge. 2. Acute hypoxemic respiratory insufficiency secondary to decompensated heart failure Continue current medical management per cardiology recommendations. Continue to wean supplemental oxygen to maintain saturations at or above 90%. Encourage incentive spirometer use and mobilize patient as tolerated. 3. Newly identified apical thrombus and venous thromboembolism The patient has been started on Eliquis. Recommend continuing to wean supplemental oxygen as tolerated. 4. Long-standing tobacco abuse history/history of medical noncompliance and follow-up Complicates care, management, recovery and prognosis. Recommend formal ou tpatient pulmonary function studies. Nicotine replacement therapy can be offered to the patient while admitted to the hospital. This note was generated with [employer] dictation software. It may contain incorrect words, spelling, and punctuation that were not noted in checking the note before signing. Code Visit Inpatient E&M: 25024 Init Hosp L3
--- NOTE | 2019-03-23 09:03 | PN.CARD_ITS ---
Subjectve: The patient states he feels better today. He states his breathing has improved. Objective: Vital Signs Temp Pulse Resp BP Pulse Ox 97.6 F L 82 18 120/81 H 99 03/23/19 08:20 03/23/19 08:20 03/23/19 08:20 03/23/19 08:20 03/23/19 08:20 Oxygen Flow Rate (L/min) 3 Oxygen Delivery Method Nasal Cannula Weight: 174 lb 9.698 oz Body Mass Index (BMI) 23.5 Finger Stick Blood Glucose 124 Intake and Output for Last 24 Hours 03/21/19 03/22/19 03/23/19 23:59 23:59 23:59 Intake Total 137.5 / 137.5 676.57 / 676.57 720 / 720 Output Total 4850 / 4850 2400 / 2400 Balance 137.5 / 137.5 -4173.43 / -4173.43 -1680 / -1680 General: Awake, Alert, Oriented x 3, Cooperative, No Acute Distress HEENT: Atraumatic, Normocephalic, PERRL, EOMI, Sclera Non Icteric Neck: Supple, Good ROM, No JVD Lungs: Rales - Left Base Cardiovascular: Regular Rhythm, Normal S1, Normal S2 Vascular: No Carotid Bruits Abdomen: Bowel Sounds Present, Soft, Non Tender Extremities: No Cyanosis, No Clubbing, Mild RLE Edema, Mild LLE Edema Neurological: No Focal Motor or Sensory Deficit 03/22/19 05:00: Sodium 141, Potassium 4.5, Chloride 107, Carbon Dioxide 20.0 L, Anion Gap 14, BUN 33 H, Creatinine 1.10, Est GFR (MDRD) Af Amer 91, Est GFR (MDRD) Non-Af 75, BUN/Creatinine Ratio 30.0 H, Glucose 90, Calcium 8.9, Total Bilirubin 5.00 H 03/22/19 12:35: APTT 36.3 H 03/22/19 19:16: Magnesium 1.6 03/23/19 06:37: WBC 10.5, RBC 5.48, Hgb 16.3, Hct 50.5, MCV 92.2, MCH 29.7, MCHC 32.3, Plt Count 185, MPV 9.4, Immature Gran % (Auto) 0.300, Neut % (Auto) 77.9 H , Lymph % (Auto) 13.5 L, Tyler % (Auto) 7.1, Eos % (Auto) 1.0, Baso % (Auto) 0.2, Absolute Neuts (auto) 8.2 H, Nucleated RBC % 0 03/23/19 06:37: Sodium 138, Potassium 3.7, Chloride 105, Carbon Dioxide 28.0, Anion Gap 5, BUN 34 H, Creatinine 1.08, Est GFR (MDRD) Af Amer 93, Est GFR (MDRD) Non-Af 77, BUN/Creatinine Ratio 31.5 H, Glucose 103, Calcium 8.2 L, Magnesium 1.6, Total Bilirubin 3.10 H Rhythm: Electronic ventricular paced rhythm Medical Necessity - Tobacco Use Smoking Status: Current every day smoker Tobacco Use: Cigarettes Assessment/Plan 1. Acute on chronic systolic mediated CHF The patient appears to have chronic systolic mediated CHF. He has returned with concerns of acute on chronic systolic mediated CHF based upon his symptoms. This may be secondary to his noncompliance as he readily admits that since his last discharge, which was AGAINST MEDICAL ADVICE, he has not been taking any medications at home. At the present time he will continue medical management. His medications will be adjusted based upon his clinical course, vital signs, etc. 2. Cardiomyopathy The patient has a significant non-CAD related cardiomyopathy. His transthoracic echocardiogram was reviewed. His left ventricular systolic function remains low with an estimated LVEF of approximately 10%. He will continue my medical therapy as deemed appropriate. 3. Valvular heart disease He does have MR/TR. These findings may be a contributing factor to his acute on chronic symptoms especially without medical management, etc. 4. Status post biventricular ICD/CHIEF OF FIELD OPERATIONS therapy He will continue ICD interrogation as deemed appropriate. 5. Nonsustained wide-complex tachycardia Had episodes of nonsustained wide-complex tachycardia during his previous hospital admissions. He has been placed on antiarrhythmic therapy. He has a functional ICD in place. 6. Left ventricular thrombus His most recent echocardiogram suggest an underlying left ventricular thrombus. He has been placed on anticoagulant therapy. 7. Pulmonary emboli His chest CT scan suggest pulmonary emboli. Again he has been placed on anticoagulant therapy. 8. Noncompliance The patient left the hospital recently AGAINST MEDICAL ADVICE. He states since being out of the hospital he has not been on any medications. He states at this time he wants to follow medical advice, take medications, etc. in an attempt to improve his overall status. Comment: The above was discussed and reviewed with the patient at length. This note was generated using a voice recognition system and there may be incorrect words, spelling or punctuation that were not noted when reviewing the office note prior to saving.
--- NOTE | 2019-03-23 09:45 | CASEMGMT ---
SW was on the way to see patient in his room. However, per RN and SENIOR PROGRAM MANAGER patient is yelling as he wants to leave the hospital right now. SW met with patient. Introduced self and role at [facility]. SW acknowledged his urgency to leave. SW asked if he had Medicaid. He said something about he had it then he went to [facility] and they took $7,000 out of his account for back pay (?). He said he doesn't know what is wrong why it isn't active. SW told him about the Medicare Savings Programs and gave him the pamphlets as well the application. SW also wrote down needymeds.org. SW explained all of this information to patient. He was not paying much attention as he wanted to get out of the hospital as he has animals that he needs to care for. RN walked in with AMA papers as patient is not medically ready for discharge. Leta BO MSW
[2019-03-23] MEDS: APIXABAN 5 MG TABLET 10 MG PO ×2 (10:10→21:46)
[2019-03-23] MEDS: SACUBITRIL/VALSARTAN 24/26 MG TABLET 1 EACH PO ×2 (10:10→21:46)
[2019-03-23] MEDS: Spironolactone 25 MG Tablet PO (10:11)
[2019-03-23] MEDS: Carvedilol 6.25 MG Tablet PO ×2 (10:11→21:46)
[2019-03-23] MEDS: Furosemide 20 MG/2 ML VIAL IV ×2 (10:55→17:29)
--- NOTE | 2019-03-23 11:37 | PN_ITS ---
Patient Problems: Active and Suspected Problems Elevated troponin (Acute) CHF (congestive heart failure) (Acute) Subjective: Patient seen and examined. He had no complaints this morning before feeling hungry. He denied any chest pain or palpitation, shortness of breath, diarrhea vomiting. Review of systems otherwise negative. Labs and vitals reviewed. Patient was wanted to sign out AMA because he said he had not been given any food to eat. After being counseled extensively by hospitalist about the severity of his medical condition, patient agreed to stay. Vitals/I&O's: Vital Signs Temp Pulse Resp BP Pulse Ox 97.6 F L 73 18 120/81 H 99 03/23/19 08:20 03/23/19 11:09 03/23/19 08:20 03/23/19 08:20 03/23/19 08:20 Oxygen Flow Rate (L/min) 3 Oxygen Delivery Method Nasal Cannula Weight: 174 lb 9.698 oz Body Mass Index (BMI) 23.5 Finger Stick Blood Glucose 124 Intake and Output for Last 24 Hours 03/21/19 03/22/19 03/23/19 23:59 23:59 23:59 Intake Total 137.5 / 137.5 676.57 / 676.57 720 / 720 Output Total 4850 / 4850 2400 / 2400 Balance 137.5 / 137.5 -4173.43 / -4173.43 -1680 / -1680 General: Alert, Cooperative, No apparent distress, HEENT: Atraumatic, PERRLA, EOMI, Normocephalic Oral: Dry Mucosa Neck: Supple, No JVD, Negative Carotid Bruits Lungs: - - decreased breath sounds bibasally, no wheezes or crackles. Cardiovascular: Regular rate, Regular Rhythm, Normal S1, No murmurs Abdomen: Bowel Sounds Present, Soft, Non Tender, Non-Distended, No Hepato- splenomegaly Extremities: No clubbing, No cyanosis, - - RLE moderate edema, with no tenderness Skin: No rashes, - - erythematous puncture bo over RUE; Musculoskeletal: No Tenderness to Palpation of Joints or Extremities Lymphatic: No Cervical, Supraclavicular, or Inguinal Adenopathy Neurological: Cranial nerves II-XII grossly intact, Neuro grossly intact, Motor Exam 5/5 strength throughout Psych/Mental Status: - - normal affect Laboratory Results 03/22/19 12:35: APTT 36.3 H 03/22/19 19:16: Magnesium 1.6 03/23/19 06:37: WBC 10.5, RBC 5.48, Hgb 16.3, Hct 50.5, MCV 92.2, MCH 29.7, MCHC 32.3, RDW Std Deviation 58.2 H, RDW Coeff of Paulina 18.1 H, Plt Count 185, MPV 9.4, Immature Gran % (Auto) 0.300, Neut % (Auto) 77.9 H, Lymph % (Auto) 13.5 L, Reynolds % (Auto) 7.1, Eos % (Auto) 1.0, Baso % (Auto) 0.2, Absolute Neuts (auto) 8.2 H, Absolute Lymphs (auto) 1.42, Nucleated RBC % 0 03/23/19 06:37: Sodium 138, Potassium 3.7, Chloride 105, Carbon Dioxide 28.0, Anion Gap 5, BUN 34 H, Creatinine 1.08, Estim Creat Clear Calc 89.81, Est GFR (MDRD) Af Amer 93, Est GFR (MDRD) Non-Af 77, BUN/Creatinine Ratio 31.5 H, Glucose 103, Calcium 8.2 L, Magnesium 1.6, Total Bilirubin 3.10 H, AST 43 H, ALT 32, Alkaline Phosphatase 316 H, Total Protein 5.2 L, Albumin 2.1 L, Globulin 3.1, Albumin/Globulin Ratio 0.7 L Diagnostic Data Chest X-Ray 03/21/19 22:22 IMPRESSION: Development of diffuse interstitial edema since the previous study, follow-up recommended to assure resolution Electronically Signed: Khari Oates MD at 22:44 EDT , Service support , Chest CTA 03/22/19 01:16 IMPRESSION: Intraluminal filling defects within subsegmental branches of the left lower and upper lobe with small peripheral wedge-shaped left lower and upper lobe opacities likely due to pulmonary infarcts. 2.4 cm rounded filling defect within the right ventricular apex concerning for underlying thrombus formation. Electronically Signed: Boris Carlton at 3:12 EDT Tel , Service support , Liver Ultrasound 03/22/19 11:36 IMPRESSION: Trace perihepatic ascites. Status post cholecystectomy. Otherwise unremarkable right upper quadrant abdominal ultrasound. Electronically Signed: Josue Jewell, at 19:15 EDT Tel , Service support , Current Medications Amiodarone HCl (Cordarone) 200 mg PO TID [facility] Last Admin: 03/23/19 05:31 Dose: 200 mg Documented by: Apixaban (Eliquis) 10 mg PO BID [facility] Last Admin: 03/23/19 10:10 Dose: 10 mg Documented by: Atorvastatin Calcium (Lipitor) 40 mg PO QHS [facility] Last Admin: 03/22/19 22:59 Dose: 40 mg Documented by: Carvedilol (Coreg) 6.25 mg PO BID [facility] Last Admin: 03/23/19 10:11 Dose: 6.25 mg Documented by: Furosemide (Lasix) 20 mg IV BIDLX [facility] Last Admin: 03/23/19 10:55 Dose: 20 mg Documented by: Sodium Chloride () 250 mls @ 15 mls/hr IV .[id number] PRN PRN Reason: SALINE FLUSH Prochlorperazine Edisylate (Compazine Iv) 5 mg IV Q6H PRN PRN PRN Reason: NAUSEA/VOMITING Last Admin: 03/22/19 01:40 Dose: 5 mg Documented by: Sacubitril/Valsartan (Entresto 24 Mg-26 Mg Tablet) 1 each PO BID [facility] Last Admin: 03/23/19 10:10 Dose: 1 each Documented by: Sodium Chloride () 10 - 40 ml IV UD PRN PRN Reason: SALINE FLUSH Last Admin: 03/22/19 17:55 Dose: 10 ml Documented by: Spironolactone (Aldactone) 25 mg PO DAILY [facility] Last Admin: 03/23/19 10:11 Dose: 25 mg Documented by: Medical Necessity - Tobacco Use Smoking Status: Current every day smoker Tobacco Use: Cigarettes Assessment/Plan All Active Problems Elevated troponin (Acute) CHF (congestive heart failure) (Acute) 1. Acute on chronic heart failure with reduced EF * 2D echo (03/22/19): Severely dilated left ventricle with apical thrombus measuring 2.3 x 1.5 cm. Estimated EF is 10% with severe global hypokinesis of the left ventricle. No RV thrombus seen. * on IV lasix 20mg bid; in cumulative negative balance by 5.7L since admission * fluid restriction to 1500cc daily. * monitor intake and output chart * cardiology on board * on carvedilol and amiodarone. on Entresto as well as spironolactone 2. Right ventricular apical thrombus and PE * CT angiogram showed thrombosis of the subsegmental brances of the left lobe nad probable pulmonary infarcts, and right ventricular apex. * on eliquis 10mg bid 3. RLE swelling: Duplex of RLE was negative for DVT. 4. Elevated liver enzymes due to hepatic congestion from heart failure * Total bilirubin is trended down to around 3.5 yesterday. * enzymes are chronically elevated * Hepatitis screen done in October 2017 was negative. * I think this is all due to the severe heart failure with EF of around 10% leading to hepatic congestion. Of ultrasound which showed trace perihepatic ascites. * Should improve with diuresis as is happening now. * * 5. Acute gastroenteritis: resolved. 6. Hypoglycemia: Resolved. 7. Valvular heart disease: has history of tricuspid and mitral valve regurgitation. Stable. Will monitor DVT prophylaxis: on apixaban Code Visit Inpatient E&M: 74549 Subs Hosp L3
[2019-03-23] MEDS: Ibuprofen 400 MG Tablet PO (18:47)
[2019-03-23] MEDS: Atorvastatin Calcium 40 MG Tablet PO (21:46)
[2019-03-23] MEDS: MELATONIN 10 MG TABLET PO (21:46)
[2019-03-24] VITALS (7 sets, daily range): BP systolic 93–105; BP diastolic 66–76; PULSE 67–80; RESP 16; TEMP 36.4–36.6; O2SAT 94
--- NOTE | 2019-03-24 03:54 | CPS ---
PT REFUSED BIPAP.
[2019-03-24 06:42] LABS: Absolute Lymphocyte Count 1.25 X10^3/uL (0.83-4.51); Absolute Neutrophil Count 5.9 X10^3/uL (2.0-7.7); Basophil# 0.03 X10^3/uL; Basophil% 0.4 % (0-1); Eosinophil# 0.12 X10^3/uL; Eosinophils% 1.5 % (0-5); Hematocrit 47.9 % (40-54); Hemoglobin 15.4 g/dL (13.0-16.5); Lymphocyte # 1.25 X10^3/ul (4.0); Lymphocyte % 15.5 % (19-41); Mean Corp Hgb Conc 32.2 g/dL (32-36); Mean Corpuscular Volume 93.2 fL (80-94); Mean Platelet Vol. 9.2 fl (6.2-12.0); Monocyte# 0.77 X10^3/uL; Monocyte% 9.6 % (0-10); NRBC Flagged by Analyzer 0 % (0-5); Neutrophil # 5.86 X10^3/uL (2.7-7.7); Neutrophil % 72.6 % (47-70); Platelet Count 185 K/mm3 (150-450); RBC Distribution Width CV 17.5 % (11.6-14.6); RBC Distribution Width SD 58.3 fl (35.1-43.9); Red Blood Count 5.14 M/mm3 (4.6-6.2); White Blood Count 8.1 K/mm3 (4.4-11.0)
--- NOTE | 2019-03-24 06:53 | PCA ---
03/24/19 0653 weight change discussed with Gage BABIN
[2019-03-24 06:55] LABS: ALB/GLOB Ratio 0.6 RATIO (0.9-2.4); AST(SGOT) 33 U/L (15-37); Alanine Aminotransfer ALT/SGPT 28 U/L (16-61); Albumin, Serum 1.9 g/dL (3.2-5.0); Alkaline Phosphatase 247 U/L (45-117); Anion Gap 7 (5-15); BUN 40 mg/dL (7-18); BUN/Creat Ratio 39.6 RATIO (10-20); Calcium,Total 7.5 mg/dL (8.5-10.1); Chloride 107 mmol/L (98-107); Creatinine, Serum 1.01 mg/dL (0.70-1.30); EST Glomerular Filtration Rate 83 mL/min (>60); Est Glom Filt Rate - Afr Amer 100 mL/min (>60); Estimated Creatinine Clearance 85.77 ml/min; Glucose 118 mg/dL (74-106); Magnesium 1.4 mg/dL (1.6-2.6); Potassium 3.5 mmol/L (3.5-5.1); Protein, Total 4.9 g/dL (6.4-8.2); Sodium Level 139 mmol/L (136-145)
[2019-03-24] MEDS: Furosemide 20 MG/2 ML VIAL IV (09:12)
[2019-03-24] MEDS: Spironolactone 25 MG Tablet PO (09:12)
[2019-03-24] MEDS: Amiodarone 200 MG Tablet PO ×2 (09:12→13:19)
[2019-03-24] MEDS: SACUBITRIL/VALSARTAN 24/26 MG TABLET 1 EACH PO (09:12)
--- NOTE | 2019-03-24 09:12 | PN_ITS ---
Subjective: The patient was seen and examined at the bedside this morning. Events from the last 24 hours have been reviewed. The patient is currently afebrile, hemodynamically stable and maintaining appropriate oxygen saturations on room air. Although orders were placed yesterday for empiric nightly BiPAP therapy, the patient refused therapy last evening. Breathing quality has improved in light of diuresis. Objective: The patient's most recent lab work, culture data and imaging studies have all been personally reviewed. - Physical Exam General: Alert, Cooperative, No apparent distress HEENT: Atraumatic, PERRLA, Normocephalic Oral: No Gingival or Mucosal Lesions/ Ulcerations Neck: Supple, No Nodes, Trachea Midline Lungs: No rhonchi, No wheeze, No rales, Diminished Cardiovascular: Regular rate, Regular Rhythm, Normal S1, Normal S2 Abdomen: Bowel Sounds Present, Soft, Non Tender Extremities: No clubbing, No cyanosis, - - Asymmetric lower extremity edema Skin: No breakdown Musculoskeletal: No Tenderness to Palpation of Joints or Extremities Lymphatic: No Cervical, Supraclavicular, or Inguinal Adenopathy Neurological: Cranial nerves II-XII grossly intact, Neuro grossly intact Psych/Mental Status: Normal Affect, Appropriate Vital Signs Temp Pulse Resp BP Pulse Ox 97.6 F L 79 16 93/66 94 03/24/19 09:06 03/24/19 09:06 03/24/19 09:06 03/24/19 09:06 03/24/19 09:06 Oxygen Flow Rate (L/min) 3 Oxygen Delivery Method Room Air Weight: 152 lb 12.485 oz Body Mass Index (BMI) 23.5 Finger Stick Blood Glucose 124 Intake and Output for Last 24 Hours 03/22/19 03/23/19 03/24/19 23:59 23:59 23:59 Intake Total 676.57 / 676.57 1485 / 1485 Output Total 4850 / 4850 5075 / 5075 100 / 100 Balance -4173.43 / -4173.43 -3590 / -3590 -100 / -100 Laboratory Tests Past 24 Hrs 03/24/19 03/24/19 05:55 05:55 WBC 8.1 RBC 5.14 Hgb 15.4 Hct 47.9 MCV 93.2 MCH 30.0 MCHC 32.2 RDW Std Deviation 58.3 H RDW Coeff of Paulina 17.5 H Plt Count 185 MPV 9.2 Immature Gran % (Auto) 0.400 Neut % (Auto) 72.6 H Lymph % (Auto) 15.5 L [place] % (Auto) 9.6 Eos % (Auto) 1.5 Baso % (Auto) 0.4 Absolute Neuts (auto) 5.9 Absolute Lymphs (auto) 1.25 Nucleated RBC % 0 Sodium 139 Potassium 3.5 Chloride 107 Carbon Dioxide 25.0 Anion Gap 7 BUN 40 H Creatinine 1.01 Estim Creat Clear Calc 85.77 Est GFR (MDRD) Af Amer 100 Est GFR (MDRD) Non-Af 83 BUN/Creatinine Ratio 39.6 H Glucose 118 H Calcium 7.5 L Magnesium 1.4 L Total Bilirubin 1.40 H AST 33 ALT 28 Alkaline Phosphatase 247 H Total Protein 4.9 L Albumin 1.9 L Globulin 3.0 Albumin/Globulin Ratio 0.6 L Clinical Impression(s) from Imaging Studies Chest X-Ray 03/21/19 22:22 IMPRESSION: Development of diffuse interstitial edema since the previous study, follow-up recommended to assure resolution Electronically Signed: Khari Oates MD at 22:44 EDT , Service support , Chest CTA 03/22/19 01:16 IMPRESSION: Intraluminal filling defects within subsegmental branches of the left lower and upper lobe with small peripheral wedge-shaped left lower and upper lobe opacities likely due to pulmonary infarcts. 2.4 cm rounded filling defect within the right ventricular apex concerning for underlying thrombus formation. Electronically Signed: Boris Carlton, at 3:12 EDT Tel , Service support , Liver Ultrasound 03/22/19 11:36 IMPRESSION: Trace perihepatic ascites. Status post cholecystectomy. Otherwise unremarkable right upper quadrant abdominal ultrasound. Electronically Signed: Josue Jewell, at 19:15 EDT Tel , Service support , Medical Necessity - Tobacco Use Smoking Status: Current every day smoker Tobacco Use: Cigarettes Assessment/Plan All Active Problems Elevated troponin (Acute) CHF (congestive heart failure) (Acute) RECOMMENDATIONS: 1. Continue diuresis and medical management per cardiology recommendations. 2. Perform overnight trending pulse ox study to qualify for home O2 nightly. 3. The patient is currently scheduled to follow up in the pulmonary medicine clinic on April 13 @ 1:15 pm. IMPRESSIONS: 1. Nocturnal hypoxemia Clinical concern, based upon symptoms, that the patient has underlying sleep disordered breathing or possible cardiopulmonary disease that is contributing to his periodic oxygen desaturations. The patient has been offered a follow-up office visit in the pulmonary medicine clinic upon discharge to have a diagnostic polysomnogram completed. If he is able to be weaned from supplemental oxygen to room air, I would recommend that an overnight oximetry study be completed to qualify him for supplemental O2, while we are awaiting completion of his sleep study. 2. Newly identified apical thrombus and venous thromboembolism Continue Eliquis as ordered. 3. Long-standing tobacco abuse history/history of medical noncompliance and follow-up Complicates care, management, recovery and prognosis. Recommend formal outpatient pulmonary function studies. Nicotine replacement therapy can be offered to the patient while admitted to the hospital. This note was generated with [employer] dictation software. It may contain incorrect words, spelling, and punctuation that were not noted in checking the note before signing. Code Visit Inpatient E&M: 66081 Subs Hosp L2
[2019-03-24] MEDS: APIXABAN 5 MG TABLET 10 MG PO (09:13)
[2019-03-24] MEDS: Carvedilol 6.25 MG Tablet PO (09:13)
[2019-03-24] MEDS: Calcium Carbonate 500 MG Tablet 1000 MG PO (09:13)
[2019-03-24] MEDS: Potassium Chloride 10mEq/100mL 10 MEQ/100 ML IV.SOLN. 100 MEQ IV BOLUS ×4 (09:13→13:19)
[2019-03-24] MEDS: Magnesium Sulfate 4gm/100mL 4 GM/100 ML IV.SOLN. IV (09:13)
--- NOTE | 2019-03-24 10:17 | PN.CARD_ITS ---
Subjectve: The patient is awake and alert. He states he feels better with respect to his breathing. However he states he feels very tired and fatigued. He has not been up and out of bed and ambulating as of yet to any significant degree. Objective: Vital Signs Temp Pulse Resp BP Pulse Ox 97.6 F L 79 16 93/66 94 03/24/19 09:06 03/24/19 09:06 03/24/19 09:06 03/24/19 09:06 03/24/19 09:06 Oxygen Flow Rate (L/min) 3 Oxygen Delivery Method Room Air Weight: 152 lb 12.485 oz Body Mass Index (BMI) 23.5 Finger Stick Blood Glucose 124 Intake and Output for Last 24 Hours 03/22/19 03/23/19 03/24/19 23:59 23:59 23:59 Intake Total 676.57 / 676.57 1485 / 1485 Output Total 4850 / 4850 5075 / 5075 300 / 300 Balance -4173.43 / -4173.43 -3590 / -3590 -300 / -300 General: Awake, Alert, Oriented x 3, Cooperative, No Acute Distress HEENT: Atraumatic, Normocephalic, PERRL, EOMI, Sclera Non Icteric Oral: Moist Mucosa Neck: Supple, Good ROM, No JVD Lungs: Clear to auscultation Cardiovascular: Regular Rhythm, Normal S1, Normal S2 Abdomen: Bowel Sounds Present, Soft, Non Tender Extremities: No edema Psych/Mental Status: Appropriate 03/24/19 05:55: WBC 8.1, RBC 5.14, Hgb 15.4, Hct 47.9, MCV 93.2, MCH 30.0, MCHC 32.2, Plt Count 185, MPV 9.2, Immature Gran % (Auto) 0.400, Neut % (Auto) 72.6 H , Lymph % (Auto) 15.5 L, [place] % (Auto) 9.6, Eos % (Auto) 1.5, Baso % (Auto) 0.4, Absolute Neuts (auto) 5.9, Nucleated RBC % 0 03/24/19 05:55: Sodium 139, Potassium 3.5, Chloride 107, Carbon Dioxide 25.0, Anion Gap 7, BUN 40 H, Creatinine 1.01, Est GFR (MDRD) Af Amer 100, Est GFR (MDRD) Non-Af 83, BUN/Creatinine Ratio 39.6 H, Glucose 118 H, Calcium 7.5 L, Magnesium 1.4 L, Total Bilirubin 1.40 H Rhythm: Electronic ventricular paced rhythm Medical Necessity - Tobacco Use Smoking Status: Current every day smoker Tobacco Use: Cigarettes Assessment/Plan 1. Acute on chronic systolic mediated CHF The patient appears to have chronic systolic mediated CHF. He has returned with concerns of acute on chronic systolic mediated CHF based upon his symptoms. This may be secondary to his noncompliance as he readily admits that since his last discharge, which was AGAINST MEDICAL ADVICE, he has not been taking any medications at home. Appears to have had improvement with respect to his IV diuresis. His IV diuretics will be altered to oral diuretics. 2. Cardiomyopathy The patient has a significant non-CAD related cardiomyopathy. His transthoracic echocardiogram was reviewed. His left ventricular systolic function remains low with an estimated LVEF of approximately 10%. He will continue my medical therapy as deemed appropriate. 3. Valvular heart disease He does have MR/TR. These findings may be a contributing factor to his acute on chronic symptoms especially without medical management, etc. 4. Status post biventricular ICD/PROVINCE ARCHIVIST therapy He will continue ICD interrogation as deemed appropriate. 5. Nonsustained wide-complex tachycardia Had episodes of nonsustained wide-complex tachycardia during his previous hospital admissions. He has been placed on antiarrhythmic therapy. He has a functional ICD in place. 6. Left ventricular thrombus His most recent echocardiogram suggest an underlying left ventricular thrombus. He has been placed on anticoagulant therapy. 7. Pulmonary emboli His chest CT scan suggest pulmonary emboli. Again he has been placed on anticoagulant therapy. 8. Noncompliance The patient left the hospital recently AGAINST MEDICAL ADVICE. He states since being out of the hospital he has not been on any medications. He states at this time he wants to follow medical advice, take medications, etc. in an attempt to improve his overall status. It may be prudent to have the patient evaluated by psychosocial rehabilitation counselor and/or establish a commitment connection with the community care network to assist with his out of hospital compliance issues/medication issues, etc. Comment: The above was discussed and reviewed with the patient at length. This note was generated using a voice recognition system and there may be incorrect words, spelling or punctuation that were not noted when reviewing the office note prior to saving.
--- NOTE | 2019-03-24 10:27 | PN_ITS ---
Patient Problems: Active and Suspected Problems Elevated troponin (Acute) CHF (congestive heart failure) (Acute) Subjective: Patient seen and examined. He feels well and has no complaints. Shortness of breath has improved markedly. Review of systems otherwise negative. Labs and vitals reviewed. Vitals/I&O's: Vital Signs Temp Pulse Resp BP Pulse Ox 97.6 F L 79 16 93/66 94 03/24/19 09:06 03/24/19 09:06 03/24/19 09:06 03/24/19 09:06 03/24/19 09:06 Oxygen Flow Rate (L/min) 3 Oxygen Delivery Method Room Air Weight: 152 lb 12.485 oz Body Mass Index (BMI) 23.5 Finger Stick Blood Glucose 124 Intake and Output for Last 24 Hours 03/22/19 03/23/19 03/24/19 23:59 23:59 23:59 Intake Total 676.57 / 676.57 1485 / 1485 Output Total 4850 / 4850 5075 / 5075 300 / 300 Balance -4173.43 / -4173.43 -3590 / -3590 -300 / -300 General: Alert, Cooperative, No apparent distress, HEENT: Atraumatic, PERRLA, EOMI, Normocephalic Oral: Dry Mucosa Neck: Supple, No JVD, Negative Carotid Bruits Lungs: - - clear to auscultation Cardiovascular: Regular rate, Regular Rhythm, Normal S1, No murmurs Abdomen: Bowel Sounds Present, Soft, Non Tender, Non-Distended, No Hepato- splenomegaly Extremities: No clubbing, No cyanosis, - - RLE moderate edema, with no tenderness Skin: No rashes, - - erythematous puncture bo over RUE, healing well Musculoskeletal: No Tenderness to Palpation of Joints or Extremities Lymphatic: No Cervical, Supraclavicular, or Inguinal Adenopathy Neurological: Cranial nerves II-XII grossly intact, Neuro grossly intact, Motor Exam 5/5 strength throughout Psych/Mental Status: - - normal affect Laboratory Results 03/24/19 05:55: WBC 8.1, RBC 5.14, Hgb 15.4, Hct 47.9, MCV 93.2, MCH 30.0, MCHC 32.2, RDW Std Deviation 58.3 H, RDW Coeff of Paulina 17.5 H, Plt Count 185, MPV 9.2, Immature Gran % (Auto) 0.400, Neut % (Auto) 72.6 H, Lymph % (Auto) 15.5 L, [place] % (Auto) 9.6, Eos % (Auto) 1.5, Baso % (Auto) 0.4, Absolute Neuts (auto) 5.9, Absolute Lymphs (auto) 1.25, Nucleated RBC % 0 03/24/19 05:55: Sodium 139, Potassium 3.5, Chloride 107, Carbon Dioxide 25.0, Anion Gap 7, BUN 40 H, Creatinine 1.01, Estim Creat Clear Calc 85.77, Est GFR (MDRD) Af Amer 100, Est GFR (MDRD) Non-Af 83, BUN/Creatinine Ratio 39.6 H, Glucose 118 H, Calcium 7.5 L, Magnesium 1.4 L, Total Bilirubin 1.40 H, AST 33, ALT 28, Alkaline Phosphatase 247 H, Total Protein 4.9 L, Albumin 1.9 L, Globulin 3.0, Albumin/Globulin Ratio 0.6 L Diagnostic Data Chest X-Ray 03/21/19 22:22 IMPRESSION: Development of diffuse interstitial edema since the previous study, follow-up recommended to assure resolution Electronically Signed: Khari Oates MD at 22:44 EDT , Service support , Chest CTA 03/22/19 01:16 IMPRESSION: Intraluminal filling defects within subsegmental branches of the left lower and upper lobe with small peripheral wedge-shaped left lower and upper lobe opacities likely due to pulmonary infarcts. 2.4 cm rounded filling defect within the right ventricular apex concerning for underlying thrombus formation. Electronically Signed: Boris Carlton, at 3:12 EDT Tel , Service support , Liver Ultrasound 03/22/19 11:36 IMPRESSION: Trace perihepatic ascites. Status post cholecystectomy. Otherwise unremarkable right upper quadrant abdominal ultrasound. Electronically Signed: Josue Jewell, at 19:15 EDT Tel , Service support , Current Medications Amiodarone HCl (Cordarone) 200 mg PO TID [facility] Last Admin: 03/24/19 09:12 Dose: 200 mg Documented by: Apixaban (Eliquis) 10 mg PO BID [facility] Last Admin: 03/24/19 09:13 Dose: 10 mg Documented by: Atorvastatin Calcium (Lipitor) 40 mg PO QHS [facility] Last Admin: 03/23/19 21:46 Dose: 40 mg Documented by: Calcium Carbonate (Tums) 1,000 mg PO BIDCM [facility] Last Admin: 03/24/19 09:13 Dose: 1,000 mg Documented by: Carvedilol (Coreg) 6.25 mg PO BID [facility] Last Admin: 03/24/19 09:13 Dose: 6.25 mg Documented by: Furosemide (Lasix) 20 mg PO BID@1000,1800 [facility] Sodium Chloride () 250 mls @ 15 mls/hr IV .[id number] PRN PRN Reason: SALINE FLUSH Magnesium Sulfate () 4 gm in 100 mls @ 25 mls/hr IV X1 ONE Stop: 03/24/19 12:29 Last Admin: 03/24/19 09:13 Dose: 25 mls/hr Documented by: Potassium Chloride () 10 meq in 100 mls @ 100 mls/hr IV BOLUS Q1H [facility] Stop: 03/24/19 12:29 Last Admin: 03/24/19 09:13 Dose: 100 mls/hr Documented by: Melatonin (Melatonin) 10 mg PO QHS PRN PRN Reason: SLEEP Last Admin: 03/23/19 21:46 Dose: 10 mg Documented by: Prochlorperazine Edisylate (Compazine Iv) 5 mg IV Q6H PRN PRN PRN Reason: NAUSEA/VOMITING Last Admin: 03/22/19 01:40 Dose: 5 mg Documented by: Sacubitril/Valsartan (Entresto 24 Mg-26 Mg Tablet) 1 each PO BID [facility] Last Admin: 03/24/19 09:12 Dose: 1 each Documented by: Sodium Chloride () 10 - 40 ml IV UD PRN PRN Reason: SALINE FLUSH Last Admin: 03/22/19 17:55 Dose: 10 ml Documented by: Spironolactone (Aldactone) 25 mg PO DAILY [facility] Last Admin: 03/24/19 09:12 Dose: 25 mg Documented by: Medical Necessity - Tobacco Use Smoking Status: Current every day smoker Tobacco Use: Cigarettes Assessment/Plan All Active Problems Elevated troponin (Acute) CHF (congestive heart failure) (Acute) 1. Acute on chronic heart failure with reduced EF * 2D echo (03/22/19): Severely dilated left ventricle with apical thrombus me asuring 2.3 x 1.5 cm. Estimated EF is 10% with severe global hypokinesis of the left ventricle. No RV thrombus seen * in cumulative negative balance by 7.92L since admission. * on IV lasix 20mg bid; will switch to PO lasix 20mg bid today * fluid restriction to 1500cc daily. * monitor intake and output chart * cardiology on board * on carvedilol and amiodarone. on Entresto as well as spironolactone 2. Right ventricular apical thrombus and PE * CT angiogram showed thrombosis of the subsegmental brances of the left lobe nad probable pulmonary infarcts, and right ventricular apex. * on eliquis 10mg bid 3. RLE swelling: Duplex of RLE was negative for DVT. 4. Elevated liver enzymes due to hepatic congestion from heart failure * Total bilirubin is down to 1.4 today. peaked at 5 during this admission. * enzymes are chronically elevated * Hepatitis screen done in October 2017 was negative. * I think this is all due to the severe heart failure with EF of around 10% leading to hepatic congestion. * improving * 5. Hypomagnesemia: Mg is 1.4 today. Will replace and monitor * * 6. Acute gastroenteritis: resolved. 7. Hypoglycemia: Resolved. 8. Valvular heart disease: has history of tricuspid and mitral valve regurgitation. Stable. Will monitor DVT prophylaxis: on apixaban Code Visit Inpatient E&M: 69253 Subs Hosp L2
--- NOTE | 2019-03-24 10:28 | CASEMGMT ---
ROSSANA called [employer] and they show no account information for patient so it looks as though he has never had Medicaid. ROSSANA spoke with patient and completed a Medicaid application as well as an application for help with Medicare expenses. Applications were faxed to [employer]. ROSSANA mentioned [facility] and he said there has to be another doctor out there. ROSSANA will give him a PCP list before discharge. While ROSSANA was in the room with patient he was asking about his cell phones. ROSSANA handed him his bag of belongings and his phones were not in the bag. Patient immediately began to panic. He said his house is run by his cell phone. He needs his cell phones so he can charge them. ROSSANA told him to just relax and ROSSANA will let his RN know as they may know something about his cell phones. Patient would really benefit from counseling for coping skills, however without Medicare B or Medicaid to help with co-pays patient will not go to appointments. Hopefully he will qualify for assistance with his Medicare expenses. Leta BO MSW
--- NOTE | 2019-03-24 14:55 | NURSING ---
Pt left AMA at approx 1440. Escorted to main entrance safely by this RN and pt planning on taking personal vehicle home which is in parking lot. MD and consultants to be notified.
--- NOTE | 2019-03-25 13:11 | DS.PCM_ITS ---
Discharge Date and Diagnosis Date of Admission: 03/21/19 Date of Discharge: 03/24/19 - Primary Discharge Diagnosis acute exacerbation of heart failure with reduced EF - Secondary Discharge Diagnosis Chronic Problems Medical non-compliance (Chronic) Cardiomyopathy (Chronic) Valvular disease (Chronic) Anxiety (Chronic) Coronary artery disease (Chronic) Status post placement of cardiac pacemaker (Chronic) S/P implantation of automatic cardioverter/defibrillator (AICD) (Chronic) Hospital Course and Treatment Imaging Results: Diagnostic Data Chest X-Ray 03/21/19 22:22 IMPRESSION: Development of diffuse interstitial edema since the previous study, follow-up recommended to assure resolution Electronically Signed: Khari Oates MD at 22:44 EDT , Service support , Chest CTA 03/22/19 01:16 IMPRESSION: Intraluminal filling defects within subsegmental branches of the left lower and upper lobe with small peripheral wedge-shaped left lower and upper lobe opacities likely due to pulmonary infarcts. 2.4 cm rounded filling defect within the right ventricular apex concerning for underlying thrombus formation. Electronically Signed: Boris Carlton, at 3:12 EDT Tel , Service support , Liver Ultrasound 03/22/19 11:36 IMPRESSION: Trace perihepatic ascites. Status post cholecystectomy. Otherwise unremarkable right upper quadrant abdominal ultrasound. Electronically Signed: Josue Jewell, at 19:15 EDT Tel , Service support , Operations: None Procedures: 2-D Echocardiogram Summary of Care Provided: The patient is a 48 year old M with a past medical history significant for heart failure with reduced ejection fraction with EF of less than 10% with ICD placed. He was admitted to the ED on 03/21/2019 with a complaint of progressively worsening shortness of breath for 3 weeks prior to admission. Shortness of breath was at rest and worsened with exertion, and he also had associated orthopnea. He also complained of swelling of his RLE. He admitted to being noncompliant with his meds. He also had nausea, vomiting and diarrhea. On admission in the ED, he was noted to be tachycardic. BNP was markedly elevated at 3678. CTA of the chest done was concerning for thrombosis of the branches of the pulmonary artery with associated pulmonary infarcts and thrombosis of the right ventricular apex. He was started on heparin drip and diuresis with lasix. He was admitted and managed for acute on chronic exacerbation of heart failure with reduced EF, as well as PE. cardiology was consulted. He was put on Entresto and carvedilol. He was transitioned to PO eliquis. He had duplex of his right lower extremity which ruled out to DVT. Of note, patient was also noted to have elevated liver enzymes with bilirubin trending all the way up to around 5. She did have a history of chronically elevated liver enzymes with bilirubin which is usually between 1 and 2. This was thought to be due to hepatic congestion from severe acute on chronic heart failure with reduced ejection fraction. Liver enzymes did trend down as patient was diuresed. Diarrhea resolved spontaneously. 2D echo done showed severely dilated left ventricle with apical thrombus measuring 2.3 x 1.5 cm with EF of 10% and severe global hypokinesia of the left ventricle. No right ventricular thrombus was seen. Pulmonology was consulted on account of patient being noted to be having apneic episodes during his sleep. He was recommended to have an outpatient polysomnography and follow- up with pulmonology. Patient gradually improved and stabilized. Patient signed out AMA on 03/24/2019 at 2:40 PM. Of note, physician hospitalist was not informed about patient signing out AMA. Patient was seen on day of discharge. He had no complaints and felt well. Review of systems was otherwise negative. Shortness of breath had resolved. Labs and vitals reviewed. o/e: Vital Signs Height 6 ft Weight: 152 lb 12.485 oz Weight in Pounds 152.8 lbs Pulse Ox 94 Temperature 97.6 F Pulse Rate 67 Respiratory Rate 16 Blood Pressure [BP] 151/115 Blood Pressure 93/66 Blood Pressure Position [BP] Semi-Fowlers Blood Pressure Position Semi-Fowlers [] General: Alert, Cooperative, No apparent distress, HEENT: Atraumatic, PERRLA, EOMI, Normocephalic Oral: Dry Mucosa Neck: Supple, No JVD, Negative Carotid Bruits Lungs: - - clear to auscultation Cardiovascular: Regular rate, Regular Rhythm, Normal S1, No murmurs Abdomen: Bowel Sounds Present, Soft, Non Tender, Non-Distended, No Hepato- splenomegaly Extremities: No clubbing, No cyanosis, - - RLE moderate edema, with no tenderness Skin: No rashes, - - erythematous puncture bo over RUE, healing well Musculoskeletal: No Tenderness to Palpation of Joints or Extremities Lymphatic: No Cervical, Supraclavicular, or Inguinal Adenopathy Neurological: Cranial nerves II-XII grossly intact, Neuro grossly intact, Motor Exam 5/5 strength throughout Psych/Mental Status: - - normal affect Patient signed out AMA at 2:40pm on 03/24/19. - Physical Exam Vital Signs Temp Pulse Resp BP Pulse Ox 97.6 F L 67 16 93/66 94 03/24/19 09:06 03/24/19 11:13 03/24/19 09:06 03/24/19 09:06 03/24/19 09:06 Oxygen Flow Rate (L/min) 3 Oxygen Delivery Method Room Air Weight: 152 lb 12.485 oz Body Mass Index (BMI) 23.5 Finger Stick Blood Glucose 124 Intake and Output for Last 24 Hours 03/23/19 03/24/19 03/25/19 23:59 23:59 23:59 Intake Total 1485 / 1485 600.00 / 600.00 Output Total 5075 / 5075 1700 / 1700 Balance -3590 / -3590 -1100.00 / -1100.00 Home Medications: Medications to take at Discharge Atorvastatin 40 mg PO QHS 03/22/19 Carvedilol [Coreg (Beta Maik)] 6.25 mg PO DAILY 03/22/19 Furosemide [Lasix] 40 mg PO BID 03/22/19 Lisinopril 20 mg PO DAILY 03/22/19 Spironolactone 25 mg PO DAILY 03/22/19 Primary Care Physician: Care Physician,No Primary [Primary Care Provider] - Disposition: Against Medical Advice Minutes spent on discharge:: 35 Patient Condition:: Fair Medical Necessity - Tobacco Use Smoking Status: Current every day smoker Tobacco Use: Cigarettes Meaningful Use Info Meaningful Use Diagnoses (Choose all that apply): CHF, VTE - CHF RADHA/ARB ordered at discharge?: Yes Documented LVEF (%): 10 - left AMA - VTE Anticoag overlap given w/in hospital stay or rx'd at dc?: Yes Pt receive overlap for 5 days?: No Reason overlap not ordered, prescribed, or given for 5 days: Treatment Not Indicated Code Visit Inpatient E&M: 92951 Disch Hosp
== END 2019-03-24 13:54 | disposition left against medical advice (07) | DRG 291 ==
LOC: ED 23:54 → PCU 03-22 01:23
PROVIDERS: Admitting Provider Hospitalist; Emergency Provider Emergency Medicine; Referring Provider Hospitalist; Visit Provider Student in an Organized Health Care Education/Training Program
DX: I50.23 Acute on chronic systolic (congestive) heart failure (principal); I26.99 Other pulmonary embolism without acute cor pulmonale; I42.9 Cardiomyopathy, unspecified; I51.3 Intracardiac thrombosis, not elsewhere classified; F17.210 Nicotine dependence, cigarettes, uncomplicated; K52.9 Noninfective gastroenteritis and colitis, unspecified; E83.42 Hypomagnesemia; E16.2 Hypoglycemia, unspecified; I25.10 Atherosclerotic heart disease of native coronary artery without angina pectoris; F41.9 Anxiety disorder, unspecified; I08.1 Rheumatic disorders of both mitral and tricuspid valves; Z95.810 Presence of automatic (implantable) cardiac defibrillator; Z91.14 Patient's other noncompliance with medication regimen; Z91.19 Patient's noncompliance with other medical treatment and regimen
CPT/HCPCS: 36415; 71045; 71270; 71275; 76705; 80048; 80053; 80076; 82962; 83735; 83880; 84484; 85025; 85610; 85730; 93005; 93308; 93971; 94002; 94003; 97802; 99285; 99406; J7030; J7040; Q9957; Q9967; A4216; C8924; J1940

== ENCOUNTER 2019-04-07 22:51 | Inpatient (IN) | payer MEDICARE, SELFPAY ==
[2019-03-22 01:17] VITALS: BMI 23.5
[2019-04-07 22:51] VITALS: BP 129/95; PULSE 98; RESP 22; TEMP 36.4; O2SAT 98; BMI 24.4
--- NOTE | 2019-04-07 22:56 | ED.RN ---
PTs shortness of breath is easily improved by talking with RN.
[2019-04-07 22:57] VITALS: TEMP 36.4
--- NOTE | 2019-04-07 23:05 | ED.DCSUM_ITS ---
History of Present Illness Chief Complaint: Cough Informant: Patient Onset: Month(s) Narrative: Presents to the ED reports 5-week history of cough, exertional dyspnea. Reports seen at least 4 5 times in the emergency department from [place] to here. Last seen 2 weeks ago. Reports he was admitted every time. 2 weeks ago reports admitted here with reported GI bleed. He was not transfused. Reports he left AMA due to having to take care of his pets. Reports history of congestive heart failure atrial fibrillation with pacemaker. States he supposed be on Eliquis. Reports when he left AMA no medications were given to him. Reports right leg swelling over 3 days. Denies any current rectal bleeding since leaving AMA. States he supposed to follow-up at [facility] since he is been there in the past. Prior similar symptoms: Yes Past Medical History - Allergies and Home Meds Allergies/Adverse Reactions: Allergies No Known Allergies Allergy (Verified 03/21/19 22:10) Surgical History: cholecystectomy, - - ICD placement Smoking Status: Current every day smoker - Family History Maternal Family History: Reports: - - Patient denies knowledge of maternal medical history Paternal Family History: Reports: Cancer, - - stomach cancer Review of Systems All systems negative except as indicated General: Denies: Chills, Fever, Sweats Eyes: Denies: Visual changes - bilaterally, Diplopia ENT: Denies: Rhinorrhea, Sore throat Cardiovascular: Denies: Chest pain, Palpitations Respiratory: Reports: Dyspnea, Cough, Dyspnea on exertion Gastrointestinal: Denies: Abdominal pain, Nausea, Vomiting, Diarrhea, Melena, Hematochezia Genitourinary: Denies: Dysuria, Hematuria, Frequency Musculoskeletal: Denies: Back pain, Extremity Pain Skin: Denies: Rash, Wounds Neurological: Denies: Headache, Weakness, Numbness Physical Exam Vital Signs/Narrative: Vital Signs Temp Pulse Resp BP Pulse Ox 04/07/19 22:57 97.6 F L 04/07/19 22:51 97.6 F L 98 22 H 129/95 H 98 Inital Vital Signs reviewed: Yes General: Well nourished, Well developed, No Acute Distress Head: Normocephalic, Atraumatic Eyes: Perrl, EOMI, Pale conjunctiva ENT: Moist mucous membranes, No rhinorrhea Neck: Supple, Nontender Cardiovascular: Regular rate, Regular rhythm, No murmurs Respiratory: No distress, CTA bilaterally, Chest nontender Abdomen: Soft, Nontender, Nondistended, Normal bowel sounds Back: Nontender, Normal Inspection Extremities: Nontender, Edema, - - 2+ right lower extremity asymmetric swelling, pulses are intact. Skin: Normal color, No rash Neurological: Alert, Oriented x3, Cranial nerves II-XII grossly intact, Normal Strength, Normal Sensation Psychological: Normal affect, Normal Mood Diagnostic/Tx/Re-eval Clinical Impression(s) from Imaging Studies Chest CTA 04/07/19 23:07 IMPRESSION: Pulmonary embolism in the segmental branch of the left lower lobar pulmonary artery with the presence of a pulmonary infarct in the left lower lobe. Cardiomegaly Mild ascitic fluid around the liver. Electronically Signed: Osbaldo Arvizu MD at 0:51 EDT Tel , Service support , ADDENDUM: 04/08/19 0121 IMPRESSION: Pulmonary embolism in the segmental branch of the left lower lobar pulmonary artery with the presence of a pulmonary infarct in the left lower lobe. Cardiomegaly Mild ascitic fluid around the liver. N.B. : The above information has been verbally conveyed by Osbaldo Arvizu MD to Dr. Ana Paula MD, on 04/08/2019 01:14:56 (ET). Electronically Signed: Osbaldo Arvizu MD at 0:51 EDT Tel , Service support , ADDENDUM: 04/08/19 0122 Abnormal Lab Results 04/07/19 04/07/19 04/07/19 23:30 23:30 23:30 WBC 8.8 RBC 5.32 Hgb 15.7 Hct 50.4 MCV 94.7 H MCH 29.5 MCHC 31.2 L RDW Std Deviation 61.5 H RDW Coeff of Paulina 18.3 H Plt Count 185 MPV 10.5 Immature Gran % (Auto) 0.200 Neut % (Auto) 73.1 H Lymph % (Auto) 19.7 [place] % (Auto) 5.8 Eos % (Auto) 0.6 Baso % (Auto) 0.6 Absolute Neuts (auto) 6.4 Absolute Lymphs (auto) 1.73 Nucleated RBC % 0 PT 18.7 H INR 1.6 APTT 34.9 Sodium 139 Potassium 4.2 Chloride 104 Carbon Dioxide 29.0 Anion Gap 6 BUN 40 H Creatinine 1.35 H Estim Creat Clear Calc 71.85 Est GFR (MDRD) Af Amer 72 Est GFR (MDRD) Non-Af 59 L BUN/Creatinine Ratio 29.6 H Glucose 125 H Calcium 8.6 Total Bilirubin 3.40 H AST 51 H ALT 29 Alkaline Phosphatase 426 H Troponin I 0.409 H B-Natriuretic Peptide Total Protein 6.0 L Albumin 2.7 L Globulin 3.3 Albumin/Globulin Ratio 0.8 L Lipase 04/07/19 04/07/19 23:30 23:30 WBC RBC Hgb Hct MCV MCH MCHC RDW Std Deviation RDW Coeff of Paulina Plt Count MPV Immature Gran % (Auto) Neut % (Auto) Lymph % (Auto) [place] % (Auto) Eos % (Auto) Baso % (Auto) Absolute Neuts (auto) Absolute Lymphs (auto) Nucleated RBC % PT INR APTT Sodium Potassium Chloride Carbon Dioxide Anion Gap BUN Creatinine Estim Creat Clear Calc Est GFR (MDRD) Af Amer Est GFR (MDRD) Non-Af BUN/Creatinine Ratio Glucose Calcium Total Bilirubin AST ALT Alkaline Phosphatase Troponin I B-Natriuretic Peptide 4691.9 H Total Protein Albumin Globulin Albumin/Globulin Ratio Lipase 106 - EKG Initial EKG Interpretation: Paced - Patient examined no ST or T wave changes. - Medical Decision Making Patient vitals stable concerns of exertional dyspnea. Reviewing records, history of CHF with AICD with 10% ejection fraction. He did look pale on exam, however with labs hemoglobin is in the normal levels. Initial order for ultrasound right lower leg due to him stating his 3 days of swelling however ultrasound was not available due to time the evening. In addition looking at records he has had leg swelling when he was admitted and there was an inpatient ultrasound performed that was negative for DVT. He had a CTA of the chest during his last hospitalization noting left upper and lower PE with infarct and noted apical thrombus in his heart this was confirmed on echocardiogram. He supposed be on anticoagulation medications. But he reported worsening symptoms I did re-CT his chest to rule out any extension of infarct or embolism due to not being on anticoagulation medicines. This was discussed with radiology states it improving, his troponin was 0.4, slightly lower than his last drawn in the hospital. He has no chest pains. He was given aspirin start heparin drip for maintaining stabilization. Vitals remained stable. He did report abdominal spasms, lipase was added which was negative he has slightly elevated ALP, from records noted chronic elevations of his liver enzymes there was an ultrasound performed while he is in the hospital on his last visit. BNP returned at over 4000, with his heart failure history and EF of 10% being noncompliant with medications, he was given Lasix 40 mg IV in the ED. I discussed with hospitalist Dr. Vega for admission to PCU. ED Disposition - Plan for ED Patient: Disposition: Acute Care Hospital [facility] Diagnosis: CHF (congestive heart failure), Elevated troponin, Pulmonary embolism and infarction
--- NOTE | 2019-04-07 23:05 | EKG12_ITS ---
Test Reason : COUGH Blood Pressure : / mmHG Vent. Rate : 096 BPM Atrial Rate : 096 BPM P-R Int : 156 ms QRS Dur : 158 ms QT Int : 436 ms P-R-T Axes : 056 249 031 degrees QTc Int : 550 ms Atrial-sensed ventricular-paced rhythm Abnormal ECG Confirmed by AJ PABLO, KEVIN ([id number]), makeup editor JERRY CORTEZ ([id number]) on 04/14/2019 9:32:10 A M Referred By: Zaheer Vega Confirmed By:GEOVANNI ROCHA MD
--- NOTE | 2019-04-07 23:07 | CT_ITS ---
We are attempting to reach an attending provider to discuss findings. An addendum with communication details will be sent when the communication is complete. STUDY: CTA CHEST REASON FOR EXAM: Male, 48 years old. Chest pain RADIATION DOSAGE (If Supplied By Facility): CTDIvol = ( 14.88 ) mGy, DLP = ( 391.60 ) mGycm TECHNIQUE: The examination was performed with the intravenous administration of IV 100mL [id number]-370 100ML. Post-processing of the angiographic images was performed, with multiplanar reformation and 3D reconstruction. Individualized dose optimization techniques were used for this CT. COMPARISON: None. FINDINGS: TRACHEA, THYROID, ESOPHAGUS: No tracheomalacia,stricture or wall thickening. Thyroid and esophagus are normal CARDIOVASCULAR SYSTEM: The thoracic aorta is normal with no focal aneurysm or dissection. There are no abnormal calcifications/metallic densities at the aortic root. The pulmonary trunk and the left and right pulmonary arteries are normal and do not show any abnormal or persistent filling defects in them. There is a 7 mm filling defect in the posterior segmental branch of the left lower lobe. This is consistent with pulmonary embolism . The heart is enlarged with no demonstration of any right ventricular strain. No developmental vascular anomalies are seen. HEIDI AND LYMPH NODES: No hilar masses and no mediastinal, hilar, axillary or supraclavicular adenopathy LUNGS, LOW-ATTENUATION: No traction bronchiectasis, honeycombing,emphysema, lung cysts or cavitations LUNGS, HIGH ATTENUATION: There is a 3.8 x 2.5 cm wedge-shaped mass/density in the left lower lobe. Most likely represents a pulmonary infarct because of the presence of a filling defect in the left lower lobe segment branch pulmonary artery directed towards it. LUNGS, MOSAIC/CRAZY PAVING: Not evident PLEURA AND CHEST WALL: No plural effusions, pneumothoraces,rib fractures or any osteolytic/osteoblastic changes . The soft tissue chest wall including the breasts are normal UPPER ABDOMEN: There is mild ascites around the liver . Previous cholecystectomy CT/CTA Chest W/WO Contrast IMPRESSION: Pulmonary embolism in the segmental branch of the left lower lobar pulmonary artery with the presence of a pulmonary infarct in the left lower lobe. Cardiomegaly Mild ascitic fluid around the liver. Electronically Signed: Osbaldo Arvizu MD at 0:51 EDT Tel , Service support ,
[2019-04-07 23:39] LABS: Absolute Lymphocyte Count 1.73 X10^3/uL (0.83-4.51); Absolute Neutrophil Count 6.4 X10^3/uL (2.0-7.7); Basophil# 0.05 X10^3/uL; Basophil% 0.6 % (0-1); Eosinophil# 0.05 X10^3/uL; Eosinophils% 0.6 % (0-5); Hematocrit 50.4 % (40-54); Hemoglobin 15.7 g/dL (13.0-16.5); Lymphocyte # 1.73 X10^3/ul (4.0); Lymphocyte % 19.7 % (19-41); Mean Corp Hgb Conc 31.2 g/dL (32-36); Mean Corpuscular Hgb 29.5 pg (27.0-32.0); Mean Corpuscular Volume 94.7 fL (80-94); Mean Platelet Vol. 10.5 fl (6.2-12.0); Monocyte# 0.51 X10^3/uL; Monocyte% 5.8 % (0-10); NRBC Flagged by Analyzer 0 % (0-5); Neutrophil # 6.43 X10^3/uL (2.7-7.7); Neutrophil % 73.1 % (47-70); Platelet Count 185 K/mm3 (150-450); RBC Distribution Width CV 18.3 % (11.6-14.6); RBC Distribution Width SD 61.5 fl (35.1-43.9); Red Blood Count 5.32 M/mm3 (4.6-6.2); White Blood Count 8.8 K/mm3 (4.4-11.0)
[2019-04-07 23:46] LABS: International Normalized Ratio 1.6; Partial Thromboplast Time 34.9 Seconds (24.1-36.2); Prothrombin Time (Protime)PT. 18.7 SECONDS (11.7-14.9)
[2019-04-07 23:53] VITALS: BP 129/76; PULSE 96; RESP 19; TEMP 36.3; O2SAT 97
[2019-04-07 23:59] LABS: ALB/GLOB Ratio 0.8 RATIO (0.9-2.4); AST(SGOT) 51 U/L (15-37); Alanine Aminotransfer ALT/SGPT 29 U/L (16-61); Albumin, Serum 2.7 g/dL (3.2-5.0); Alkaline Phosphatase 426 U/L (45-117); Anion Gap 6 (5-15); BUN 40 mg/dL (7-18); BUN/Creat Ratio 29.6 RATIO (10-20); Calcium,Total 8.6 mg/dL (8.5-10.1); Chloride 104 mmol/L (98-107); Creatinine, Serum 1.35 mg/dL (0.70-1.30); EST Glomerular Filtration Rate 59 mL/min (>60); Est Glom Filt Rate - Afr Amer 72 mL/min (>60); Estimated Creatinine Clearance 71.85 ml/min; Globulin 3.3 g/dL (2.2-4.2); Glucose 125 mg/dL (74-106); Potassium 4.2 mmol/L (3.5-5.1); Sodium Level 139 mmol/L (136-145)
[2019-04-08] VITALS (16 sets, daily range): BP systolic 97–138; BP diastolic 72–105; PULSE 71–97; RESP 18–28; TEMP 36.2–36.7; O2SAT 93–100; BMI 23.6
[2019-04-08 00:11] LABS: BNP,B-Type NATRIURETIC PEPTIDE 4691.9 pg/mL (0-100)
[2019-04-08 00:26] LABS: Lipase 106 U/L (73-393)
[2019-04-08] MEDS: Hyoscyamine Sulfate 0.125 MG Tablet SUBLINGUAL (00:41)
[2019-04-08] MEDS: Ondansetron 4 MG/2 ML Vial IV ×3 (00:41→22:01)
[2019-04-08] MEDS: Furosemide 40 MG/4 ML Vial IV ×2 (00:41→08:42)
[2019-04-08] MEDS: Heparin Injection (Vial) 5,000 UNIT/ML VIAL 4000 UNIT IV (00:42)
[2019-04-08] MEDS: HEPARIN/D5w 25,000 UNITS 25,000 UNITS/250 ML IV.SOLN. 10 UNITS IV (00:43)
[2019-04-08] MEDS: Aspirin 325 MG Tablet PO (00:44)
--- NOTE | 2019-04-08 02:20 | PCM.HP.STD ---
Problem List (1) Elevated troponin Status: Acute (2) Pulmonary embolism and infarction Status: Acute (3) Medical non-compliance Status: Chronic (4) Cardiomyopathy Status: Chronic Qualifiers: Cardiomyopathy type: dilated Qualified Code(s): I42.0 - Dilated cardiomyopathy (5) Valvular disease Status: Chronic (6) CHF (congestive heart failure) Status: Acute Qualifiers: Heart failure type: systolic Heart failure chronicity: acute on chronic Qualified Code(s): I50.23 - Acute on chronic systolic (congestive) heart failure (7) Anxiety Status: Chronic (8) Coronary artery disease Status: Chronic (9) Status post placement of cardiac pacemaker Status: Chronic (10) S/P implantation of automatic cardioverter/defibrillator (AICD) Status: Chronic (11) Acute on chronic systolic heart failure Status: Acute History of Present Illness Date of Admission: 04/08/19 Chief Complaint: Shortness of breath ongoing worse for 2 weeks The patient is a 48 year old M with history of chronic heart failure, EF 10%, signed AMA about 2 weeks ago when he was admitted admitted for acute exacerbation of heart failure, right ventricular apical thrombus and PE with lower extremity swelling. Patient has similar symptom complex but is more short of breath. He also complained of upper abdominal pain from right to left with radiation to jaws. Complaint of cough with clear sputum. No fever or chills. In ED, no fever or chills. Heart rate 95/min respiratory rate 24 pulse ox 97% on room air. Basic labs shows elevated BUN/creatinine 40/1.35, troponin 0.4, BNP 4691, low albumin 2.7, AST 51 ALT 29. EKG shows atrial sensed ventricular paced rhythm at 96 bpm. Patient had CTA chest done shows pulmonary embolism and segmental branches of left lower lobe with presence of pulmonary infarct in left lower lobe similar to previous one. Mild ascites around the liver. During previous admission, he was found to have thrombosis of branches of pulmonary artery with associated pulmonary infarct and thrombosis of the right ventricular apex and is started on heparin drip and transition to p.o. Eliquis. He was also diuresed with Lasix. Right lower extremity was swollen similar to present and DVT was ruled out. Patient LFT are elevated and bilirubin was high, Zenith 5 secondary to hepatic congestion from acute on chronic heart failure with reduced EF. Echo was done severely dilated left ventricle with apical thrombus measuring 2.3 x 1.5 cm with EF of 10% and severe global hypokinesia of the left ventricle. No right ventricular thrombus was seen. Patient was seen by glass designer at that time. Past Medical History Past Medical History (Chronic Problems): Chronic Problems Medical non-compliance (Chronic) Cardiomyopathy (Chronic) Valvular disease (Chronic) Anxiety (Chronic) Coronary artery disease (Chronic) Status post placement of cardiac pacemaker (Chronic) S/P implantation of automatic cardioverter/defibrillator (AICD) (Chronic) Allergies No Known Allergies Allergy (Verified 03/21/19 22:10) Home Medications: Ambulatory Orders Medication Instructions Recorded Atorvastatin 40 mg PO QHS 03/22/19 Carvedilol [Coreg (Beta Maik)] 6.25 mg PO DAILY 03/22/19 Furosemide [Lasix] 40 mg PO BID 03/22/19 Lisinopril 20 mg PO DAILY 03/22/19 Spironolactone 25 mg PO DAILY 03/22/19 Surgical History: cholecystectomy, - - ICD placement Psychiatric History: Anxiety Smoking Status: Current every day smoker - *Family History Maternal History Items: - - Patient denies knowledge of maternal medical history Paternal History Items: Cancer, - - stomach cancer Review of Systems Constitutional: Reports: Weakness HEENT: Denies: Head Aches, Nasal Congestion, Sinus Congestion, Sinus Drainage, Sore Throat Cardiovascular: Reports: Edema - Right lower extremity much swollen/edema than left lower extremity. Denies: Chest Pain, Palpitations Respiratory: Reports: Cough, Shortness of breath at rest, Shortness of breath upon exertion, Wheezing. Denies: Sputum production Gastrointestinal: Reports: Abdominal Pain. Denies: Nausea, Vomiting Genitourinary: Denies: Dysuria, Frequency, Incontinence, Retention Musculoskeletal: Denies: Joint Pain, Joint Tenderness Skin: Denies: Rash, Wounds Neurological: Denies: Focal weakness, Numbness, Tingling Psychiatric: Denies: Anxiety, Depression, Homicidal Ideations, Suicidal Ideations Hematologic/ Lymphatic: Denies: Easy Bruising, Easy Bleeding VTE Information - Inpt Only VTE Present on Admission: Yes VTE Mechan Device Prophylaxis: None VTE Pharm Prophylaxis ordered?: Yes Patient Problems: Active and Suspected Problems Elevated troponin (Acute) Pulmonary embolism and infarction (Acute) Acute on chronic systolic heart failure (Acute) CHF (congestive heart failure) (Acute) - Physical Exam General: Alert, Oriented x3, Cooperative HEENT: Atraumatic, PERRLA, EOMI, Normocephalic Neck: Supple, No JVD, Negative Carotid Bruits Lungs: Diminished - Air entry diminished in bilateral lung bases., Rhonchi, Short of Breath Cardiovascular: Regular rate, No murmurs Abdomen: Bowel Sounds Present, Soft, Non Tender, Non-Distended Extremities: Capillary Refill Less than 3 Seconds, Edema - Right lower extremity edematous more than left lower extremity Skin: No rashes, No breakdown Musculoskeletal: No Tenderness to Palpation of Joints or Extremities Neurological: Cranial nerves II-XII grossly intact, Deep Tendon Reflexes 2+/4 and Symmetrical, Neuro grossly intact Psych/Mental Status: Normal Affect, Appropriate Vital Signs Temp Pulse Resp BP Pulse Ox 97.8 F 95 24 H 135/105 H 99 04/08/19 01:06 04/08/19 01:06 04/08/19 01:06 04/08/19 01:06 04/08/19 01:06 Oxygen Flow Rate (L/min) 2 Oxygen Delivery Method Nasal Cannula Weight: 180 lb Body Mass Index (BMI) 24.4 Finger Stick Blood Glucose 124 Laboratory Tests Past 24 Hrs 04/07/19 04/07/19 04/07/19 23:30 23:30 23:30 WBC 8.8 RBC 5.32 Hgb 15.7 Hct 50.4 MCV 94.7 H MCH 29.5 MCHC 31.2 L RDW Std Deviation 61.5 H RDW Coeff of Paulina 18.3 H Plt Count 185 MPV 10.5 Immature Gran % (Auto) 0.200 Neut % (Auto) 73.1 H Lymph % (Auto) 19.7 [place] % (Auto) 5.8 Eos % (Auto) 0.6 Baso % (Auto) 0.6 Absolute Neuts (auto) 6.4 Absolute Lymphs (auto) 1.73 Nucleated RBC % 0 PT 18.7 H INR 1.6 APTT 34.9 Sodium 139 Potassium 4.2 Chloride 104 Carbon Dioxide 29.0 Anion Gap 6 BUN 40 H Creatinine 1.35 H Estim Creat Clear Calc 71.85 Est GFR (MDRD) Af Amer 72 Est GFR (MDRD) Non-Af 59 L BUN/Creatinine Ratio 29.6 H Glucose 125 H Calcium 8.6 Total Bilirubin 3.40 H AST 51 H ALT 29 Alkaline Phosphatase 426 H Troponin I 0.409 H B-Natriuretic Peptide Total Protein 6.0 L Albumin 2.7 L Globulin 3.3 Albumin/Globulin Ratio 0.8 L Lipase 04/07/19 04/07/19 23:30 23:30 WBC RBC Hgb Hct MCV MCH MCHC RDW Std Deviation RDW Coeff of Paulina Plt Count MPV Immature Gran % (Auto) Neut % (Auto) Lymph % (Auto) [place] % (Auto) Eos % (Auto) Baso % (Auto) Absolute Neuts (auto) Absolute Lymphs (auto) Nucleated RBC % PT INR APTT Sodium Potassium Chloride Carbon Dioxide Anion Gap BUN Creatinine Estim Creat Clear Calc Est GFR (MDRD) Af Amer Est GFR (MDRD) Non-Af BUN/Creatinine Ratio Glucose Calcium Total Bilirubin AST ALT Alkaline Phosphatase Troponin I B-Natriuretic Peptide 4691.9 H Total Protein Albumin Globulin Albumin/Globulin Ratio Lipase 106 Assessment/Plan All Active Problems Elevated troponin (Acute) Pulmonary embolism and infarction (Acute) Acute on chronic systolic heart failure (Acute) CHF (congestive heart failure) (Acute) The patient is a 48 year old M with history of chronic heart failure, EF 10%, signed AMA about 2 weeks ago when he was admitted admitted for acute exacerbation of heart failure, right ventricular apical thrombus and PE with lower extremity swelling. Patient has similar symptom complex but is more short of breath. He also complained of upper abdominal pain from right to left with radiation to jaws. Complaint of cough with clear sputum. No fever or chills. In ED, no fever or chills. Heart rate 95/min respiratory rate 24 pulse ox 97% on room air. Basic labs shows elevated BUN/creatinine 40/1.35, troponin 0.4, BNP 4691, low albumin 2.7, AST 51 ALT 29. EKG shows atrial sensed ventricular paced rhythm at 96 bpm. Patient had CTA chest done shows pulmonary embolism and segmental branches of left lower lobe with presence of pulmonary infarct in left lower lobe similar to previous one. Mild ascites around the liver. During previous admission, he was found to have thrombosis of branches of pulmonary artery with associated pulmonary infarct and thrombosis of the right ventricular apex and is started on heparin drip and transition to p.o. Eliquis. He was also diuresed with Lasix. Right lower extremity was swollen similar to present and DVT was ruled out. 1. Acute on chronic systolic heart failure with AICD: Echo on 03/22/2019 severely dilated left ventricle with apical thrombus measuring 2.3 x 1.5 cm with EF of 10% and severe global hypokinesia of the left ventricle. No right ventricular thrombus was seen. On IV Lasix 40 mg twice daily and titrate as per intake and output, daily weight measurement, kidney function. Daily BMP for electrolyte and kidney function monitoring. Continue home dose of Coreg, spironolactone. Lisinopril decreased to 10 mg daily secondary to elevated BUN/creatinine 140/1.35. Hold lisinopril if worsening of kidney function or hypotension. 2. Segmental and subsegmental of left lower PE with presence of pulmonary infarct in left lower lobe: Similar to previous CTA done on previous admission. On Eliquis 10 mg twice daily. Right lower extremity edema: At that time venous Doppler ruled out DVT. 3. Elevated liver enzymes with mild ascites secondary to hepatic congestion from heart failure: During previous visit, patient LFT are elevated and bilirubin was high, 2 5 secondary to hepatic congestion from acute on chronic heart failure with reduced EF. No albumin 2.7. AST 51, ALT 29. Total bili 3.4. 4. Mild prerenal azotemia: Creatinine 1.35, BUN 40. Baseline BUN/creatinine is 40/1.0. Does not meet the criteria for acute kidney injury. Valvular heart disease: Patient has history of tricuspid and mitral valve regurgitation. Is stable. Nicotine dependence: Patient is a everyday smoker, smokes cigarettes. DVT prophylaxis: On Eliquis 10 mg twice daily Clinical Impression(s) from Imaging Studies Chest CTA 04/07/19 23:07 IMPRESSION: Pulmonary embolism in the segmental branch of the left lower lobar pulmonary artery with the presence of a pulmonary infarct in the left lower lobe. Cardiomegaly Mild ascitic fluid around the liver. Laboratory Results 04/07/19 23:30: WBC 8.8, RBC 5.32, Hgb 15.7, Hct 50.4, MCV 94.7 H, MCH 29.5, MCHC 31.2 L, RDW Std Deviation 61.5 H, RDW Coeff of Paulina 18.3 H, Plt Count 185, MPV 10.5, Immature Gran % (Auto) 0.200, Neut % (Auto) 73.1 H, Lymph % (Auto) 19.7, [place] % (Auto) 5.8, Eos % (Auto) 0.6, Baso % (Auto) 0.6, Absolute Neuts (auto) 6.4, Absolute Lymphs (auto) 1.73, Nucleated RBC % 0 04/07/19 23:30: PT 18.7 H, INR 1.6, APTT 34.9 04/07/19 23:30: Sodium 139, Potassium 4.2, Chloride 104, Carbon Dioxide 29.0, Anion Gap 6, BUN 40 H, Creatinine 1.35 H, Estim Creat Clear Calc 71.85, Est GFR (MDRD) Af Amer 72, Est GFR (MDRD) Non-Af 59 L, BUN/Creatinine Ratio 29.6 H, Glucose 125 H, Calcium 8.6, Total Bilirubin 3.40 H, AST 51 H, ALT 29, Alkaline Phosphatase 426 H, Troponin I 0.409 H, Total Protein 6.0 L, Albumin 2.7 L, Globulin 3.3, Albumin/Globulin Ratio 0.8 L 04/07/19 23:30: B-Natriuretic Peptide 4691.9 H 04/07/19 23:30: Lipase 106 Code Visit Inpatient E&M: 31299 Init Hosp L3
[2019-04-08] MEDS: 0.9% NaCl Peripheral Flush Adult/Peds IV ×5 (03:14→14:23)
[2019-04-08] MEDS: Morphine 2 MG/ML Syringe IV ×3 (03:14→22:02)
[2019-04-08 03:15] LABS: Magnesium 1.8 mg/dL (1.6-2.6)
[2019-04-08] MEDS: APIXABAN 5 MG TABLET 10 MG PO ×3 (04:00→22:00)
[2019-04-08] MEDS: oxyCODONE 5 MG Tablet PO (04:57)
[2019-04-08] MEDS: Mag Hydrox/Al Hydrox/Simeth 30 ML UDC PO (05:43)
[2019-04-08 06:40] LABS: Absolute Lymphocyte Count 2.17 X10^3/uL (0.83-4.51); Absolute Neutrophil Count 7.1 X10^3/uL (2.0-7.7); Basophil# 0.05 X10^3/uL; Basophil% 0.5 % (0-1); Eosinophil# 0.08 X10^3/uL; Eosinophils% 0.8 % (0-5); Hematocrit 52.8 % (40-54); Hemoglobin 16.7 g/dL (13.0-16.5); Lymphocyte # 2.17 X10^3/ul (4.0); Lymphocyte % 21.5 % (19-41); Mean Corp Hgb Conc 31.6 g/dL (32-36); Mean Corpuscular Hgb 30.4 pg (27.0-32.0); Mean Corpuscular Volume 96.2 fL (80-94); Mean Platelet Vol. 10.6 fl (6.2-12.0); Monocyte# 0.63 X10^3/uL; Monocyte% 6.2 % (0-10); NRBC Flagged by Analyzer 0 % (0-5); Neutrophil # 7.13 X10^3/uL (2.7-7.7); Neutrophil % 70.6 % (47-70); Platelet Count 174 K/mm3 (150-450); RBC Distribution Width CV 18.5 % (11.6-14.6); RBC Distribution Width SD 62.2 fl (35.1-43.9); Red Blood Count 5.49 M/mm3 (4.6-6.2); White Blood Count 10.1 K/mm3 (4.4-11.0)
[2019-04-08 07:30] LABS: Anion Gap 13 (5-15); BUN 41 mg/dL (7-18); BUN/Creat Ratio 29.3 RATIO (10-20); Calcium,Total 8.3 mg/dL (8.5-10.1); Chloride 105 mmol/L (98-107); Cholesterol 118 mg/dL (200); EST Glomerular Filtration Rate 57 mL/min (>60); Est Glom Filt Rate - Afr Amer 69 mL/min (>60); Estimated Creatinine Clearance 69.29 ml/min; Glucose 100 mg/dL (74-106); High Density Lipoprotein 19 mg/dL; Sodium Level 136 mmol/L (136-145); Triglycerides 83 mg/dL; Very Low Density Lipoprotein 17 mg/dL (5-40)
[2019-04-08] MEDS: Carvedilol 6.25 MG Tablet PO (08:41)
[2019-04-08] MEDS: Spironolactone 25 MG Tablet PO (08:41)
[2019-04-08] MEDS: Lisinopril 10 MG Tablet PO (08:42)
[2019-04-08] MEDS: Famotidine 20 MG Tablet PO ×2 (08:42→22:01)
--- NOTE | 2019-04-08 09:00 | US_ITS ---
STUDY: ABDOMINAL ULTRASOUND - RIGHT UPPER QUADRANT REASON FOR VISIT: Male, 48 years old. Ascites TECHNIQUE: Ultrasound evaluation of the right upper quadrant was performed with real-time and static fowler-scale imaging. TECHNICAL QUALITY: Adequate. COMPARISON: None. FINDINGS: Liver: The liver measures 16 cm. There is mild heterogeneity of the liver. The bile ducts are within normal limits. There is hepatic color flow. The direction of portal flow is hepatopetal. There is no demonstrated mass lesion. Gallbladder: Removed. Common Bile Duct (C.B.D.): The common bile duct measures 4 mm. Pancreas: Normal size of the head, body and tail of the pancreas. There is normal echogenicity of the pancreas. There is no demonstrated pancreatic mass or cyst. Right Kidney: Normal size of the right kidney. The right kidney measures 11 cm. Normal renal cortex. There is no demonstrated renal mass or cyst. There is no right hydronephrosis. Trace ascites is present. US/Abdomen Limited IMPRESSION: No acute abdominal pathology identified. Mildly heterogeneous liver echotexture, nonspecific, suggesting possible hepatic parenchymal disease. Trace ascites. Status post poststernotomy. Electronically Signed: Pietro Parsons, at 17:04 EDT Tel , Service support ,
--- NOTE | 2019-04-08 09:24 | ECHOD_ITS ---
Reason For Study: EMBOLI Procedure This was a 2D Doppler, Color Flow transthoracic echocardiogram. Exam performed portable in patient room. Left Ventricle Severely dilated left ventricle. LV apical thrombus seen. The estimated ejection fraction is 10-15 %. Stage 2 diastolic dysfunction. There is severe global hypokinesis of the left ventricle. Right Ventricle Normal RV size. There is a pacemaker lead in the right ventricle. Normal systolic function. Atria The left atrium is moderately enlarged. The right atrium is moderately enlarged. No doppler evidence for ASD. Mitral Valve There is no mitral valve stenosis. Mild-Moderate (1-2+) mitral valve insufficiency. Tricuspid Valve There is no tricuspid stenosis. Trivial tricuspid valve insufficiency. Unable to estimate RV systolic pressure due to insufficient tricuspid regurgitant envelope. Aortic Valve Trisinus/trileaflet aortic valve. There is no aortic stenosis. No aortic valve insufficiency. Pulmonic Valve There is no pulmonic valvular stenosis. No pulmonic valve insufficiency. Great Vessels Normal aortic root. The inferior vena cava is dilated. Pericardium/Pleural No pericardial effusion. MMode/2D Measurements & Calculations LVIDd: 7.0 cm IVSd: 1.1 cm Ao root diam: 3.4 cm LVIDs: 6.9 cm LVPWd: 1.1 cm RVDd: 5.1 cm FS: 1.9 % LAV(MOD-bp): 99.6 ml EDV(MOD-sp4): 295.5 ml EDV(MOD-sp2): 324.8 ml LAV(MOD-bp) Indexed: 49.7 ml/m2 ESV(MOD-sp4): 276.9 ml EF(MOD-sp2): 26.0 % LAV(MOD-sp2): 100.5 ml EF(MOD-sp4): 6.3 % LAV(MOD-sp4): 91.8 ml SV(MOD-sp4): 18.6 ml SV(MOD-sp2): 84.6 ml LA A4 area: 26.0 cm2 LA dimension(2D): 5.6 cm RA A4 area: 22.6 cm2 Doppler Measurements & Calculations Ao V2 max: 69.7 cm/sec LV V1 max: 43.3 cm/sec PA V2 max: 43.2 cm/sec Ao max P.9 mmHg LV V1 max P.75 mmHg PI end-d ember: 111.9 cm/sec Interpretation Summary The estimated ejection fraction is 10-15 %. Stage 2 diastolic dysfunction. There is severe global hypokinesis of the left ventricle. LV apical thrombus seen Mild-Moderate (1-2+) mitral valve insufficiency. The inferior vena cava is dilated Ordering Physician: Flako Berkowitz Referring Physician: Zaheer Vega Performed By: Jenniefr, Brittney, RDCS, RVT
[2019-04-08 10:27] LABS: International Normalized Ratio 2.7; Prothrombin Time (Protime)PT. 28.5 SECONDS (11.7-14.9)
--- NOTE | 2019-04-08 11:37 | CASEMGMT ---
Readmission chart review: Pt was initially admitted 02/28-03/02/19 to [facility] ICU for Dyspnea/CHF. Pt states had not been taking prescribed medications for several months. See assessment completed by Crispin BABIN CM on 03/02/19 with a referral to [facility] for Rx assist but pt left AMA prior to SW seeing. Pt was provided with resources for Finley Startzman and Rx assist by OLAF CALZADA. Pt then returned 03/22-03/24/19 for Acute exacerbation systolic HF and was dx'd PE as well. See Readmission chart review completed by Crispin BABNI CM and pt was seen by Shae TRACY and JEREMIAH amisha was completed and pt provided resources on [employer] savings program and [employer] website. Pt then left AMA again on 03/24/19. Pt returned on 04/08/19 for CHF/PE again. This RN CM to room to discuss discharge plan with pt at this time. Pt agrees to f/u appt being made, list of [place] primary care providers provided verbally to pt at this time per pt preference for [facility] physician. Pt states would like f/u appt made with [facility] at this time. Yvan, U secretary administrative assistant, aware and states will make appt for pt at this time. Pt does currently live in [place] but [facility] would like to build a house soon and that he is 'working on plans.' Pt contradicts self several times during conversation. Pt states that he hasn't been taking prescribed meds d/t recent loss of his mother and 'being a mess.' Pt then states that mother 2 years ago. Pt also states concerns regarding 'difficult divorce' prior to that. Pt states that he does not remember completing JEREMIAH amisha or being given Rx assist resources/Finley Startzman info at previous visits. Pt is unsure why he non longer has MCR B and states 'I may have ignored a letter about that' and pt also thought that he had prescription coverage but this was verified at 1st visit that pt does not have active coverage. This RN ELSI advised pt that [facility] may be able to assist with prescriptions at discharge but advised him that he cannot sign out AMA like the last 2 times, voices understanding. Pt voices no further questions/concerns/needs at this time. CM to follow. Shae TRACY updated on all, voices understanding. SStaten OLAF CALZADA
--- NOTE | 2019-04-08 12:49 | PN_ITS ---
Patient Problems: Active and Suspected Problems Elevated troponin (Acute) Pulmonary embolism and infarction (Acute) Acute on chronic systolic heart failure (Acute) CHF (congestive heart failure) (Acute) Subjective: Patient seen and examined. Shortness of breath improved. Continues to have lower extremity swelling. - Physical Exam General: Alert, Oriented x3, Cooperative HEENT: Atraumatic, PERRLA, EOMI, Normocephalic Neck: Supple, No JVD, Negative Carotid Bruits Lungs: Diminished, Rales Cardiovascular: Regular rate, Regular Rhythm, Normal S1, Normal S2, No murmurs Abdomen: Bowel Sounds Present, Soft, Non Tender, Non-Distended, - - Ascites Extremities: No clubbing, No cyanosis, Capillary Refill Less than 3 Seconds, Edema - +2 bilateral lower extremities Skin: No rashes, No breakdown Musculoskeletal: No Tenderness to Palpation of Joints or Extremities Neurological: Cranial nerves II-XII grossly intact, Neuro grossly intact Psych/Mental Status: Impulsive Vital Signs Temp Pulse Resp BP Pulse Ox 97.4 F L 89 20 H 126/87 H 97 04/08/19 10:45 04/08/19 10:45 04/08/19 10:45 04/08/19 10:45 04/08/19 10:45 Oxygen Flow Rate (L/min) 2 Oxygen Delivery Method Nasal Cannula Weight: 174 lb 2.643 oz Body Mass Index (BMI) 23.6 Finger Stick Blood Glucose 124 Intake and Output for Last 24 Hours 04/06/19 04/07/19 04/08/19 23:59 23:59 23:59 Intake Total 203 / 203 Balance 203 / 203 Laboratory Tests Past 24 Hrs 04/07/19 04/07/19 04/07/19 23:30 23:30 23:30 WBC 8.8 RBC 5.32 Hgb 15.7 Hct 50.4 MCV 94.7 H MCH 29.5 MCHC 31.2 L RDW Std Deviation 61.5 H RDW Coeff of Paulina 18.3 H Plt Count 185 MPV 10.5 Immature Gran % (Auto) 0.200 Neut % (Auto) 73.1 H Lymph % (Auto) 19.7 [place] % (Auto) 5.8 Eos % (Auto) 0.6 Baso % (Auto) 0.6 Absolute Neuts (auto) 6.4 Absolute Lymphs (auto) 1.73 Nucleated RBC % 0 PT 18.7 H INR 1.6 APTT 34.9 Sodium 139 Potassium 4.2 Chloride 104 Carbon Dioxide 29.0 Anion Gap 6 BUN 40 H Creatinine 1.35 H Estim Creat Clear Calc 71.85 Est GFR (MDRD) Af Amer 72 Est GFR (MDRD) Non-Af 59 L BUN/Creatinine Ratio 29.6 H Glucose 125 H Calcium 8.6 Magnesium Total Bilirubin 3.40 H AST 51 H ALT 29 Alkaline Phosphatase 426 H Troponin I 0.409 H B-Natriuretic Peptide Total Protein 6.0 L Albumin 2.7 L Globulin 3.3 Albumin/Globulin Ratio 0.8 L Triglycerides Cholesterol LDL Cholesterol VLDL Cholesterol HDL Cholesterol Lipase TSH 04/07/19 04/07/19 04/07/19 23:30 23:30 23:30 WBC RBC Hgb Hct MCV MCH MCHC RDW Std Deviation RDW Coeff of Paulina Plt Count MPV Immature Gran % (Auto) Neut % (Auto) Lymph % (Auto) [place] % (Auto) Eos % (Auto) Baso % (Auto) Absolute Neuts (auto) Absolute Lymphs (auto) Nucleated RBC % PT INR APTT Sodium Potassium Chloride Carbon Dioxide Anion Gap BUN Creatinine Estim Creat Clear Calc Est GFR (MDRD) Af Amer Est GFR (MDRD) Non-Af BUN/Creatinine Ratio Glucose Calcium Magnesium 1.8 Total Bilirubin AST ALT Alkaline Phosphatase Troponin I B-Natriuretic Peptide 4691.9 H Total Protein Albumin Globulin Albumin/Globulin Ratio Triglycerides Cholesterol LDL Cholesterol VLDL Cholesterol HDL Cholesterol Lipase 106 TSH 04/08/19 04/08/19 04/08/19 06:28 06:28 06:28 WBC 10.1 RBC 5.49 Hgb 16.7 H Hct 52.8 MCV 96.2 H MCH 30.4 MCHC 31.6 L RDW Std Deviation 62.2 H RDW Coeff of Paulina 18.5 H Plt Count 174 MPV 10.6 Immature Gran % (Auto) 0.400 Neut % (Auto) 70.6 H Lymph % (Auto) 21.5 [place] % (Auto) 6.2 Eos % (Auto) 0.8 Baso % (Auto) 0.5 Absolute Neuts (auto) 7.1 Absolute Lymphs (auto) 2.17 Nucleated RBC % 0 PT INR APTT Sodium 136 Potassium 5.0 Chloride 105 Carbon Dioxide 18.0 L Anion Gap 13 BUN 41 H Creatinine 1.40 H Estim Creat Clear Calc 69.29 Est GFR (MDRD) Af Amer 69 Est GFR (MDRD) Non-Af 57 L BUN/Creatinine Ratio 29.3 H Glucose 100 Calcium 8.3 L Magnesium Total Bilirubin AST ALT Alkaline Phosphatase Troponin I 0.410 H B-Natriuretic Peptide Total Protein Albumin Globulin Albumin/Globulin Ratio Triglycerides 83 Cholesterol 118 LDL Cholesterol 82 VLDL Cholesterol 17 HDL Cholesterol 19 L Lipase TSH 11.40 H 04/08/19 04/08/19 04/08/19 08:37 09:59 11:41 WBC RBC Hgb Hct MCV MCH MCHC RDW Std Deviation RDW Coeff of Paulina Plt Count MPV Immature Gran % (Auto) Neut % (Auto) Lymph % (Auto) [place] % (Auto) Eos % (Auto) Baso % (Auto) Absolute Neuts (auto) Absolute Lymphs (auto) Nucleated RBC % PT 28.5 H INR 2.7 APTT Sodium Potassium Chloride Carbon Dioxide Anion Gap BUN Creatinine Estim Creat Clear Calc Est GFR (MDRD) Af Amer Est GFR (MDRD) Non-Af BUN/Creatinine Ratio Glucose Calcium Magnesium Total Bilirubin AST ALT Alkaline Phosphatase Troponin I 0.445 H Pending B-Natriuretic Peptide Total Protein Albumin Globulin Albumin/Globulin Ratio Triglycerides Cholesterol LDL Cholesterol VLDL Cholesterol HDL Cholesterol Lipase TSH Medical Necessity - Tobacco Use Smoking Status: Current every day smoker Assessment/Plan All Active Problems Elevated troponin (Acute) Pulmonary embolism and infarction (Acute) Acute on chronic systolic heart failure (Acute) CHF (congestive heart failure) (Acute) 1. Acute on chronic systolic CHF, nonischemic cardiomyopathy status post biventricular ICD/SUBSTATION SUPERINTENDENT therapy-BNP 4691. Echocardiogram 03/22/2019 demonstrated EF 10%, apical thrombus, severe global hypokinesis of the left ventricle. IV Lasix 60 mg every 8 hours. Strict I&O. Daily weight. Given recent noted thrombus, will repeat echocardiogram. Continue carvedilol, lisinopril, spironolactone regimen. 2. Acute hypoxic respiratory insufficiency, secondary to #1 as well as PE -wean oxygen as tolerated to maintain O2 at or above 90%. Walking pulse ox prior to discharge. 3. Left lower PE/apical thrombus- On Eliquis 10 mg twice daily. 4. Abnormal troponin-elevated during prior admissions as well. Suspect demand ischemia as a result of #1. No acute EKG changes. 5. UNA-stable, trend BMP. 6. Elevated liver enzymes/liver ascites-suspect secondary to #1. Abdominal ultrasound ordered. 7. GERD-continue PPI regimen. 8. Tobacco dependence-encouraged cessation. Nicotine replacement patch if desired. 9. Noncompliance with medication regimen and [id number] management consult following. 10. Valvular heart disease-see echo. 11. Hypertension-stable, continue home carvedilol, lisinopril, spironolactone regimen. DVT prophylaxis-Radha This patient was seen by JAYJAY Sanchez under the supervision of Dr. Berkowitz.
[2019-04-08 13:40] LABS: Free T3 1.3 pg/mL (2.18-3.98); T4 Free Direct 1.25 ng/dL (0.76-1.46)
--- NOTE | 2019-04-08 14:16 | CHAPLAIN ---
Type of Pastoral Visit _x__ Initial Visit ___ Follow-up Visit ___ On-call Visit ___ General Patient Visit ___ Spiritual Assessment ___ Family Conference ___ Bereavement ___ Rapid Response ___ Code Blue ___ Other (describe below) Pastoral Care Referral From _x__ Patient ___ Family ___ Nurse ___ Physician ___ Business Machine Operator ___ Scanner Supervisor ___ Other (describe below) Sacrament/Intervention _x__ Active listening ___ Anointing ___ Mormonism ___ Bereavement ___ Communion _x__ Zeina exploration ___ _x__ Life review _x__ Prayer ___ Reconciliation ___ Sacrament of Sick _x__ Supportive presence ___ Wedding ___ Other (describe below) Pastoral Comments patient requested that Chaplain Zarate of [facility] be notified of his presence here; task completed by phone by this
[2019-04-08] MEDS: Furosemide 100 MG/10 ML Vial 60 MG IV ×2 (14:22→22:00)
[2019-04-08] MEDS: MELATONIN 3 MG TABLET PO (22:01)
[2019-04-08] MEDS: Atorvastatin Calcium 40 MG Tablet PO (22:01)
[2019-04-09] VITALS (11 sets, daily range): BP systolic 92–109; BP diastolic 64–77; PULSE 55–84; RESP 18–20; TEMP 36.2–37.1; O2SAT 92–97
[2019-04-09] MEDS: Morphine 2 MG/ML Syringe IV ×3 (02:04→20:19)
[2019-04-09] MEDS: Furosemide 100 MG/10 ML Vial 60 MG IV (05:13)
[2019-04-09 05:16] LABS: Absolute Lymphocyte Count 1.62 X10^3/uL (0.83-4.51); Absolute Neutrophil Count 6.1 X10^3/uL (2.0-7.7); Basophil# 0.05 X10^3/uL; Basophil% 0.6 % (0-1); Eosinophil# 0.06 X10^3/uL; Eosinophils% 0.7 % (0-5); Hematocrit 48.8 % (40-54); Hemoglobin 15.3 g/dL (13.0-16.5); Lymphocyte # 1.62 X10^3/ul (4.0); Lymphocyte % 19.3 % (19-41); Mean Corp Hgb Conc 31.4 g/dL (32-36); Mean Corpuscular Hgb 29.8 pg (27.0-32.0); Mean Corpuscular Volume 95.1 fL (80-94); Mean Platelet Vol. 10.3 fl (6.2-12.0); Monocyte# 0.53 X10^3/uL; Monocyte% 6.3 % (0-10); NRBC Flagged by Analyzer 0 % (0-5); Neutrophil % 72.9 % (47-70); Platelet Count 179 K/mm3 (150-450); RBC Distribution Width CV 17.8 % (11.6-14.6); RBC Distribution Width SD 60.6 fl (35.1-43.9); Red Blood Count 5.13 M/mm3 (4.6-6.2); White Blood Count 8.4 K/mm3 (4.4-11.0)
[2019-04-09 05:32] LABS: Anion Gap 6 (5-15); BUN 37 mg/dL (7-18); BUN/Creat Ratio 31.4 RATIO (10-20); Chloride 102 mmol/L (98-107); Creatinine, Serum 1.18 mg/dL (0.70-1.30); EST Glomerular Filtration Rate 69 mL/min (>60); Est Glom Filt Rate - Afr Amer 84 mL/min (>60); Glucose 94 mg/dL (74-106); Magnesium 1.7 mg/dL (1.6-2.6); Potassium 3.9 mmol/L (3.5-5.1); Sodium Level 137 mmol/L (136-145)
[2019-04-09] MEDS: Lisinopril 10 MG Tablet PO (08:59)
[2019-04-09] MEDS: Carvedilol 6.25 MG Tablet PO (08:59)
[2019-04-09] MEDS: APIXABAN 5 MG TABLET 10 MG PO ×2 (08:59→21:47)
[2019-04-09] MEDS: Famotidine 20 MG Tablet PO ×2 (08:59→23:20)
[2019-04-09] MEDS: Spironolactone 25 MG Tablet PO (08:59)
--- NOTE | 2019-04-09 09:23 | CASEMGMT ---
Referral to CCN placed at this time d/t pt non-compliant with meds and f/u. Pt also needs educated on CHF and needs CCN SW assist with insurance assist. Call to Sancho at [facility] and is updated on pt at this time, voices understanding. Order for CCN placed at this time. Phuc BABIN CM
--- NOTE | 2019-04-09 11:38 | PCM.PROGNOTE ---
<Rosa Corbett - Last Filed: 04/09/19 11:51> Patient Problems: Active and Suspected Problems Elevated troponin (Acute) Pulmonary embolism and infarction (Acute) Acute on chronic systolic heart failure (Acute) CHF (congestive heart failure) (Acute) Subjective: Patient seen and examined. Feels overall improved. Complains of abdominal cramping and anxiety. Denies shortness of breath, chest pain. Lower extremity swelling improved. - Physical Exam General: Alert, Oriented x3, Cooperative HEENT: Atraumatic, PERRLA, EOMI, Normocephalic Neck: Supple, No JVD, Negative Carotid Bruits Lungs: Clear to auscultation, Diminished Cardiovascular: Regular rate, Regular Rhythm, Normal S1, Normal S2, No murmurs Abdomen: Bowel Sounds Present, Soft, Non Tender, Non-Distended Extremities: No clubbing, No cyanosis, Capillary Refill Less than 3 Seconds, Edema - Nonpitting bilateral lower extremities Skin: No rashes, No breakdown Musculoskeletal: No Tenderness to Palpation of Joints or Extremities Neurological: Cranial nerves II-XII grossly intact, Neuro grossly intact Psych/Mental Status: Flat Affect Vital Signs Temp Pulse Resp BP Pulse Ox 98.3 F 76 20 H 109/74 92 04/09/19 09:50 04/09/19 09:50 04/09/19 09:50 04/09/19 09:50 04/09/19 10:52 Oxygen Flow Rate (L/min) 2 Oxygen Delivery Method Room Air Weight: 172 lb 6.424 oz Body Mass Index (BMI) 23.6 Finger Stick Blood Glucose 124 Intake and Output for Last 24 Hours 04/07/19 04/08/19 04/09/19 23:59 23:59 23:59 Intake Total 1383 / 1383 240 / 240 Output Total 3320 / 3320 500 / 500 Balance -1937 / -1937 -260 / -260 Laboratory Tests Past 24 Hrs 04/08/19 04/08/19 04/09/19 11:41 11:41 05:06 WBC 8.4 RBC 5.13 Hgb 15.3 Hct 48.8 MCV 95.1 H MCH 29.8 MCHC 31.4 L RDW Std Deviation 60.6 H RDW Coeff of Paulina 17.8 H Plt Count 179 MPV 10.3 Immature Gran % (Auto) 0.200 Neut % (Auto) 72.9 H Lymph % (Auto) 19.3 [place] % (Auto) 6.3 Eos % (Auto) 0.7 Baso % (Auto) 0.6 Absolute Neuts (auto) 6.1 Absolute Lymphs (auto) 1.62 Nucleated RBC % 0 Sodium Potassium Chloride Carbon Dioxide Anion Gap BUN Creatinine Estim Creat Clear Calc Est GFR (MDRD) Af Amer Est GFR (MDRD) Non-Af BUN/Creatinine Ratio Glucose Calcium Magnesium Troponin I 0.261 H Free T4 1.25 Free T3 pg/dL 1.3 L 04/09/19 05:06 WBC RBC Hgb Hct MCV MCH MCHC RDW Std Deviation RDW Coeff of Paulina Plt Count MPV Immature Gran % (Auto) Neut % (Auto) Lymph % (Auto) [place] % (Auto) Eos % (Auto) Baso % (Auto) Absolute Neuts (auto) Absolute Lymphs (auto) Nucleated RBC % Sodium 137 Potassium 3.9 Chloride 102 Carbon Dioxide 29.0 Anion Gap 6 BUN 37 H Creatinine 1.18 Estim Creat Clear Calc 82.20 Est GFR (MDRD) Af Amer 84 Est GFR (MDRD) Non-Af 69 BUN/Creatinine Ratio 31.4 H Glucose 94 Calcium 8.0 L Magnesium 1.7 Troponin I Free T4 Free T3 pg/dL Medical Necessity - Tobacco Use Smoking Status: Current every day smoker Assessment/Plan All Active Problems Elevated troponin (Acute) Pulmonary embolism and infarction (Acute) Acute on chronic systolic heart failure (Acute) CHF (congestive heart failure) (Acute) 1. 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 Echocardiogram 03/22/2019 demonstrated EF 10%, apical thrombus, severe global hypokinesis of the left ventricle. Repeat echocardiogram demonstrates an EF of 10 to 15%, stage II diastolic dysfunction, LV apical thrombus, mild to moderate mitral valve insufficiency. Reduce IV Lasix to 60 mg twice daily. Strict I&O. Daily weight. Continue carvedilol, lisinopril, spironolactone regimen. [place] wraps lower extremities. 2. Acute hypoxic respiratory insufficiency, secondary to #1 as well as PE -wean oxygen as tolerated to maintain O2 at or above 90%. Walking pulse ox prior to discharge. 3. Left lower PE/apical thrombus- On Eliquis 10 mg twice daily. 4. Abnormal troponin-elevated during prior admissions as well. Suspect demand ischemia as a result of #1. No acute EKG changes. 5. UNA-resolved with diuresis. Trend BMP. 6. Elevated liver enzymes/liver ascites-suspect secondary to #1. Abdominal ultrasound shows no acute pathology. 7. GERD-continue PPI regimen. 8. Tobacco dependence-encouraged cessation. Nicotine replacement patch if desired. 9. Noncompliance with medication regimen and [id number] management consult following. 10. Valvular heart disease-see echo. 11. Hypertension-stable, continue home carvedilol, lisinopril, spironolactone regimen. DVT prophylaxis-Eliquis Discharge planning: Anticipate discharge home tomorrow if continued improvement. This patient was seen by JAYJAY Sanchez under the supervision of Dr. Berkowitz. <Flako Berkowitz - Last Filed: 04/09/19 12:09> - Physical Exam Vital Signs Temp Pulse Resp BP Pulse Ox 98.3 F 76 20 H 109/74 92 04/09/19 09:50 04/09/19 09:50 04/09/19 09:50 04/09/19 09:50 04/09/19 10:52 Oxygen Flow Rate (L/min) 2 Oxygen Delivery Method Room Air Weight: 78.2 kg Body Mass Index (BMI) 23.6 Finger Stick Blood Glucose 124 Intake and Output for Last 24 Hours 04/07/19 04/08/19 04/09/19 23:59 23:59 23:59 Intake Total 1383 / 1383 240 / 240 Output Total 3320 / 3320 500 / 500 Balance -1937 / -1937 -260 / -260 Laboratory Tests Past 24 Hrs 04/08/19 04/08/19 04/09/19 11:41 11:41 05:06 WBC 8.4 RBC 5.13 Hgb 15.3 Hct 48.8 MCV 95.1 H MCH 29.8 MCHC 31.4 L RDW Std Deviation 60.6 H RDW Coeff of Paulina 17.8 H Plt Count 179 MPV 10.3 Immature Gran % (Auto) 0.200 Neut % (Auto) 72.9 H Lymph % (Auto) 19.3 [place] % (Auto) 6.3 Eos % (Auto) 0.7 Baso % (Auto) 0.6 Absolute Neuts (auto) 6.1 Absolute Lymphs (auto) 1.62 Nucleated RBC % 0 Sodium Potassium Chloride Carbon Dioxide Anion Gap BUN Creatinine Estim Creat Clear Calc Est GFR (MDRD) Af Amer Est GFR (MDRD) Non-Af BUN/Creatinine Ratio Glucose Calcium Magnesium Troponin I 0.261 H Free T4 1.25 Free T3 pg/dL 1.3 L 04/09/19 05:06 WBC RBC Hgb Hct MCV MCH MCHC RDW Std Deviation RDW Coeff of Paulina Plt Count MPV Immature Gran % (Auto) Neut % (Auto) Lymph % (Auto) [place] % (Auto) Eos % (Auto) Baso % (Auto) Absolute Neuts (auto) Absolute Lymphs (auto) Nucleated RBC % Sodium 137 Potassium 3.9 Chloride 102 Carbon Dioxide 29.0 Anion Gap 6 BUN 37 H Creatinine 1.18 Estim Creat Clear Calc 82.20 Est GFR (MDRD) Af Amer 84 Est GFR (MDRD) Non-Af 69 BUN/Creatinine Ratio 31.4 H Glucose 94 Calcium 8.0 L Magnesium 1.7 Troponin I Free T4 Free T3 pg/dL Assessment/Plan This patient was seen in conjunction with JAYJAY Sanchez . I have independently interviewed and examined the patient and reviewed pertinent historical, laboratory, and other data. Please refer to JAYJAY Sanchez note for details of this patient's presentation, findings, and recommendations. I have reviewed JAYJAY Sanchez note and concur with documented findings. 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 Imaging studies obtained and admission demonstrated presence of acute pulmonary embolism. Patient in addition was found to be in acute on chronic systolic heart failure admitted to a monitored bed for further management Physical Examination: GENERAL: cooperative HEENT: Atraumatic; EYES; Anicteric, Normal Conjunctiva NECK; supple, normal thyroid, distended JVD. RESPIRATORY: Diminished to auscultation bilaterally, CARDIOVASCULAR: Regular S1 S2, GI: soft, non-tender, normoactive bowel sounds, : No Renal angle tenderness; EXTREMITIES: edema, no clubbing, no cyanosis. MUSCULOSKELETAL: No Joint Tenderness; no muscle waisting NEURO: Awake; no lateralizing signs. SKIN: No Rash PSYCH; Normal affect Assessment: 1. Acute pulmonary embolism 2. Acute on chronic systolic heart failure 3. Nonischemic cardiomyopathy status post biventricular ICD/SUPERVISOR [employer] WORKERS therapy 4. Left apical thrombus 5. Acute kidney injury 6. Tobacco dependence 7. Known history of medical noncompliance with therapy 8. Essential hypertension 9. GERD Recommendations: 1. I have discussed the results of my overview and impressions with the patient 2. Options for management were reviewed Code Visit Inpatient E&M: 71816 Subs Hosp L2
--- NOTE | 2019-04-09 12:23 | CASEMGMT ---
Rx assist to be used for pt discharge and meds e-scribed to [facility] retail pharmacy at this time. Call to Karmen in [facility] retail to notify of meds and rx assist, voices understanding. Karmen is aware that pt may not leave until tomorrow, voices understanding. Miguel, electrical electronics technician, updated on all, vocies understanding. Phuc BABIN CM
[2019-04-09] MEDS: 0.9% NaCl Peripheral Flush Adult/Peds IV ×2 (14:23→20:19)
[2019-04-09] MEDS: Mag Hydrox/Al Hydrox/Simeth 30 ML UDC PO (21:47)
[2019-04-09] MEDS: Atorvastatin Calcium 40 MG Tablet PO (21:47)
[2019-04-09] MEDS: MELATONIN 3 MG TABLET PO (23:27)
[2019-04-10 03:00] VITALS: PULSE 89
[2019-04-10 04:00] VITALS: BP 113/83; PULSE 91; RESP 16; TEMP 37.1; O2SAT 94
[2019-04-10 06:21] LABS: Absolute Lymphocyte Count 1.27 X10^3/uL (0.83-4.51); Absolute Neutrophil Count 5.7 X10^3/uL (2.0-7.7); Basophil# 0.03 X10^3/uL; Basophil% 0.4 % (0-1); Eosinophil# 0.06 X10^3/uL; Eosinophils% 0.8 % (0-5); Hematocrit 47.7 % (40-54); Hemoglobin 15.2 g/dL (13.0-16.5); Lymphocyte # 1.27 X10^3/ul (4.0); Lymphocyte % 16.3 % (19-41); Mean Corp Hgb Conc 31.9 g/dL (32-36); Mean Corpuscular Hgb 30.3 pg (27.0-32.0); Mean Platelet Vol. 10.1 fl (6.2-12.0); Monocyte# 0.71 X10^3/uL; Monocyte% 9.1 % (0-10); NRBC Flagged by Analyzer 0 % (0-5); Neutrophil # 5.67 X10^3/uL (2.7-7.7); Platelet Count 166 K/mm3 (150-450); RBC Distribution Width CV 17.5 % (11.6-14.6); RBC Distribution Width SD 59.7 fl (35.1-43.9); Red Blood Count 5.02 M/mm3 (4.6-6.2); White Blood Count 7.8 K/mm3 (4.4-11.0)
[2019-04-10 06:54] LABS: ALB/GLOB Ratio 0.8 RATIO (0.9-2.4); AST(SGOT) 41 U/L (15-37); Alanine Aminotransfer ALT/SGPT 28 U/L (16-61); Albumin, Serum 2.3 g/dL (3.2-5.0); Alkaline Phosphatase 304 U/L (45-117); Anion Gap 8 (5-15); BUN 35 mg/dL (7-18); BUN/Creat Ratio 33.7 RATIO (10-20); Calcium,Total 7.9 mg/dL (8.5-10.1); Chloride 102 mmol/L (98-107); Creatinine, Serum 1.04 mg/dL (0.70-1.30); EST Glomerular Filtration Rate 80 mL/min (>60); Est Glom Filt Rate - Afr Amer 97 mL/min (>60); Estimated Creatinine Clearance 93.27 ml/min; Glucose 82 mg/dL (74-106); Protein, Total 5.3 g/dL (6.4-8.2); Sodium Level 138 mmol/L (136-145)
[2019-04-10 07:09] VITALS: PULSE 65
[2019-04-10] MEDS: Levothyroxine 25 MCG TABLET PO (07:57)
[2019-04-10 08:06] VITALS: O2SAT 94
[2019-04-10 09:01] VITALS: BP 113/80; PULSE 75; RESP 16; TEMP 36.5; O2SAT 97
[2019-04-10] MEDS: Spironolactone 25 MG Tablet PO (09:03)
[2019-04-10] MEDS: Famotidine 20 MG Tablet PO (09:03)
[2019-04-10] MEDS: Lisinopril 10 MG Tablet PO (09:03)
[2019-04-10] MEDS: APIXABAN 5 MG TABLET 10 MG PO (09:03)
[2019-04-10] MEDS: Carvedilol 6.25 MG Tablet PO (09:03)
--- NOTE | 2019-04-10 09:07 | PCM.DC ---
- Discharge Diagnoses Current Active Problems: Current Active and Chronic Problems Elevated troponin (Acute) Pulmonary embolism and infarction (Acute) Acute on chronic systolic heart failure (Acute) CHF (congestive heart failure) (Acute) You will use the following diet at home:: Cardiac, Fluid restricted (specify 2000 mls, 1500 mls) - 1500CC Discharge Activity: Return to Normal Activity Call your doctor if you observe: Shortness of breath, Dizziness, Fainting spells, Chest pain Allergies/Adverse Reactions: Allergies No Known Allergies Allergy (Verified 03/21/19 22:10) Medications to take at Discharge Apixaban [Eliquis] 10 mg PO BID #68 tab 04/09/19 Atorvastatin Calcium [Lipitor] 40 mg PO QHS #30 tab 04/09/19 Carvedilol [Coreg (Beta Maik)] 6.25 mg PO DAILY #30 tab 04/09/19 Furosemide [Lasix] 40 mg PO BID #60 tab 04/09/19 Lisinopril 20 mg PO DAILY #30 tab 04/09/19 Spironolactone 25 mg PO DAILY #30 tab 04/09/19 Levothyroxine [Synthroid] 25 mcg PO DAILY@0600 #30 tab 04/10/19 The following prescriptions were given: Carvedilol [Coreg (Beta Maik)] 6.25 mg PO DAILY #30 tab Transmission Status: Received by [facility] Apixaban [Eliquis] 10 mg PO BID #68 tab Transmission Status: Received by [facility] Furosemide [Lasix] 40 mg PO BID #60 tab Transmission Status: Received by [facility] Atorvastatin Calcium [Lipitor] 40 mg PO QHS #30 tab Transmission Status: Received by [facility] Lisinopril 20 mg PO DAILY #30 tab Transmission Status: Received by [facility] Spironolactone 25 mg PO DAILY #30 tab Transmission Status: Received by [facility] Levothyroxine [Synthroid] 25 mcg PO DAILY@0600 #30 tab Transmission Status: Pending to [facility] Primary Care Physician: Care Physician,No Primary [Primary Care Provider] - Please follow up with your Primary Care Physician in: 1 Week Test Results: Test results from this visit will be discussed in further detail at your follow-up appointment, if applicable. Please Follow Up With: Rose Finney NP-C When: As scheduled 04/13/2019 Please Follow Up With: Calin Rosado MD When: 1-2 Weeks, May see FAST FOOD RESTAURANT MANAGER/PA Proposed Discharge Date: 04/10/19
--- NOTE | 2019-04-10 09:14 | PCM.DC.SUM ---
<Rosa Corbett - Last Filed: 04/10/19 09:25> Discharge Date and Diagnosis Date of Admission: 04/08/19 Date of Discharge: 04/10/19 - Primary Discharge Diagnosis Active and Suspected Problems 1. Acute on chronic systolic CHF, nonischemic cardiomyopathy status post biventricular ICD/CHIEF SERVICE OBSERVER therapy 2. Acute hypoxic respiratory insufficiency, secondary to #1 as well as acute PE 3. Acute Left lower PE/apical thrombus 4. Abnormal troponin-demand ischemia as a result of #1. 5. UNA-resolved with diuresis. 6. Elevated liver enzymes/liver ascites-suspect secondary to #1. 7. GERD 8. Tobacco dependence 9. Noncompliance with medication regimen and follow-up 10. Valvular heart disease 11. Hypertension 12. Abnormal TSH, mild hypothyroidism - Secondary Discharge Diagnosis Chronic Problems Medical non-compliance (Chronic) Cardiomyopathy (Chronic) Valvular disease (Chronic) Anxiety (Chronic) Coronary artery disease (Chronic) Status post placement of cardiac pacemaker (Chronic) S/P implantation of automatic cardioverter/defibrillator (AICD) (Chronic) Hospital Course and Treatment Imaging Results: Diagnostic Data Chest CTA 04/07/19 23:07 IMPRESSION: Pulmonary embolism in the segmental branch of the left lower lobar pulmonary artery with the presence of a pulmonary infarct in the left lower lobe. Cardiomegaly Mild ascitic fluid around the liver. Electronically Signed: Osbaldo Arvizu MD at 0:51 EDT Tel , Service support , ADDENDUM: 04/08/19 0121 IMPRESSION: Pulmonary embolism in the segmental branch of the left lower lobar pulmonary artery with the presence of a pulmonary infarct in the left lower lobe. Cardiomegaly Mild ascitic fluid around the liver. N.B. : The above information has been verbally conveyed by Osbaldo Arvizu MD to Dr. Ana Paula MD, on 04/08/2019 01:14:56 (ET). Electronically Signed: Osbaldo Arvizu MD at 0:51 EDT Tel , Service support , ADDENDUM: 04/08/19 0122 Abdomen Ultrasound 04/08/19 09:00 IMPRESSION: No acute abdominal pathology identified. Mildly heterogeneous liver echotexture, nonspecific, suggesting possible hepatic parenchymal disease. Trace ascites. Status post poststernotomy. Electronically Signed: Pietro Parsons, at 17:04 EDT Tel , Service support , Operations: None Procedures: 2-D Echocardiogram Summary of Care Provided: The patient is a 48 year old M admitted 04/08/2019 due to shortness of breath. 1. Acute on chronic systolic CHF, nonischemic cardiomyopathy status post biventricular ICD/CHIEF SERVICE OBSERVER therapy-BNP 4691. Echocardiogram 03/22/2019 demonstrated EF 10%, apical thrombus, severe global hypokinesis of the left ventricle. Repeat echocardiogram demonstrates an EF of 10 to 15%, stage II diastolic dysfunction, LV apical thrombus, mild to moderate mitral valve insufficiency. IV Lasix during admission. Transition to PO Lasix 40 mg twice daily at discharge. Continue carvedilol, lisinopril, spironolactone regimen. Educated on fluid restriction, sodium restriction and compliance with medication regimen. Follow-up with cardiology in 1 to 2 weeks. 2. Acute hypoxic respiratory insufficiency, secondary to #1 as well as PE -weaned off of supplemental oxygen. Oxygen stable on room air. 3. Acute left lower PE/apical thrombus- On Eliquis 10 mg twice daily for 7 days then transition to Eliquis 5 mg twice daily. 4. Abnormal troponin-elevated during prior admissions as well. Suspect demand ischemia as a result of #1. No acute EKG changes. 5. UNA-resolved with diuresis. 6. Elevated liver enzymes/liver ascites-suspect secondary to #1. Abdominal ultrasound shows no acute pathology. 7. GERD-continue PPI regimen. 8. Tobacco dependence-encouraged cessation. Nicotine replacement patch if desired. 9. Noncompliance with medication regimen and [id number] management consult following. Pending sale to [facility] network to follow at discharge. 10. Valvular heart disease-see echo. 11. Hypertension-stable, continue home carvedilol, lisinopril, spironolactone regimen. 12. Abnormal TSH, mild hypothyroidism-TSH 11.4. Free T4 normal. T3 1.3. Initiated on Synthroid 25 mcg daily. Follow-up with primary care physician for repeat TSH in 4 to 6 weeks. General: Alert, Oriented x3, Cooperative HEENT: Atraumatic, PERRLA, EOMI, Normocephalic Neck: Supple, No JVD, Negative Carotid Bruits Lungs: Clear to auscultation, Diminished Cardiovascular: Regular rate, Regular Rhythm, Normal S1, Normal S2, No murmurs Abdomen: Bowel Sounds Present, Soft, Non Tender, Non-Distended Extremities: No clubbing, No cyanosis, Capillary Refill Less than 3 Seconds, Edema - Nonpitting bilateral lower extremities Skin: No rashes, No breakdown Musculoskeletal: No Tenderness to Palpation of Joints or Extremities Neurological: Cranial nerves II-XII grossly intact, Neuro grossly intact Psych/Mental Status: Flat Affect Patient seen and examined prior to discharge. Physical assessment as noted above. Patient is stable for discharge with follow up recommendations as noted above. This patient was seen by JAYJAY Sanchez under the supervision of Dr. Berkowitz. - Physical Exam Vital Signs Temp Pulse Resp BP Pulse Ox 97.7 F L 75 16 113/80 97 04/10/19 09:01 04/10/19 09:01 04/10/19 09:01 04/10/19 09:01 04/10/19 09:01 Oxygen Flow Rate (L/min) 2 Oxygen Delivery Method Room Air Weight: 174 lb 2.643 oz Body Mass Index (BMI) 23.6 Finger Stick Blood Glucose 124 Intake and Output for Last 24 Hours 04/08/19 04/09/19 04/10/19 23:59 23:59 23:59 Intake Total 1383 / 1383 1366 / 1366 240 / 240 Output Total 3320 / 3320 2950 / 2950 400 / 400 Balance -1937 / -1937 -1584 / -1584 -160 / -160 Laboratory Tests Past 24 Hrs 04/10/19 04/10/19 06:02 06:02 WBC 7.8 RBC 5.02 Hgb 15.2 Hct 47.7 MCV 95.0 H MCH 30.3 MCHC 31.9 L RDW Std Deviation 59.7 H RDW Coeff of Paulina 17.5 H Plt Count 166 MPV 10.1 Immature Gran % (Auto) 0.400 Neut % (Auto) 73.0 H Lymph % (Auto) 16.3 L [place] % (Auto) 9.1 Eos % (Auto) 0.8 Baso % (Auto) 0.4 Absolute Neuts (auto) 5.7 Absolute Lymphs (auto) 1.27 Nucleated RBC % 0 Sodium 138 Potassium 4.0 Chloride 102 Carbon Dioxide 28.0 Anion Gap 8 BUN 35 H Creatinine 1.04 Estim Creat Clear Calc 93.27 Est GFR (MDRD) Af Amer 97 Est GFR (MDRD) Non-Af 80 BUN/Creatinine Ratio 33.7 H Glucose 82 Calcium 7.9 L Total Bilirubin 1.10 H AST 41 H ALT 28 Alkaline Phosphatase 304 H Total Protein 5.3 L Albumin 2.3 L Globulin 3.0 Albumin/Globulin Ratio 0.8 L Discharge Diet: Low fat/ Low Cholesterol, 8 Cup Fluid Restriciton, 2000 mg Sodium Diet Discharge Activity: Return to Normal Activity Call your doctor if you observe: Shortness of breath, Dizziness, Fainting spells, Chest pain Home Medications: Medications to take at Discharge Apixaban [Eliquis] 10 mg PO BID #68 tab 04/09/19 Atorvastatin Calcium [Lipitor] 40 mg PO QHS #30 tab 04/09/19 Carvedilol [Coreg (Beta Maik)] 6.25 mg PO DAILY #30 tab 04/09/19 Furosemide [Lasix] 40 mg PO BID #60 tab 04/09/19 Lisinopril 20 mg PO DAILY #30 tab 04/09/19 Spironolactone 25 mg PO DAILY #30 tab 04/09/19 Levothyroxine [Synthroid] 25 mcg PO DAILY@0600 #30 tab 04/10/19 Following Prescrptions Were Given to Patient: Carvedilol [Coreg (Beta Maik)] 6.25 mg PO DAILY #30 tab Transmission Status: Received by [facility] Apixaban [Eliquis] 10 mg PO BID #68 tab Transmission Status: Received by [facility] Furosemide [Lasix] 40 mg PO BID #60 tab Transmission Status: Received by [facility] Atorvastatin Calcium [Lipitor] 40 mg PO QHS #30 tab Transmission Status: Received by [facility] Lisinopril 20 mg PO DAILY #30 tab Transmission Status: Received by [facility] Spironolactone 25 mg PO DAILY #30 tab Transmission Status: Received by [facility] Levothyroxine [Synthroid] 25 mcg PO DAILY@0600 #30 tab Transmission Status: Received by [facility] Primary Care Physician: Care Physician,No Primary [Primary Care Provider] - Please follow up with your Primary Care Physician in: 1 Week Please Follow Up With: Rose Finney NP-C When: As scheduled 04/13/2019 Please Follow Up With: Calin Rosado MD When: 1-2 Weeks, May see WHEELCHAIR VAN OPERATOR FIRST RESPONDER/PA Disposition: Home Minutes spent on discharge:: 35 Patient Condition:: Stable Medical Necessity - Tobacco Use Smoking Status: Current every day smoker Meaningful Use Info Meaningful Use Diagnoses (Choose all that apply): CHF - CHF RADHA/ARB ordered at discharge?: Yes Documented LVEF (%): 10 <Flako Berkowitz - Last Filed: 04/10/19 10:27> Discharge Date and Diagnosis - Secondary Discharge Diagnosis Chronic Problems Medical non-compliance (Chronic) Cardiomyopathy (Chronic) Valvular disease (Chronic) Anxiety (Chronic) Coronary artery disease (Chronic) Status post placement of cardiac pacemaker (Chronic) S/P implantation of automatic cardioverter/defibrillator (AICD) (Chronic) Hospital Course and Treatment Summary of Care Provided: This patient was seen in conjunction with JAYJAY Sanchez . I have independently interviewed and examined the patient and reviewed pertinent historical, laboratory, and other data. Please refer to JAYJAY Sanchez note for details of this patient's presentation, findings, and recommendations. I have reviewed JAYJAY Sanchez note and concur with documented findings. In brief, patient is a 48-year-old gentleman with history of ischemic cardiomyopathy status post biventricular ICD/CHIEF SERVICE OBSERVER therapy known history of left apical thrombus who presented with shortness of breath. Imaging studies obtained and admission demonstrated presence of acute pulmonary embolism. Patient in addition was found to be in acute on chronic systolic heart failure admitted to a monitored bed for further management Assessment: 1. Acute pulmonary embolism 2. Acute on chronic systolic heart failure 3. Nonischemic cardiomyopathy status post biventricular ICD/CHIEF SERVICE OBSERVER therapy 4. Left apical thrombus 5. Acute kidney injury 6. Tobacco dependence 7. Known history of medical noncompliance with therapy 8. Essential hypertension 9. GERD 10. Hypothyroidism Hospital course: As documented above - Physical Exam Vital Signs Temp Pulse Resp BP Pulse Ox 97.7 F L 75 16 113/80 97 04/10/19 09:01 04/10/19 09:01 04/10/19 09:01 04/10/19 09:01 04/10/19 09:01 Oxygen Flow Rate (L/min) 2 Oxygen Delivery Method Room Air Weight: 79 kg Body Mass Index (BMI) 23.6 Finger Stick Blood Glucose 124 Intake and Output for Last 24 Hours 04/08/19 04/09/19 04/10/19 23:59 23:59 23:59 Intake Total 1383 / 1383 1366 / 1366 240 / 240 Output Total 3320 / 3320 2950 / 2950 400 / 400 Balance -1937 / -1937 -1584 / -1584 -160 / -160 Laboratory Tests Past 24 Hrs 04/10/19 04/10/19 06:02 06:02 WBC 7.8 RBC 5.02 Hgb 15.2 Hct 47.7 MCV 95.0 H MCH 30.3 MCHC 31.9 L RDW Std Deviation 59.7 H RDW Coeff of Paulina 17.5 H Plt Count 166 MPV 10.1 Immature Gran % (Auto) 0.400 Neut % (Auto) 73.0 H Lymph % (Auto) 16.3 L [place] % (Auto) 9.1 Eos % (Auto) 0.8 Baso % (Auto) 0.4 Absolute Neuts (auto) 5.7 Absolute Lymphs (auto) 1.27 Nucleated RBC % 0 Sodium 138 Potassium 4.0 Chloride 102 Carbon Dioxide 28.0 Anion Gap 8 BUN 35 H Creatinine 1.04 Estim Creat Clear Calc 93.27 Est GFR (MDRD) Af Amer 97 Est GFR (MDRD) Non-Af 80 BUN/Creatinine Ratio 33.7 H Glucose 82 Calcium 7.9 L Total Bilirubin 1.10 H AST 41 H ALT 28 Alkaline Phosphatase 304 H Total Protein 5.3 L Albumin 2.3 L Globulin 3.0 Albumin/Globulin Ratio 0.8 L Code Visit Inpatient E&M: 42420 Disch Hosp
--- NOTE | 2019-04-12 09:18 | CCN.REFER ---
T/C TO PATIENT TO DISCUSS CCN. STATES THAT HE AGREES TO CCN SERVICES, BUT HE DOES NOT WANT ANYONE COMING TO HIS HOME FOR A FEW WEEKS. STATES THAT HE DOES NOT HAVE HIS HOUSE PUT TOGETHER. THIS RN EXPLAINED TO PATIENT IMPORTANCE OF CLOSE MONITORING POST HOSPITALIZATION, AND IT DOES NOT MATTER AT THIS POINT WHAT THE HOME LOOKS LIKE. PATIENT DISAGREES AND ASKED US TO CALL HIM BACK IN 2-3 WEEKS.
--- NOTE | 2019-04-12 14:57 | CASEMGMT ---
Case Management DC F/u call: DC Date: 04/10/19 DC Diagnosis: 1. Acute on chronic systolic CHF, nonischemic cardiomyopathy status post biventricular ICD/GLOVE BOARDER therapy 2. Acute hypoxic respiratory insufficiency, secondary to #1 as well as acute PE 3. Acute Left lower PE/apical thrombus 4. Abnormal troponin-demand ischemia as a result of #1. 5. UNA-resolved with diuresis. 6. Elevated liver enzymes/liver ascites-suspect secondary to #1. 7. GERD 8. Tobacco dependence 9. Noncompliance with medication regimen and follow-up 10. Valvular heart disease 11. Hypertension 12. Abnormal TSH, mild hypothyroidism DC Disposition: Home with CCN Referral Lace/Strata: 10/10 Called patient cell phone listed in demographics. No answer, Voice Mailbox not set up yet. ZACKARY Vasquez
--- NOTE | 2019-05-10 09:23 | CCN.REFER ---
Patient/ decline CCN services.
== END 2019-04-10 10:19 | disposition home or self-care (01) | DRG 291 ==
LOC: ED 23:27 → PCU 04-08 01:40
PROVIDERS: Nurse Practitioner Family; Admitting Provider Internal Medicine; Emergency Provider Emergency Medicine; Referring Provider Internal Medicine; Visit Provider Internal Medicine
DX: I11.0 Hypertensive heart disease with heart failure (principal); I26.99 Other pulmonary embolism without acute cor pulmonale; N17.9 Acute kidney failure, unspecified; I24.8 Other forms of acute ischemic heart disease; I50.23 Acute on chronic systolic (congestive) heart failure; I42.8 Other cardiomyopathies; R79.89 Other specified abnormal findings of blood chemistry; F17.210 Nicotine dependence, cigarettes, uncomplicated; Z95.810 Presence of automatic (implantable) cardiac defibrillator; Z79.01 Long term (current) use of anticoagulants; Z91.14 Patient's other noncompliance with medication regimen; K21.9 Gastro-esophageal reflux disease without esophagitis; I51.3 Intracardiac thrombosis, not elsewhere classified; R09.02 Hypoxemia; R06.89 Other abnormalities of breathing; E03.9 Hypothyroidism, unspecified; R94.6 Abnormal results of thyroid function studies; I25.10 Atherosclerotic heart disease of native coronary artery without angina pectoris
CPT/HCPCS: 36415; 71275; 76705; 80048; 80053; 80061; 83690; 83735; 83880; 84439; 84443; 84481; 84484; 85025; 85610; 85730; 93005; 93306; 99285; Q9967; A4216; J1940; J2405

== ENCOUNTER 2019-06-29 02:39 | Inpatient (IN) | payer MEDICARE, SELFPAY ==
[2019-04-08 02:37] VITALS: BMI 23.6
[2019-06-29] VITALS (33 sets, daily range): BP systolic 74–228; BP diastolic 46–159; PULSE 0–116; RESP 0–33; TEMP 35.2–36.7; O2SAT 58–100; BMI 22.4; BMI 20.1
--- NOTE | 2019-06-29 03:09 | EKG12_ITS ---
Test Reason : CP/SOB Blood Pressure : / mmHG Vent. Rate : 105 BPM Atrial Rate : 105 BPM P-R Int : 134 ms QRS Dur : 144 ms QT Int : 402 ms P-R-T Axes : 063 259 061 degrees QTc Int : 531 ms Atrial-sensed ventricular-paced rhythm Biventricular pacemaker detected Abnormal ECG Confirmed by YURIY PABLO, HOANG ([id number]), copy editor MARY JO PERALTA ([id number]) on 07/01/2019 11:17:41 AM Referred By: Montez Hong Confirmed By:HOANG YAN MD
--- NOTE | 2019-06-29 03:09 | RAD_ITS ---
HISTORY: CHRONIC SOB INCREASED LATELY ADDITIONAL HISTORY: None provided. COMPARISON: 03/21/2019 TECHNIQUE: Frontal and lateral chest radiographs. Number of images including paperwork: 2 FINDINGS: LUNGS AND PLEURA: No consolidation, mass or pleural effusion. CARDIAC SILHOUETTE: Stably enlarged. MEDIASTINUM AND HEIDI: Unremarkable. UPPER ABDOMEN: Unremarkable. SKELETON AND SOFT TISSUES: No acute findings. OTHER DEVICES AND HARDWARE: Biventricular ICD with right-sided generator. RAD/Chest PA and Lateral IMPRESSION: No acute cardiopulmonary abnormality. Stable cardiomegaly. at 0357 Reported and signed by: Yeimi Swain MD Electronically Signed: Yeimi Swain MD at 3:57 EST Tel , Service support ,
--- NOTE | 2019-06-29 03:10 | ED.DCSUM_ITS ---
History of Present Illness Chief Complaint: Chest Pain Informant: Patient Narrative: Stated he has been feeling shortness of breath 2 weeks. He has a history cardiomyopathy with ejection fraction around 10%. He has an ICD and biventricular pacer. He has a longstanding history of cardiomyopathy. He also has a pulmonary embolism in his left lower lobe. He has had this for months. He is on Eliquis therapy for this. He stated that he does not always take his Eliquis appropriately. He stated last week he was off of it for about 10 days. Patient stated he has been feeling nauseous over the last couple days with multiple episodes of emesis. He denies abdominal pain. Time she gets pains in his shoulders per patient. He denies any chest pain at this time. Patient stated he did not get a flu shot. He has had a cough of clear sputum which is chronic per patient. He denies any fevers or chills. He does smoke cigarettes. - Past Medical History (1) Acute on chronic systolic heart failure Status: Acute (2) CHF (congestive heart failure) Status: Acute (3) Elevated troponin Status: Acute (4) Pulmonary embolism and infarction Status: Acute (5) Anxiety Status: Chronic (6) Cardiomyopathy Status: Chronic (7) Coronary artery disease Status: Chronic (8) Medical non-compliance Status: Chronic (9) S/P implantation of automatic cardioverter/defibrillator (AICD) Status: Chronic (10) Status post placement of cardiac pacemaker Status: Chronic (11) Valvular disease Status: Chronic Past Medical History - Allergies and Home Meds Allergies/Adverse Reactions: Allergies No Known Allergies Allergy (Verified 06/29/19 02:40) Primary Care Physician: Care Physician,No Primary [Primary Care Provider] - Prior records reviewed: Yes Past Medical History: - - See problem list Surgical History: cholecystectomy, - - ICD placement Lives: With Family Smoking Status: Current every day smoker Alcohol: None Drugs: None - Family History Maternal Family History: Reports: - - Patient denies knowledge of maternal medical history Paternal Family History: Reports: Cancer, - - stomach cancer Review of Systems General: Denies: Chills, Fever, Sweats Eyes: Denies: Visual changes - bilaterally, Diplopia ENT: Denies: Rhinorrhea, Sore throat Cardiovascular: Denies: Chest pain, Palpitations Respiratory: Reports: Dyspnea, Cough. Denies: Dyspnea on exertion Gastrointestinal: Reports: Nausea, Vomiting. Denies: Abdominal pain, Diarrhea, Melena, Hematochezia Genitourinary: Denies: Dysuria, Hematuria, Frequency Musculoskeletal: Denies: Back pain, Extremity Pain Skin: Denies: Rash, Wounds Neurological: Reports: Weakness. Denies: Headache, Numbness Physical Exam Vital Signs/Narrative: Vital Signs Temp Pulse Resp BP Pulse Ox 06/29/19 02:43 97.1 F L 107 H 26 H 138/106 H 99 General: Well nourished, Well developed, No Acute Distress Head: Normocephalic, Atraumatic Eyes: Perrl, EOMI ENT: Moist mucous membranes, No rhinorrhea Neck: Supple, Nontender Cardiovascular: Regular rhythm, No murmurs, Tachycardia. Negative for: Regular rate Respiratory: No distress, CTA bilaterally, Chest nontender Abdomen: Soft, Nontender, Nondistended, Normal bowel sounds Back: Nontender, Normal Inspection Extremities: Nontender, No edema Skin: Normal color, No rash Neurological: Alert, Oriented x3, Cranial nerves II-XII grossly intact, Normal Strength, Normal Sensation Psychological: Normal affect, Normal Mood Diagnostic/Tx/Re-eval - Medical Decision Making EKG shows paced rhythm at 105. Unchanged from EKG in March 2019. Patient given intravenous Zofran. Lab work and chest x-ray obtained. Chest x-ray shows chronic changes without acute disease. Lab work shows no leukocytosis. He does have a mild elevation in his hemoglobin. Liver function test showed chronic abnormalities. Troponin is 0.3 which is chronically elevated for the patient. Lipase is negative. Electrolytes show a mild acute insufficiency at 1.4. Patient was given Zofran and his nausea is much better. He fell asleep in the department and took his oxygen off and his oxygen sats dropped to 70% on room air. He does not have oxygen at home. I feel a lot of these abnormalities are chronic. He has chronic CHF with a significantly low ejection fraction. He does not appear to be compliant with his medications. I have a low suspicion for new pulmonary embolism but it is possible due to the fact that he has been off his Eliquis. I do not think he needs an emergent CT angios at this time with his creatinine being 1.4. Lactate came back 3.1. He has had elevations like this in the past. I do not think the patient is septic. ED Disposition - Plan for ED Patient: Disposition: Acute Care Hospital [facility] Diagnosis: Hypoxia, Cardiomyopathy, Nausea and vomiting
[2019-06-29] MEDS: Ondansetron 4 MG/2 ML Vial IV ×2 (03:16→12:57)
[2019-06-29 03:17] LABS: Absolute Lymphocyte Count 1.52 X10^3/uL (0.83-4.51); Absolute Neutrophil Count 7.6 X10^3/uL (2.0-7.7); Basophil# 0.07 X10^3/uL; Basophil% 0.7 % (0-1); Lymphocyte # 1.52 X10^3/ul (4.0); Lymphocyte % 15.3 % (19-41); Mean Corp Hgb Conc 31.5 g/dL (32-36); Mean Corpuscular Hgb 29.9 pg (27.0-32.0); Mean Corpuscular Volume 95.1 fL (80-94); Mean Platelet Vol. 9.8 fl (6.2-12.0); Monocyte# 0.53 X10^3/uL; Monocyte% 5.3 % (0-10); NRBC Flagged by Analyzer 0 % (0-5); Neutrophil # 7.58 X10^3/uL (2.7-7.7); Neutrophil % 76.4 % (47-70); Platelet Count 258 K/mm3 (150-450); RBC Distribution Width CV 17.3 % (11.6-14.6); RBC Distribution Width SD 58.4 fl (35.1-43.9); Red Blood Count 5.68 M/mm3 (4.6-6.2); White Blood Count 9.9 K/mm3 (4.4-11.0)
[2019-06-29 03:31] LABS: AST(SGOT) 52 U/L (15-37); Alanine Aminotransfer ALT/SGPT 39 U/L (16-61); Albumin, Serum 3.1 g/dL (3.2-5.0); Alkaline Phosphatase 309 U/L (45-117); Anion Gap 8 (5-15); BUN 41 mg/dL (7-18); BUN/Creat Ratio 27.9 RATIO (10-20); Bilirubin, Direct 0.89 mg/dL (0.00-0.30); Calcium,Total 9.3 mg/dL (8.5-10.1); Chloride 99 mmol/L (98-107); Creatinine, Serum 1.47 mg/dL (0.70-1.30); EST Glomerular Filtration Rate 54 mL/min (>60); Est Glom Filt Rate - Afr Amer 65 mL/min (>60); Estimated Creatinine Clearance 63.94 ml/min; Globulin 4.5 g/dL (2.2-4.2); Glucose 95 mg/dL (74-106); Lipase 50 U/L (73-393); Protein, Total 7.6 g/dL (6.4-8.2); Sodium Level 136 mmol/L (136-145)
[2019-06-29 04:06] LABS: Lactic Acid 3.1 mmol/L (0.4-1.9)
--- NOTE | 2019-06-29 04:25 | HP.PCM_ITS ---
Problem List (1) Dyspnea Status: Acute (2) Hypoxia Status: Acute (3) Nausea and vomiting Status: Acute (4) Cardiomyopathy Status: Chronic Qualifiers: Cardiomyopathy type: dilated Qualified Code(s): I42.0 - Dilated cardiomyopathy (5) Acute on chronic systolic heart failure Status: Acute (6) CHF (congestive heart failure) Status: Acute Qualifiers: Heart failure type: systolic Heart failure chronicity: acute on chronic Qualified Code(s): I50.23 - Acute on chronic systolic (congestive) heart failure (7) Elevated troponin Status: Chronic (8) Pulmonary embolism and infarction Status: Chronic (9) Anxiety Status: Chronic (10) Coronary artery disease Status: Inactive (11) Medical non-compliance Status: Chronic (12) S/P implantation of automatic cardioverter/defibrillator (AICD) Status: Chronic (13) Status post placement of cardiac pacemaker Status: Chronic (14) Valvular disease Status: Chronic History of Present Illness Date of Admission: 06/29/19 Chief Complaint: shortness of breath The patient is a 48 year old M with a significant history of heart failure with ejection fraction of about 10%; ICD; and a pulmonary embolism who presented to the emergency department with 5 days of shortness of breath. His shortness of breath occurs at rest. Also he has orthopnea and paroxysmal nocturnal dyspnea. Further he has nausea and vomiting. Initially reported that his nausea and vomiting has been going on for about 2 weeks. Later he said that his nausea and vomiting has been gone for 5 days. He reports improving productive cough. He has he has abdominal pain associated with his cough. At the emergency department he was found to have oxygen saturation in the 70s with sleeping. When he was not sleeping his oxygen saturation was appropriate. He reports extreme fatigue and weakness. He reported that he is too weak to the point that when he goes to the grocery shopping he has to use a motorized wheelchair. Past Medical History Past Medical History (Chronic Problems): Chronic Problems Elevated troponin (Chronic) Pulmonary embolism and infarction (Chronic) Medical non-compliance (Chronic) Cardiomyopathy (Chronic) Valvular disease (Chronic) Anxiety (Chronic) Status post placement of cardiac pacemaker (Chronic) S/P implantation of automatic cardioverter/defibrillator (AICD) (Chronic) Allergies No Known Allergies Allergy (Verified 06/29/19 02:40) Home Medications: Ambulatory Orders Medication Instructions Recorded Apixaban [Eliquis] 10 mg PO BID #68 tab 04/09/19 Furosemide [Lasix] 40 mg PO BID #60 tab 04/09/19 Surgical History: cholecystectomy, - - ICD placement Psychiatric History: Anxiety Lives: With Family Smoking Status: Current every day smoker Alcohol: None Drugs: None - *Family History Maternal History Items: - - Patient denies knowledge of maternal medical history Paternal History Items: Cancer, - - stomach cancer Review of Systems Constitutional: Reports: Weakness, Fatigue. Denies: Chills, Fever, Weight Change HEENT: Denies: Head Aches, Sinus Congestion, Sinus Drainage Cardiovascular: Reports: Orthopnea, Palpitations, Paroxysmal Noc. Dyspnea. Denies: Chest Pain Respiratory: Reports: Cough, Shortness of breath at rest, Sputum production Gastrointestinal: Reports: Abdominal Pain, Nausea, Vomiting Genitourinary: Denies: Dysuria Musculoskeletal: Denies: Joint Pain, Joint Tenderness Skin: Denies: Rash, Wounds Neurological: Denies: Numbness, Tingling, Focal weakness Psychiatric: Denies: Anxiety, Depression, Homicidal Ideations, Suicidal Ideations Hematologic/ Lymphatic: Denies: Easy Bruising, Easy Bleeding VTE Information - Inpt Only VTE Present on Admission: No VTE Mechan Device Prophylaxis: None VTE Pharm Prophylaxis ordered?: No Reason prophylaxis not ordered:: Treatment Not Indicated - Continue Eliquis for history of PE Patient Problems: Active and Suspected Problems Hypoxia (Acute) Nausea and vomiting (Acute) Dyspnea (Acute) - Physical Exam Vitals/I&O's: Vital Signs Temp Pulse Resp BP Pulse Ox 97.1 F L 116 H 33 H 128/111 H 99 06/29/19 03:17 06/29/19 03:54 06/29/19 03:54 06/29/19 03:54 06/29/19 03:54 Oxygen Flow Rate (L/min) 2 Oxygen Delivery Method Nasal Cannula Weight: 75.189 kg Body Mass Index (BMI) 22.4 Finger Stick Blood Glucose 124 General: Alert, Oriented x3, Cooperative HEENT: Atraumatic, PERRLA, EOMI, Normocephalic Neck: Supple, Trachea Midline Lungs: Clear to auscultation, Normal air movement, Tachypneic Cardiovascular: Normal S1, Normal S2, Tachycardic Abdomen: Bowel Sounds Present, Soft, Non Tender Extremities: No edema, Capillary Refill Less than 3 Seconds Skin: No rashes, No breakdown Musculoskeletal: No Tenderness to Palpation of Joints or Extremities Neurological: Cranial nerves II-XII grossly intact Psych/Mental Status: Normal Affect, Appropriate Microbiology Past 72 Hours 06/29/19 03:20 Mucosa - Nasopharyngeal Influenza Types A,B Direct FA (ISABEL) - Final Laboratory Results 06/29/19 03:02: WBC 9.9, RBC 5.68, Hgb 17.0 H, Hct 54.0, MCV 95.1 H, MCH 29.9, MCHC 31.5 L, RDW Std Deviation 58.4 H, RDW Coeff of Paulina 17.3 H, Plt Count 258, MPV 9.8, Immature Gran % (Auto) 0.300, Neut % (Auto) 76.4 H, Lymph % (Auto) 15.3 L, Angelina % (Auto) 5.3, Eos % (Auto) 2.0, Baso % (Auto) 0.7, Absolute Neuts (auto) 7.6, Absolute Lymphs (auto) 1.52, Nucleated RBC % 0 06/29/19 03:02: Sodium 136, Potassium 4.0, Chloride 99, Carbon Dioxide 29.0, Anion Gap 8, BUN 41 H, Creatinine 1.47 H, Estim Creat Clear Calc 63.94, Est GFR (MDRD) Af Amer 65, Est GFR (MDRD) Non-Af 54 L, BUN/Creatinine Ratio 27.9 H, Glucose 95, Calcium 9.3, Total Bilirubin 3.30 H, Direct Bilirubin 0.89 H, AST 52 H, ALT 39, Alkaline Phosphatase 309 H, Troponin I 0.363 H, Total Protein 7.6, Albumin 3.1 L, Globulin 4.5 H, Lipase 50 L 06/29/19 03:25: Lactic Acid 3.1 H* Assessment/Plan All Active Problems Hypoxia (Acute) Nausea and vomiting (Acute) Dyspnea (Acute) Acute on chronic systolic heart failure (Acute) CHF (congestive heart failure) (Acute) The patient is a 48 year old M with a significant history of heart failure with ejection fraction of about 10% and a pulmonary embolism who presented to the emergency department with 5 days of shortness of breath. Dyspnea and hypoxia Multifactorial from pulmonary embolism and systolic heart failure. Continue Eliquis Continue Lasix p.o. for now. Add potassium 10 mEq daily. Patient supposed to be on Aldactone; RADHA inhibitors and beta-blockers. Nursing team to check with outside pharmacy to find out exact doses. Meanwhile we will start patient on low-dose Coreg for now. RADHA inhibitor was not started because of UNA. Will get echocardiogram. Daily weights. 2 g sodium diet. Fluid restriction in place since patient is not edematous. Check TSH Discussed the case with cardiology. Lactic acidosis Likely secondary likely secondary to hypoxemia. Trend UNA On presentation his creatinine was 1.47 Baseline creatinine is around 1.06. Trend BMP. Continue p.o. Lasix for now. Elevated troponin This is chronic. Likely secondary to demand ischemia. Trend. Probable sleep apnea Overnight oximetry ordered. If abnormal consider BiPAP nightly and PRN at the hospital and sleep study recommendation outpatient Elevated liver enzymes Chronic. Erythrocytosis Chronic and likely secondary to hypoxia and tobacco use. Tobacco abuse Counseled. Reportedly averagely he smokes about 4 sticks per day but when he is stressed he smokes more. GERD/gastritis Protonix IV twice daily. Zofran as needed. Unlikely that patient will get EGD due to poor EF. DVT prophylaxis Not indicated since patient is on Eliquis for A. fib. Code Visit Inpatient E&M: 02974 Init Hosp L3
--- NOTE | 2019-06-29 06:08 | ECHOL_ITS ---
Reason For Study: DYSPNEA Procedure This was a limited 2D transthoracic echocardiogram. Limited views were obtained. Exam performed portable in patient room. Left Ventricle Severely dilated left ventricle. Severe segmental systolic dysfunction (see wall motion). The estimated ejection fraction is 10 %. Paced septal motion. Unable to assess diastolic dysfunction. Anterio-Basal: Hypokinetic. Lateral-Basal: Hypokinetic. Posterior-Basal: Hypokinetic. Infero-Basal: Hypokinetic. Basal inferoseptal: Akinetic. Basal anteroseptal: Akinetic. Mid-Anterior : Akinetic. Mid-Lateral : Akinetic. Mid-Posterior: Akinetic. Mid-Inferior: Akinetic. Mid-inferoseptal : Akinetic. Mid-anteroseptal : Akinetic. [place] : Akinetic. Right Ventricle Moderately dilated right ventricle. ICD or pacer leads identified within the right ventricle. Moderate global right ventricular systolic dysfunction. Atria The left atrium is moderately enlarged. The right atrium is mildly enlarged. ICD or pacer leads identified within the right atrium. No doppler evidence for ASD. Mitral Valve There is no mitral annular calcification. Mild diffuse mitral valve thickening. Mild papillary muscle dysfunction of the mitral valve. Moderate (2+) mitral valve insufficiency. Tricuspid Valve Poor coaptation of the tricuspid valve. Moderately severe (3+) tricuspid valve insufficiency. Aortic Valve Trisinus/trileaflet aortic valve. Normal aortic valve. Pulmonic Valve The pulmonic valve is not well visualized. Great Vessels Plethoric inferior vena cava. Pericardium/Pleural No pericardial effusion. MMode/2D Measurements & Calculations LVIDd: 6.9 cm IVSd: 0.87 cm LAV(MOD-sp4): 87.6 ml LVIDs: 6.7 cm LVPWd: 0.91 cm RVDd: 5.5 cm FS: 3.3 % LVAd ap4: 60.6 cm2 SV(MOD-sp4): 17.3 ml SV(sp4-el): 24.6 ml EDV(MOD-sp4): 270.3 ml EDV(sp4-el): 276.3 ml LVAs ap4: 55.2 cm2 ESV(MOD-sp4): 253.1 ml ESV(sp4-el): 251.7 ml EF(MOD-sp4): 6.4 % EF(sp4-el): 8.9 % LA A4 area: 27.2 cm2 RA A4 area: 22.8 cm2 Interpretation Summary Limited views were obtained. Severely dilated left ventricle. Severe segmental systolic dysfunction (see wall motion). The estimated ejection fraction is 10 %. Paced septal motion. Moderately dilated right ventricle. Moderate global right ventricular systolic dysfunction. The left atrium is moderately enlarged. The right atrium is mildly enlarged. Mild diffuse mitral valve thickening. Mild papillary muscle dysfunction of the mitral valve. Moderate (2+) mitral valve insufficiency. Poor coaptation of the tricuspid valve. Moderately severe (3+) tricuspid valve insufficiency. Unable to assess diastolic dysfunction. ICD or pacer leads identified within the right atrium ICD or pacer leads identified within the right ventricle. Comment: Compared to the previous transthoracic echocardiogram of 04-08-19: The previously documented left ventricular apical thrombus is not appreciated at this time, however, there does appear to be 2D echocardiographic findings compatible with a somewhat homogeneous appearing approximately 0.5 cm x 0.5 cm mass lesion in the left ventricular apical area appearing compatible with a left ventricular apical thrombus. Ordering Physician: Montez Hong Referring Physician: Montez Hong Performed By: Brittney Rodriguez RDCS, RVT
--- NOTE | 2019-06-29 06:42 | EKG12_ITS ---
Test Reason : CP ADMIT Blood Pressure : / mmHG Vent. Rate : 105 BPM Atrial Rate : 105 BPM P-R Int : 132 ms QRS Dur : 146 ms QT Int : 400 ms P-R-T Axes : 055 262 061 degrees QTc Int : 528 ms Atrial-sensed ventricular-paced rhythm Biventricular pacemaker detected Abnormal ECG Confirmed by YURIY PABLO, HOANG ([id number]), editor managing director SONIYA ALEGRIA ([id number]) on 07/02/2019 3:36:45 PM Referred By: Montez Hong Confirmed By:HOANG YAN MD
[2019-06-29 07:25] LABS: Thyroid Stim Hormone (TSH) 3.52 uIU/mL (0.358-3.74)
[2019-06-29 07:32] LABS: Reflex Lactate? Y
[2019-06-29 08:55] LABS: Lactic Acid 2.9 mmol/L (0.4-1.9)
[2019-06-29] MEDS: Carvedilol 3.125 MG TABLET PO (09:42)
[2019-06-29] MEDS: APIXABAN 5 MG TABLET PO (09:53)
--- NOTE | 2019-06-29 11:04 | PN_ITS ---
Patient Problems: Active and Suspected Problems Hypoxia (Acute) Nausea and vomiting (Acute) Dyspnea (Acute) Ventricular tachycardia (paroxysmal) (Acute) Reason for Visit: Shortness of breath, abdominal pain, nausea and vomiting Subjective: Patient is very tangential in the history and states he does not remember. Overall it seems patient has dry cough for about 1 month but he said it has resolved today. Patient easily gets short of breath at rest and on minimal exertion. Patient follows Dr. Barajas, global marketing intern in [place]. Patient has EF 10%. He does not remember well when was his last cath but states his cardiac cath were normal. Last cath vaguely said about to 3 years ago. Objective: Patient had NSVT about 03/20/2019 due to. Had 2 times about 18-19 beats of NSVT. Started on amiodarone drip. Patient also has nausea and vomited, clear and bilious type. Complain of abdominal pain right upper quadrant. LFT elevated. Vitals/I&O's: Vital Signs Temp Pulse Resp BP Pulse Ox 98.0 F 112 H 18 131/107 H 98 06/29/19 06:18 06/29/19 07:11 06/29/19 06:18 06/29/19 06:20 06/29/19 06:18 Oxygen Flow Rate (L/min) 2 Oxygen Delivery Method Nasal Cannula Weight: 148 lb 2.41 oz Body Mass Index (BMI) 20.0 Finger Stick Blood Glucose 124 General: Alert, Oriented x3, Cooperative HEENT: Atraumatic, PERRLA, EOMI, Normocephalic Neck: Supple, No JVD, Negative Carotid Bruits, - Lungs: Diminished - Entry severely diminished in all lung hendricks, Rhonchi, Short of Breath Cardiovascular: Regular rate, Regular Rhythm, Normal S1, Normal S2, No murmurs, - - No chest wall tenderness Abdomen: Bowel Sounds Present, Soft, Non Tender Extremities: No edema, Capillary Refill Less than 3 Seconds Skin: No rashes, No breakdown Musculoskeletal: No Tenderness to Palpation of Joints or Extremities, Arthritic Changes Neurological: Cranial nerves II-XII grossly intact Psych/Mental Status: Normal Affect, Appropriate Microbiology Past 72 Hours 06/29/19 03:20 Mucosa - Nasopharyngeal Influenza Types A,B Direct FA (ISABEL) - Final Laboratory Results 06/29/19 03:02: WBC 9.9, RBC 5.68, Hgb 17.0 H, Hct 54.0, MCV 95.1 H, MCH 29.9, MCHC 31.5 L, RDW Std Deviation 58.4 H, RDW Coeff of Paulina 17.3 H, Plt Count 258, MPV 9.8, Immature Gran % (Auto) 0.300, Neut % (Auto) 76.4 H, Lymph % (Auto) 15.3 L, [place] % (Auto) 5.3, Eos % (Auto) 2.0, Baso % (Auto) 0.7, Absolute Neuts (auto) 7.6, Absolute Lymphs (auto) 1.52, Nucleated RBC % 0 06/29/19 03:02: Sodium 136, Potassium 4.0, Chloride 99, Carbon Dioxide 29.0, Anion Gap 8, BUN 41 H, Creatinine 1.47 H, Estim Creat Clear Calc 63.94, Est GFR (MDRD) Af Amer 65, Est GFR (MDRD) Non-Af 54 L, BUN/Creatinine Ratio 27.9 H, Glucose 95, Calcium 9.3, Total Bilirubin 3.30 H, Direct Bilirubin 0.89 H, AST 52 H, ALT 39, Alkaline Phosphatase 309 H, Troponin I 0.363 H, Total Protein 7.6, Albumin 3.1 L, Globulin 4.5 H, Lipase 50 L 06/29/19 03:25: Lactic Acid 3.1 H* 06/29/19 06:37: Magnesium 2.0, Troponin I 0.351 H, TSH 3.52 06/29/19 07:55: Lactic Acid 2.9 H* 06/29/19 09:11: Troponin I 0.346 H Current Medications Acetaminophen (Tylenol) 650 mg PO Q6H PRN PRN PRN Reason: Pain Score 1-10/Temp > 100.7 F Apixaban (Eliquis) 5 mg PO BID [facility] Last Admin: 06/29/19 09:53 Dose: 5 mg Documented by: Carvedilol (Coreg) 3.125 mg PO BID [facility] Last Admin: 06/29/19 09:51 Dose: Not Given Documented by: Furosemide (Lasix) 40 mg PO BIDLX [facility] Last Admin: 06/29/19 09:52 Dose: Not Given Documented by: Glucagon () 1 mg IM .X1 PRN PRN Reason: Hypoglycemia Pantoprazole Sodium 40 mg/ (Sodium Chloride) 110 mls @ 330 mls/hr IV Q12 [facility] Last Admin: 06/29/19 09:44 Dose: 330 mls/hr Documented by: Sodium Chloride () 250 mls @ 15 mls/hr IV .[id number] PRN PRN Reason: Saline Flush Sodium Chloride () 250 mls @ 15 mls/hr IV .[id number] PRN PRN Reason: Additional IVPB Infusion Dextrose (Dextrose 10%-Water) 250 mls @ 999 mls/hr IV .Q16M PRN; Protocol PRN Reason: HYPOGLYCEMIA Amiodarone HCl 150 mg/ (Dextrose) 103 mls @ 600 mls/hr IV BOLUS X1 ONE Stop: 06/29/19 11:12 Amiodarone HCl 360 mg/ (Dextrose) 200 mls @ 33.333 mls/hr CONT INF .Q6H [place] Stop: 06/29/19 17:04 Melatonin (Melatonin) 3 mg PO QHS PRN PRN PRN Reason: INSOMNIA Ondansetron HCl (Zofran) 4 mg IV Q8H PRN PRN PRN Reason: NAUSEA/VOMITING Potassium Chloride (K-Dur) 10 meq PO DAILYCM [facility] Last Admin: 06/29/19 09:42 Dose: 10 meq Documented by: Sodium Chloride () 10 - 40 ml IV UD PRN PRN Reason: SALINE FLUSH STROKE Vital Signs/Narrative: Vital Signs Pulse 06/29/19 07:11 112 H Medical Necessity - Tobacco Use Smoking Status: Current every day smoker Assessment/Plan All Active Problems Hypoxia (Acute) Nausea and vomiting (Acute) Dyspnea (Acute) Ventricular tachycardia (paroxysmal) (Acute) Acute on chronic systolic heart failure (Acute) CHF (congestive heart failure) (Acute) The patient is a 48 year old M with a significant history of chronic nonischemic systolic heart failure with ejection fraction of about 10% and a pulmonary embolism who presented to the emergency department with 5 days of shortness of breath. 1. Acute on chronic dyspnea, multifactorial in nature, systolic heart failure nonischemic cardiomyopathy, pulmonary embolism with NSVT: Patient is being admitted in PCU. Patient seen by global marketing intern. Started on IV amiodarone drip. Patient had one-time vomiting shortly after amiodarone 150 mg bolus. Repeat 2D echo was done. Continue Eliquis. Echo report 06/29/2019 Severely dilated left ventricle. Severe segmental systolic dysfunction (see wall motion). The estimated ejection fraction is 10 %. Paced septal motion. Moderately dilated right ventricle. Moderate global right ventricular systolic dysfunction. The left atrium is moderately enlarged. The right atrium is mildly enlarged. Mild diffuse mitral valve thickening. Mild papillary muscle dysfunction of the mitral valve. Moderate (2+) mitral valve insufficiency. Poor coaptation of the tricuspid valve. Moderately severe (3+) tricuspid valve insufficiency. Unable to assess diastolic dysfunction. ICD or pacer leads identified within the right atrium ICD or pacer leads identified within the right ventricle. Comment: Compared to the previous transthoracic echocardiogram of 04-08-19: The previously documented left ventricular apical thrombus is not appreciated at this time, however, there does appear to be 2D echocardiographic findings compatible with a somewhat homogeneous appearing approximately 0.5 cm x 0.5 cm mass lesion in the left ventricular apical area appearing compatible with a left ventricular apical thrombus. Continue beta-minor. Lasix 20 mg p.o. twice daily. ACEI on hold secondary to acute kidney injury. On heart failure regimen. 2. Abdominal pain, nausea or vomiting and lactic acidosis with elevated LFT Abdominal x-ray was done and shows nonspecific gas shadow. CT abdomen was further done as there was delay in right upper quadrant sonogram. Total bili 3.3, direct 0.9. Alkaline phosphatase 309. ALT 39, AST 52. Lipase normal. Lactic acid is improved. 3. UNA On presentation his creatinine was 1.47 Baseline creatinine is around 1.06. Trend BMP. Continue p.o. Lasix for now. Elevated troponin Troponins are chronically elevated likely secondary to demand ischemia. Probable sleep apnea Overnight oximetry ordered. If abnormal consider BiPAP nightly and PRN at the hospital and sleep study recommendation outpatient Elevated liver enzymes Chronic. Erythrocytosis Chronic and likely secondary to hypoxia and tobacco use. Tobacco abuse Counseled. Reportedly averagely he smokes about 4 sticks per day but when he is stressed he smokes more. GERD/gastritis Protonix IV twice daily. Zofran as needed. Unlikely that patient will get EGD due to poor EF. DVT prophylaxis Not indicated since patient is on Eliquis for A. fib. Patient is noncompliance. Patient refused for respiratory panel. Patient also refusing for IV line and has removed to 3 times IV lines. Patient care has been difficult and this is also known as an outpatient as per global marketing intern note. Code Visit Inpatient E&M: 65767 Subs Hosp L2
[2019-06-29] MEDS: 0.9% Saline Lock 10 ML Syringe IV (12:25)
--- NOTE | 2019-06-29 12:45 | RAD_ITS ---
STUDY: X-RAY - ABDOMEN/PELVIS REASON FOR EXAM: Male, 48 years old. ABD PAIN ASSOCIATED WITH COUGH TECHNIQUE: 3 AP views COMPARISON: None. FINDINGS: Normal visualized lung bases. There is a moderate amount of colonic fecal material. There is no demonstrated free abdominal air. The visualized liver, spleen and kidneys are grossly normal in size and morphology. Normal soft tissue structures. Normal visualized osseous structures. RAD/Abd Inc Decub and/or Erect IMPRESSION: No acute findings, constipation Electronically Signed: Khari Oates MD at 17:04 EST , Service support ,
[2019-06-29] MEDS: Acetaminophen 325 MG Tablet 650 MG PO (13:44)
--- NOTE | 2019-06-29 14:23 | PCM.CONS.C ---
Problem List (1) CHF (congestive heart failure) Status: Acute Qualifiers: Heart failure type: systolic Heart failure chronicity: acute on chronic Qualified Code(s): I50.23 - Acute on chronic systolic (congestive) heart failure (2) Cardiomyopathy Status: Chronic Qualifiers: Cardiomyopathy type: dilated Qualified Code(s): I42.0 - Dilated cardiomyopathy (3) Valvular disease Status: Chronic (4) Ventricular tachycardia (paroxysmal) Status: Acute (5) S/P implantation of automatic cardioverter/defibrillator (AICD) Status: Chronic (6) Elevated troponin Status: Chronic (7) Medical non-compliance Status: Chronic Reason for Consult Date of Consultation: 06/29/19 History of Present Illness: The patient is a 48 year old white male with a past cardiovascular history of CHF secondary to non-CAD related cardiomyopathy, MR/TR, status post biventricular ICD therapy, who presents for concerns of recurrent CHF, findings compatible with paroxysmal ventricular tachycardia, abnormal cardiac enzymes, and medication noncompliance. The patient has been previously evaluated by cardiovascular services locally and in [place], [place]. He readily admits that he is noncompliant with his medications. He states that after his most recent medication/prescription ran out he did not refill them. As he became progressively short of breath and was noting abdominal discomfort he elected to present to the hospital for further evaluation. He states he has not been having chest discomfort or pain. He does not recall any obvious palpitations or rapid heart rates. He does not recall his ICD discharging. There is been no near syncope or syncope. He states his main concerns have been his shortness of breath and his abdominal discomfort. Since being in the hospital he has been monitored. He has had episodes compatible with paroxysmal ventricular tachycardia. He was placed on IV amiodarone. He is also had a follow-up transthoracic echocardiogram. His overall LV remains dilated and his overall LV systolic function remains markedly diminished with an estimated LVEF of approximately 10%. He has been previously noted to have a ventricular apical thrombus which on reevaluation this day was not appreciated, however, he had another smaller somewhat homogeneous mass lesion in the left ventricular apex compatible with a smaller appearing thrombus. He continued to have evidence of both MR and TR. His echocardiographic results are as noted below. He is also had continued evidence of abdominal discomfort. He notes this started at home prior to coming to the hospital. It has waxed and waned. He has denied any evidence of ongoing diarrhea or hematochezia. [] Past Medical History Allergies/Adverse Reactions: Allergies No Known Allergies Allergy (Verified 06/29/19 02:40) Home Medications: Ambulatory Orders Medication Instructions Recorded Furosemide [Lasix] 40 mg PO BID #60 tab 04/09/19 Apixaban [Eliquis] 5 mg PO BID 06/29/19 Past Medical History (Chronic Problems): Chronic Problems Elevated troponin (Chronic) Pulmonary embolism and infarction (Chronic) Medical non-compliance (Chronic) Cardiomyopathy (Chronic) Valvular disease (Chronic) Anxiety (Chronic) Status post placement of cardiac pacemaker (Chronic) S/P implantation of automatic cardioverter/defibrillator (AICD) (Chronic) Surgical History: cholecystectomy, - - ICD placement Psychiatric History: Anxiety - *Family History Maternal History Items: - - Patient denies knowledge of maternal medical history Paternal History Items: Cancer, - - stomach cancer Lives: With Family Smoking Status: Current every day smoker Alcohol: None Drugs: None Review of Systems - Review of Systems General: Denies: Fever, Night Sweats, Fatigue Cardiovascular: Reports: Shortness of Breath, Shortness of Breath at Rest, Shortness of Breath with Exertion. Denies: Chest Discomfort, Orthopnea, PND, Peripheral Edema, Palpitations, Lightheadedness, Dizziness, Near Syncope, Syncope Respiratory: Reports: Shortness of Breath. Denies: Cough, Sputum Production, Hemoptysis Gastrointestinal: Reports: Abdominal Discomfort. Denies: Hematemesis, Hematochezia, Melena Genitourinary: Denies: Dysuria, Hematuria Subjectve: This is a thin 48-year-old white male who appears to have waxing and waning episodes of abdominal discomfort. Objective: Vital Signs Temp Pulse Resp BP Pulse Ox 98.0 F 80 16 97/70 100 06/29/19 12:47 06/29/19 12:49 06/29/19 12:49 06/29/19 12:49 06/29/19 12:49 Oxygen Flow Rate (L/min) 2 Oxygen Delivery Method Nasal Cannula Weight: 148 lb 2.41 oz Body Mass Index (BMI) 20.0 Finger Stick Blood Glucose 124 Intake and Output for Last 24 Hours 06/27/19 06/28/19 06/29/19 23:59 23:59 23:59 Intake Total 721.33 / 721.33 Balance 721.33 / 721.33 General: Awake, Alert, Oriented x 3, Cooperative HEENT: Atraumatic, Normocephalic, PERRL, EOMI Oral: Moist Mucosa Neck: Supple, Good ROM, No JVD Lungs: Clear to auscultation Cardiovascular: Regular Rhythm, Normal S1, Normal S2 Murmur Murmur: Grade 2/6, Soft, Mid Systolic, LLSB, LVOT Vascular: No Carotid Bruits Abdomen: Bowel Sounds Present, Soft, - - Positive tenderness in the epigastric area to palpation Extremities: No edema Psych/Mental Status: Appropriate 06/29/19 03:02: WBC 9.9, RBC 5.68, Hgb 17.0 H, Hct 54.0, MCV 95.1 H, MCH 29.9, MCHC 31.5 L, Plt Count 258, MPV 9.8, Immature Gran % (Auto) 0.300, Neut % (Auto) 76.4 H, Lymph % (Auto) 15.3 L, [place] % (Auto) 5.3, Eos % (Auto) 2.0, Baso % (Auto) 0.7, Absolute Neuts (auto) 7.6, Nucleated RBC % 0 06/29/19 03:02: Sodium 136, Potassium 4.0, Chloride 99, Carbon Dioxide 29.0, Anion Gap 8, BUN 41 H, Creatinine 1.47 H, Est GFR (MDRD) Af Amer 65, Est GFR (MDRD) Non-Af 54 L, BUN/Creatinine Ratio 27.9 H, Glucose 95, Calcium 9.3, Total Bilirubin 3.30 H, Direct Bilirubin 0.89 H, Troponin I 0.363 H 06/29/19 03:25: Lactic Acid 3.1 H* 06/29/19 06:37: Magnesium 2.0, Troponin I 0.351 H 06/29/19 07:55: Lactic Acid 2.9 H* 06/29/19 09:11: Troponin I 0.346 H Rhythm: AV paced; biventricular paced EKG: V paced; biventricular paced ECHO: Interpretation Summary Limited views were obtained. Severely dilated left ventricle. Severe segmental systolic dysfunction (see wall motion). The estimated ejection fraction is 10 %. Paced septal motion. Moderately dilated right ventricle. Moderate global right ventricular systolic dysfunction. The left atrium is moderately enlarged. The right atrium is mildly enlarged. Mild diffuse mitral valve thickening. Mild papillary muscle dysfunction of the mitral valve. Moderate (2+) mitral valve insufficiency. Poor coaptation of the tricuspid valve. Moderately severe (3+) tricuspid valve insufficiency. Unable to assess diastolic dysfunction. ICD or pacer leads identified within the right atrium ICD or pacer leads identified within the right ventricle. Comment: Compared to the previous transthoracic echocardiogram of 04-08-19: The previously documented left ventricular apical thrombus is not appreciated at this time, however, there does appear to be 2D echocardiographic findings compatible with a somewhat homogeneous appearing approximately 0.5 cm x 0.5 cm mass lesion in the left ventricular apical area appearing compatible with a left ventricular apical thrombus. CXR: Preliminary evaluation: No acute cardiopulmonary disease process appreciated: Please see official report Assessment/Plan 1. Congestive heart failure There is been concerns the patient experienced acute on chronic systolic mediated CHF based upon his symptom superimposed upon his previous cardiovascular findings. At the moment he does not appear to have acute orthopnea or PND. He does need to resume medical management to assist with his ongoing cardiovascular care. This would include agents such as, and as deemed appropriate, nitrates, beta-blockers, diuretics, and afterload reducing agents, etc. 2. Cardiomyopathy The patient has a non-CAD related cardiomyopathy. He will need to continue medical management. He has been admittedly noncompliant with his medications in the past. Based upon his noncompliance he has not been thought to be a candidate in the past either by his physicians in [place], [place], or locally for tertiary care center evaluation for additional support such as left ventricular assist devices or cardiac transplantation. 3. MR/TR The patient continues with MR/TR. He will need to resume medical management to assist with his cardiovascular care as best as possible. 4. Paroxysmal ventricular tachycardia The patient will continue medical therapy. He has now been placed on IV amiodarone therapy which can be tradition to oral therapy over time. He does have a biventricular ICD in place. 5. Biventricular ICD/MANAGER OF PROJECT MANAGEMENT therapy The patient does have the aforementioned device in place. It can be interrogated as deemed appropriate. 6. Abnormal cardiac enzymes The patient has a history of abnormal cardiac enzymes. This may be secondary to his cardiomyopathy with respect to his left ventricular dilatation diminished LV systolic function and episodes of acute on chronic systolic mediated CHF. At the present time it does not appear the patient requires additional evaluation and care with other invasive studies such as diagnostic cardiac catheterization. He will continue medical management. 7. Noncompliance The patient does have a history of noncompliance. This is not a new finding. This has made it challenging to care for the patient as he has not taken his medications, once his initial prescription is exhausted, and he does not present for outpatient cardiovascular follow-ups. Of note, the patient does have abdominal discomfort. He is also been noted to have an elevated lactic acid level. He is undergoing further evaluation care by internal medicine with abdominal radiologic studies. There may be a concern, based upon his cardiovascular status of diminished peripheral perfusion with the possibility of intestinal ischemia despite his lack of event such as diarrhea/hematochezia, etc. Depending upon his clinical course, in addition to placing the patient back on cardiovascular medical management as deemed appropriate the time, he may need to be considered for further abdominal evaluation care by general surgery/peripheral vascular surgery, etc. if this is an ongoing issue and there is no other explanation for his symptoms/objective findings. This note was generated using a voice recognition system and there may be incorrect words, spelling or punctuation that were not noted when reviewing the office note prior to saving.
--- NOTE | 2019-06-29 14:50 | CASEMGMT ---
OLAF CALZADA Face to Face with patient for initial transition planning/care coordination assessment. RN CM introduced self and role at [facility]. Patient lying in bed, alert and oriented. Patient willing to participate in assessment and is able to answer all questions appropriately. Care providers, pharmacy, and demographics verified. Patient wishes to discharge home, denies need for home health at this time. Patient states he has no further needs or concerns at this time. CM to follow for discharge planning needs that may arise. PCP: NO PCP, list provided Specialists: none Preferred Pharmacy: [facility] Insurance: [facility] A Prescription Benefit: None Living Will/HPOA: NOne LNOK: Friend Living Arrangements: Patient lives alone in a house. Patient states he is independent at home. Transportation: self/friend Enrrique Rock DME/HHC: Patient denies DME of HHC Disposition Plan: Patient to discharge home with follow-up plans in place. Hyun RICK, RN, CM
--- NOTE | 2019-06-29 16:04 | CT_ITS ---
STUDY: CT ABDOMEN AND PELVIS WITHOUT CONTRAST REASON FOR EXAM: Male, 48 years old. ABD PAIN. ? intestinal ischemia. Recent PE and heart failure. Patient has just . RADIATION DOSAGE (If Supplied By Facility): CTDIvol = ( 6.20 ) mGy, DLP = ( 368.19 ) mGycm TECHNIQUE: Transaxial images were obtained from the dome of the diaphragm to the symphysis pubis without oral contrast, and without intravenous contrast. Sagittal and coronal images were reconstructed. Individualized dose optimization techniques were used for this CT. COMPARISON: None. FINDINGS: The visualized lung bases are unremarkable. Moderate heart enlargement with cardiac conduction device noted. Atelectasis nodular thickening in the left lung base measuring 1.1 x 1.5 cm in the subpleural left lower lobe. Normal liver. There are surgical clips in the gallbladder fossa consistent with a prior cholecystectomy. Normal spleen. Normal pancreas. Normal bilateral adrenal glands. No hydronephrosis. Mild stranding of the bilateral perinephric spaces. Normal visualized stomach. No small bowel wall thickening or dilation. There is moderate fecal retention throughout the colon with mild cecal wall thickening. Mild amount of pericecal fat stranding. Mild amount of dependent fluid in the pelvis. The appendix is visualized and appears normal. There is diffuse atherosclerotic calcification of the abdominal aorta, without a demonstrated aneurysm. Normal inferior vena cava. Normal retroperitoneum. Normal urinary bladder. There are prostatic calcifications. There is mild body wall edema. Normal osseous structures. CT/Abdomen/Pelvis without Cont IMPRESSION: 1. No pneumatosis or pneumoperitoneum. 2. Cecal wall thickening with pericecal stranding suggests colitis. Mild fecal residue. 3. Mild pelvic free fluid. 4. Reticulonodular density in the left lung base. 5. Cardiomegaly. Electronically Signed: Sreekanth Borja MD (Brooks) at 13:46 EST , Service support ,
--- NOTE | 2019-06-29 16:10 | NURSING ---
Patient pulled out IV @ 1600. supervisor painting nurse and SALVAGE INSPECTOR attempted restart without success.
--- NOTE | 2019-06-29 16:29 | NURSING ---
engine assembler called at this time to arrange for PICC line. Dispatcher said they will get someone here as soon as possible but it may not be until tomorrow.
[2019-06-29 17:10] LABS: Alcohol, Blood (Medical)-Serum < 3.0 mg/dL
[2019-06-29 17:20] LABS: GGTP 115 U/L (15-85)
--- NOTE | 2019-06-29 17:45 | NURSING ---
EFFICIENCY ANALYST called. See EFFICIENCY ANALYST documentation.
--- NOTE | 2019-06-29 18:03 | EKG12_ITS ---
Test Reason : RAPID RESPONSE Blood Pressure : / mmHG Vent. Rate : 060 BPM Atrial Rate : 060 BPM P-R Int : 138 ms QRS Dur : 202 ms QT Int : 588 ms P-R-T Axes : 034 252 057 degrees QTc Int : 588 ms Atrial-sensed ventricular-paced rhythm Abnormal ECG When compared with ECG of 29-JUN-2019 06:42, MANUAL COMPARISON REQUIRED, DATA IS UNCONFIRMED Confirmed by MIREILLE PABLO, TONYA ([id number]), editor sound SONIYA ALEGRIA ([id number]) on 07/06/2019 1:08:56 PM Referred By: Montez Hong Confirmed By:TONYA KENDRICK MD
--- NOTE | 2019-06-29 18:07 | PCM.HOSP.N ---
Hospitalist Note RAPID RESPONSE ASSIST to Dr. Vega: Intubation Note: Patient with evidence of respiratory and/or impending distress. Discussed with Dr. Cedeño, primary hospitalist and amenable to intubation. Medications administered: Etomidate 20 mg as well as Versed 2 mg x 1. ETT size: 1.5 Patient intubated in standard fashion with visualization of the vocal cords and passage of the ETT. Positioning verified with auscultation. Post-intubation CXR requested. Patient with transition to ICU with consultation to ICU physician per direction via Dr. Vega. Given patient current presentation requested EKG which was paced with no acute evidence of ischemia. BP extremely low with map less than 65, requested aggressive normal saline bolus now and initiation of norepinephrine through the IO with Dr. Miguel noted intention for placement of central line upon transition to the ICU. Also discussed with staff concern for aspiration with Zosyn initiation concurrently. Multi Select Codes - Hospitalists' Procedures Procedures: 15207 Insert Emergency Airway
--- NOTE | 2019-06-29 18:10 | NURSING ---
Called report to OLAF Bryan in ICU.
--- NOTE | 2019-06-29 18:15 | RAD_ITS ---
STUDY: X-RAY CHEST REASON FOR EXAM: Male, 48 years old. ETT PLACEMENT -- ACUTE EXACERBATION OF HEART FAILURE TECHNIQUE: Frontal view COMPARISON: June 29, 2019 at 03:30 hours FINDINGS: Stable right-sided pacemaker. Interval placement of an 8 endotracheal tube with tip 35 mm above the benito. The lungs are clear and expanded. There is no demonstrated pleural abnormality. Cardiomegaly. Normal mediastinum and caleb. Normal visualized pulmonary arteries. Normal visualized aortic arch and descending thoracic aorta. Normal visualized thoracic spine. Normal visualized ribs, clavicles, and shoulders. There is no demonstrated abnormality of the visualized soft tissue structures of the upper abdomen. RAD/Chest 1 View (Portable) IMPRESSION: Persistent cardiomegaly. Electronically Signed: Song Richter DO at 19:44 EST Tel [phone], Service support ,
[2019-06-29 18:26] LABS: Bedside Glucose 165 mg/dL (70-110)
--- NOTE | 2019-06-29 19:03 | PCM.RRT.NO ---
Rapid Response Note Rapid response was called because of patient not responding, apnea and hypotension blood pressure 74/48. Patient had tachypnea alternating with apnea, noncompliance. Earlier patient removed IV line. Patient had rapid sequence intubation by my colleague Dr. Patel. IO line was placed under aseptic manner and flushed with normal saline. Right tibial IO line was inserted in the emergency and patient was put on Ringer lactate bolus and started on IO Levophed drip. Patient was moved to ICU. Chest x-ray was done and ET tube ends at interclavicular line about 2 cm above benito. In ICU, right subclavian central venous catheter was inserted. Patient blood pressure recovered. Blood pressure 111/99. Please see, central venous catheter procedure for details. Patient Problems: Active and Suspected Problems Hypoxia (Acute) Nausea and vomiting (Acute) Dyspnea (Acute) Ventricular tachycardia (paroxysmal) (Acute) - Physical Exam Vitals/I&O's: Vital Signs Temp Pulse Resp BP Pulse Ox 98.0 F 63 18 111/99 H 97 06/29/19 12:47 06/29/19 16:16 06/29/19 15:04 06/29/19 15:04 06/29/19 15:04 Oxygen Flow Rate (L/min) 2 Oxygen Delivery Method Nasal Cannula Weight: 148 lb 2.41 oz Body Mass Index (BMI) 20.0 Finger Stick Blood Glucose 124 Intake and Output for Last 24 Hours 06/27/19 06/28/19 06/29/19 23:59 23:59 23:59 Intake Total 827.35 / 827.35 Balance 827.35 / 827.35 Microbiology Past 72 Hours 06/29/19 03:20 Mucosa - Nasopharyngeal Influenza Types A,B Direct FA (ISABEL) - Final Laboratory Results 06/29/19 03:02: WBC 9.9, RBC 5.68, Hgb 17.0 H, Hct 54.0, MCV 95.1 H, MCH 29.9, MCHC 31.5 L, RDW Std Deviation 58.4 H, RDW Coeff of Paulina 17.3 H, Plt Count 258, MPV 9.8, Immature Gran % (Auto) 0.300, Neut % (Auto) 76.4 H, Lymph % (Auto) 15.3 L, [place] % (Auto) 5.3, Eos % (Auto) 2.0, Baso % (Auto) 0.7, Absolute Neuts (auto) 7.6, Absolute Lymphs (auto) 1.52, Nucleated RBC % 0 06/29/19 03:02: Sodium 136, Potassium 4.0, Chloride 99, Carbon Dioxide 29.0, Anion Gap 8, BUN 41 H, Creatinine 1.47 H, Estim Creat Clear Calc 63.94, Est GFR (MDRD) Af Amer 65, Est GFR (MDRD) Non-Af 54 L, BUN/Creatinine Ratio 27.9 H, Glucose 95, Calcium 9.3, Total Bilirubin 3.30 H, Direct Bilirubin 0.89 H, AST 52 H, ALT 39, Alkaline Phosphatase 309 H, Troponin I 0.363 H, Total Protein 7.6, Albumin 3.1 L, Globulin 4.5 H, Lipase 50 L 06/29/19 03:02: Ethyl Alcohol < 3.0 06/29/19 03:25: Lactic Acid 3.1 H* 06/29/19 06:37: Magnesium 2.0, Troponin I 0.351 H, TSH 3.52 06/29/19 07:55: Lactic Acid 2.9 H* 06/29/19 09:11: Troponin I 0.346 H 06/29/19 09:11: GGT 115 H 06/29/19 17:21: POC Glucose 165 H Current Medications Acetaminophen (Tylenol) 650 mg PO Q6H PRN PRN PRN Reason: Pain Score 1-10/Temp > 100.7 F Last Admin: 06/29/19 13:44 Dose: 650 mg Documented by: Apixaban (Eliquis) 5 mg PO BID [facility] Last Admin: 06/29/19 09:53 Dose: 5 mg Documented by: Carvedilol (Coreg) 3.125 mg PO BID [facility] Last Admin: 06/29/19 09:51 Dose: Not Given Documented by: Furosemide (Lasix) 20 mg PO BIDLX [facility] Glucagon () 1 mg IM .X1 PRN PRN Reason: Hypoglycemia Guaifenesin (Mucinex) 1,200 mg PO BID [facility] Last Admin: 06/29/19 12:00 Dose: Not Given Documented by: Pantoprazole Sodium 40 mg/ (Sodium Chloride) 110 mls @ 330 mls/hr IV Q12 [facility] Last Infusion: 06/29/19 10:10 Dose: Infused Documented by: Sodium Chloride () 250 mls @ 15 mls/hr IV .[id number] PRN PRN Reason: Saline Flush Sodium Chloride () 250 mls @ 15 mls/hr IV .[id number] PRN PRN Reason: Additional IVPB Infusion Dextrose (Dextrose 10%-Water) 250 mls @ 999 mls/hr IV .Q16M PRN; Protocol PRN Reason: HYPOGLYCEMIA Lactated Ringer's () 1,000 mls @ 100 mls/hr IV .Q10H [place] Stop: 06/29/19 22:49 Melatonin (Melatonin) 3 mg PO QHS PRN PRN PRN Reason: INSOMNIA Metoclopramide HCl (Reglan) 5 mg IV Q6H PRN PRN PRN Reason: N/Vomiting Ondansetron HCl (Zofran) 4 mg IV Q8H PRN PRN PRN Reason: NAUSEA/VOMITING Last Admin: 06/29/19 12:57 Dose: 4 mg Documented by: Potassium Chloride (K-Dur) 10 meq PO DAILYCM [facility] Last Admin: 06/29/19 09:42 Dose: 10 meq Documented by: Sodium Chloride () 10 - 40 ml IV UD PRN PRN Reason: SALINE FLUSH Last Admin: 06/29/19 12:25 Dose: 20 ml Documented by: Sodium Chloride (0.9% Nacl (Sterile) Posiflush) 10 - 40 ml IV UD PRN PRN Reason: Port access or dressing change Assessment/Plan All Active Problems Hypoxia (Acute) Nausea and vomiting (Acute) Dyspnea (Acute) Ventricular tachycardia (paroxysmal) (Acute) Acute on chronic systolic heart failure (Acute) CHF (congestive heart failure) (Acute)
--- NOTE | 2019-06-29 19:07 | PCM.OP.PRO ---
Problem List (1) Hypotension Status: Acute (2) No peripheral IV access Status: Acute Procedure Report Date of Procedure: 06/29/19 Indication: Hypotension, no peripheral IV access. Under aseptic manner, right and left neck was sterilized and draped. Patient has right subclavian AICD. Therefore left subclavian vein was accessed and guidewire was passed. The guidewire, triple-lumen catheter was inserted with good blood return in all 3 ports. TLC was secured with silk thread. Portable chest x-ray ordered to confirm the placement of triple-lumen catheter. There was no hematoma. Code Visit Procedures: 73649 Insert Non-tunnel CV Cath
--- NOTE | 2019-06-29 19:35 | RAD_ITS ---
STUDY: X-RAY CHEST REASON FOR EXAM: Male, 48 years old. Central line TECHNIQUE: Frontal view COMPARISON: June 29, 2019 at 18:06 hours FINDINGS: Stable endotracheal tube. Interval placement of a left-sided central line with tip in the distal SVC/subclavian junction. The lungs are clear and expanded. There is no demonstrated pleural abnormality. No pneumothorax. Persistent cardiomegaly. Normal mediastinum and caleb. Normal visualized pulmonary arteries. Normal visualized aortic arch and descending thoracic aorta. Degenerative changes of the visualized thoracic spine. Normal visualized ribs, clavicles, and shoulders. There is no demonstrated abnormality of the visualized soft tissue structures of the upper abdomen. RAD/Chest 1 View (Portable) IMPRESSION: Cardiomegaly. Electronically Signed: Song Richter DO at 20:39 EST Tel [phone], Service support ,
--- NOTE | 2019-06-29 19:59 | EKG12_ITS ---
Test Reason : ST ELEVATION Blood Pressure : / mmHG Vent. Rate : 055 BPM Atrial Rate : 055 BPM P-R Int : 136 ms QRS Dur : 210 ms QT Int : 638 ms P-R-T Axes : 058 245 065 degrees QTc Int : 610 ms Electronic ventricular pacemaker No previous ECGs available Confirmed by MIREILLE PABLO, TONYA ([id number]), editor managing newspaper SONIYA ALEGRIA ([id number]) on 07/06/2019 1:08:44 PM Referred By: Montez Hong Confirmed By:TONYA KENDRICK MD
--- NOTE | 2019-06-29 20:10 | NURSING ---
Several attempts were made to obtain a blood pressure on this patient. Dr Young was made aware the last manual BP we were able to get was 60/palp. Dr. Hong was also made aware we were unable to obtain a BP on this patient. Dr Young would like for this RN to Call hospitalist to the bedside, start and Arterial line and run fluids wide open. During the telephone conversation with Dr Young the pt went PEA. Code was called.
--- NOTE | 2019-06-29 20:44 | CASEMGMT ---
SOCIAL WORK RESPONDED TO CODE BLUE. NO FAMILY PRESENT. REVIEWED CHART AND PREVIOUS VISITS. PATIENT HAD REFUSED TO NAME A PARTY DEMONSTRATOR. ONLY NAME FOUND IN CHART FROM THIS VISIT, 06/29/19 WAS OF A FRIEND WHO ASSISTS WITH TRANSPORTATION NEEDS, OSCAR ALEGRIA. STAFF UPDATED. WILL REMAIN AVAILABLE FOR NEEDS. Afshan GARCIA MSW, [employer]ING PLANT OPERATOR.
--- NOTE | 2019-06-29 20:53 | ED.RN ---
aRlph CONNER RN TOOK OVER CHARTING FOR CODE AT 2025
--- NOTE | 2019-06-29 20:58 | PCM.CODE.B ---
Code Blue Summary Patient had no blood pressure. He had no pulse. He was unresponsive. ACLS was done from 2019 to 2044. During the ACLS patient received epinephrine; bicarbonate; Levophed drip was given at wide open and Bony-Synephrine drip was given at wide open. Nursing staff and physician discussed the case with well logging mud analysis captain, Dr. Young before code and when the code was ongoing. Patient flipped from PEA to asystole and back and forth and then remained permanently in asystole. The code was stopped at 2044. Patient
--- NOTE | 2019-06-29 20:58 | PCM.DEATH ---
Preliminary Cause of Probably cardiogenic shock Date of Admission: 06/29/19 Date of : 06/29/19 - Principle Diagnosis Acute on chronic systolic heart failure Problem List: Active and Suspected Problems Hypoxia (Acute) Nausea and vomiting (Acute) Dyspnea (Acute) Ventricular tachycardia (paroxysmal) (Acute) Hypotension (Acute) No peripheral IV access (Acute) Hospital Course The patient is a 48 year old M with a significant history of non ischemic cardiomyopathy with ejection fraction of about 10%; ICD; and a pulmonary embolism who presented to the emergency department with shortness of breath; severe fatigue and weakness; productive cough with associated abdominal pain and nausea and vomiting in the setting of barrier to care of patient not taking his guideline directed heart failure medication and his eliquis in the outpatient setting. Upon presentation his home Lasix was resumed and he was started back on beta-blockers. Because of paroxysmal ventricular tachycardia patient was started on amiodarone drip. A repeat echocardiogram (06/29/2019) was ordered on admission. The echocardiogram still showed estimated ejection fraction of 10% with moderate mitral valve insufficiency and moderately severe tricuspid valve insufficiency. 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 His previous echocardiogram on 04/08/2019 also shows showed left ventricular thrombus. 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 On this admission patient reported that he had gone about 2 weeks without his Eliquis and he resumed his Eliquis 2 weeks before presentation. However patient was not consistent with his history. On admission his Eliquis was resumed. Because of concern of abdominal pain and abdominal x-ray was done. Abdominal x-ray was unremarkable. Admission patient was started on Protonix IV. An abdominal and pelvis CT was obtained because of concern for intestinal ischemia. At the progressive care unit rapid response was called because patient was not responding, he was apneic and hypotensive with blood pressures around 74/48. He was subsequently intubated. Because earlier on he had pulled his IV line and an immediate peripheral line could not be placed, intraosseous line was placed and patient was given normal saline bolus and norepinephrine was initiated. Because of concern for aspiration pneumonia patient was started on Zosyn and was transferred to the intensive care unit. At the intensive care unit a left subclavian was placed. While at the intensive care unit patient was noted not to be responding.. He was apneic. He had no pulse and was found to be in PEA. Manual blood pressure could not be obtained obtained. JT MOSQUERA was called at that time. ACLS was done from 2019 to 2044. During the ACLS patient received CPR; Was ambu-bagged. He received epinephrine; and bicarbonate. Levophed drip was given at wide open and Bony-Synephrine drip was given at wide open. NSS was given at wide open. Nursing staff and physician discussed the case with fountain pen nibs inspector, Dr. Young before code and when the code was ongoing. Patient flipped from PEA to asystole and back and forth and then remained permanently in asystole. The code was stopped at 2044 after several rounds of CPR. The patient had no pulse. His pupils were dilated. He had no corneal reflex. He had no gag reflex. There was no heart sounds. There was no breath sounds. Patient was pronounced . Probable cause of is cardiogenic shock; and pulmonary embolism. Time of discharge including CODE BLUE was from 2019 to 2044 (25 minutes) Code Visit Inpatient E&M: [id number] Disch Hosp
--- NOTE | 2019-06-29 21:05 | CPS ---
Called Dr. Linares at 18:52 with ABG results and for vent change orders. Verbal order from Dr. Linares to go up to 15 PEEP if needed making sure plateau pressure stays below 30.
--- NOTE | 2019-06-29 21:10 | CPS ---
Critical ABG results given to Dr. Vega. ABG done with ultrasound guidance and correlated with monitor reading. No further orders given by Dr. Vega. Dr. Linares called for vent management.
--- NOTE | 2019-06-29 21:14 | NURSING ---
[facility] called at 0. Fluids given in last hour of life were 997ml of Levophed, 67.5ml of Bony-Synephrine, 1 liter of normal saline, 6 IV push of Epineprine, 1 amp of Sodium bicarb. No blood was given in the last 48 hours.
[2019-06-29 21:20] LABS: Base Excess -24 mmol/L (-2 to +2); Bicarbonate 4.8 mmol/L (22-26); Blood Gas Specimen Type ART; FI02 100; Mode A-C; O2 Delivery Device Vent; PEEP 5; PO2 26 mmHG (75-100); RR 14; SITE R Brachial; SO2 37 % (95-99); Time Given 1831; Total Carbon Dioxide 5 mmol/L; Vt 500; pH 7.18 (7.35-7.45)
== END 2019-06-29 20:45 | DRG 291 ==
LOC: ED 05:15 → PCU 05:48 → ICU 20:02 → PCU 20:02
PROVIDERS: Admitting Provider Hospitalist; Emergency Provider Emergency Medicine; Referring Provider Hospitalist; Visit Provider Internal Medicine
DX: I50.23 Acute on chronic systolic (congestive) heart failure (principal); I26.99 Other pulmonary embolism without acute cor pulmonale; E87.2 Acidosis; N17.9 Acute kidney failure, unspecified; I24.8 Other forms of acute ischemic heart disease; I47.2 Ventricular tachycardia; I42.8 Other cardiomyopathies; Z95.810 Presence of automatic (implantable) cardiac defibrillator; F17.210 Nicotine dependence, cigarettes, uncomplicated; Z91.14 Patient's other noncompliance with medication regimen; R57.0 Cardiogenic shock; R09.02 Hypoxemia; I08.1 Rheumatic disorders of both mitral and tricuspid valves
CPT/HCPCS: 31500; 36415; 36600; 71045; 71046; 74019; 74176; 80048; 80076; 80320; 82803; 82962; 82977; 83605; 83690; 83735; 84443; 84484; 85025; 87633; 87804; 92950; 93005; 93308; 94002; 94667; 97802; 99251; 99283; 99406; J7030; J7050; A4216; C1751; G0463; G0480; J2405